=== PATIENT | female | born 1955 | race Caucasian/White ===

== ENCOUNTER 2019-04-18 09:04 | Emergency (ER) | payer MEDICAID, OTHER ==
--- OUTSIDE RECORDS SUMMARY | 2019-04-18 09:05 | XMS REPORT ---
:1955 [facility] Address [address] [place] [address] Dr. Loredo [address] [place] [id number] Care Team Providers Name Role Phone Unavailable Unavailable Unavailable Problems This patient has no known problems. Allergies, Adverse Reactions, Alerts This patient has no known allergies or adverse reactions. Medications This patient has no known medications.
[2019-04-18] MEDS ORDERED: NA CHLORIDE 0.9% 1,000 ML ONE (09:33)
[2019-04-18 10:16] LABS: Absolute Lymphocytes (CBC) 1.8 K/uL (0.7-4.9); Basophils % 0.9 % (0-1.3); Hematocrit 44.8 % (36.0-45.0); Lymphocytes % 32.1 % (15.3-44.8); MPV 9.7 fL (7.6-11.3); RBC Red Blood Cell Count 4.94 M/uL (3.86-4.86)
[2019-04-18 10:17] LABS: Protime INR 0.92
[2019-04-18 10:23] LABS: Barbiturates NEGATIVE (NEGATIVE); Benzodiazepines NEGATIVE (NEGATIVE); Cocaine NEGATIVE (NEGATIVE); METHAMPHETAM NEGATIVE (NEGATIVE); Methadone NEGATIVE (NEGATIVE); Opiates NEGATIVE (NEGATIVE); Phencyclidine NEGATIVE (NEGATIVE); THC Cannibis POSITIVE (NEGATIVE)
--- NOTE | 2019-04-18 10:30 | RAD REPORT ---
EXAM DESCRIPTION: RAD - Chest Single View - 04/18/2019 9:36 am CLINICAL HISTORY: Weakness, shortness of breath COMPARISON: September 2012 TECHNIQUE: AP portable chest image was obtained 0932 hour . FINDINGS: No focal mass or consolidation is seen. Diffuse interstitial opacification is present. Thi s is more pronounced than seen in 2013 and could represent an acute interstitial edema or infiltrate as well as progressive interstitial fibrosis. Trachea is midline. Heart and vasculature are within no rmal limits. No measurable pleural effusion and no pneumothorax. No acute bony abnormality seen. No acute aortic findings suspected. IMPRESSION: Diffuse interstitial pattern increased over 2013. No focal mass or consolidation. Interval change could indicate progressive fibrosis or an acute interstitial edema/ infiltrate proces s.
[2019-04-18 10:34] LABS: ALT/SGPT 25 U/L (12-78); AST/SGOT 8 U/L (15-37); Alkaline Phosphatase 82 U/L (45-117); BUN Blood Urea Nitrogen 18 mg/dL (7-18); Bicarbonate 23 mmol/L (21-32); Bilirubin Direct 0.1 mg/dL (0-0.2); Bilirubin Total 0.4 mg/dL (0.2-1.0); Glucose Level 97 mg/dL (74-106); Magnesium 2.5 mg/dL (1.8-2.4); NT PRO-BNP 29 pg/mL (<125); Potassium 3.7 mmol/L (3.5-5.1); Protein, Total 7.4 g/dL (6.4-8.2); Sodium Level 142 mmol/L (136-145); Troponin (Emerg Dept Use Only) < 0.02 ng/mL (0.0-0.045)
[2019-04-18 10:43] LABS: Urine Bacteria <20 /HPF (<20); Urine Culture Reflex Order NOT NEEDED; Urine RBC <5 /HPF (NONE SEEN)
[2019-04-18 10:54] LABS: Urine Blood TRACE (NEG); Urine Glucose NEGATIVE (NEG); Urine Protein NEGATIVE (NEG); Urine Specific Gravity <1.005 (1.005-1.030)
--- NOTE | 2019-04-18 11:39 | ER ---
Nurse's Notes [facility] Name: Lia Trejo Age: 64 yrs Sex: Female : 1955 Arrival Date: 04/18/2019 Time: 09:06 Bed 7 Private MD: Diagnosis: Malaise and fatigue;Patient's intentional underdosing of medication regimen due to financial hardship Presentation: 04/18 09:15 Presenting complaint: Patient states: "I've just been feeling weak and dizzy off and on ss for the past week, but this morning it is much worse." Patient has been out of most of her medications and has not taken any in a few weeks. Patient reports smoking marijuana this morning to see if it would help, but reports that it made her feel worse/ anixous. Transition of care: patient was not received from another setting of care. Onset of symptoms was April 12, 2019. Risk Assessment: Do you want to hurt yourself or someone else? Patient reports no desire to harm self or others. Initial Sepsis Screen: Does the patient meet any 2 criteria? No. Patient's initial sepsis screen is negative. Does the patient have a suspected source of infection? No. Patient's initial sepsis screen is negative. Note Patient checked her blood sugar this morning and reported it read 20 and is concerned that her Glucometer is not working properly. Care prior to arrival: None. 09:15 Method Of Arrival: Ambulatory ss 09:15 Acuity: BRAYDEN 3 ss 09:25 Presenting complaint: Patient states: SUBJECTIVE HYPOGLYCEMIA. Transition of care: bp patient was not received from another setting of care. Onset of symptoms is unknown. Risk Assessment: Do you want to hurt yourself or someone else? Patient reports no desire to harm self or others. Initial Sepsis Screen: Does the patient meet any 2 criteria? No. Patient's initial sepsis screen is negative. Does the patient have a suspected source of infection? No. Patient's initial sepsis screen is negative. Care prior to arrival: None. 09:25 Method Of Arrival: Wheelchair bp 09:25 Acuity: BRAYDEN 3 bp Triage Assessment: 09:12 General: Appears in no apparent distress. comfortable, Behavior is cooperative, bp appropriate for age, anxious. Pain: Denies pain. EENT: No deficits noted. Neuro: Level of Consciousness is awake, alert, obeys commands, Oriented to person, place, time, situation, Appropriate for age Reports SHAKINESS. Cardiovascular: No deficits noted. Respiratory: No deficits noted. GI: No signs and/or symptoms were reported involving the gastrointestinal system. : No signs and/or symptoms were reported regarding the genitourinary system. Derm: No deficits noted. Musculoskeletal: No deficits noted. Historical: - Allergies: 09:26 Codeine; ss 09:26 PENICILLINS; ss 09:26 Sulfa (Sulfonamide Antibiotics); ss 09:26 Codeine; bp 09:26 PENICILLINS; bp 09:26 Sulfa (Sulfonamide Antibiotics); bp - Home Meds: 09:26 PT NON-COMPLIANT WITH MEDS [Active]; bp - PMHx: 09:26 Anxiety; COPD; Crohn's; Depression; Bipolar disorder; ss 09:26 Anxiety; Bipolar disorder; COPD; Crohn's; Depression; bp - PSHx: 09:26 Tubal ligation; Hysterectomy; knot removed from groin; Cholecystectomy; ss - Immunization history:: Adult Immunizations up to date, Adult Immunizations unknown. - Social history:: Smoking status: Smoking status: Patient uses tobacco products, unknown amount. - Ebola Screening: : Patient denies exposure to infectious person Patient denies travel to an Ebola-affected area in the 21 days before illness onset No symptoms or risks identified at this time. Screenin:14 Abuse screen: Denies threats or abuse. Denies injuries from another. Nutritional bp screening: No deficits noted. Tuberculosis screening: No symptoms or risk factors identified. Fall Risk None identified. Assessment: 09:14 General: SEE TRIAGE NOTE. bp 10:30 Reassessment: ALL CURRENT ORDERS COMPLETED, RESULTS PENDING. bp 12:03 Reassessment: PT D/C HOME AMBULATORY WITH FAMILY, DX WITH MALAISE. bp Vital Signs: 09:13 BP 161 / 73; Pulse 74; Resp 16; Temp 98.2; Pulse Ox 98% ; Weight 73.94 kg; Height 5 ft. bp 5 in. (165.10 cm); 09:38 BP 156 / 61; Pulse 66; Resp 17; Pulse Ox 97% ; bp 10:42 BP 149 / 58; Pulse 62; Resp 18; Pulse Ox 98% on R/A; ph 12:04 BP 137 / 69; Pulse 58; Resp 16; Temp 98; Pulse Ox 97% ; bp 09:13 Body Mass Index 27.13 (73.94 kg, 165.10 cm) bp ED Course: 09:06 Patient arrived in ED. as 09:07 Bubba Post MD is Attending Physician. rn 09:08 Ananya Colon FNP-C [facility]. snw 09:08 Roosevelt Noel, RN is Primary Nurse. bp 09:14 Arm band placed on left wrist. bp 09:14 Patient has correct armband on for positive identification. Placed in gown. Bed in low bp position. Call light in reach. Side rails up X2. Adult w/ patient. 09:25 Triage completed. bp 09:25 Inserted saline lock: 20 gauge in right antecubital area, using aseptic technique. bp 09:39 EKG done, by ED staff, reviewed by Bubba Post MD. mh5 09:40 XRAY Chest (1 view) In Process Unspecified. EDMS 10:11 Urine collected: clean catch specimen, clear, Amount Voided: 240mL. mh5 10:15 UDS Sent. mh5 10:16 Urine Microscopic Only Sent. mh5 12:04 No provider procedures requiring assistance completed. bp 12:05 IV discontinued, intact, bleeding controlled, No redness/swelling at site. Pressure bp dressing applied. Administered Medications: 09:30 Drug: NS 0.9% 1000 ml Route: IV; Rate: 125 ml/hr; Site: right antecubital; bp 12:03 Follow up: IV Status: Completed infusion; IV Intake: 300ml bp 10:09 Drug: NS 0.9% 500 ml Route: IV; Rate: bolus; Site: right antecubital; bp 12:02 Follow up: IV Status: Completed infusion; IV Intake: 500ml bp Point of Care Testing: Blood Glucose: 09:26 Blood Glucose: 97 mg/dL; ss Ranges: Intake: 12:02 IV: 500ml; Total: 500ml. bp 12:03 IV: 300ml; Total: 800ml. bp Outcome: 11:39 Discharge ordered by . snw 12:04 Discharged to home ambulatory, with family. bp 12:04 Condition: stable 12:04 Discharge instructions given to patient, Instructed on discharge instructions, follow up and referral plans. Demonstrated understanding of instructions, follow-up care. 12:06 Patient left the ED. bp Signatures: Dispatcher [employer] EDMS Ananya Colon, API DEVELOPER-C API DEVELOPER-Csnw Sujey Sim Roman, MD MD rn Smirch, Shelby, RN RN Kasandra Guerra RN RN Makeda Sim [facility] Roosevelt Noel RN RN bp Corrections: (The following items were deleted from the chart) 09:14 09:13 BP 161 / 73; Pulse 74bpm; Resp 16bpm; Pulse Ox 98%; 73.94 kg; Height 5 ft. 5 in.; bp BMI: 27.1; bp
--- NOTE | 2019-04-18 11:40 | EDPHYS ---
Physician Documentation [facility] Name: Lia Trejo Age: 64 yrs Sex: Female : 1955 Arrival Date: 04/18/2019 Time: 09:06 Bed 7 Private MD: ED Physician Bubba Post HPI: 04/18 09:16 This 64 yrs old Female presents to ER via Unassigned with complaints of Low snw Blood Sugar. 09:16 The patient or guardian reports generalized weakness, palpitations, that was snw potentially precipitated by stopping meds. Onset: The symptoms/episode began/occurred gradually, 1 week(s) ago, and became worse this morning. Associated signs and symptoms: Pertinent positives: shaky, weak. Current symptoms: In the emergency department the patient's symptoms are unchanged from the initial presentation. It is unknown whether or not the patient has had similar symptoms in the past. The patient has not recently seen a physician, the patient's primary care provider is Dr. Abiodun Mendoza NP. Historical: - Allergies: 09:26 Codeine; ss 09:26 PENICILLINS; ss 09:26 Sulfa (Sulfonamide Antibiotics); ss 09:26 Codeine; bp 09:26 PENICILLINS; bp 09:26 Sulfa (Sulfonamide Antibiotics); bp - Home Meds: 09:26 PT NON-COMPLIANT WITH MEDS [Active]; bp - PMHx: 09:26 Anxiety; COPD; Crohn's; Depression; Bipolar disorder; ss 09:26 Anxiety; Bipolar disorder; COPD; Crohn's; Depression; bp - PSHx: 09:26 Tubal ligation; Hysterectomy; knot removed from groin; Cholecystectomy; ss - Immunization history:: Adult Immunizations up to date, Adult Immunizations unknown. - Social history:: Smoking status: Smoking status: Patient uses tobacco products, unknown amount. - Ebola Screening: : Patient denies exposure to infectious person Patient denies travel to an Ebola-affected area in the 21 days before illness onset No symptoms or risks identified at this time. ROS: 09:15 Eyes: Negative for injury, pain, redness, and discharge, ENT: Negative for injury, snw pain, and discharge, Neck: Negative for injury, pain, and swelling, Cardiovascular: Negative for chest pain, palpitations, and edema, Respiratory: Negative for shortness of breath, cough, wheezing, and pleuritic chest pain, Abdomen/GI: Negative for abdominal pain, nausea, vomiting, diarrhea, and constipation, Back: Negative for injury and pain, : Negative for injury, bleeding, discharge, and swelling, MS/Extremity: Negative for injury and deformity, Skin: Negative for injury, rash, and discoloration. 09:15 Constitutional: Positive for fatigue, malaise. 09:15 Neuro: Positive for generalized weakness, shaky. 09:15 Psych: Positive for off all psych meds 2nd to financial issues. Exam: 09:14 Constitutional: This is a well developed, well nourished patient who is awake, alert, snw and in no acute distress. Head/Face: Normocephalic, atraumatic. Eyes: Pupils equal round and reactive to light, extra-ocular motions intact. Lids and lashes normal. Conjunctiva and sclera are non-icteric and not injected. Cornea within normal limits. Periorbital areas with no swelling, redness, or edema. ENT: Nares patent. No nasal discharge, no septal abnormalities noted. Tympanic membranes are normal and external auditory canals are clear. Oropharynx with no redness, swelling, or masses, exudates, or evidence of obstruction, uvula midline. Mucous membranes moist. Edentulous Neck: Trachea midline, no thyromegaly or masses palpated, and no cervical lymphadenopathy. Supple, full range of motion without nuchal rigidity, or vertebral point tenderness. No Meningismus. Chest/axilla: Normal chest wall appearance and motion. Nontender with no deformity. No lesions are appreciated. Cardiovascular: Regular rate and rhythm with a normal S1 and S2. No gallops, murmurs, or rubs. Normal PMI, no JVD. No pulse deficits. Respiratory: Lungs have equal breath sounds bilaterally, clear to auscultation and percussion. No rales, rhonchi or wheezes noted. No increased work of breathing, no retractions or nasal flaring. Abdomen/GI: Soft, non-tender, with normal bowel sounds. No distension or tympany. No guarding or rebound. No evidence of tenderness throughout. Back: No spinal tenderness. No costovertebral tenderness. Full range of motion. Skin: Warm, dry with normal turgor. Normal color with no rashes, no lesions, and no evidence of cellulitis. MS/ Extremity: Pulses equal, no cyanosis. Neurovascular intact. Full, normal range of motion. Neuro: Awake and alert, GCS 15, oriented to person, place, time, and situation. Cranial nerves II-XII grossly intact. Motor strength 5/5 in all extremities. Sensory grossly intact. Cerebellar exam normal. Normal gait. Psych: Awake, alert, with orientation to person, place and time. Behavior, mood, and affect are within normal limits. Vital Signs: 09:13 BP 161 / 73; Pulse 74; Resp 16; Temp 98.2; Pulse Ox 98% ; Weight 73.94 kg; Height 5 ft. bp 5 in. (165.10 cm); 09:38 BP 156 / 61; Pulse 66; Resp 17; Pulse Ox 97% ; bp 10:42 BP 149 / 58; Pulse 62; Resp 18; Pulse Ox 98% on R/A; ph 12:04 BP 137 / 69; Pulse 58; Resp 16; Temp 98; Pulse Ox 97% ; bp 09:13 Body Mass Index 27.13 (73.94 kg, 165.10 cm) bp MDM: 09:07 Patient medically screened. rn 11:40 Data reviewed: vital signs, nurses notes. Data interpreted: Pulse oximetry: on room air snw is 98 %. Interpretation: normal. Counseling: I had a detailed discussion with the patient and/or guardian regarding: the historical points, exam findings, and any diagnostic results supporting the discharge/admit diagnosis, the presence of at least one elevated blood pressure reading (>120/80) during this emergency department visit, lab results, radiology results, the need for outpatient follow up, to return to the emergency department if symptoms worsen or persist or if there are any questions or concerns that arise at home. Special discussion: Based on the history and exam findings, there is no indication for further emergent testing or inpatient evaluation. I discussed with the patient/guardian the need to see the primary care provider for further evaluation of the symptoms. 04/18 09:14 Order name: UDS; Complete Time: 10:31 snw 04/18 09:14 Order name: Basic Metabolic Panel; Complete Time: 10:35 snw 04/18 09:14 Order name: CBC with Diff; Complete Time: 10:31 snw 04/18 09:14 Order name: LFT's; Complete Time: 10:35 snw 04/18 09:14 Order name: Magnesium; Complete Time: 10:35 snw 04/18 09:14 Order name: NT PRO-BNP; Complete Time: 10:35 snw 04/18 09:14 Order name: PT-INR; Complete Time: 10:31 snw 04/18 09:14 Order name: Troponin (emerg Dept Use Only); Complete Time: 10:35 snw 04/18 09:14 Order name: XRAY Chest (1 view); Complete Time: 10:32 snw 04/18 09:14 Order name: TSH; Complete Time: 10:35 snw 04/18 09:14 Order name: Urine Microscopic Only; Complete Time: 10:55 snw 04/18 10:51 Order name: Urine Dipstick--Ancillary (enter results) bd 04/18 09:14 Order name: EKG; Complete Time: 09:16 snw 04/18 09:14 Order name: Cardiac monitoring; Complete Time: 09:24 snw 04/18 09:14 Order name: EKG - Nurse/Tech; Complete Time: 09:38 snw 04/18 09:14 Order name: IV Saline Lock; Complete Time: 09:24 snw 04/18 09:14 Order name: Labs collected and sent; Complete Time: 09:24 snw 04/18 09:14 Order name: O2 Per Protocol; Complete Time: 09:24 snw 04/18 09:14 Order name: O2 Sat Monitoring; Complete Time: 09:24 snw 04/18 09:14 Order name: Urine Dipstick-Ancillary (obtain specimen); Complete Time: 10:16 snw Administered Medications: 09:30 Drug: NS 0.9% 1000 ml Route: IV; Rate: 125 ml/hr; Site: right antecubital; bp 12:03 Follow up: IV Status: Completed infusion; IV Intake: 300ml bp 10:09 Drug: NS 0.9% 500 ml Route: IV; Rate: bolus; Site: right antecubital; bp 12:02 Follow up: IV Status: Completed infusion; IV Intake: 500ml bp Point of Care Testing: Blood Glucose: 09:26 Blood Glucose: 97 mg/dL; ss Ranges: Critical Glucose Levels:Adult <50 mg/dl or >400 mg/dl <40 mg/dl or >180 mg/dl Disposition: 17:53 Co-signature as Attending Physician, Bubba Post MD. rn Disposition: 04/18/19 11:39 Discharged to Home. Impression: Malaise and fatigue, Patient's intentional underdosing of medication regimen due to financial hardship. - Condition is Stable. - Discharge Instructions: Weakness, Fatigue. - Medication Reconciliation Form, Thank You Letter, Antibiotic Education, Prescription Opioid Use form. - Follow up: Private Physician; When: 2 - 3 days; Reason: Recheck today's complaints, Continuance of care, Re-evaluation by your physician. Follow up: Emergency Department; When: As needed; Reason: Worsening of condition. Signatures: Dispatcher [employer] EDMS Ananya Colon, RADIO REPAIRMAN-C RADIO REPAIRMAN-Csnw Bubba Post MD MD rn Regine Stone RN RN Roosevelt Rao RN RN bp Corrections: (The following items were deleted from the chart) 12:06 11:39 04/18/2019 11:39 Discharged to Home. Impression: Malaise and fatigue; Patient's bp intentional underdosing of medication regimen due to financial hardship. Condition is Stable. Forms are Medication Reconciliation Form, Thank You Letter, Antibiotic Education, Prescription Opioid Use. Follow up: Private Physician; When: 2 - 3 days; Reason: Recheck today's complaints, Continuance of care, Re-evaluation by your physician. Follow up: Emergency Department; When: As needed; Reason: Worsening of condition. snw
[2019-04-18 12:29] VITALS: BP 137/69; TEMP 98; O2SAT 97
--- NOTE | 2019-04-18 15:33 | EKG ---
Test Date: 2019-04-18 Test Time: 09:34:31 Cadmium Plater: DWAINE MEASUREMENT RESULTS: Intervals: Rate: 69 SD: 162 QRSD: 84 QT: 420 QTc: 450 [place]: P: 72 SD: 162 QRS: 58 T: 62 INTERPRETIVE STATEMENTS: Normal sinus rhythm Possible Left atrial enlargement T wave abnormality, consider anterior ischemia Abnormal ECG Compared to ECG 05/15/2016 14:00:48 T-wave abnormality now present Possible ischemia now present Sinus bradycardia no longer present Electronically Signed On 04-18-19 15:32:49 CDT by Kenny Paredes
== END 2019-04-18 12:06 | disposition home or self-care (01) ==
LOC: ER 09:04
DX: R53.81 Other malaise (principal); R53.83 Other fatigue; Z91.120 Patient's intentional underdosing of medication regimen due to financial hardship; Z88.6 Allergy status to analgesic agent; Z88.0 Allergy status to penicillin; Z88.2 Allergy status to sulfonamides; Z72.0 Tobacco use
CPT/HCPCS: 96361; 93005; 85025; 80048; 36415; 83735; 85610; 82962; 80076; 80307 ×8; 84443; 84484; 83880; 71045; 96360; 99284; J7030; 81003; 81015

== ENCOUNTER 2019-08-12 03:20 | Emergency (ER) | payer MEDICAID ==
--- OUTSIDE RECORDS SUMMARY | 2019-08-12 03:22 | XMS REPORT ---
:1955 [facility] Address [address] [place] [address] Dr. Loredo [address] [place] [id number] Care Team Providers Name Role Phone Unavailable Unavailable Unavailable Problems This patient has no known problems. Allergies, Adverse Reactions, Alerts This patient has no known allergies or adverse reactions. Medications This patient has no known medications.
[2019-08-12 04:15] LABS: Protime INR 1.03
[2019-08-12 04:21] LABS: Hematocrit 43.2 % (36.0-45.0); Lymphocytes % 45.6 % (15.3-44.8); MPV 9.3 fL (7.6-11.3); RBC Red Blood Cell Count 4.85 M/uL (3.86-4.86)
[2019-08-12 04:36] LABS: ALT/SGPT 17 U/L (12-78); AST/SGOT 12 U/L (15-37); Albumin 3.8 g/dL (3.4-5.0); Alkaline Phosphatase 81 U/L (45-117); BUN Blood Urea Nitrogen 15 mg/dL (7-18); Bicarbonate 25 mmol/L (21-32); Bilirubin Direct 0.2 mg/dL (0-0.2); Bilirubin Total 0.9 mg/dL (0.2-1.0); Glucose Level 102 mg/dL (74-106); Magnesium 2.4 mg/dL (1.8-2.4); NT PRO-BNP 38 pg/mL (<125); Potassium 3.3 mmol/L (3.5-5.1); Sodium Level 141 mmol/L (136-145); Troponin (Emerg Dept Use Only) < 0.02 ng/mL (0.0-0.045)
--- NOTE | 2019-08-12 05:17 | ER ---
Nurse's Notes [facility] Name: Lia Trejo Age: 64 yrs Sex: Female : 1955 Arrival Date: 08/12/2019 Time: 03:22 Bed 20 Private MD: Diagnosis: Anxiety disorder, unspecified;Palpitations Presentation: 08/12 03:25 Presenting complaint: Patient states: "I have been having the feeling like you can feel ca1 your heartbeat and like it's coming too fast. Been feeling this for about a month now." pt reports cough, congestion, nausea and dizziness. Denies vomiting and fever. Pt also reports to have anxiety disorder which she takes meds for but has stopped taken since February because of insurance issues, but has reported to have started taking them back again since yesterday. VS stable, EKG sinus rhythm. Transition of care: patient was not received from another setting of care. Onset of symptoms was August 12, 2019. Risk Assessment: Do you want to hurt yourself or someone else? Patient reports no desire to harm self or others. Initial Sepsis Screen: Does the patient meet any 2 criteria? No. Patient's initial sepsis screen is negative. Does the patient have a suspected source of infection? No. Patient's initial sepsis screen is negative. Care prior to arrival: None. 03:25 Method Of Arrival: Wheelchair ca1 03:25 Acuity: BRAYDEN 3 ca1 Triage Assessment: 03:47 General: Appears in no apparent distress. comfortable, Behavior is calm, cooperative, ca1 appropriate for age. Pain: Denies pain. EENT: No deficits noted. No signs and/or symptoms were reported regarding the EENT system. Neuro: Level of Consciousness is awake, alert, obeys commands, Oriented to person, place, time, situation, Appropriate for age. Cardiovascular: Heart tones S1 S2 present Capillary refill < 3 seconds Patient's skin is warm and dry. Rhythm is sinus rhythm. Respiratory: Airway is patent Respiratory effort is even, unlabored, Respiratory pattern is regular, symmetrical, Breath sounds are clear bilaterally. GI: Abdomen is flat, non-distended, Bowel sounds present X 4 quads. Abd is soft and non tender X 4 quads. : No deficits noted. No signs and/or symptoms were reported regarding the genitourinary system. Derm: Skin is intact, is healthy with good turgor, Skin is pink, warm \\T\\ dry. Musculoskeletal: Circulation, motion, and sensation intact. Capillary refill < 3 seconds, Range of motion: intact in all extremities. Historical: - Allergies: 03:47 Codeine; ca1 03:47 PENICILLINS; ca1 03:47 Sulfa (Sulfonamide Antibiotics); ca1 - Home Meds: 03:47 Trazodone Oral [Active]; Seroquel Oral [Active]; Simvastatin Oral [Active]; divalproex ca1 oral oral [Active]; - PMHx: 03:47 Anxiety; Bipolar disorder; COPD; Crohn's; Depression; Hypertension; Hyperlipidemia; ca1 Thyroid problem; - PSHx: 03:47 Tubal ligation; Hysterectomy; knot removed from groin; Cholecystectomy; ca1 - Immunization history:: Adult Immunizations not up to date, Pneumococcal vaccine is not up to date, Flu vaccine is not up to date. - Social history:: Smoking status: Patient uses tobacco products, smokes one pack cigarettes per day. - Ebola Screening: : Patient negative for fever greater than or equal to 101.5 degrees Fahrenheit, and additional compatible Ebola Virus Disease symptoms Patient denies exposure to infectious person Patient denies travel to an Ebola-affected area in the 21 days before illness onset No symptoms or risks identified at this time. Screenin:40 Abuse screen: Denies threats or abuse. Denies injuries from another. Nutritional ca1 screening: No deficits noted. Tuberculosis screening: No symptoms or risk factors identified. Fall Risk IV access (20 points). Assessment: 03:40 Reassessment: SEE TRIAGE NOTES. Pain: Denies pain. Pain does not radiate. Pain began ca1 denies pain. 04:59 Reassessment: Patient appears in no apparent distress at this time. Patient is alert, ca1 oriented x 3, equal unlabored respirations, skin warm/dry/pink. 05:31 Reassessment: Patient appears in no apparent distress at this time. Patient is alert, ca1 oriented x 3, equal unlabored respirations, skin warm/dry/pink. Vital Signs: 03:25 BP 178 / 76; Pulse 85; Resp 15 S; Temp 98.5(O); Pulse Ox 96% on R/A; Weight 64.86 kg ca1 (R); Height 5 ft. 5 in. (165.10 cm) (R); Pain 0/10; 04:05 BP 160 / 78; Pulse 61; Resp 17 S; Pulse Ox 95% on R/A; ca1 04:45 BP 147 / 51; Pulse 58; Resp 17 S; Pulse Ox 93% on R/A; ca1 05:31 BP 137 / 68; Pulse 76; Resp 17 S; Pulse Ox 95% on R/A; ca1 03:25 Body Mass Index 23.79 (64.86 kg, 165.10 cm) ca1 ED Course: 03:22 Patient arrived in ED. ds1 03:25 Arm band placed on right wrist. EKG completed in triage. Results shown to MD. ca1 03:29 Haider Nixon MD is Attending Physician. kdr 03:38 Roxanna López, MAYA is Primary Nurse. ca1 03:40 Patient has correct armband on for positive identification. Placed in gown. Bed in low ca1 position. Call light in reach. Side rails up X 1. cardiac monitor on. Pulse ox on. NIBP on. Warm blanket given. 03:40 No provider procedures requiring assistance completed. Patient maintains SpO2 ca1 saturation greater than 95% on room air. 03:43 Triage completed. ca1 03:45 XRAY Chest (1 view) In Process Unspecified. EDMS 03:52 Initial lab(s) drawn, by ED staff, sent to lab. Inserted saline lock: 20 gauge in right ca1 forearm, using aseptic technique. ,using aseptic technique. by MAYA Osuna Blood collected. 05:42 IV discontinued, intact, bleeding controlled, No redness/swelling at site. Pressure ca1 dressing applied. Administered Medications: No medications were administered Outcome: 05:17 Discharge ordered by . kdr 05:42 Discharged to home ambulatory, with family. ca1 05:42 Condition: stable 05:42 Discharge instructions given to patient, Instructed on discharge instructions, follow up and referral plans. Demonstrated understanding of instructions, follow-up care. 05:43 Patient left the ED. ca1 Signatures: Dispatcher [employer] EDMS Haider Nixon MD MD [facility] Cristin Craven ds1 Roxanna López RN RN ca1 Corrections: (The following items were deleted from the chart) 03:50 03:47 BP 178 / 76; Pulse 85bpm; Resp 15bpm; Spontaneous; Pulse Ox 96% RA; Temp 98.5F ca1 Oral; 64.86 kg Reported; Height 5 ft. 5 in. Reported; BMI: 23.8; Pain 0/10; ca1
--- NOTE | 2019-08-12 05:18 | EDPHYS ---
Physician Documentation [facility] Name: Lia Trejo Age: 64 yrs Sex: Female : 1955 Arrival Date: 08/12/2019 Time: 03:22 Bed 20 Private MD: ED Physician Haider Nixon HPI: 08/12 03:49 This 64 yrs old Female presents to ER via Wheelchair with complaints of kdr Dizziness, Irregular Pulse, Weakness. 03:50 The patient presents with a history of irregular heart beat, Slow, hard beats. Context: kdr The symptoms occur at rest, during sleep, with anxiety. Onset: The symptoms/episode began/occurred suddenly, just prior to arrival. Duration: The patient or guardian reports multiple episodes, that have now resolved, that wax and wane, with no pattern. Modifying factors: The symptoms are aggravated by anxiety, The symptoms are alleviated by nothing. Associated signs and symptoms: Pertinent positives: anxiety, lightheadedness, Pertinent negatives: chest pain, cough, fever, nausea, SOB, syncope, near-syncope, unusual stressors, vertigo, vomiting. Severity of symptoms: At their worst the symptoms were mild in the emergency department the symptoms have resolved. The patient has experienced similar episodes in the past, multiple times, The patient states that she has had several recent ED visits for similar issues. The patient has not recently seen a physician. Historical: - Allergies: 03:47 Codeine; ca1 03:47 PENICILLINS; ca1 03:47 Sulfa (Sulfonamide Antibiotics); ca1 - Home Meds: 03:47 Trazodone Oral [Active]; Seroquel Oral [Active]; Simvastatin Oral [Active]; divalproex ca1 oral oral [Active]; - PMHx: 03:47 Anxiety; Bipolar disorder; COPD; Crohn's; Depression; Hypertension; Hyperlipidemia; ca1 Thyroid problem; - PSHx: 03:47 Tubal ligation; Hysterectomy; knot removed from groin; Cholecystectomy; ca1 - Immunization history:: Adult Immunizations not up to date, Pneumococcal vaccine is not up to date, Flu vaccine is not up to date. - Social history:: Smoking status: Patient uses tobacco products, smokes one pack cigarettes per day. - Ebola Screening: : Patient negative for fever greater than or equal to 101.5 degrees Fahrenheit, and additional compatible Ebola Virus Disease symptoms Patient denies exposure to infectious person Patient denies travel to an Ebola-affected area in the 21 days before illness onset No symptoms or risks identified at this time. ROS: 03:50 Constitutional: Negative for fever, chills, and weight loss, Eyes: Negative for injury, kdr pain, redness, and discharge, ENT: Negative for injury, pain, and discharge, Neck: Negative for injury, pain, and swelling, Respiratory: Negative for shortness of breath, cough, wheezing, and pleuritic chest pain, Abdomen/GI: Negative for abdominal pain, nausea, vomiting, diarrhea, and constipation, Back: Negative for injury and pain, : Negative for injury, bleeding, discharge, and swelling, MS/Extremity: Negative for injury and deformity, Skin: Negative for injury, rash, and discoloration, Neuro: Negative for headache, weakness, numbness, tingling, and seizure activity. Psych: Negative for depression, anxiety, suicide ideation, homicidal ideation, and hallucinations, Allergy/Immunology: Negative for hives, rash, and allergies, Endocrine: Negative for neck swelling, polydipsia, polyuria, polyphagia, and marked weight changes, Hematologic/Lymphatic: Negative for swollen nodes, abnormal bleeding, and unusual bruising. 03:50 Cardiovascular: Positive for palpitations, Negative for chest pain, edema, orthopnea, paroxysmal nocturnal dyspnea. Exam: 03:50 Constitutional: This is a well developed, well nourished patient who is awake, alert, kdr and in no acute distress. Head/Face: Normocephalic, atraumatic. Eyes: Pupils equal round and reactive to light, extra-ocular motions intact. Lids and lashes normal. Conjunctiva and sclera are non-icteric and not injected. Cornea within normal limits. Periorbital areas with no swelling, redness, or edema. Neck: Trachea midline, no thyromegaly or masses palpated, and no cervical lymphadenopathy. Supple, full range of motion without nuchal rigidity, or vertebral point tenderness. No Meningismus. Chest/axilla: Normal chest wall appearance and motion. Nontender with no deformity. No lesions are appreciated. Cardiovascular: Regular rate and rhythm with a normal S1 and S2. No gallops, murmurs, or rubs. Normal PMI, no JVD. No pulse deficits. Respiratory: Lungs have equal breath sounds bilaterally, clear to auscultation and percussion. No rales, rhonchi or wheezes noted. No increased work of breathing, no retractions or nasal flaring. Abdomen/GI: Soft, non-tender, with normal bowel sounds. No distension or tympany. No guarding or rebound. No evidence of tenderness throughout. Back: No spinal tenderness. No costovertebral tenderness. Full range of motion. Skin: Warm, dry with normal turgor. Normal color with no rashes, no lesions, and no evidence of cellulitis. MS/ Extremity: Pulses equal, no cyanosis. Neurovascular intact. Full, normal range of motion. Neuro: Awake and alert, GCS 15, oriented to person, place, time, and situation. Cranial nerves II-XII grossly intact. Motor strength 5/5 in all extremities. Sensory grossly intact. Cerebellar exam normal. Normal gait. Psych: Awake, alert, with orientation to person, place and time. Behavior, mood, and affect are within normal limits. Vital Signs: 03:25 BP 178 / 76; Pulse 85; Resp 15 S; Temp 98.5(O); Pulse Ox 96% on R/A; Weight 64.86 kg ca1 (R); Height 5 ft. 5 in. (165.10 cm) (R); Pain 0/10; 04:05 BP 160 / 78; Pulse 61; Resp 17 S; Pulse Ox 95% on R/A; ca1 04:45 BP 147 / 51; Pulse 58; Resp 17 S; Pulse Ox 93% on R/A; ca1 05:31 BP 137 / 68; Pulse 76; Resp 17 S; Pulse Ox 95% on R/A; ca1 03:25 Body Mass Index 23.79 (64.86 kg, 165.10 cm) ca1 MDM: 03:50 Data reviewed: vital signs, nurses notes, lab test result(s), EKG, radiologic studies. kdr Counseling: I had a detailed discussion with the patient and/or guardian regarding: the historical points, exam findings, and any diagnostic results supporting the discharge/admit diagnosis, lab results, radiology results, the need for outpatient follow up. 05:17 Patient medically screened. kdr 08/12 03:30 Order name: Basic Metabolic Panel; Complete Time: 05:15 kdr 08/12 03:30 Order name: CBC with Diff; Complete Time: 04:27 kdr 08/12 03:30 Order name: LFT's; Complete Time: 05:15 [facility] 08/12 03:30 Order name: Magnesium; Complete Time: 05:15 [facility] 08/12 03:30 Order name: NT PRO-BNP; Complete Time: 05:15 [facility] 08/12 03:30 Order name: PT-INR; Complete Time: 04:27 [facility] 08/12 03:30 Order name: Troponin (emerg Dept Use Only); Complete Time: 05:15 [facility] 08/12 03:30 Order name: XRAY Chest (1 view) kdr 08/12 03:30 Order name: EKG; Complete Time: 03:31 [facility] 08/12 03:30 Order name: Cardiac monitoring; Complete Time: 03:51 [facility] 08/12 03:30 Order name: EKG - Nurse/Tech; Complete Time: 03:51 [facility] 08/12 03:30 Order name: IV Saline Lock; Complete Time: 03:51 [facility] 08/12 03:30 Order name: Labs collected and sent; Complete Time: 03:51 [facility] 08/12 03:30 Order name: O2 Per Protocol; Complete Time: 03:52 kdr 08/12 03:30 Order name: O2 Sat Monitoring; Complete Time: 03:52 kdr Administered Medications: No medications were administered Disposition: 08/12/19 05:17 Discharged to Home. Impression: Anxiety disorder, unspecified, Palpitations. - Condition is Stable. - Discharge Instructions: Panic Attacks, [id number], Palpitations, Cwko-ih-Erxy, Generalized Anxiety Disorder. - Medication Reconciliation Form, Thank You Letter form. - Follow up: Private Physician; When: 2 - 3 days; Reason: If symptoms return, Further diagnostic work-up, Recheck today's complaints, Continuance of care, Re-evaluation by your physician. - Problem is an ongoing problem. - Symptoms are resolved. - Notes: Continue current medications Signatures: Dispatcher [employer] EDMS Haider Nixon MD MD kdr Roxanna López RN RN ca1 Corrections: (The following items were deleted from the chart) 05:43 05:17 08/12/2019 05:17 Discharged to Home. Impression: Anxiety disorder, unspecified; ca1 Palpitations. Condition is Stable. Forms are Medication Reconciliation Form, Thank You Letter, Antibiotic Education, Prescription Opioid Use. Follow up: Private Physician; When: 2 - 3 days; Reason: If symptoms return, Further diagnostic work-up, Recheck today's complaints, Continuance of care, Re-evaluation by your physician. Problem is an ongoing problem. Symptoms are resolved. kdr
[2019-08-12 05:50] VITALS: TEMP 98.5
[2019-08-12 05:54] VITALS: BP 137/68; O2SAT 95
--- NOTE | 2019-08-12 08:05 | EKG ---
Test Date: 2019-08-12 Test Time: 03:36:32 Visitor Information Assistant: NARESH MEASUREMENT RESULTS: Intervals: Rate: 67 VT: 142 QRSD: 80 QT: 420 QTc: 443 [place]: P: 61 VT: 142 QRS: 51 T: 60 INTERPRETIVE STATEMENTS: Normal sinus rhythm Normal ECG Compared to ECG 04/18/2019 09:34:31 T-wave abnormality no longer present Possible ischemia no longer present Electronically Signed On 08-12-19 08:05:15 COUTIERIER by Kenny Paredes
--- NOTE | 2019-08-12 08:25 | RAD REPORT ---
EXAM DESCRIPTION: RAD - Chest Single View - 08/12/2019 3:48 am CLINICAL HISTORY: Cardiac arrhythmia COMPARISON: April 2019 TECHNIQUE: AP portable chest image was obtained 0345 hours . FINDINGS: No focal mass or consolidation. Interstitial pattern is prominent but unchanged. Heart and vasculature are normal. No measurable pleural effusion and no pneumothorax. No acute bony abnormalit y seen. No acute aortic findings suspected. IMPRESSION: No acute cardiopulmonary process. No significant interval change.
== END 2019-08-12 05:43 | disposition home or self-care (01) ==
LOC: ER 03:20
DX: F41.9 Anxiety disorder, unspecified (principal); I10 Essential (primary) hypertension; F32.9 Major depressive disorder, single episode, unspecified; E07.9 Disorder of thyroid, unspecified; F17.210 Nicotine dependence, cigarettes, uncomplicated; Z88.0 Allergy status to penicillin; Z88.2 Allergy status to sulfonamides; Z88.5 Allergy status to narcotic agent
CPT/HCPCS: 36415; 71045; 80048; 80076; 83735; 83880; 84484; 85025; 85610; 93005; 99285

== ENCOUNTER 2019-08-25 19:08 | Emergency (ER) | payer MEDICAID ==
--- OUTSIDE RECORDS SUMMARY | 2019-08-25 19:11 | XMS REPORT ---
:1955 [facility] Organization [facility] Address [address] [place] [address] Dr. Loredo [address] [place] [id number] Care Team Providers Name Role Phone Unavailable Unavailable Unavailable Problems This patient has no known problems. Allergies, Adverse Reactions, Alerts This patient has no known allergies or adverse reactions. Medications This patient has no known medications.
[2019-08-25] MEDS ORDERED: HYDRALAZINE HCL 20 MG/ML VIAL ONE (20:13)
[2019-08-25 20:21] LABS: Absolute Lymphocytes (CBC) 1.8 K/uL (0.7-4.9); Basophils % 0.6 % (0-1.3); Lymphocytes % 29.3 % (15.3-44.8); MPV 9.8 fL (7.6-11.3); RBC Red Blood Cell Count 4.76 M/uL (3.86-4.86)
[2019-08-25 20:32] LABS: BUN Blood Urea Nitrogen 15 mg/dL (7-18); Bicarbonate 27 mmol/L (21-32); Glucose Level 104 mg/dL (74-106); Potassium 3.7 mmol/L (3.5-5.1); Sodium Level 142 mmol/L (136-145)
[2019-08-25] MEDS ORDERED: LORazepam 2 MG/ML VIAL ONE (20:55)
--- NOTE | 2019-08-25 21:23 | ER ---
Nurse's Notes [facility] Name: Lia Trejo Age: 64 yrs Sex: Female : 1955 Arrival Date: 08/25/2019 Time: 19:11 Bed 23 Private MD: Diagnosis: Anxiety disorder, unspecified Presentation: 08/25 19:15 Presenting complaint: Patient states: "my body has been feeling weird today, it just ca1 started bout an hour ago. But I don't know if it was just anxiety because I'm Bipolar. My arms and legs feel weird too, it feels like they tingle.". Pt ambulatory to triage. Denies dizziness, fever, N/V. Transition of care: patient was not received from another setting of care. Onset of symptoms was August 25, 2019. Risk Assessment: Do you want to hurt yourself or someone else? Patient reports no desire to harm self or others. Initial Sepsis Screen: Does the patient meet any 2 criteria? No. Patient's initial sepsis screen is negative. Does the patient have a suspected source of infection? No. Patient's initial sepsis screen is negative. Care prior to arrival: None. 19:15 Method Of Arrival: Ambulatory ca1 19:15 Acuity: BRAYDEN 3 ca1 Historical: - Allergies: 19:19 Codeine; ca1 19:19 PENICILLINS; ca1 19:19 Sulfa (Sulfonamide Antibiotics); ca1 - PMHx: 19:19 Anxiety; Bipolar disorder; COPD; Crohn's; Depression; Hyperlipidemia; Hypertension; ca1 Thyroid problem; - PSHx: 19:19 Tubal ligation; Hysterectomy; knot removed from groin; Cholecystectomy; ca1 - Immunization history:: Adult Immunizations up to date, Flu vaccine is not up to date. - Social history:: Smoking status: Patient uses tobacco products, smokes two packs cigarettes per day. - Ebola Screening: : Patient negative for fever greater than or equal to 101.5 degrees Fahrenheit, and additional compatible Ebola Virus Disease symptoms Patient denies exposure to infectious person Patient denies travel to an Ebola-affected area in the 21 days before illness onset No symptoms or risks identified at this time. Screenin:51 Abuse screen: Denies threats or abuse. Nutritional screening: No deficits noted. ad1 Tuberculosis screening: No symptoms or risk factors identified. Fall Risk Secondary diagnosis (15 points) medication given via IV. IV access (20 points). Assessment: 20:22 General: Appears uncomfortable, Behavior is anxious. Pain: Complains of pain in neck. ad1 Neuro: No deficits noted. Level of Consciousness is awake, alert, obeys commands, Oriented to person, place, time, situation, Reports tingling to hands and feet.. Cardiovascular: No deficits noted. Rhythm is regular. Respiratory: No deficits noted. GI: reports bloating to abdomen. 21:23 Reassessment: Patient and/or family updated on plan of care and expected duration. Pain ad1 level reassessed. Patient laying in stretcher, eyes closed, even respirations. no apparent distress noted.. Vital Signs: 19:19 BP 197 / 83; Pulse 85; Resp 17 S; Temp 97.3(TE); Pulse Ox 95% on R/A; Weight 63.96 kg ca1 (R); Height 5 ft. 5 in. (165.10 cm) (R); Pain 0/10; 20:35 BP 170 / 67; Pulse 74; Resp 20; Pulse Ox 95% ; ad1 21:24 BP 144 / 61; Pulse 64; Resp 18; Pulse Ox 91% ; ad1 21:25 BP 170 / 67; Pulse 72; Resp 20; Pulse Ox 96% ; ad1 21:50 BP 137 / 60; Pulse 70; Resp 17; Pulse Ox 96% ; ad1 19:19 Body Mass Index 23.46 (63.96 kg, 165.10 cm) ca1 ED Course: 19:11 Patient arrived in ED. cl3 19:18 Triage completed. ca1 19:19 Arm band placed on right wrist. ca1 19:36 Mario Tipton PA is PHCP. jr8 19:36 Edinson Escobedo MD is Attending Physician. jr8 20:04 Troponin (emerg Dept Use Only) Sent. ad1 20:04 Basic Metabolic Panel Sent. ad1 20:04 CBC with Diff Sent. ad1 21:54 No provider procedures requiring assistance completed. IV discontinued, intact, ad1 bleeding controlled. 21:55 Patient has correct armband on for positive identification. ad1 Administered Medications: 20:10 Drug: hydrALAZINE 10 mg Route: IV; Rate: calculated rate; Site: right antecubital; ad1 21:25 Follow up: BP 170 / 67; Pulse 72 bpm; Resp 20 bpm; Pulse Ox 96% ad1 21:57 Follow up: Response: Blood pressure is lowered ad1 20:58 Drug: Ativan 0.5 mg Route: IVP; Site: right antecubital; ad1 21:26 Follow up: Response: Anxiety decreased ad1 Outcome: 21:23 Discharge ordered by MD. silva 21:50 Discharged to home ad1 21:50 Discharged to home via wheelchair, with friend. 21:50 Condition: stable 21:50 Discharge instructions given to patient, Instructed on discharge instructions, follow up and referral plans. Demonstrated understanding of instructions, follow-up care. 21:56 Patient left the ED. ad1 Signatures: Aline Rivera RN RN ad1 Mario Tipton PA PA jr8 Roxanna López RN RN ca1 Elvin Puri cl3
--- NOTE | 2019-08-25 21:23 | EDPHYS ---
Physician Documentation [facility] Name: Lia Trejo Age: 64 yrs Sex: Female : 1955 Arrival Date: 08/25/2019 Time: 19:11 Bed 23 Private MD: ED Physician Edinson Escobedo HPI: 08/25 20:48 This 64 yrs old Female presents to ER via Ambulatory with complaints of Back jr8 Pain, Anxiety. 20:48 Onset: The symptoms/episode began/occurred acutely, today. The pain does not radiate. jr8 Associated signs and symptoms: The patient has no apparent associated signs or symptoms. Modifying factors: The patient symptoms are alleviated by nothing, the patient symptoms are aggravated by nothing. Severity of symptoms: At their worst the symptoms were mild, in the emergency department the symptoms are unchanged. The patient has not experienced similar symptoms in the past. The patient has not recently seen a physician. Patient stated that she suffers from anxiety a lot feels like she is having a panic attack. Generalized back pain with tingling in hands and feet . Historical: - Allergies: 19:19 Codeine; ca1 19:19 PENICILLINS; ca1 19:19 Sulfa (Sulfonamide Antibiotics); ca1 - PMHx: 19:19 Anxiety; Bipolar disorder; COPD; Crohn's; Depression; Hyperlipidemia; Hypertension; ca1 Thyroid problem; - PSHx: 19:19 Tubal ligation; Hysterectomy; knot removed from groin; Cholecystectomy; ca1 - Immunization history:: Adult Immunizations up to date, Flu vaccine is not up to date. - Social history:: Smoking status: Patient uses tobacco products, smokes two packs cigarettes per day. - Ebola Screening: : Patient negative for fever greater than or equal to 101.5 degrees Fahrenheit, and additional compatible Ebola Virus Disease symptoms Patient denies exposure to infectious person Patient denies travel to an Ebola-affected area in the 21 days before illness onset No symptoms or risks identified at this time. ROS: 20:48 Eyes: Negative for injury, pain, redness, and discharge, ENT: Negative for injury, jr8 pain, and discharge, Neck: Negative for injury, pain, and swelling, Cardiovascular: Negative for chest pain, palpitations, and edema, Respiratory: Negative for shortness of breath, cough, wheezing, and pleuritic chest pain, Abdomen/GI: Negative for abdominal pain, nausea, vomiting, diarrhea, and constipation, MS/Extremity: Negative for injury and deformity, Skin: Negative for injury, rash, and discoloration, Neuro: Negative for headache, weakness, numbness, tingling, and seizure. 20:48 Back: Positive for pain at rest, Negative for decreased range of motion, pain with movement, radiated pain. 20:48 Psych: Positive for anxiety. Exam: 20:48 Eyes: Pupils equal round and reactive to light, extra-ocular motions intact. Lids and jr8 lashes normal. Conjunctiva and sclera are non-icteric and not injected. Cornea within normal limits. Periorbital areas with no swelling, redness, or edema. ENT: Nares patent. No nasal discharge, no septal abnormalities noted. Tympanic membranes are normal and external auditory canals are clear. Oropharynx with no redness, swelling, or masses, exudates, or evidence of obstruction, uvula midline. Mucous membranes moist. Neck: Trachea midline, no thyromegaly or masses palpated, and no cervical lymphadenopathy. Supple, full range of motion without nuchal rigidity, or vertebral point tenderness. No Meningismus. Cardiovascular: Regular rate and rhythm with a normal S1 and S2. No gallops, murmurs, or rubs. Normal PMI, no JVD. No pulse deficits. Respiratory: Lungs have equal breath sounds bilaterally, clear to auscultation and percussion. No rales, rhonchi or wheezes noted. No increased work of breathing, no retractions or nasal flaring. Abdomen/GI: Soft, non-tender, with normal bowel sounds. No distension or tympany. No guarding or rebound. No evidence of tenderness throughout. Back: No spinal tenderness. No costovertebral tenderness. Full range of motion. Skin: Warm, dry with normal turgor. Normal color with no rashes, no lesions, and no evidence of cellulitis. MS/ Extremity: Pulses equal, no cyanosis. Neurovascular intact. Full, normal range of motion. Neuro: Awake and alert, GCS 15, oriented to person, place, time, and situation. Cranial nerves II-XII grossly intact. Motor strength 5/5 in all extremities. Sensory grossly intact. Cerebellar exam normal. Normal gait. Vital Signs: 19:19 BP 197 / 83; Pulse 85; Resp 17 S; Temp 97.3(TE); Pulse Ox 95% on R/A; Weight 63.96 kg ca1 (R); Height 5 ft. 5 in. (165.10 cm) (R); Pain 0/10; 20:35 BP 170 / 67; Pulse 74; Resp 20; Pulse Ox 95% ; ad1 21:24 BP 144 / 61; Pulse 64; Resp 18; Pulse Ox 91% ; ad1 21:25 BP 170 / 67; Pulse 72; Resp 20; Pulse Ox 96% ; ad1 21:50 BP 137 / 60; Pulse 70; Resp 17; Pulse Ox 96% ; ad1 19:19 Body Mass Index 23.46 (63.96 kg, 165.10 cm) ca1 MDM: 19:36 Patient medically screened. jr8 20:51 ED course: Patient stated that she started to feel more anxious all of a sudden. Will jr8 try ativan on patient . 21:21 Data reviewed: vital signs, nurses notes, lab test result(s), EKG, and as a result, I jr8 will discharge patient. Data interpreted: Pulse oximetry: on room air is 95 %. Interpretation: normal. Counseling: I had a detailed discussion with the patient and/or guardian regarding: the historical points, exam findings, and any diagnostic results supporting the discharge/admit diagnosis, lab results, the need for outpatient follow up, a family practitioner, to return to the emergency department if symptoms worsen or persist or if there are any questions or concerns that arise at home. Response to treatment: the patient's symptoms have markedly improved after treatment. ED course: Patient feeling much better after the ativan. No acute ECG or lab findings. Explained to patient that she needs to start back on her anti anxiety medications. Patient good with this and will. 08/25 19:36 Order name: CBC with Diff; Complete Time: 20:25 08/25 19:36 Order name: Basic Metabolic Panel; Complete Time: 20:36 08/25 19:36 Order name: EKG Strip; Complete Time: 20:21 08/25 19:44 Order name: Troponin (emerg Dept Use Only); Complete Time: 20:48 08/25 19:36 Order name: IV; Complete Time: 20:04 Administered Medications: 20:10 Drug: hydrALAZINE 10 mg Route: IV; Rate: calculated rate; Site: right antecubital; ad1 21:25 Follow up: BP 170 / 67; Pulse 72 bpm; Resp 20 bpm; Pulse Ox 96% ad1 21:57 Follow up: Response: Blood pressure is lowered ad1 20:58 Drug: Ativan 0.5 mg Route: IVP; Site: right antecubital; ad1 21:26 Follow up: Response: Anxiety decreased ad1 Disposition: 08/26 05:44 Co-signature as Attending Physician, Edinson Escobedo MD I agree with the assessment and tw4 plan of care. Disposition: 08/25/19 21:23 Discharged to Home. Impression: Anxiety disorder, unspecified. - Condition is Stable. - Discharge Instructions: Panic Attacks, Generalized Anxiety Disorder. - Medication Reconciliation Form, Thank You Letter, Antibiotic Education, Prescription Opioid Use form. - Follow up: Private Physician; When: 2 - 3 days; Reason: Recheck today's complaints, Continuance of care, Re-evaluation by your physician. - Problem is new. - Symptoms have improved. Signatures: Dispatcher [employer] EDMS Aline Rivera RN RN ad1 Mario Tipton PA PA jr8 Edinson Escobedo MD MD tw4 Roxanna López RN RN ca1 Corrections: (The following items were deleted from the chart) 08/25 21:56 21:23 08/25/2019 21:23 Discharged to Home. Impression: Anxiety disorder, unspecified. ad1 Condition is Stable. Forms are Medication Reconciliation Form, Thank You Letter, Antibiotic Education, Prescription Opioid Use. Follow up: Private Physician; When: 2 - 3 days; Reason: Recheck today's complaints, Continuance of care, Re-evaluation by your physician. Problem is new. Symptoms have improved. jr8
[2019-08-25 22:04] VITALS: TEMP 97.3
[2019-08-25 22:08] VITALS: O2SAT 96
[2019-08-25 22:09] VITALS: BP 137/60
--- NOTE | 2019-08-26 07:46 | EKG ---
Test Date: 2019-08-25 Test Time: 20:17:34 [employer] Supervisor: NARESH MEASUREMENT RESULTS: Intervals: Rate: 74 IA: 130 QRSD: 80 QT: 400 QTc: 444 [place]: P: 18 IA: 130 QRS: 59 T: 49 INTERPRETIVE STATEMENTS: Normal sinus rhythm Normal ECG Compared to ECG 08/12/2019 03:36:32 No significant changes Electronically Signed On 08-26-19 07:45:44 INSTRUCTIONAL DESIGNER by Kenny Paredes
== END 2019-08-25 21:56 | disposition home or self-care (01) ==
LOC: ER 19:08
DX: F41.9 Anxiety disorder, unspecified (principal); I10 Essential (primary) hypertension; F17.210 Nicotine dependence, cigarettes, uncomplicated; Z88.0 Allergy status to penicillin; Z88.2 Allergy status to sulfonamides; Z88.5 Allergy status to narcotic agent
CPT/HCPCS: 93005; 85025; 80048; 36415; 84484; 96375; 96374; 99283; J0360

== ENCOUNTER 2021-04-10 14:37 | Emergency (ER) | payer OTHER, SELFPAY ==
[2021-04-10] MEDS ORDERED: cloNIDine HCL 0.1 MG TAB ONE (15:52)
--- NOTE | 2021-04-10 16:58 | ER ---
Nurse's Notes [facility] Name: Lia Trejo Age: 66 yrs Sex: Female : 1955 Arrival Date: 04/10/2021 Time: 14:40 Bed Waiting Private MD: Diagnosis: Hypertensive urgency Presentation: 04/10 15:26 Chief complaint: High blood pressure and anxiety x 2 days. Coronavirus screen: At this iw time, the client does not indicate any symptoms associated with coronavirus-19. Ebola Screen: No symptoms or risks identified at this time. Initial Sepsis Screen: Does the patient meet any 2 criteria? No. Patient's initial sepsis screen is negative. Does the patient have a suspected source of infection? No. Patient's initial sepsis screen is negative. Risk Assessment: Do you want to hurt yourself or someone else? Patient reports no desire to harm self or others. Onset of symptoms was April 09, 2021. 15:26 Method Of Arrival: Ambulatory iw 15:26 Acuity: BRAYDEN 3 iw Historical: - Allergies: 15:27 Codeine; iw 15:27 PENICILLINS; iw 15:27 Sulfa (Sulfonamide Antibiotics); iw - PMHx: 15:27 Anxiety; Bipolar disorder; COPD; Crohn's; Depression; Hyperlipidemia; Hypertension; iw Thyroid problem; - Immunization history:: Adult Immunizations up to date. Assessment: 17:00 Reassessment: Patient states feeling better. hb Vital Signs: 15:26 BP 203 / 78; Pulse 105; Resp 16; Temp 98.6; Pulse Ox 96% on R/A; Weight 84.37 kg; iw Height 5 ft. 5 in. (165.10 cm); Pain 0/10; 16:55 BP 162 / 79; Pulse 74; Resp 16; Pulse Ox 97% on R/A; hb 15:26 Body Mass Index 30.95 (84.37 kg, 165.10 cm) iw ED Course: 14:40 Patient arrived in ED. as 15:23 Mario Tipton PA is PHCP. jr8 15:24 Humza Kilgore MD is Attending Physician. jr8 15:27 Triage completed. iw 15:27 Arm band placed on. iw Administered Medications: 15:30 Drug: cloNIDine 0.2 mg Route: PO; jr8 Outcome: 16:58 Discharge ordered by MD. silva 17:00 Discharged to home ambulatory. hb 17:00 Condition: stable 17:00 Discharge instructions given to patient, Instructed on discharge instructions, follow up and referral plans. Demonstrated understanding of instructions, follow-up care. 17:00 Patient left the ED. hb Signatures: Sujey Sim Irene, RN RN Mario Tipton PA PA jr8 Stephanie Meza RN RN hb
--- NOTE | 2021-04-10 16:58 | EDPHYS ---
Physician Documentation [facility] Name: Lia Trejo Age: 66 yrs Sex: Female : 1955 Arrival Date: 04/10/2021 Time: 14:40 Bed Waiting Private MD: STONE Physician Humza Kilgore HPI: 04/10 15:24 This 66 yrs old Female presents to ER via Unassigned with complaints of High jr8 Blood Pressure. 15:24 The patient has elevated blood pressure and discovered this at home. Onset: The jr8 symptoms/episode began/occurred gradually. Associated signs and symptoms: Pertinent positives: lightheadedness, Pertinent negatives: chest pain, dyspnea, headache, nausea, visual changes, vomiting, weakness. Severity of symptoms: At its worst the blood pressure was moderate, in the emergency department the blood pressure is unchanged. The patient has not experienced similar symptoms in the past. The patient has been recently seen by a physician:. Patient recently started on Lisinopril for HTN. Stated that she became anxious today. Checked blood pressure and was in the 200s systolic. Came to ED at that time for further evaluation . Historical: - Allergies: 15:27 Codeine; iw 15:27 PENICILLINS; iw 15:27 Sulfa (Sulfonamide Antibiotics); iw - PMHx: 15:27 Anxiety; Bipolar disorder; COPD; Crohn's; Depression; Hyperlipidemia; Hypertension; iw Thyroid problem; - Immunization history:: Adult Immunizations up to date. ROS: 15:24 Constitutional: Negative for fever, chills, and weight loss, Eyes: Negative for injury, jr8 pain, redness, and discharge, ENT: Negative for injury, pain, and discharge, Neck: Negative for injury, pain, and swelling, Respiratory: Negative for shortness of breath, cough, wheezing, and pleuritic chest pain, Abdomen/GI: Negative for abdominal pain, nausea, vomiting, diarrhea, and constipation, Back: Negative for injury and pain, MS/Extremity: Negative for injury and deformity, Skin: Negative for injury, rash, and discoloration, Neuro: Negative for headache, weakness, numbness, tingling, and seizure. 15:24 Cardiovascular: Positive for palpitations. Exam: 15:24 Constitutional: This is a well developed, well nourished patient who is awake, alert, jr8 and in no acute distress. Cardiovascular: Regular rate and rhythm with a normal S1 and S2. No gallops, murmurs, or rubs. Normal PMI, no JVD. No pulse deficits. Respiratory: Lungs have equal breath sounds bilaterally, clear to auscultation and percussion. No rales, rhonchi or wheezes noted. No increased work of breathing, no retractions or nasal flaring. Abdomen/GI: Soft, non-tender, with normal bowel sounds. No distension or tympany. No guarding or rebound. No evidence of tenderness throughout. Back: No spinal tenderness. No costovertebral tenderness. Full range of motion. Skin: Warm, dry with normal turgor. Normal color with no rashes, no lesions, and no evidence of cellulitis. MS/ Extremity: Pulses equal, no cyanosis. Neurovascular intact. Full, normal range of motion. Neuro: Awake and alert, GCS 15, oriented to person, place, time, and situation. Cranial nerves II-XII grossly intact. Motor strength 5/5 in all extremities. Sensory grossly intact. Cerebellar exam normal. Normal gait. Vital Signs: 15:26 BP 203 / 78; Pulse 105; Resp 16; Temp 98.6; Pulse Ox 96% on R/A; Weight 84.37 kg; iw Height 5 ft. 5 in. (165.10 cm); Pain 0/10; 16:55 BP 162 / 79; Pulse 74; Resp 16; Pulse Ox 97% on R/A; hb 15:26 Body Mass Index 30.95 (84.37 kg, 165.10 cm) iw MDM: 15:37 Patient medically screened. 8 15:37 Data reviewed: vital signs, nurses notes, and as a result, I will discharge patient. jr8 Data interpreted: Pulse oximetry: on room air is 96 %. Interpretation: normal. Counseling: I had a detailed discussion with the patient and/or guardian regarding: the historical points, exam findings, and any diagnostic results supporting the discharge/admit diagnosis, the need for outpatient follow up, a family practitioner, to return to the emergency department if symptoms worsen or persist or if there are any questions or concerns that arise at home. 16:57 ED course: Patient's blood pressure markedly improved after the clonidine. Anxiety has jr8 also decreased after patient took her hydroxyzine. We will have her follow-up with primary care for further evaluation of her continued high blood pressure. Knows to come back if she were to worsen or have any other symptoms such as chest pain, shortness of breath, dizziness, numbness or tingling etc. Patient good with plan at this time.. Administered Medications: 15:30 Drug: cloNIDine 0.2 mg Route: PO; jr8 Disposition: 04/11 07:51 Co-signature as Attending Physician, Humza Kilgore MD I agree with the assessment and [facility] plan of care. Disposition Summary: 04/10/21 16:58 Discharge Ordered Location: Home jr8 Problem: new jr8 Symptoms: have improved jr8 Condition: Stable jr8 Diagnosis - Hypertensive urgency jr8 Followup: jr8 - With: Private Physician - When: 5 - 6 days - Reason: Recheck today's complaints, Continuance of care, Re-evaluation by your physician Discharge Instructions: - Discharge Summary Sheet jr8 - Hypertension, Adult jr8 Forms: - Medication Reconciliation Form jr8 - Thank You Letter jr8 - Antibiotic Education jr8 - Prescription Opioid Use jr8 Signatures: Humza Kilgore MD MD cha Williams, Irene, RN RN Mario Durand PA PA jr8
[2021-04-10 17:10] VITALS: TEMP 98.6
[2021-04-10 17:12] VITALS: BP 162/79; O2SAT 97
== END 2021-04-10 17:00 | disposition home or self-care (01) ==
LOC: ER 14:37
DX: I16.0 Hypertensive urgency (principal); R00.2 Palpitations; I10 Essential (primary) hypertension; Z88.0 Allergy status to penicillin; Z88.2 Allergy status to sulfonamides; Z88.5 Allergy status to narcotic agent
CPT/HCPCS: 99283

== ENCOUNTER 2021-06-10 15:22 | Emergency (ER) | payer OTHER ==
--- NOTE | 2021-06-10 16:40 | RAD REPORT ---
EXAM DESCRIPTION: CT - Chest For Pe Angio - 06/10/2021 4:20 pm CLINICAL HISTORY: Shortness of breath COMPARISON: None. TECHNIQUE: Dynamically enhanced axial 3 mm thick images of the chest were obtained during administra tion of <100> mL Isovue 370 IV contrast. Coronal and oblique reconstruction images were generated and reviewed. Exam utilizes a protocol for optimal evaluation of pulmonary arterial tree. Maximum intensity projections 3D imaging was utilized All CT scans are performed using dose optimization technique as appropriate and may include automated exposure control or mA/KV adjustment according to patient size. FINDINGS: A pulmonary embolus is not seen. A thoracic aortic aneurysm is not noted. A pleural effusion is not seen. A pericardial effusion is not seen. A lung consolidation is not present. IMPRESSION: Negative for a pulmonary embolism.
--- NOTE | 2021-06-10 17:11 | EDPHYS ---
Physician Documentation [facility] Name: Lia Trejo Age: 66 yrs Sex: Female : 1955 Arrival Date: 06/10/2021 Time: 15:23 Bed 20 Private MD: ED Physician Anum Acosta HPI: 06/10 17:06 This 66 yrs old Female presents to ER via Ambulatory with complaints of Back jmm Pain. 17:06 Onset: The symptoms/episode began/occurred gradually, 2 week(s) ago. The pain does not jmm radiate. Associated signs and symptoms: Pertinent negatives: abdominal pain, chest pain, numbness, vomiting, weakness. Modifying factors: The patient symptoms are alleviated by nothing, the patient symptoms are aggravated by movement. This is a 66-year-old female with history of COPD, bipolar, anxiety, hyperlipidemia that presents emerged department with complaints of thoracic back pain which has been ongoing for approximately 2 weeks. Patient states that she saw her PCP this past Saturday and was diagnosed with allergies and prescribed an inhaler. Patient currently denies chest pain. Thoracic pain is worsened with movement. Historical: - Allergies: 15:27 Codeine; ss 15:27 PENICILLINS; ss 15:27 Sulfa (Sulfonamide Antibiotics); ss - PMHx: 15:27 Anxiety; Bipolar disorder; COPD; Crohn's; Depression; Hyperlipidemia; Hypertension; ss Thyroid problem; - Immunization history:: Client reports receiving the 2nd dose of the Covid vaccine. - Social history:: Smoking status: Patient reports the use of cigarette tobacco products, smokes two packs cigarettes per day. ROS: 17:06 Constitutional: Negative for fever, chills, and weight loss, Cardiovascular: Negative jmm for chest pain, palpitations, and edema, Respiratory: Negative for shortness of breath, cough, wheezing, and pleuritic chest pain. 17:06 Back: Positive for pain with movement. 17:06 All other systems are negative. Exam: 17:06 Constitutional: This is a well developed, well nourished patient who is awake, alert, jmm and in no acute distress. Head/Face: atraumatic. Eyes: EOMI, no conjunctival erythema appreciated ENT: Moist Mucus Membranes Neck: Trachea midline, Supple Chest/axilla: Normal chest wall appearance and motion. Cardiovascular: Regular rate and rhythm. No edema appreciated Respiratory: Normal respirations, no respiratory distress appreciated Abdomen/GI: Non distended, soft 17:06 Skin: General appearance color normal MS/ Extremity: Moves all extremities, no obvious deformities appreciated, no edema noted to the lower extremities Neuro: Awake and alert, normal gait Psych: Behavior is normal, Mood is normal, Patient is cooperative and pleasant 17:06 Back: pain, that is mild, of the left subscapular area and right subscapular area. Vital Signs: 15:39 BP 156 / 69; Pulse 79; Resp 18 S; Temp 98.1(TE); Pulse Ox 97% ; Weight 83.01 kg (R); aa5 Height 5 ft. 5 in. (165.10 cm) (R); 17:24 BP 165 / 89; Pulse 66; Resp 17; Pulse Ox 97% on R/A; jt3 15:39 Body Mass Index 30.45 (83.01 kg, 165.10 cm) aa5 MDM: 15:43 Patient medically screened. [facility] 17:08 Data reviewed: vital signs, nurses notes. Counseling: I had a detailed discussion with javan the patient and/or guardian regarding: the historical points, exam findings, and any diagnostic results supporting the discharge/admit diagnosis, radiology results, the need for outpatient follow up, to return to the emergency department if symptoms worsen or persist or if there are any questions or concerns that arise at home. ED course: CT is negative. Patient advised to follow-up with PCP and otherwise given strict return precautions. Patient understood and agrees plan of care.. 06/10 15:44 Order name: CT Chest For PE Angio; Complete Time: 16:46 [facility] 06/10 15:44 Order name: Saline Lock; Complete Time: 15:58 [facility] Administered Medications: No medications were administered Disposition Summary: 06/10/21 17:11 Discharge Ordered Location: Home [facility] Condition: Stable javan Diagnosis - Strain of muscle and tendon of back wall of thorax andreea Followup: javan - With: Private Physician - When: 2 - 3 days - Reason: Recheck today's complaints, Continuance of care, Re-evaluation by your physician Discharge Instructions: - Discharge Summary Sheet javan - Thoracic Strain andreea Forms: - Medication Reconciliation Form andreea - Thank You Letter javan - Antibiotic Education jmm - Prescription Opioid Use [facility] Prescriptions: - orphenadrine citrate 100 mg Oral Tablet Sustained Release - take 1 tablet by ORAL route 2 times per day As needed; 20 tablet; Refills: 0, [facility] Product Selection Permitted Addendum: 06/12/2021 23:04 Co-signature as Attending Physician, Anum Acosta MD PA/[employer]'s history reviewed, m a2 patient interviewed, and examined. I agree with assessment and care plan and confirm the diagnosis (es) above. Signatures: Dispatcher [employer] [facility] Selwyn Veras PA PA Catherine Alcala, RN RN aa5 Regine Stone RN RN ss Anum Acosta MD MD ma2 Corrections: (The following items were deleted from the chart) 06/10 15:46 15:46 CREATININE, SERUM+[id number].[id number] ordered. [facility]
--- NOTE | 2021-06-10 17:11 | ER ---
Nurse's Notes [facility] Name: Lia Trejo Age: 66 yrs Sex: Female : 1955 Arrival Date: 06/10/2021 Time: 15:23 Bed 20 Private MD: Diagnosis: Strain of muscle and tendon of back wall of thorax Presentation: 06/10 15:37 Chief complaint: Patient states: upper-mid back pain that began 1 month ago after being aa5 sick with a cough, pt denies cough at this time and states "my doctor said it was allergies but I don't believe it". Coronavirus screen: At this time, the client does not indicate any symptoms associated with coronavirus-19. Ebola Screen: No symptoms or risks identified at this time. Initial Sepsis Screen: Does the patient meet any 2 criteria? No. Patient's initial sepsis screen is negative. Does the patient have a suspected source of infection? No. Patient's initial sepsis screen is negative. Risk Assessment: Do you want to hurt yourself or someone else? Patient reports no desire to harm self or others. Onset of symptoms was 2020. 15:37 Method Of Arrival: Ambulatory aa5 15:37 Acuity: BRAYDEN 4 aa5 Historical: - Allergies: 15:27 Codeine; ss 15:27 PENICILLINS; ss 15:27 Sulfa (Sulfonamide Antibiotics); ss - PMHx: 15:27 Anxiety; Bipolar disorder; COPD; Crohn's; Depression; Hyperlipidemia; Hypertension; ss Thyroid problem; - Immunization history:: Client reports receiving the 2nd dose of the Covid vaccine. - Social history:: Smoking status: Patient reports the use of cigarette tobacco products, smokes two packs cigarettes per day. Screenin:45 Abuse screen: Denies threats or abuse. Nutritional screening: No deficits noted. sl2 Tuberculosis screening: No symptoms or risk factors identified. Fall Risk None identified. Assessment: 15:45 General: Appears in no apparent distress. well groomed, well developed, Behavior is sl2 calm, cooperative. 15:45 Pain: Complains of pain in upper back Pain does not radiate. Pain. Neuro: No deficits sl2 noted. Level of Consciousness is awake, alert, obeys commands, Oriented to person, place, time, situation. Cardiovascular: No deficits noted. Respiratory: No deficits noted. GI: No deficits noted. : No deficits noted. EENT: No deficits noted. Derm: No deficits noted. Musculoskeletal: Reports pain in upper back. Vital Signs: 15:39 BP 156 / 69; Pulse 79; Resp 18 S; Temp 98.1(TE); Pulse Ox 97% ; Weight 83.01 kg (R); aa5 Height 5 ft. 5 in. (165.10 cm) (R); 17:24 BP 165 / 89; Pulse 66; Resp 17; Pulse Ox 97% on R/A; jt3 15:39 Body Mass Index 30.45 (83.01 kg, 165.10 cm) aa5 ED Course: 15:23 Patient arrived in ED. as 15:37 Arm band placed on. aa5 15:38 Triage completed. 5 15:39 Selwyn Veras PA is PHCP. [facility] 15:39 Anum Acosta MD is Attending Physician. [facility] 15:42 Xena Fitzgerald, MAYA is Primary Nurse. sl2 15:45 Patient has correct armband on for positive identification. Bed in low position. sl2 15:57 Inserted saline lock: 20 gauge in right forearm, using aseptic technique. Blood dh3 collected. 16:20 CT Chest For PE Angio In Process Unspecified. EDMS 17:28 IV discontinued. jt3 Administered Medications: No medications were administered Outcome: 17:11 Discharge ordered by . [facility] 17:25 Discharged to home ambulatory. jt3 17:25 Condition: good 17:25 Discharge instructions given to patient. 17:26 Patient left the ED. jt3 Signatures: Dispatcher [employer] EDMS Selwyn Veras PA PA jmm Martinez, Amelia as Calderon, Audri, RN RN aa5 Regine Stone, MAYA RN Dior Chan 3 Xena Fitzgerald RN RN 2 Yannick Rizo RN RN jt3
[2021-06-10 17:41] VITALS: TEMP 98.1; O2SAT 97
[2021-06-10 17:42] VITALS: BP 165/89
== END 2021-06-10 17:26 | disposition home or self-care (01) ==
LOC: ER 15:22
DX: S29.012A Strain of muscle and tendon of back wall of thorax, initial encounter (principal); I10 Essential (primary) hypertension; Z88.0 Allergy status to penicillin; Z88.2 Allergy status to sulfonamides; Z88.5 Allergy status to narcotic agent
CPT/HCPCS: 82565; 71275; 99283; Q9967

== ENCOUNTER 2022-08-31 04:02 | Emergency (ER) | payer OTHER ==
--- OUTSIDE RECORDS SUMMARY | 2022-08-31 04:06 | XMS REPORT | Continuity of Care Document ---
:1955 Author Organization [facility] t Address [address] [place] [address] Care Team Providers Name Role Phone Maggi Santiago Primary Care Physician WILLIS CHAVIS Attending Clinician Unavailable Willis Chavis MD Attending Clinician RADIOLOGY Attending Clinician Unavailable Radiology Attending Clinician Unavailable Doctor Unassigned, [place] Attending Clinician Unavailable Pob, 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 Attending Clinician Unavailable Sita Atkinson MD Attending Clinician SITA ATKINSON Attending Clinician Unavailable BLANKA MCINTYRE K.HGaurav Attending Clinician Unavailable PEDRO STRINGER Attending Clinician Unavailable Pedro tSringer DO Attending Clinician Blanka Mcintyre MD K.HGaurav Attending Clinician JAC MARLOW Attending Clinician Unavailable WILLIS CHAVIS Admitting Clinician Unavailable MAGGI SANTIAGO Admitting Clinician Unavailable BELKYS MEDINA Admitting Clinician Unavailable Payers Payer Name Policy Type Policy Number Effective Date Expiration Date Juvencio quesadaomar [place] [id number] 2022 MEDICARE ADVANTAGE 00:00:00 [facility] [id number] 2022 STAR PLUS 00:00:00 [place] [id number] 2019 00:00:00 Problems Condition Condition Condition Status Onset Resolution Last Treating Co mments Source Name Details Category Date Date Treatment Clinician Date No known No known Disease Unive rs active active ity of problems problems [facility] Allergies, Adverse Reactions, Alerts Allergy Allergy Status Severity Reaction(s) Onset Inactive Treating Comm ents Source Name Type Date Date Clinician SULFAMET DRUG Active Hallucinates Un ezequiel HOPRIM 6-30 ity of DS 00:00: [facility] Sulfamet Propensi Active Hallucinatio Univers hoprim ty to ns 6-30 ity of Ds adverse 00:00: [place] reaction 00 Medical Branch Penicill Drug Active Unknown - Redness Univ ers in Allergy See comments 04-25 ity of 00:00: Medical [place] PENICILL DRUG Active Hallucinates Un ezequiel IN INGREDI 14 ity of 00:00: [place] [facility] Social History Social Habit Start Date Stop Date Quantity Comments Source History of Cigarette Smoker Universi ty of tobacco use [facility] Exposure to 2022-01-29 2022-02-08 Not sure University of SARS-CoV-2 00:00:00 08:51:00 [facility] (event) [place] Tobacco use and 2021-03-08 2021-03-08 Smokeless tobacco Un iversity of exposure 00:00:00 00:00:00 non-user [facility] Sex [birth year] Universit y of 00:00:00 00:00:00 [facility] Smoking Status Start Date Stop Date Source Smokes tobacco daily 2021-03-08 00:00:00 Univers ity of [facility] Medications Ordered Filled Start Stop Current Ordering Indication Dosage Frequency Signature Comments Components Source Medication Medication Date Date Medication? Clinician (SIG) Name Name aspirin 81 Yes 81mg Take 81 mg U nivers mg EC 3-29 by mouth ity of tablet 08:54: daily. [address] aspirin 81 Yes 81mg Take 81 mg U nivers mg EC 3-29 by mouth ity of tablet 08:54: daily. [address] aspirin 81 Yes 81mg Take 81 mg U nivers mg EC 3-29 by mouth ity of tablet 08:54: daily. [address] aspirin 81 Yes 81mg Take 81 mg U nivers mg EC 3-29 by mouth ity of tablet 08:54: daily. [address] aspirin 81 Yes 81mg Take 81 mg U nivers mg EC 3-29 by mouth ity of tablet 08:54: daily. [address] Branch aspirin 81 2021-0 Yes 81mg Take 81 mg U nivers mg EC 3-29 by mouth ity of tablet 08:54: daily. [address] Branch aspirin 81 2021-0 Yes 81mg Take 81 mg U nivers mg EC 3-29 by mouth ity of tablet 08:54: daily. [address] Branch aspirin 81 2021-0 Yes 81mg Take 81 mg U nivers mg EC 3-29 by mouth ity of tablet 08:54: daily. [address] Branch aspirin 81 2021-0 Yes 81mg Take 81 mg U nivers mg EC 3-29 by mouth ity of tablet 08:54: daily. [address] Branch aspirin 81 2021-0 Yes 81mg Take 81 mg U nivers mg EC 3-29 by mouth ity of tablet 08:54: daily. [address] Branch lisinopriL 0 Yes [id number] 10mg Take 0.5 Univers 20 mg 2-15 tablets by ity of tablet 00:00: mouth 2 [place] [address] ([facility]) Medical times [place] daily. atorvastati 2021-0 Yes [id number] 40mg Take 1 Univers n 40 mg 2-15 tablet by ity of tablet 00:00: mouth at [place] [address] bedtime. Medical Branch lisinopriL 2021-0 Yes [id number] 10mg Take 0.5 Univers 20 mg 2-15 tablets by ity of tablet 00:00: mouth 2 [place] ([facility]) Medical times [place] daily. atorvastati 2021-0 Yes [id number] 40mg Take 1 Univers n 40 mg 2-15 tablet by ity of tablet 00:00: mouth at [place] [address] bedtime. Medical Branch lisinopriL 2021-0 Yes [id number] 10mg Take 0.5 Univers 20 mg 2-15 tablets by ity of tablet 00:00: mouth 2 [place] [address] ([facility]) Medical times [place] daily. atorvastati 2021-0 Yes [id number] 40mg Take 1 Univers n 40 mg 2-15 tablet by ity of tablet 00:00: mouth at [place] [address] bedtime. Medical Branch lisinopriL 2021-0 Yes [id number] 10mg Take 0.5 Univers 20 mg 2-15 tablets by ity of tablet 00:00: mouth 2 (two) Medical times Branch daily. atorvastati 2021-0 Yes [id number] 40mg Take 1 Univers n 40 mg 2-15 tablet by ity of tablet 00:00: mouth at [place] bedtime. Medical Branch lisinopriL 2021-0 Yes [id number] 10mg Take 0.5 Univers 20 mg 2-15 tablets by ity of tablet 00:00: mouth 2 (two) Medical times Branch daily. atorvastati 2021-0 Yes [id number] 40mg Take 1 Univers n 40 mg 2-15 tablet by ity of tablet 00:00: mouth at [place] bedtime. Medical Branch lisinopriL 2021-0 Yes [id number] 10mg Take 0.5 Univers 20 mg 2-15 tablets by ity of tablet 00:00: mouth 2 (two) Medical times Branch daily. atorvastati 2021-0 Yes [id number] 40mg Take 1 Univers n 40 mg 2-15 tablet by ity of tablet 00:00: mouth at [place] bedtime. Medical Branch lisinopriL 2021-0 Yes [id number] 10mg Take 0.5 Univers 20 mg 2-15 tablets by ity of tablet 00:00: mouth 2 (two) Medical times Branch daily. atorvastati 2021-0 Yes [id number] 40mg Take 1 Univers n 40 mg 2-15 tablet by ity of tablet 00:00: mouth at [place] bedtime. Medical Branch lisinopriL 2021-0 Yes [id number] 10mg Take 0.5 Univers 20 mg 2-15 tablets by ity of tablet 00:00: mouth 2 (two) Medical times Branch daily. atorvastati 2021-0 Yes [id number] 40mg Take 1 Univers n 40 mg 2-15 tablet by ity of tablet 00:00: mouth at [place] bedtime. Medical Branch lisinopriL 2021-0 Yes [id number] 10mg Take 0.5 Univers 20 mg 2-15 tablets by ity of tablet 00:00: mouth 2 [place] (two) Medical times Branch daily. atorvastati 2021-0 Yes [id number] 40mg Take 1 Univers n 40 mg 2-15 tablet by ity of tablet 00:00: mouth at bedtime. Medical Branch lisinopriL 0 Yes [id number] 10mg Take 0.5 Univers 20 mg 2-15 tablets by ity of tablet 00:00: mouth (two) Medical times Branch daily. atorvastati Yes [id number] 40mg Take 1 Univers n 40 mg 2-15 tablet by ity of tablet 00:00: mouth at bedtime. Medical Branch carvediloL 2020-08 Yes 6.25mg Take 1 Uni vers 6.25 mg 1-30 tablet by ity of tablet 00:00: mouth (two) Medical times Branch daily with meals. carvediloL 2020-08 Yes 6.25mg Take 1 Uni vers 6.25 mg 1-30 tablet by ity of tablet 00:00: mouth (two) Medical times Branch daily with meals. carvediloL 2020-08 Yes 6.25mg Take 1 Uni vers 6.25 mg 1-30 tablet by ity of tablet 00:00: mouth (two) Medical times Branch daily with meals. carvediloL 2020-08 Yes 6.25mg Take 1 Uni vers 6.25 mg 1-30 tablet by ity of tablet 00:00: mouth (two) Medical times Branch daily with meals. carvediloL 2020-08 Yes 6.25mg Take 1 Uni vers 6.25 mg 1-30 tablet by ity of tablet 00:00: mouth (two) Medical times Branch daily with meals. carvediloL 2020-08 Yes 6.25mg Take 1 Uni vers 6.25 mg 1-30 tablet by ity of tablet 00:00: mouth (two) Medical times Branch daily with meals. carvediloL 2020-08 Yes 6.25mg Take 1 Uni vers 6.25 mg 1-30 tablet by ity of tablet 00:00: mouth (two) Medical times Branch daily with meals. carvediloL 2020-08 Yes 6.25mg Take 1 Uni vers 6.25 mg 1-30 tablet by ity of tablet 00:00: mouth (two) Medical times Branch daily with meals. carvediloL 2020-08 Yes 6.25mg Take 1 Uni vers 6.25 mg 1-30 tablet by ity of tablet 00:00: mouth 2 [place] (two) Medical times Branch daily with meals. carvediloL 2020-08 Yes 6.25mg Take 1 Uni vers 6.25 mg 1-30 tablet by ity of tablet 00:00: mouth 2 [place] (two) Medical times Branch daily with meals. pantoprazol Yes 40mg Take 40 mg Univers e 40 mg EC 5-24 by mouth ity o f tablet 00:00: every [place] morning. Medical Branch pantoprazol 0 Yes 40mg Take 40 mg Univers e 40 mg EC 5-24 by mouth ity o f tablet 00:00: every [place] morning. Medical Branch pantoprazol Yes 40mg Take 40 mg Univers e 40 mg EC 5-24 by mouth ity o f tablet 00:00: every [place] morning. Medical Branch pantoprazol Yes 40mg Take 40 mg Univers e 40 mg EC 5-24 by mouth ity o f tablet 00:00: every [place] morning. Medical Branch pantoprazol 0 Yes 40mg Take 40 mg Univers e 40 mg EC 5-24 by mouth ity o f tablet 00:00: every [place] morning. Medical Branch pantoprazol 0 Yes 40mg Take 40 mg Univers e 40 mg EC 5-24 by mouth ity o f tablet 00:00: every [place] morning. Medical Branch pantoprazol Yes 40mg Take 40 mg Univers e 40 mg EC 5-24 by mouth ity o f tablet 00:00: every [place] morning. Medical Branch pantoprazol 0 Yes 40mg Take 40 mg Univers e 40 mg EC 5-24 by mouth ity o f tablet 00:00: every [place] morning. Medical Branch pantoprazol 0 Yes 40mg Take 40 mg Univers e 40 mg EC 5-24 by mouth ity o f tablet 00:00: every [place] morning. Medical Branch pantoprazol 0 Yes 40mg Take 40 mg Univers e 40 mg EC 5-24 by mouth ity o f tablet 00:00: every [place] morning. Medical Branch hydrOXYzine Yes TAKE 1 Univ ers 25 mg 4-20 TABLET BY ity of tablet 00:00: MOUTH [place] 00 DAILY Medical NEEDED Branch hydrOXYzine 2020-0 Yes TAKE 1 Univ ers 25 mg 4-20 TABLET BY ity of tablet 00:00: MOUTH [place] 00 DAILY Medical NEEDED Branch hydrOXYzine 2020-0 Yes TAKE 1 Univ ers 25 mg 4-20 TABLET BY ity of tablet 00:00: MOUTH [place] 00 DAILY Medical NEEDED Branch hydrOXYzine 2020-0 Yes TAKE 1 Univ ers 25 mg 4-20 TABLET BY ity of tablet 00:00: MOUTH 00 DAILY Medical NEEDED Branch hydrOXYzine 2020-0 Yes TAKE 1 Univ ers 25 mg 4-20 TABLET BY ity of tablet 00:00: MOUTH 00 DAILY Medical NEEDED Branch hydrOXYzine 2020-0 Yes TAKE 1 Univ ers 25 mg 4-20 TABLET BY ity of tablet 00:00: MOUTH 00 DAILY Medical NEEDED Branch hydrOXYzine 2020-0 Yes TAKE 1 Univ ers 25 mg 4-20 TABLET BY ity of tablet 00:00: MOUTH 00 DAILY Medical NEEDED Branch hydrOXYzine 2020-0 Yes TAKE 1 Univ ers 25 mg 4-20 TABLET BY ity of tablet 00:00: MOUTH 00 DAILY Medical NEEDED Branch hydrOXYzine 2020-0 Yes TAKE 1 Univ ers 25 mg 4-20 TABLET BY ity of tablet 00:00: MOUTH 00 DAILY Medical NEEDED Branch hydrOXYzine 2020-0 Yes TAKE 1 Univ ers 25 mg 4-20 TABLET BY ity of tablet 00:00: MOUTH 00 DAILY Medical NEEDED Branch cetirizine 2020-0 Yes 10mg Take 10 mg U nivers 10 mg 4-16 by mouth ity of tablet 00:00: daily. [place] [facility] triamcinolo 2020-0 Yes Univer s ne 4-16 ity of acetonide 00:00: [place] 0.1 % cream 00 Medical Branch cetirizine 2020-0 Yes 10mg Take 10 mg U nivers 10 mg 4-16 by mouth ity of tablet 00:00: daily. [place] [facility] triamcinolo 2020-0 Yes Univer s ne 4-16 ity of acetonide 00:00: [place] 0.1 % cream 00 Medical Branch cetirizine 2020-0 Yes 10mg Take 10 mg U nivers 10 mg 4-16 by mouth ity of tablet 00:00: daily. [place] [facility] triamcinolo 2020-0 Yes Univer s ne 4-16 ity of acetonide 00:00: [place] 0.1 % cream Medical Branch cetirizine 2020-0 Yes 10mg Take 10 mg U nivers 10 mg 4-16 by mouth ity of tablet 00:00: daily. [place] [facility] triamcinolo 2020-0 Yes Univer s ne 4-16 ity of acetonide 00:00: [place] 0.1 % cream Medical Branch cetirizine 2020-0 Yes 10mg Take 10 mg U nivers 10 mg 4-16 by mouth ity of tablet 00:00: daily. [place] [facility] triamcinolo 2020-0 Yes Univer s ne 4-16 ity of acetonide 00:00: [place] 0.1 % cream Medical Branch cetirizine 2020-0 Yes 10mg Take 10 mg U nivers 10 mg 4-16 by mouth ity of tablet 00:00: daily. [place] [facility] tricinolo 2020-0 Yes Univer s ne 4-16 ity of acetonide 00:00: [place] 0.1 % cream Medical Branch cetirizine 2020-0 Yes 10mg Take 10 mg U nivers 10 mg 4-16 by mouth ity of tablet 00:00: daily. [place] [facility] tricinolo 2020-0 Yes Univer s ne 4-16 ity of acetonide 00:00: [place] 0.1 % cream Medical Branch cetirizine 2020-0 Yes 10mg Take 10 mg U nivers 10 mg 4-16 by mouth ity of tablet 00:00: daily. [place] [facility] tricinolo 2020-0 Yes Univer s ne 4-16 ity of acetonide 00:00: [place] 0.1 % cream Medical Branch cetirizine 2020-0 Yes 10mg Take 10 mg U nivers 10 mg 4-16 by mouth ity of tablet 00:00: daily. [place] [facility] [place] triamcinolo 2020-0 Yes Univer s ne 4-16 ity of acetonide 00:00: [place] 0.1 % cream Medical Branch cetirizine 2020-0 Yes 10mg Take 10 mg U nivers 10 mg 4-16 by mouth ity of tablet 00:00: daily. [place] [facility] triamcinolo 0 Yes Rita s ne 4-16 ity of acetonide 00:00: [place] 0.1 % cream Medical Branch diclofenac 2020-0 Yes Univers 75 mg EC 3-31 ity of tablet 00:00: [place] [facility] diclofenac 2020-0 Yes Univers 75 mg EC 3-31 ity of tablet 00:00: [place] [facility] diclofenac 2020-0 Yes Univers 75 mg EC 3-31 ity of tablet 00:00: [place] [facility] diclofenac 2020-0 Yes Univers 75 mg EC 3-31 ity of tablet 00:00: [place] [facility] diclofenac 2020-0 Yes Univers 75 mg EC 3-31 ity of tablet 00:00: [place] [facility] diclofenac 2020-0 Yes Univers 75 mg EC 3-31 ity of tablet 00:00: [place] [facility] diclofenac 2020-0 Yes Univers 75 mg EC 3-31 ity of tablet 00:00: [place] [facility] diclofenac 2020-0 Yes Univers 75 mg EC 3-31 ity of tablet 00:00: [place] [address] Medical Branch diclofenac 2020-0 Yes Univers 75 mg EC 3-31 ity of tablet 00:00: [place] [address] Medical Branch diclofenac 2020-0 Yes Univers 75 mg EC 3-31 ity of tablet 00:00: [place] [address] Medical Branch PENTASA 500 0 Yes TK 2 CS PO Univers mg CR 9- BID ity of capsule 00:00: [place] [facility] PENTASA 500 0 Yes TK 2 CS PO Univers mg CR 9 BID ity of capsule 00:00: [place] [facility] PENTASA 500 2017-0 Yes TK 2 CS PO Univers mg CR 9- BID ity of capsule 00:00: [place] [facility] PENTASA 500 2017-0 Yes TK 2 CS PO Univers mg CR 9-07 BID ity of capsule 00:00: [place] [facility] PENTASA 500 2017-0 Yes TK 2 CS PO Univers mg CR 9- BID ity of capsule 00:00: [place] [facility] PENTASA 500 2017-0 Yes TK 2 CS PO Univers mg CR 9-07 BID ity of capsule 00:00: [place] [facility] PENTASA 500 2017-0 Yes TK 2 CS PO Univers mg CR 9- BID ity of capsule 00:00: [place] [facility] PENTASA 500 2017-0 Yes TK 2 CS PO Univers mg CR 9-07 BID ity of capsule 00:00: [place] [facility] PENTASA 500 Yes TK 2 CS PO Univers mg CR 9-07 BID ity of capsule 00:00: [place] [facility] PENTASA 500 Yes TK 2 CS PO Univers mg CR 9-07 BID ity of capsule 00:00: [place] [facility] QUEtiapine 2017-0 Yes TK 1 T PO Un ezequiel 100 mg 8-22 QHS ity of tablet 00:00: [place] [facility] QUEtiapine 20170 Yes TK 1 T PO Un ezequiel 100 mg 8-22 QHS ity of tablet 00:00: [place] [facility] QUEtiapine 2017-0 Yes TK 1 T PO Un ezequiel 100 mg 8-22 QHS ity of tablet 00:00: [place] [facility] QUEtiapine 2017 Yes TK 1 T PO Un ezequiel 100 mg 8-22 QHS ity of tablet 00:00: [address] QUEtiapine 2017-0 Yes TK 1 T PO Un ezequiel 100 mg 8-22 QHS ity of tablet 00:00: [address] QUEtiapine 0 Yes TK 1 T PO Un ezequiel 100 mg 8-22 QHS ity of tablet 00:00: [address] QUEtiapine 2017-0 Yes TK 1 T PO Un ezequiel 100 mg 8-22 QHS ity of tablet 00:00: [place] [facility] QUEtiapine 0 Yes TK 1 T PO Un ezequiel 100 mg 8-22 QHS ity of tablet 00:00: [place] [facility] QUEtiapine 2017-0 Yes TK 1 T PO Un ezequiel 100 mg 8-22 QHS ity of tablet 00:00: [place] [facility] QUEtiapine 2017-0 Yes TK 1 T PO Un ezequiel 100 mg 8-22 QHS ity of tablet 00:00: [place] [facility] ranitidine 2016-0 Yes TK 1 T PO Un ezequiel 150 mg 8-17 BID ity of tablet 00:00: [address] ranitidine 0 Yes TK 1 T PO Un ezequiel 150 mg 8-17 BID ity of tablet 00:00: [address] ranitidine 2016-0 Yes TK 1 T PO Un ezequiel 150 mg 8-17 BID ity of tablet 00:00: [place] [facility] ranitidine 2017 Yes TK 1 T PO Un ezequiel 150 mg 8-17 BID ity of tablet 00:00: [place] [facility] ranitidine 2017 Yes TK 1 T PO Un ezequiel 150 mg 8-17 BID ity of tablet 00:00: [place] [facility] ranitidine Yes TK 1 T PO Un ezequiel 150 mg 8-17 BID ity of tablet 00:00: [place] [facility] ranitidine Yes TK 1 T PO Un ezequiel 150 mg 8-17 BID ity of tablet 00:00: [place] [facility] ranitidine Yes TK 1 T PO Un ezequiel 150 mg 8-17 BID ity of tablet 00:00: [place] [facility] ranitidine Yes TK 1 T PO Un ezequiel 150 mg 8-17 BID ity of tablet 00:00: [place] [facility] ranitidine Yes TK 1 T PO Un ezequiel 150 mg 8-17 BID ity of tablet 00:00: [place] [facility] levothyroxi Yes TK 1 T PO U nivers ne 112 mcg 8-15 D ity of tablet 00:00: [place] [facility] levothyroxi Yes TK 1 T PO U nivers ne 112 mcg 8-15 D ity of tablet 00:00: [place] [facility] levothyroxi Yes TK 1 T PO U nivers ne 112 mcg 8-15 D ity of tablet 00:00: [place] [facility] levothyroxi Yes TK 1 T PO U nivers ne 112 mcg 8-15 D ity of tablet 00:00: [place] [facility] levothyroxi Yes TK 1 T PO U nivers ne 112 mcg 8-15 D ity of tablet 00:00: [place] [facility] levothyroxi Yes TK 1 T PO U nivers ne 112 mcg 8-15 D ity of tablet 00:00: [place] [facility] levothyroxi Yes TK 1 T PO U nivers ne 112 mcg 8-15 D ity of tablet 00:00: [place] [facility] levothyroxi Yes TK 1 T PO U nivers ne 112 mcg 8-15 D ity of tablet 00:00: [place] [facility] levothyroxi 20170 Yes TK 1 T PO U nivers ne 112 mcg 8-15 D ity of tablet 00:00: Medical Branch levothyroxi 20170 Yes TK 1 T PO U nivers ne 112 mcg 8-15 D ity of tablet 00:00: Medical Branch divalproex 20170 Yes TK 2 TS PO U nivers ER 500 mg 7-25 D ity of 24 hr 00:00: [place] tablet Medical Branch divalproex 20170 Yes TK 2 TS PO U nivers ER 500 mg 7-25 D ity of 24 hr 00:00: [place] tablet Medical Branch divalproex 20170 Yes TK 2 TS PO U nivers ER 500 mg 7-25 D ity of 24 hr 00:00: [place] tablet Medical Branch divalproex 20170 Yes TK 2 TS PO U nivers ER 500 mg 7-25 D ity of 24 hr 00:00: [place] tablet Medical Branch divalproex 20170 Yes TK 2 TS PO U nivers ER 500 mg 7-25 D ity of 24 hr 00:00: [place] tablet Medical Branch divalproex 20170 Yes TK 2 TS PO U nivers ER 500 mg 7-25 D ity of 24 hr 00:00: [place] tablet Medical Branch divalproex 20170 Yes TK 2 TS PO U nivers ER 500 mg 7-25 D ity of 24 hr 00:00: [place] tablet Medical Branch divalproex 20170 Yes TK 2 TS PO U nivers ER 500 mg 7-25 D ity of 24 hr 00:00: [place] tablet Medical Branch divalproex 20170 Yes TK 2 TS PO U nivers ER 500 mg 7-25 D ity of 24 hr 00:00: [place] tablet Medical Branch divalproex 20170 Yes TK 2 TS PO U nivers ER 500 mg 7-25 D ity of 24 hr 00:00: [place] tablet Medical Branch traZODone 20170 Yes Univers 150 mg 7-16 ity of tablet 00:00: Medical Branch traZODone 2017-0 Yes Univers 150 mg 7-16 ity of tablet 00:00: Medical Branch traZODone 20170 Yes Univers 150 mg 7-16 ity of tablet 00:00: [place] [facility] traZODone 2017-0 Yes Univers 150 mg 7-16 ity of tablet 00:00: [place] [facility] traZODone 2017-0 Yes Univers 150 mg 7-16 ity of tablet 00:00: [place] [facility] traZODone 2017-0 Yes Univers 150 mg 7-16 ity of tablet 00:00: [place] [facility] traZODone 2017-0 Yes Univers 150 mg 7-16 ity of tablet 00:00: [place] [facility] traZODone 2017-0 Yes Univers 150 mg 7-16 ity of tablet 00:00: [address] traZODone 2017-0 Yes Univers 150 mg 7-16 ity of tablet 00:00: [address] traZODone 2017-0 Yes Univers 150 mg 7-16 ity of tablet 00:00: [address] omeprazole [address] Yes TK 1 C PO Un ezequiel 40 mg 7-11 QD 30 MIN ity of capsule 00:00: [address] omeprazole 2017-0 Yes TK 1 C PO Un ezequiel 40 mg 7-11 QD 30 MIN ity of capsule 00:00: [address] omeprazole 2017-0 Yes TK 1 C PO Un ezequiel 40 mg 7-11 QD 30 MIN ity of capsule 00:00: [address] omeprazole 2017-0 Yes TK 1 C PO Un ezequiel 40 mg 7-11 QD 30 MIN ity of capsule 00:00: [address] omeprazole 2017-0 Yes TK 1 C PO Un ezequiel 40 mg 7-11 QD 30 MIN ity of capsule 00:00: [address] omeprazole 2017-0 Yes TK 1 C PO Un ezequiel 40 mg 7-11 QD 30 MIN ity of capsule 00:00: [address] omeprazole 2017-0 Yes TK 1 C PO Un ezequiel 40 mg 7-11 QD 30 MIN ity of capsule 00:00: [address] omeprazole 2017-0 Yes TK 1 C PO Un ezequiel 40 mg 7-11 QD 30 MIN ity of capsule 00:00: [address] omeprazole 2017-0 Yes TK 1 C PO Un ezequiel 40 mg 7-11 QD 30 MIN ity of capsule 00:00: [facility] omeprazole Yes TK 1 C PO Un ezequiel 40 mg 7-11 QD 30 MIN ity of capsule 00:00: [facility] paroxetine Yes TK 1 T PO Un ezequiel 30 mg 6-26 BID ity of tablet 00:00: [place] [facility] paroxetine Yes TK 1 T PO Un ezequiel 30 mg 6-26 BID ity of tablet 00:00: [place] [facility] paroxetine Yes TK 1 T PO Un ezequiel 30 mg 6-26 BID ity of tablet 00:00: [address] paroxetine Yes TK 1 T PO Un ezequiel 30 mg 6-26 BID ity of tablet 00:00: [address] paroxetine Yes TK 1 T PO Un ezequiel 30 mg 6-26 BID ity of tablet 00:00: [address] paroxetine Yes TK 1 T PO Un ezequiel 30 mg 6-26 BID ity of tablet 00:00: [address] paroxetine Yes TK 1 T PO Un ezequiel 30 mg 6-26 BID ity of tablet 00:00: [address] paroxetine Yes TK 1 T PO Un ezequiel 30 mg 6-26 BID ity of tablet 00:00: [address] paroxetine Yes TK 1 T PO Un ezequiel 30 mg 6-26 BID ity of tablet 00:00: [address] paroxetine Yes TK 1 T PO Un ezequiel 30 mg 6-26 BID ity of tablet 00:00: [address] Immunizations Ordered Filled Immunization Date Status Comments Sour e Immunization Name Name Td 2022-02-08 Completed University of 00:00:00 [facility] Td 2022-02-08 Completed University of 00:00:00 [facility] Td 2022-02-08 Completed University of 00:00:00 [facility] Td 2022-02-08 Completed University of 00:00:00 [facility] TD, NOS 2022-02-08 Completed University of 00:00:00 [facility] TD, NOS 2022-02-08 Completed University of 00:00:00 [facility] TD, NOS 2022-02-08 Completed University of 00:00:00 [facility] Influenza Virus 2021-11-07 Completed [facility]ine [facility], 00:00:00 [place] Me [facility]ical Preserv and ABX Branch Free 6 MO-64 YRS Influenza Virus 2021-11-07 Completed [facility], 00:00:00 [place] [facility] Preserv and ABX Branch Free 6 MO-64 YRS Influenza Virus 2021-11-07 Completed [facility] of [facility]ine [facility], 00:00:00 [place] [facility] [place] Preserv and ABX Branch Free 6 MO-64 YRS Influenza Virus 2021-11-07 Completed [facility] of [facility]ine [facility] IM, 00:00:00 [place] Me [facility] Preserv and ABX Branch Free 6 MO-64 YRS Influenza Virus 2021-11-07 Completed [facility] of [facility]ine [facility], 00:00:00 [place] Me dical Preserv and ABX Branch Free 6 MO-64 YRS Influenza Virus 2021-11-07 Completed [facility]ine [facility] IM, 00:00:00 [place] Preserv and ABX Branch Free 6 MO-64 YRS Influenza Virus 2021-11-07 Completed [facility]ine [facility], 00:00:00 [place] Me [facility] Preserv and ABX Branch Free 6 MO-64 YRS Influenza Virus 2021-11-07 Completed [facility] of [facility]ine [facility] IM, 00:00:00 [place] Preserv and ABX Branch Free 6 MO-64 YRS Influenza Virus 2021-11-07 Completed [facility] of Vaccine [facility] IM, 00:00:00 [place] Preserv and ABX Branch Free 6 MO-64 YRS Influenza Virus 2021-11-07 Completed [facility] of Vaccine [facility] IM, 00:00:00 [place] Preserv and ABX Branch Free 6 MO-64 YRS Vital Signs Vital Name Observation Time Observation Value Comments Source Systolic blood 2022-02-08 13:53:00 181 mm[Hg] Univer sity of pressure [facility] Diastolic blood 2022-02-08 13:53:00 77 mm[Hg] Unive rsity of pressure [facility] Heart rate 2022-02-08 13:53:00 71 /min [facility] [place] Body temperature 2022-02-08 13:53:00 37.39 Pastora Univ ersity of [facility] Respiratory rate 2022-02-08 13:53:00 18 /min Univ ersity [facility] Body height 2022-02-08 13:53:00 165.1 cm [facility] Body weight 2022-02-08 13:53:00 86.183 kg [facility] BMI 2022-02-08 13:53:00 31.62 kg/m2 [facility] Oxygen saturation in 2022-02-08 13:53:00 95 /min [facility] Arterial blood by [facility] Pulse oximetry Branch Procedures Procedure Date / Time Performing Clinician Source Performed MR ABDOMEN WO CONTRAST 2022-08-08 16:45:23 Willis Chavis versity [facility] AUTHORIZATION FOR 2022-07-27 06:01:00 Doctor Unassigned, No Univ ersity [facility] RELEASE OF [facility] PHYSICIAN ORDERS 2022-07-12 06:01:00 Doctor Unassigned, No [facility] US ABDOMEN COMPLETE 2022-06-20 16:34:00 [facility]quisition, [facility] NOTICE OF PRIVACY 2022-02-08 13:50:09 Doctor Unassigned, No [facility] CONSENT/REFUSAL FOR 2022-02-08 13:49:07 Doctor Unassigned, No [facility] XR CHEST 2 VW 2022-01-10 13:35:30 Requisition, Paper [facility] Encounters Start End Encounter Admission Attending Care Care Encounter Source Date/Time Date/Time Type Type Clinicians Facility Department ID 2022-08-08 2022-08-08 Outpatient R GÉNESIS, [facility] [id number] Univers 08:48:43 23:59:00 WILLIS ity [facility] 2022-08-08 2022-08-08 [facility] 1.2.840.114 [id number] Univers 08:48:43 23:59:00 Encounter Willis HANLEY 350.1.13.10 ity [facility] 4.2.7.2.686 [facility] [id number] [facility] july 804 Branch 2022-08-02 2022-08-02 Outpatient R RADIOLOGY [facility] [id number] Univers 07:40:44 23:59:00 ity of [facility] 2022-08-02 2022-08-02 Hospital Radiology [facility] 1.2.840.114 [id number] Univers 07:40:44 23:59:00 Encounter ANGLEBLAYNE 350.1.13.10 ity of [place] [id number] [facility] [address] 2022-07-27 2022-07-27 Orders Doctor EDNA 1.2.840.114 [id number] Univers 00:00:00 00:00:00 Only Unassigned, MEERA 350.1.13.10 ity of [place] [facility] 4.2.7.2.686 Rajesh as [id number] [facility] [address] 2022-07-12 2022-07-12 Grain Merchandiser Rodri, 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 [facility] 1.2.8 40.114 [id number] Univers 09:15:00 09:30:00 Visit Sita Atkinson 350.1.13.10 ity of [place] [facility] [id number] Mo dical [facility] [address] [facility] 2022-07-12 2022-07-12 Outpatient R DEMETRIO [facility] [id number] Univers 09:15:00 09:15:00 SITA szymanski [facility] 2022-07-12 2022-07-12 Orders Doctor EDNA 1.2.840.114 [id number] Univers 00:00:00 00:00:00 Only Unassigned, MEERA 350.1.13.10 ity of [place] [facility] 4.2.7.2.686 Rajesh as [id number] [facility] [address] 2022-06-20 2022-06-20 Outpatient R RADIOLOGY [facility] [id number] Univers 09:29:41 23:59:00 ity of [facility] 2022-06-20 2022-06-20 Hospital Radiology [facility] 1.2.840.114 [id number] Univers 09:29:41 23:59:00 Encounter [place] 350.1.13.10 ity [place] [id number] [facility] 8[address] Branch 2022-05-09 2022-05-09 Outpatient [facility] [id number] Univers 09:00:00 09:00:00 SENDIL ity of [facility] 2022-05-09 2022-05-09 Outpatient [facility] [id number] Univers 09:00:00 09:00:00 SENDIL ity of [facility] 2022-05-09 2022-05-09 Outpatient R FRANCISCO JAVIER, [facility] [id number] Univers 09:00:00 09:00:00 SENDIL ity [facility] 2022-02-08 2022-02-08 Emergency X [facility] ERT [id number] Univers 08:56:00 09:39:00 PEDRO itbonny [facility] 2022-02-08 2022-02-08 Emergency [facility] 1.2.696.807 [id number] Univers 08:56:00 09:39:00 Pedro HANLEY 350.1.13.10 i ty of [place] 4.2.7.2.686 [facility] [id number] [facility] [address] 2022-01-10 2022-01-10 Outpatient R RADIOLOGY [facility] [id number] Univers 08:09:31 23:59:00 ity of [facility] 2022-01-10 2022-01-10 Hospital Radiology [facility] 1.2.840.114 [id number] Univers 08:09:31 23:59:00 Siddhartha HANLEY 350.1.13.10 ity [facility] 4.2.7.2.686 [facility] [id number] [facility] 8[address] 2021-11-16 2021-11-16 Telephone Francisco Javier AKPIPPA 1.2.066.085 [id number] Univers 00:00:00 00:00:00 Sendil Tabatha HANLEY 350.1.13.10 ity [facility] 4.2.7.2.686 [facility] PROFESSIO [id number] Mo dical NAL 059 [facility] 2021-11-16 2021-11-16 Telephone Francisco Javier AKPIPPA 1.2.787.086 [id number] Univers 00:00:00 00:00:00 Sendil Tabatha HANLEY 350.1.13.10 it[place] [id number] Mo dical NAL 059 [facility] 2021-11-13 2021-11-13 Grain Merchandiser Rodri, 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 [facility] 1.2.8 40.114 [id number] Univers 08:30:00 08:45:00 Visit Blanka Mcintyre 350.1.13. 10 it[place] [id number] [facility] 353 [facility] 2021-11-13 2021-11-13 Outpatient R FRANCISCO JAVIER [facility] [id number] Univers 08:30:00 08:30:00 SENDIL ity [facility] 2021-11-13 2021-11-13 Outpatient R FRANCISCO JAVIER [facility] [id number] Univers 08:30:00 08:30:00 SENDIL ity [facility] 2021-11-07 2021-11-07 [facility] [id number] Univers 09:00:00 09:27:00 SENDIL ity [facility] 2021-11-07 2021-11-07 Office [facility] 1.2.840.114 [id number] Univers 09:00:00 09:27:00 Visit Blanka HANLEY 350.1.13.10 [place] [id number] [place] 623999 [facility] 2021-11-07 2021-11-07 Outpatient [facility] [id number] Univers 09:00:00 09:27:00 SENDIL ity [facility] 2021-11-07 2021-11-07 Orders Doctor BISHOP 1.2.840.114 [id number] Univers 00:00:00 00:00:00 Only Unassigned, MEERA 350.1.13.10 ity of [place] [facility] 4.2.7.2.686 Rajesh as [phone] [address] 2021-09-26 2021-09-26 Telephone [facility] 1.2.694.159 [id number] Univers 00:00:00 00:00:00 Sendil Tabatha HAN[place] 350.1.13.10 [place] [id number] Mo dical NAL 059 [facility] 2021-09-15 2021-09-15 Grain Merchandiser Rodri, 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 [facility] 1.2.8 40.114 [id number] Univers 09:45:00 10:00:00 Visit Blanka Mcintyre 350.1.13. 10 [place] [id number] Mo dical NAL 353 [facility] 2021-09-15 2021-09-15 Outpatient [facility] [id number] Univers 09:45:00 09:45:00 SENDIL ity [facility] 2021-09-15 2021-09-15 Outpatient [facility] [id number] Univers 09:45:00 09:45:00 SENDIL ity [facility] 2021-09-15 2021-09-15 Orders Doctor BISHOP 1.2.840.114 [id number] Univers 00:00:00 00:00:00 Only Unassigned, MEERA 350.1.13.10 ity of [place] [facility] 4.2.7.2.686 Rajesh as [id number] [address] 2021-09-01 2021-09-01 Orders Doctor EDNA 1.2.840.114 [id number] Univers 00:00:00 00:00:00 Only Unassigned, MEERA 350.1.13.10 ity of [place] [facility] 4.2.7.2.686 Rajesh as [id number] [address] 2021-07-10 2021-07-10 Out[facility] [id number] Univers 09:00:00 09:24:24 SENDIL ity [facility] 2021-07-10 2021-07-10 Office [facility] 1.2.840.114 [id number] Univers 09:00:00 09:24:24 Visit Blanka HANLEY 350.1.13.10 ity [place] [id number] [address] 2021-07-10 2021-07-10 Refill [facility] 1.2.840.114 [id number] Univers 00:00:00 00:00:00 Blanka HANLEY 350.1.13.10 [place] [phone] [address] 2021-04-10 2021-04-10 Telephone [facility] 1.2.002.168 [id number] Univers 00:00:00 00:00:00 Blanka Hanley 350.1.13.10 [place] of [place] [phone] [address] 2021-03-21 2021-03-21 [facility] 1.2.913.535 [id number] Univers 00:00:00 00:00:00 Blanka Hanley 350.1.13.10 [place] [id number] [address] 2021-03-08 2021-03-08 [facility] 1.2.840.114 [id number] Univers 14:53:40 15:32:09 Visit Blanka Hanley 350.1.13.10 [place] [id number] [address] 2021-03-08 2021-03-08 Out[facility] [id number] Univers 15:00:00 15:00:00 SENDIL ity of [facility] 2021-02-28 2021-02-28 Orders Doctor EDNA 1.2.840.114 [id number] Univers 00:00:00 00:00:00 Only Unassigned, MEERA 350.1.13.10 ity of [place] [facility] 4.2.7.2.686 Rajesh as [phone] [facility] [address] 2021-01-24 2021-01-24 Outpatient R [facility] [id number] Univers 08:00:00 08:00:00 SENDIL ity of [facility] 2021-01-24 2021-01-24 [facility] 1.2.840.114 [id number] Univers 07:43:37 07:43:37 Encounter Blanka Hanley 350.1.13.10 it[place] of [place] [id number] [facility] [address] 2021-01-24 2021-01-24 [facility] 1.2.840.114 [id number] Univers 07:43:23 07:43:23 Encounter Blanka Hanley 350.1.13.10 ity of [place]2.[place] [id number] [facility] [address] 2021-01-24 2021-01-24 [facility] 1.2.840.114 [id number] Univers 07:43:11 07:43:11 Encounter Blanka Hanley 350.1.13.10 ity of [place]2.[place] [id number] [facility] [address] 2021-01-24 2021-01-24 [facility] 1.2.840.114 [id number] Univers 07:42:56 07:42:56 Encounter Blanka Hanley 350.1.13.10 ity of [place]2.[place] [id number] [facility] [address] 2021-01-11 2021-01-11 [facility] 1.2.840.114 [id number] Univers 14:19:10 15:18:58 Visit Blanka Hanley 350.1.13.10 it[place] of [place] [id number] Mo dical nal 059 [facility] 2021-01-11 2021-01-11 Outpatient R MCINTYRE, [facility] [id number] Univers 14:30:00 14:30:00 SENDIL ity [facility] 2020-11-25 2020-11-25 Orders Doctor EDNA 1.2.840.114 [id number] Univers 00:00:00 00:00:00 Only Unassigned, MEERA 350.1.13.10 ity of [place] [facility] 4.2.7.2.686 Rajesh as [id number] [address] 2020-10-25 2020-10-25 Hospital Radiology [facility] 1.2.840.114 [id number] Univers 07:44:35 23:59:00 Encounter Niraj 350.1.13.10 ity of [place].2.[place] [id number] [facility] [address] 2020-10-25 2020-10-25 Grain Merchandiser Rodri, 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 [facility] 1.2.8 40.114 [id number] Univers 07:47:08 08:02:08 Visit Sariahkari Sita Hanley 350.1.13.10 [place] of [place].2.[place] [phone] Mo dical nal 353 [facility] 2020-10-25 2020-10-25 Outpatient R RADIOLOGY [facility] [id number] Univers 00:00:00 00:00:00 ity of [facility] 2020-10-24 2020-10-24 Orders Doctor BISHOP 1.2.840.114 [id number] Univers 00:00:00 00:00:00 Only Unassigned, MEERA 350.1.13.10 ity of [place] [facility] 4.2.7.2.686 Rajesh as [id number] [facility] [address] 2020-10-18 2020-10-18 Hospital Radiology [facility] 1.2.840.114 [id number] Univers 12:30:07 23:59:00 Encounter [place] 350.1.13.10 ity of [place].2.[place] [id number] [facility] [address] 2020-10-18 2020-10-18 Outpatient R RADIOLOGY [facility] [id number] Univers 00:00:00 00:00:00 ity of [facility] 2020-09-22 2020-09-22 Outpatient R GÉNESIS [facility] [id number] Univers 10:30:00 10:30:00 WILLIS ity of [facility] 2020-09-22 2020-09-22 Grain Merchandiser Rodri, 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 [facility] 1.2.8 40.114 [id number] Univers 09:54:07 10:09:07 Visit Willis Chavis [place] 350.1.13.10 [place] [id number] Mo dical formerly [facility] [address] 2020-09-15 2020-09-15 Outpatient R JAC MARLOW [facility] [id number] Univers 11:00:00 11:00:00 ity of [facility] 2020-09-15 2020-09-15 Orders Doctor EDNA 1.2.840.114 [id number] Univers 00:00:00 00:00:00 Only Unassigned, MEERA 350.1.13.10 ity of [place] [facility] 4.2.7.2.686 Rajesh as [id number] [facility] [address] 2020-09-05 2020-09-05 [facility] 1.2.840.114 [id number] Univers 12:36:55 23:59:00 Encounter Willis M [place] 350.1.13.10 ity of [place]2.[place] [id number] [facility] [address] 2020-09-05 2020-09-05 [facility] 1.2.840.114 [id number] Univers 12:36:08 23:59:00 Encounter Willis M [place] 350.1.13.10 ity of [place].2.[place] [id number] [facility] [address] 2020-09-05 2020-09-05 [facility] [id number] Univers 00:00:00 00:00:00 WILLIS ity [facility] 2019-10-19 2019-10-19 [facility] [id number] Univers 08:16:52 23:59:00 WILLIS ity [facility] 2019-10-19 2019-10-19 [facility] 1.2.840.114 [id number] Univers 08:16:00 23:59:00 Encounter Willis Hanley 350.1.13.10 ity of [place] 4.2.7.2.686 [facility] [id number] [facility] [address] 2019-10-19 2019-10-19 Orders Doctor EDNA 1.2.840.114 [id number] Univers 00:00:00 00:00:00 Only Unassigned, MEERA 350.1.13.10 ity of [place] [facility] 4.2.7.2.686 [facility] [phone] [facility] [address] Results This patient has no known results.
[2022-08-31] MEDS ORDERED: NA CHLORIDE 0.9% 1,000 ML ONE (04:35)
[2022-08-31] MEDS ORDERED: ASPIRIN 81 MG CHEWABLE TABLET ONE (04:35)
[2022-08-31 04:40] LABS: Absolute Lymphocytes (CBC) 2.7 K/uL (0.7-4.9); Hematocrit 45.1 % (36.0-45.0); Lymphocytes % 31.8 % (15.3-44.8); MCV 89.9 fL (80-100); MPV 8.4 fL (7.6-11.3); RBC Red Blood Cell Count 5.02 M/uL (3.86-4.86)
[2022-08-31 04:43] LABS: Protime INR 0.95
[2022-08-31 04:57] LABS: ALT/SGPT 25 U/L (13-56); AST/SGOT 11 U/L (15-37); Albumin 3.9 g/dL (3.4-5.0); Alkaline Phosphatase 70 U/L (45-117); BUN Blood Urea Nitrogen 15 mg/dL (7-18); Bicarbonate 25 mmol/L (21-32); Bilirubin Direct < 0.1 mg/dL (0-0.2); Bilirubin Total 0.3 mg/dL (0.2-1.0); Glomerular Filtration Rate 100 ml/min (=/>90); Glucose Level 117 mg/dL (74-106); Lipase 150 U/L (73-393); Magnesium 2.3 mg/dL (1.6-2.4); Protein, Total 7.5 g/dL (6.4-8.2); Sodium Level 140 mmol/L (136-145)
[2022-08-31 05:05] LABS: NT PRO-BNP 23 pg/mL (<125); Thyroid Stimulating Hormone 0.575 uIU/mL (0.358-3.740); Troponin High Sensitivity 5.2 pg/mL (<58.9)
[2022-08-31 06:01] LABS: Urine Blood Trace-lysed (Negative); Urine Glucose Negative (Negative); Urine Protein Negative (Negative)
--- NOTE | 2022-08-31 06:09 | EDPHYS ---
Physician Documentation [facility] Name: Lia Trejo Age: 67 yrs Sex: Female : 1955 Arrival Date: 08/31/2022 Time: 04:07 Bed 6 Private MD: Humza Soliman HPI: 08/31 04:26 This 67 yrs old Female presents to ER via Ambulatory with complaints of bina Irregular Pulse. 04:26 The patient presents with a history of irregular heart beat, heart racing. Context: The bina symptoms occur at rest, with light activity. Onset: The symptoms/episode began/occurred 1 day(s) ago. Duration: The patient or guardian reports multiple episodes, with no pattern. Modifying factors: The symptoms are aggravated by nothing. The symptoms are alleviated by nothing. Associated signs and symptoms: The patient has no apparent associated signs or symptoms. The patient has not experienced similar symptoms in the past. Historical: - Allergies: 04:20 Codeine; lg3 04:20 PENICILLINS; lg3 04:20 Sulfa (Sulfonamide Antibiotics); lg3 - Home Meds: 04:20 levothyroxine oral [Active]; carvedilol oral [Active]; mesalamine oral [Active]; lg3 buspirone Oral [Active]; Hydroxyzine Oral [Active]; atorvastatin oral [Active]; - PMHx: 04:20 Anxiety; Bipolar disorder; COPD; Crohn's; Depression; Hyperlipidemia; Hypertension; lg3 Thyroid problem; - PSHx: 04:20 hysterectomy; Cholecystectomy; lg3 - Immunization history:: Adult Immunizations up to date, Client reports receiving the 2nd dose of the Covid vaccine. - Social history:: Smoking status: Patient reports the use of cigarette tobacco products, smokes two packs cigarettes per day. Patient/guardian denies using alcohol, street drugs. - Family history:: not pertinent. ROS: 04:26 Constitutional: Negative for fever, chills, and weight loss, Eyes: Negative for injury, bina pain, redness, and discharge, ENT: Negative for injury, pain, and discharge, Neck: Negative for injury, pain, and swelling, Respiratory: Negative for shortness of breath, cough, wheezing, and pleuritic chest pain, Abdomen/GI: Negative for abdominal pain, nausea, vomiting, diarrhea, and constipation, Back: Negative for injury and pain, : Negative for injury, bleeding, discharge, and swelling, MS/Extremity: Negative for injury and deformity, Skin: Negative for injury, rash, and discoloration, Neuro: Negative for headache, weakness, numbness, tingling, and seizure, Psych: Negative for depression, anxiety, suicide ideation, homicidal ideation, and hallucinations, Allergy/Immunology: Negative for hives, rash, and allergies, Endocrine: Negative for neck swelling, polydipsia, polyuria, polyphagia, and marked weight changes, Hematologic/Lymphatic: Negative for swollen nodes, abnormal bleeding, and unusual bruising. 04:26 Cardiovascular: Positive for chest pain, palpitations. Exam: 04:26 Constitutional: This is a well developed, well nourished patient who is awake, alert, bina and in no acute distress. Head/Face: Normocephalic, atraumatic. Eyes: Pupils equal round and reactive to light, extra-ocular motions intact. Lids and lashes normal. Conjunctiva and sclera are non-icteric and not injected. Cornea within normal limits. Periorbital areas with no swelling, redness, or edema. ENT: Nares patent. No nasal discharge, no septal abnormalities noted. Tympanic membranes are normal and external auditory canals are clear. Oropharynx with no redness, swelling, or masses, exudates, or evidence of obstruction, uvula midline. Mucous membranes moist. Neck: Trachea midline, no thyromegaly or masses palpated, and no cervical lymphadenopathy. Supple, full range of motion without nuchal rigidity, or vertebral point tenderness. No Meningismus. Chest/axilla: Normal chest wall appearance and motion. Nontender with no deformity. No lesions are appreciated. Cardiovascular: Regular rate and rhythm with a normal S1 and S2. No gallops, murmurs, or rubs. Normal PMI, no JVD. No pulse deficits. Respiratory: Lungs have equal breath sounds bilaterally, clear to auscultation and percussion. No rales, rhonchi or wheezes noted. No increased work of breathing, no retractions or nasal flaring. Abdomen/GI: Soft, non-tender, with normal bowel sounds. No distension or tympany. No guarding or rebound. No evidence of tenderness throughout. Back: No spinal tenderness. No costovertebral tenderness. Full range of motion. Female : Normal external genitalia. Skin: Warm, dry with normal turgor. Normal color with no rashes, no lesions, and no evidence of cellulitis. MS/ Extremity: Pulses equal, no cyanosis. Neurovascular intact. Full, normal range of motion. Neuro: Awake and alert, GCS 15, oriented to person, place, time, and situation. Cranial nerves II-XII grossly intact. Motor strength 5/5 in all extremities. Sensory grossly intact. Cerebellar exam normal. Normal gait. Psych: Awake, alert, with orientation to person, place and time. Behavior, mood, and affect are within normal limits. 04:26 Musculoskeletal/extremity: DVT Exam: No signs of deep vein thrombosis. no pain, no swelling, no tenderness, negative Homans' sign noted on exam, no appreciated bluish discoloration, no erythema, no increased warmth. Vital Signs: 04:35 BP 141 / 69; Pulse 66; Resp 14; Temp 98.5; Pulse Ox 98% on R/A; Weight 83.46 kg; Height rv1 5 ft. 4 in. (162.56 cm); 05:30 BP 160 / 71; Pulse 64; Resp 17; Pulse Ox 97% on R/A; jb4 06:15 BP 126 / 62; Pulse 61; Resp 16; Pulse Ox 97% on R/A; jb4 04:35 Body Mass Index 31.58 (83.46 kg, 162.56 cm) rv1 [place] Coma Score: 04:26 Eye Response: spontaneous(4). Verbal Response: oriented(5). Motor Response: obeys [facility] commands(6). Total: 15. MDM: 04:19 Patient medically screened. [facility] 04:29 Differential diagnosis: arrythmia, dehydration. Data reviewed: vital signs, nurses [facility] notes, lab test result(s), EKG, radiologic studies. Consideration of Admission/Observation Escalation of care including admission/observation considered. Management of patient was discussed with the following: Hospitalist: ARELIS EVANS. Independent interpretation of the following test(s) in the Emergency Department EKG: See my EKG interpretation above. Test considered but Not performed: Other Details CT CHEST. Care significantly affected by the following chronic conditions: DEPRESSION, BIPOLAR,. 08/31 04:22 Order name: Basic Metabolic Panel; Complete Time: 05:37 [facility] 08/31 04:22 Order name: CBC with Diff; Complete Time: 06:05 [facility] 08/31 04:22 Order name: LFT's; Complete Time: 06:05 [facility] 08/31 04:22 Order name: Magnesium; Complete Time: 06:05 [facility] 08/31 04:22 Order name: NT PRO-BNP; Complete Time: 06:05 [facility] 08/31 04:22 Order name: PT-INR; Complete Time: 06:05 [facility] 08/31 04:22 Order name: Troponin HS; Complete Time: 06:05 [facility] 08/31 04:22 Order name: XRAY Chest (1 view) 08/31 04:22 Order name: TSH; Complete Time: 06:05 [facility] 08/31 04:22 Order name: Lipase; Complete Time: 06:05 [facility] 08/31 06:01 Order name: Urine Dipstick-Ancillary; Complete Time: 06:05 EDMS 08/31 06:07 Order name: Urine Culture 08/31 04:22 Order name: EKG; Complete Time: 04:23 [facility] 08/31 04:22 Order name: Cardiac monitoring; Complete Time: 04:40 [facility] 08/31 04:22 Order name: EKG - Nurse/Tech; Complete Time: 04:40 [facility] 08/31 04:22 Order name: IV Saline Lock; Complete Time: 04:28 [facility] 08/31 04:22 Order name: Labs collected and sent; Complete Time: 04:28 [facility] 08/31 04:22 Order name: O2 Per Protocol; Complete Time: 04:28 [facility] 08/31 04:22 Order name: O2 Sat Monitoring; Complete Time: 04:28 [facility] 08/31 04:22 Order name: Urine Dipstick-Ancillary (obtain specimen); Complete Time: 05:58 [facility] Administered Medications: 04:41 Drug: Aspirin Chewable Tablet 324 mg Route: PO; jb4 05:40 Follow up: Response: No adverse reaction; Marked relief of symptoms; Pain is decreased; pf1 RASS: Alert and Calm (0) 04:41 Drug: NS 0.9% 1000 ml Route: IV; Rate: 125 ml/hr; Site: right forearm; jb4 06:21 Follow up: IV Status: Completed infusion; IV Intake: 300ml pf1 06:29 Drug: Rocephin (cefTRIAXone) 1 grams Route: IV; Rate: per protocol; Site: right forearm;jb4 06:29 Follow up: Response: No adverse reaction; Medication administered at discharge.; IV jb4 Status: Completed infusion Disposition Summary: 08/31/22 06:07 Discharge Ordered Location: Home bina Problem: new bina Symptoms: have improved bina Condition: Stable bina Diagnosis - Bipolar disorder, unspecified bina - Palpitations bina - UTI/ Urinary tract infection, site not specified bina Followup: bina - With: Private Physician - When: 2 - 3 days - Reason: Recheck today's complaints, Continuance of care, Re-evaluation by your physician Followup: bina - With: - When: 2 - 3 days - Reason: Recheck today's complaints, Re-evaluation by your physician Discharge Instructions: - Discharge Summary Sheet bina - Bipolar 1 Disorder bina - Palpitations bina - Aspirin and Your Heart bina - Urinary Tract Infection, Adult bina - Urinary Tract Infection, Adult, [id number] bina - Palpitations, [id number] bina - Mixed Bipolar Disorder bina Forms: - Medication Reconciliation Form bina - Thank You Letter bina - Antibiotic Education bina - Prescription Opioid Use bina Prescriptions: - Macrobid 100 mg Oral Capsule - take 1 capsule by ORAL route every 12 hours for 7 days; 14 capsule; Refills: 0, bina Product Selection Permitted Signatures: Dispatcher [employer] EDHumza Jacobsen MD MD cha Attema, Lee, FIRE CONTROL ASSISTANT-C FIRE CONTROL ASSISTANT-Cla1 Tapan Ramírez, RN RN jb4 Belgica Oliva RN RN lg3 Rachel giles RN pf1
--- NOTE | 2022-08-31 06:09 | ER ---
Nurse's Notes [facility] Name: Lia Trejo Age: 67 yrs Sex: Female : 1955 Arrival Date: 08/31/2022 Time: 04:07 Bed 6 Private MD: Diagnosis: Bipolar disorder, unspecified;Palpitations;UTI/ Urinary tract infection, site not specified Presentation: 08/31 04:17 Chief complaint: Patient states: i feel like i have a motor running inside me and my lg3 heart starts racing and i have anxiety. when i lay down the motor starts up again and my heart wakes me up from beating so fast and my anxiety goes up. i keep going to the doctor but they tell me nothing is wrong with my heart. Coronavirus screen: Client denies travel out of the [place] in the last 14 days. At this time, the client does not indicate any symptoms associated with coronavirus-19. Ebola Screen: No symptoms or risks identified at this time. Initial Sepsis Screen:. Risk Assessment: Do you want to hurt yourself or someone else? Patient reports no desire to harm self or others. Onset of symptoms is unknown. 04:17 Method Of Arrival: Ambulatory lg3 04:17 Acuity: BRAYDEN 3 lg3 Triage Assessment: 04:20 General: Appears in no apparent distress. comfortable, Behavior is cooperative, lg3 anxious. Pain: Denies pain. EENT: No deficits noted. No signs and/or symptoms were reported regarding the EENT system. Neuro: No deficits noted. [place]el Agitation-Sedation Scale (RASS): 0 - Alert and Calm Level of Consciousness is awake, alert, obeys commands, Oriented to person, place, time, situation. Cardiovascular: Reports palpitations, Capillary refill < 3 seconds Clubbing of nail beds is absent JVD is absent Patient's skin is warm and dry. Respiratory: No deficits noted. Airway is patent Trachea midline Respiratory effort is even, unlabored, Respiratory pattern is regular, symmetrical. GI: No deficits noted. No signs and/or symptoms were reported involving the gastrointestinal system. : No deficits noted. No signs and/or symptoms were reported regarding the genitourinary system. Derm: No deficits noted. No signs and/or symptoms reported regarding the dermatologic system. Musculoskeletal: No deficits noted. No signs and/or symptoms reported regarding the musculoskeletal system. Circulation, motion, and sensation intact. Range of motion: intact in all extremities. Historical: - Allergies: 04:20 Codeine; lg3 04:20 PENICILLINS; lg3 04:20 Sulfa (Sulfonamide Antibiotics); lg3 - Home Meds: 04:20 levothyroxine oral [Active]; carvedilol oral [Active]; mesalamine oral [Active]; lg3 buspirone Oral [Active]; Hydroxyzine Oral [Active]; atorvastatin oral [Active]; - PMHx: 04:20 Anxiety; Bipolar disorder; COPD; Crohn's; Depression; Hyperlipidemia; Hypertension; lg3 Thyroid problem; - PSHx: 04:20 hysterectomy; Cholecystectomy; lg3 - Immunization history:: Adult Immunizations up to date, Client reports receiving the 2nd dose of the Covid vaccine. - Social history:: Smoking status: Patient reports the use of cigarette tobacco products, smokes two packs cigarettes per day. Patient/guardian denies using alcohol, street drugs. - Family history:: not pertinent. Screenin:27 [facility] ED Fall Risk Assessment (Adult) History of falling in the last 3 months, lg3 including since admission No falls in past 3 months (0 pts). Abuse screen: Denies threats or abuse. Denies injuries from another. Nutritional screening: No deficits noted. Tuberculosis screening: No symptoms or risk factors identified. Assessment: 04:20 Reassessment: see triage note. jb4 05:30 Reassessment: Patient appears in no apparent distress at this time. Patient and/or jb4 family updated on plan of care and expected duration. Pain level reassessed. Patient is alert, oriented x 3, equal unlabored respirations, skin warm/dry/pink. 06:30 Reassessment: Patient appears in no apparent distress at this time. Patient and/or jb4 family updated on plan of care and expected duration. Pain level reassessed. Patient is alert, oriented x 3, equal unlabored respirations, skin warm/dry/pink. Patient states feeling better. Patient states symptoms have improved. Vital Signs: 04:35 BP 141 / 69; Pulse 66; Resp 14; Temp 98.5; Pulse Ox 98% on R/A; Weight 83.46 kg; Height rv1 5 ft. 4 in. (162.56 cm); 05:30 BP 160 / 71; Pulse 64; Resp 17; Pulse Ox 97% on R/A; jb4 06:15 BP 126 / 62; Pulse 61; Resp 16; Pulse Ox 97% on R/A; jb4 04:35 Body Mass Index 31.58 (83.46 kg, 162.56 cm) rv1 [place] Coma Score: 04:26 Eye Response: spontaneous(4). Verbal Response: oriented(5). Motor Response: obeys bina commands(6). Total: 15. ED Course: 04:07 Patient arrived in ED. ja2 04:19 Humza Kilgore MD is Attending Physician. bina 04:20 Triage completed. lg3 04:20 Arm band placed on right wrist. lg3 04:27 Patient has correct armband on for positive identification. Placed in gown. Bed in low lg3 position. Call light in reach. Side rails up X2. Client placed on continuous cardiac and pulse oximetry monitoring. NIBP monitoring applied. agriculture research director on. Door closed. Noise minimized. Warm blanket given. 04:27 Patient maintains SpO2 saturation greater than 95% on room air. lg3 04:28 Tapan Ramírez, RN is Primary Nurse. jb4 04:28 Troponin HS Sent. jb4 04:28 PT-INR Sent. jb4 04:29 NT PRO-BNP Sent. jb4 04:29 Magnesium Sent. jb4 04:29 LFT's Sent. jb4 04:29 CBC with Diff Sent. jb4 04:29 Basic Metabolic Panel Sent. jb4 04:42 XRAY Chest (1 view) In Process Unspecified. EDMS 06:07 Akhil Piña MD is Referral Physician. bina 06:31 No provider procedures requiring assistance completed. IV discontinued, intact, jb4 bleeding controlled, No redness/swelling at site. Pressure dressing applied. Administered Medications: 04:41 Drug: Aspirin Chewable Tablet 324 mg Route: PO; jb4 05:40 Follow up: Response: No adverse reaction; Marked relief of symptoms; Pain is decreased; pf1 RASS: Alert and Calm (0) 04:41 Drug: NS 0.9% 1000 ml Route: IV; Rate: 125 ml/hr; Site: right forearm; jb4 06:21 Follow up: IV Status: Completed infusion; IV Intake: 300ml pf1 06:29 Drug: Rocephin (cefTRIAXone) 1 grams Route: IV; Rate: per protocol; Site: right forearm;jb4 06:29 Follow up: Response: No adverse reaction; Medication administered at discharge.; IV jb4 Status: Completed infusion Intake: 06:21 IV: 300ml; Total: 300ml. pf1 Outcome: 06:07 Discharge ordered by . bina 06:31 Discharged to home ambulatory. jb4 06:31 Condition: stable 06:31 Discharge instructions given to patient, Instructed on discharge instructions, follow up and referral plans. medication usage, Demonstrated understanding of instructions, follow-up care, medications, Prescriptions given X 1. 06:32 Patient left the ED. jb4 Signatures: Dispatcher [employer] EDMS Humza Kilgore MD MD cha Bryson, James, RN RN jb4 Belgica Oliva, RN RN [email or web address] Leatha Marr Pamala, RN RN pf1 Jodi Matthews [facility]
[2022-08-31] MEDS ORDERED: CEFTRIAXONE 1000 MG/VIAL ONE (06:23)
[2022-08-31 06:37] VITALS: TEMP 98.5
[2022-08-31 06:38] VITALS: O2SAT 97
[2022-08-31 06:39] VITALS: BP 126/62
--- NOTE | 2022-08-31 12:21 | RAD REPORT ---
EXAM DESCRIPTION: RAD - Chest Single View - 08/31/2022 4:40 am CLINICAL HISTORY: 67 years Female, CHEST PAIN COMPARISON: Chest x-ray report from 08/12/2019. The image was not available for review. TECHNIQUE: Single portable x-ray view of the chest performed on 08/31/2022 at 4:37 AM. FINDINGS: The lungs are well expanded and are clear. There is no evidence of a pneumothorax. The cardiac silhouette is normal in size and configuration. The mediastinal contours are normal. No acute osseous abnormality is identified. No acute soft tissue abnormalities are seen. Lines and tubes: None. Free air: None IMPRESSION: No evidence of acute intrathoracic disease. Electronically signed by: Linnette Mccarthy DO 08/31/2022 5:25 AM [facility] Due to temporary technical issues with the PACS/Fluency reporting system, reports are being signed by the in house radiologists without review as a courtesy to insure prompt reporting. The interpreting radiologist is fully responsible for the content of the report.
--- NOTE | 2022-08-31 17:31 | EKG ---
Test Date: 2022-08-31 Test Time: 04:30:16 Mine Administrator Supervisor: RV MEASUREMENT RESULTS: Intervals: Rate: 70 CA: 122 QRSD: 88 QT: 410 QTc: 442 [place]: P: 36 CA: 122 QRS: 50 T: 51 INTERPRETIVE STATEMENTS: Normal sinus rhythm Normal ECG Compared to ECG 08/25/2019 20:17:34 No significant changes Electronically Signed On 08-31-22 17:30:02 APPOINTMENT SPECIALIST by Samuel Hernandez
== END 2022-08-31 06:32 | disposition home or self-care (01) ==
LOC: ER 04:02
DX: R00.2 Palpitations (principal); N39.0 Urinary tract infection, site not specified; F31.9 Bipolar disorder, unspecified; I10 Essential (primary) hypertension; F17.210 Nicotine dependence, cigarettes, uncomplicated; Z88.0 Allergy status to penicillin; Z88.2 Allergy status to sulfonamides; Z88.5 Allergy status to narcotic agent
CPT/HCPCS: 96361; 93005; 87088; 85025; 87086; 80048; 36415; 83735; 85610; 80076; 84443; 81003; 84484; 83690; 83880; 71045; 96374; 99285; J7030

== ENCOUNTER → 2023-09-10 | Emergency (ER) | payer OTHER ==
--- OUTSIDE RECORDS SUMMARY | 2023-09-10 13:37 | XMS REPORT | Continuity of Care Document ---
Author Name Unknown Address [address] [facility] [address] [place] [id number] [facility] thconnect Address [address] [facility] 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 Name Role Phone DEBORAH SANTIAGO Primary Care Physician Unav ailBLANKA Burdick K.HGaurav Attending Clinician Unavaila ITA Juan Attending Clinician Unavailable ITA GOMEZ Attending Clinician Unavailable RADIOLOGY Attending Clinician Unavailable Radiology Attending Clinician Unavailable Doctor Unassigned, Tibbie Attending Clinician U kendra Vo RN, Lior Hidalgo Attending Clinician Unavail able ELEAZAR MEJIA Attending Clinician Unavailemily Mcdonough MD, Swathir Attending Clinician [phone] Eleazar Mejia MD Attending Clinician [phone] Blanka Mcintyre MD K.HGaurav Attending Clinician [phone] [email or web address] Attending Clinician Unavaila storm 2, [facility] Attending Clinician Unavailable WILLIS CHAVIS Attending Clinician UnavailWillis Fields MD Attending Clinician [phone] Po, 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 Attending Clinician UnavailSita Shanks MD Attending Clinician [phone] SITA ATKINSON Attending Clinician UnavailPEDRO Valencia Attending Clinician Unavailable Pedro Stringer DO Attending Clinician [phone] JAC MARLOW Attending Clinician Unavailable DEBORAH SANTIAGO Admitting Clinician Unavail able CLAIRE MOHAMMAD A. Admitting Clinician Jessica Mejia MD, Eleazar Dolan Admitting Clinician [email or web address]_S Admitting Clinician Sukhdeep inman CHAVIS WILLIS So Admitting Clinician BELKYS Romero Admitting Clinician Unavailable Payers Payer Name Policy Type Policy Number Effective Date Expirati on Date Source [employer] DUAL COMP HMO D SNP [id number] 2022 00:00:00 Problems Condition Name Condition Details Condition Category Status Onset Date Resolution Date Last Treatment Date Treating Clinician Comments Source Shortness of breath Shortness of breath Disease Active 2022-08 2 00:00: 00 [facility] No known active problems No known active problems Disease [facility] Allergies, Adverse Reactions, Alerts Allergy Name Allergy Type Status Severity Reaction(s) Onset Date Inactive Date Treating Clinician Comments Source SULFAMET HOPRIM DS DRUG Active Hallucinates 02-08 00:00: 00 [facility] Sulfamet hoprim Ds Propensi ty to adverse reaction s Active Hallucinatio ns 02-08 00:00: 00 [facility] Penicill in Drug Allergy Active Unknown - See comments 04-25 00:00: 00 Redness [facility] PENICILL IN DRUG INGREDI Active Hallucinates 04-25 00:00: 00 [facility] Social History Social Habit Start Date Stop Date Quantity Comments Source Gender [facility] History of tobacco use Cigarette Smoker [facility] Exposure to SARS-CoV-2 (event) 2022-01-29 00:00:00 2022-02-08 08:51:00 Not sure [facility] Tobacco use and exposure 2021-03-08 00:00:00 2021-03-08 00:00:00 Smokeless tobacco non-user [facility] History of Social function 2021-01-11 00:00:00 2021-01-11 00:00:00 [facility] Sex Assigned At 1955 00:00:00 1955 00:00:00 [facility] Smoking Status Start Date Stop Date Source Smokes tobacco daily 2021-03-08 00:00:00 [facility] Medications Ordered Medication Name Filled Medication Name Start Date Stop Date Current Medication? Ordering Clinician Indication Dosage Frequency Signature (SIG) Comments Components Source fluticasone propionate 50 mcg/actuati on nasal spray 2022-08 00:00: 00 Yes [id number] 1{spray } Use 1 [place] in each nostril in the morning. [facility] fluticasone propionate 50 mcg/actuati on nasal spray 2022-08 00:00: 00 Yes [id number] 1{spray } Use 1 [place] in each nostril in the morning. [facility] fluticasone propionate 50 mcg/actuati on nasal spray 2022-08 00:00: 00 Yes [id number] 1{spray } Use 1 [place] in each nostril in the morning. [facility] fluticasone propionate 50 mcg/actuati on nasal spray 2022-08 00:00: 00 Yes [id number] 1{spray } Use 1 [place] in each nostril in the morning. [facility] nicotine 21 mg/24 hr patch 2022-08 00:00: 00 08-18 05:59 :00 Yes [id number] 1{patch } Apply 1 Patch to area(s) every 24 (twenty-fo ur) hours for 28 days. [facility] nicotine 21 mg/24 hr patch 2022-08 00:00: 00 08-18 05:59 :00 Yes [id number] 1{patch } Apply 1 Patch to area(s) every 24 (twenty-fo ur) hours for 28 days. [facility] nicotine 21 mg/24 hr patch 2022-08 00:00: 00 08-18 05:59 :00 Yes [id number] 1{patch } Apply 1 Patch to area(s) every 24 (twenty-fo ur) hours for 28 days. [facility] aspirin 81 mg EC tablet 2022-08 14:20: 42 Yes 81mg Take 1 tablet by mouth in the morning. [facility] Dextrometho rphan-Guaif enesin (MUCINEX DM) 60-1,200 mg Tb12 2022-08 14:20: 42 Yes 1{tbl} Take 1 tablet by mouth in the morning and 1 tablet in the evening. [facility] alendronate 70 mg [facility] 2022-08 14:20: 42 Yes 70mg Take 70 mg by mouth weekly. Sundays [facility] albuterol sulfate 90 mcg/actuati on [facility] 2022-08 14:20: 42 Yes 2{puff} Inhale 2 Puffs as needed for Other (SOB). [facility] aspirin 81 mg EC tablet 2022-08 14:20: 42 Yes 81mg Take 1 tablet by mouth in the morning. [facility] Dextrometho rphan-Guaif enesin (MUCINEX DM) 60-1,200 mg [facility] 2022-08 14:20: 42 Yes 1{tbl} Take 1 tablet by mouth in the morning and 1 tablet in the evening. [facility] alendronate 70 mg [facility] 2022-08 14:20: 42 Yes 70mg Take 70 mg by mouth weekly. Sundays [facility] albuterol sulfate 90 mcg/actuati on [facility] 2022-08 14:20: 42 Yes 2{puff} Inhale 2 Puffs as needed for Other (SOB). [facility] aspirin 81 mg EC tablet 2022-08 14:20: 42 Yes 81mg Take 1 tablet by mouth in the morning. [facility] Dextrometho rphan-Guaif enesin (MUCINEX DM) 60-1,200 mg [facility] 2022-08 14:20: 42 Yes 1{tbl} Take 1 tablet by mouth in the morning and 1 tablet in the evening. [facility] alendronate 70 mg [facility] 2022-08 14:20: 42 Yes 70mg Take 70 mg by mouth weekly. Sundays [facility] albuterol sulfate 90 mcg/actuati on Ae 2022-08 14:20: 42 Yes 2{puff} Inhale 2 Puffs as needed for Other (SOB). [facility] aspirin 81 mg EC tablet 2022-08 14:20: 42 Yes 81mg Take 1 tablet by mouth in the morning. [facility] Dextrometho rphan-Guaif enesin (MUCINEX DM) 60-1,200 mg Tb12 2022-08 14:20: 42 Yes 1{tbl} Take 1 tablet by mouth in the morning and 1 tablet in the evening. [facility] alendronate 70 mg TbEF 2022-08 14:20: 42 Yes 70mg Take 70 mg by mouth weekly. Sundays [facility] albuterol sulfate 90 mcg/actuati on [facility] 2022-08 14:20: 42 Yes 2{puff} Inhale 2 Puffs as needed for Other (SOB). [facility] methylPREDN ISolone (METHYLPRED DP) 4 mg tablets 2022-08 14:20: 39 07-19 00:00 :00 No 4mg Take 1 tablet by mouth SEE-INSTRU CTIONS. follow package directions [facility] predniSONE 20 mg tablet 2022-08 00:00: 00 Yes [id number] 20mg Take 1 tablet by mouth in the morning and 1 tablet in the evening. [facility] predniSONE 20 mg tablet 2022-08 00:00: 00 Yes [id number] 20mg Take 1 tablet by mouth in the morning and 1 tablet in the evening. [facility] predniSONE 20 mg tablet 2022-08 00:00: 00 Yes [id number] 20mg Take 1 tablet by mouth in the morning and 1 tablet in the evening. [facility] predniSONE 20 mg tablet 2022-08 00:00: 00 Yes [id number] 20mg Take 1 tablet by mouth in the morning and 1 tablet in the evening. [facility] carvediloL 12.5 mg tablet 2022-08 00:00: 00 08-19 05:59 :00 Yes [id number] 12.5mg Take 1 tablet by mouth in the morning and 1 tablet in the evening. Take with meals. Do all this for 30 days. [facility] carvediloL 12.5 mg tablet 2022-08 2 00:00: 00 08-19 05:59 :00 Yes [id number] 12.5mg Take 1 tablet by mouth in the morning and 1 tablet in the evening. Take with meals. Do all this for 30 days. [facility] carvediloL 12.5 mg tablet 2022-08 00:00: 00 08-19 05:59 :00 Yes [id number] 12.5mg Take 1 tablet by mouth in the morning and 1 tablet in the evening. Take with meals. Do all this for 30 days. [facility] budesonide- formoteroL 80-4.5 mcg/actuati on inhaler 2022-08 00:00: 00 08-17 05:59 :00 Yes [id number] 2{puff} Inhale 2 Puffs in the morning and 2 Puffs in the evening. Do all this for 28 days. [facility] budesonide- formoteroL 80-4.5 mcg/actuati on inhaler 2022-08 00:00: 00 08-17 05:59 :00 Yes [id number] 2{puff} Inhale 2 Puffs in the morning and 2 Puffs in the evening. Do all this for 28 days. [facility] budesonide- formoteroL 80-4.5 mcg/actuati on inhaler 2022-08 2 00:00: 00 08-17 05:59 :00 Yes [id number] 2{puff} Inhale 2 Puffs in the morning and 2 Puffs in the evening. Do all this for 28 days. [facility] doxycycline hyclate 100 mg capsule 2022-08 2 00:00: 00 07-27 05:59 :00 Yes [id number] 100mg Take 1 capsule by mouth every 12 (twelve) hours for 7 days. [facility] doxycycline hyclate 100 mg capsule 2022-08 00:00: 00 07-27 05:59 :00 Yes [id number] 100mg Take 1 capsule by mouth every 12 (twelve) hours for 7 days. [facility] cetirizine (ZYRTEC) tablet 10 mg 2022-08 15:00: 00 Yes 10mg 10 mg, Oral, DAILY, First dose on Sat07/18/23 at 0900, Until Discontinu ed, Routine [facility] pantoprazol e (PROTONIX) EC tablet 40 mg 2022-08 15:00: 00 Yes 40mg 40 mg, Oral, QAM, First dose on Sat07/18/23 at 0900, Until Discontinu ed, Routine [facility] azithromyci n (ZITHROMAX) tablet 500 mg 2022-08 15:00: 00 07-18 15:08 :00 No 500mg 500 mg, Oral, DAILY, 1 dose, First dose on Sat07/18/23 at 0900, Routine
Reason for Anti-Infec tive: Empiric Therapy for Suspected Infection< br>Empiric Therapy Site: Respirator y
Durat ion of therapy: 72 hours [facility] QUEtiapine (SEROQUEL) tablet 50 mg 2022-08 03:00: 00 Yes 50mg 50 mg, Oral, QHS, First dose on Sat07/17/23 at 2100, Until Discontinu ed, Routine [facility] atorvastati n (LIPITOR) tablet 40 mg 2022-08 03:00: 00 Yes 40mg 40 mg, Oral, QHS, First dose on Sat07/17/23 at 2100, Until Discontinu ed, Routine [facility] mesalamine CR (PENTASA CR) capsule 500 mg 2022-08 02:00: 00 Yes 500mg 500 mg, Oral, BID, First dose on Sat07/17/23 at 2000, Until Discontinu ed, Routine [facility] levothyroxi ne (SYNTHROID) tablet 112 mcg 2022-08 17:45: 00 Yes 112ug 112 mcg, Oral, QAM-0600, First dose (after last modificati on) on Sat07/17/23 at 1145, Until Discontinu ed, [facility] (COREG[facility] 12.5 mg 2022-08 17:45: 00 Yes 12.5mg 12.5 mg, Oral, BID MEALS, First dose (after last modificati on) on Sat07/17/23 at 1145, Until Discontinu ed, Routine [facility] lisinopriL (PRINIVIL,Z ESTRIL) tablet 10 mg 2022-08 17:45: 00 Yes 10mg 10 mg, Oral, BID, First dose (after last modificati on) on Sat07/17/23 at 1145, Until Discontinu ed, Routine [facility] aspirin EC tablet 81 mg 2022-08 17:45: 00 Yes 81mg 81 mg, Oral, DAILY, First dose (after last modificati on) on Sat07/17/23 at 1145, Until Discontinu ed, Routine [facility] hydrOXYzine (ATARAX) tablet 25 mg 2022-08 17:29: 05 Yes 25mg 25 mg, Oral, Q8HPRN, Starting on Sat07/17/23 at 1129, Until Discontinu ed, Routine, Itching, Anxiety [facility] azithromyci n (ZITHROMAX) 500 mg in NaCl 0.9% (NS) 250 mL VIAL-MATE IV piggyback 2022-08 06:45: 00 07-17 16:25 :31 No 500mg 500 mg, IV Piggyback, Q24H ABX, 2 doses, First dose on Sat07/17/23 at 0045, Last dose on Sat07/18/23 at 0045, Administer over 60 Minutes, 250 mL
Reas on for Anti-Infec tive: Empiric Therapy for Suspected Infection< br>Empiric Therapy Site: Respirator y
Durat ion of therapy: 72 hours [facility] cefTRIAXone (ROCEPHIN) 1,000 mg in NaCl 0.9% (NS) 100 mL MINI-BAG 2022-08 05:45: 00 07-22 05:44 :00 Yes 1000mg 1,000 mg, IV Piggyback, Q24H ABX, 5 doses, First dose (after last modificati on) on Sat07/16/23 at 2345, Last dose on Sat07/20/23 at 2345, Administer over 30 Minutes, 100 mL
Reas on for Anti-Infec tive: Empiric Therapy for Suspected Infection< br>Empiric Therapy Site: Respirator y
Durat ion of therapy: 7 days [facility] enoxaparin (LOVENOX) injection 40 mg 2022-08 23:00: 00 Yes 40mg 40 mg, Subcutaneo us, DAILY, First dose on Sat07/16/23 at 1700, Until Discontinu ed, Routine [facility] predniSONE (DELTASONE) tablet 40 mg 2022-08 20:15: 00 Yes 40mg 40 mg, Oral, Q8H, First dose (after last modificati on) on Sat07/16/23 at 1415, Until Discontinu ed, Routine [facility] fluticasone propionate 50 mcg/actuati on nasal spray 1 [place] 2022-08 20:00: 00 Yes 1{spray } 1 [place], Nasal, DAILY, First dose on Sat07/16/23 at 1400, Until Discontinu ed, Routine [facility] guaiFENesin 100 mg/5 mL solution 200 mg 2022-08 19:51: 24 Yes 200mg 200 mg, Oral, Q4HPRN, Starting on Sat07/16/23 at 1351, Until Discontinu ed, Routine, Cough [facility] HYDROcodone -acetaminop hen (NORCO 5) 5-325 mg tablet 1 tablet 2022-08 19:48: 13 Yes 1{tbl} 1 tablet, Oral, Q6HPRN, Starting on Sat07/16/23 at 1348, Until Discontinu ed, Routine, Pain (scale 7-10) [facility] traMADoL (ULTRAM) tablet 50 mg 2022-08 19:47: 48 Yes 50mg 50 mg, Oral, Q6HPRN, Starting on Sat07/16/23 at 1347, Until Discontinu ed, Routine, Pain (scale 4-6) [facility] acetaminoph en (TYLENOL) tablet 650 mg 2022-08 19:47: 28 Yes 650mg 650 mg, Oral, Q6HPRN, Starting on Sat07/16/23 at 1347, Until Discontinu ed, Routine, Pain (scale 1-3), Temp > 38 C [facility] ipratropium -albuteroL (DUONEB) 0.5 mg-3 mg(2.5 mg base)/3 mL nebulizer solution 3 mL 2022-08 18:00: 00 Yes 3mL 3 mL, Inhalation , QID, First dose (after last modificati on) on Sat07/16/23 at 1200, Until Discontinu ed, Routine [facility] nicotine (NICODERM) 21 mg/24 hr patch 1 Patch 2022-08 14:30: 00 Yes 1{patch } 1 Patch, Topical, Administer over 24 Hours, Q24H, First dose on Sat07/16/23 at 0830, Until Discontinu ed, Routine [facility] ipratropium -albuteroL (DUONEB) 0.5 mg-3 mg(2.5 mg base)/3 mL nebulizer solution 3 mL 2022-08 12:23: 57 07-16 16:55 :56 No 3mL 3 mL, Inhalation , Q6HPRN, Starting on Sat07/16/23 at 0623, Until Sat07/16/23 at 1055, Routine, Wheezing [facility] azithromyci n (ZITHROMAX) 500 mg in NaCl 0.9% (NS) 250 mL VIAL-MATE IV piggyback 2022-08 06:30: 00 07-16 08:11 :00 No [id number] 500mg 500 mg, IV Piggyback, ONCE, 1 dose, On Sat07/16/23 at 0030, Administer over 60 Minutes, 250 mL
Reas on for Anti-Infec tive: Empiric Therapy for Suspected Infection< br>Empiric Therapy Site: Respirator y
Durat ion of therapy: Once (ED) [facility] ipratropium -albuteroL (DUONEB) 0.5 mg-3 mg(2.5 mg base)/3 mL nebulizer solution 9 mL 2022-08 06:15: 00 07-16 05:55 :00 No [id number] 9mL 9 mL, Inhalation , ONCE, 1 dose, On Sat07/16/23 at 0015, Routine [facility] acetaminoph en (TYLENOL) tablet 650 mg 2022-08 05:45: 00 07-16 05:53 :00 No [id number] 650mg 650 mg, Oral, ONCE, 1 dose, On Sat07/15/23 at 2345, QUYNH [facility] cefTRIAXone (ROCEPHIN) 1,000 mg in NaCl 0.9% (NS) 100 mL MINI-BAG 2022-08 05:45: 00 07-16 06:13 :00 No [id number] 1000mg 1,000 mg, IV Piggyback, ONCE, 1 dose, On Sat07/15/23 at 2345, Administer over 30 Minutes, 100 mL
Reas on for Anti-Infec tive: Empiric Therapy for Suspected Infection< br>Empiric Therapy Site: Respirator y
Durat ion of therapy: Once (ED) [facility] albuterol 2.5 mg /3 mL (0.083 %) nebulizer solution 2022-08 00:00: 00 08-16 05:59 :00 Yes [id number] 2.5mg Inhale 3 mL every 4 (four) hours as needed for Wheezing or Shortness of Breath for up to 30 days. [facility] albuterol 2.5 mg /3 mL (0.083 %) nebulizer solution 2022-08 00:00: 00 08-16 05:59 :00 Yes [id number] 2.5mg Inhale 3 mL every 4 (four) hours as needed for Wheezing or Shortness of Breath for up to 30 days. [facility] albuterol 2.5 mg /3 mL (0.083 %) nebulizer solution 2022-08 00:00: 00 08-16 05:59 :00 Yes [id number] 2.5mg Inhale 3 mL every 4 (four) hours as needed for Wheezing or Shortness of Breath for up to 30 days. [facility] doxycycline hyclate 100 mg capsule 2022-08 00:00: 00 07-19 00:00 :00 No [id number] 100mg Take 1 capsule by mouth every 12 (twelve) hours for 7 days. [facility] lisinopriL 10 mg tablet 2022-08 00:00: 00 Yes [id number] 10mg Take 1 tablet by mouth in the morning and 1 tablet in the evening. [facility] lisinopriL 10 mg tablet 2022-08 00:00: 00 Yes [id number] 10mg Take 1 tablet by mouth in the morning and 1 tablet in the evening. [facility] lisinopriL 10 mg tablet 2022-08 00:00: 00 Yes [id number] 10mg Take 1 tablet by mouth in the morning and 1 tablet in the evening. [facility] lisinopriL 10 mg tablet 2022-08 00:00: 00 Yes [id number] 10mg Take 1 tablet by mouth in the morning and 1 tablet in the evening. [facility] lisinopriL 10 mg tablet 2022-08 00:00: 00 Yes [id number] 10mg Take 1 tablet by mouth in the morning and 1 tablet in the evening. [facility] aspirin 81 mg EC tablet 2022-08 09:32: 35 Yes 81mg Take 81 mg by mouth daily. [facility] aspirin 81 mg EC tablet 2022-08 09:32: 35 Yes 81mg Take 81 mg by mouth daily. [facility] aspirin 81 mg EC tablet 2022-08 09:32: 35 Yes 81mg Take 81 mg by mouth daily. [facility] aspirin 81 mg EC tablet 2022-08 09:32: 35 Yes 81mg Take 81 mg by mouth daily. [facility] aspirin 81 mg EC tablet 2022-08 09:32: 35 Yes 81mg Take 81 mg by mouth daily. [facility] aspirin 81 mg EC tablet 2022-08 09:32: 35 Yes 81mg Take 81 mg by mouth daily. [facility] lisinopriL 10 mg tablet 2022-08 00:00: 00 Yes [id number] 10mg Take 1 tablet by mouth in the morning and 1 tablet in the evening. [facility] carvediloL 6.25 mg tablet 2022-08 00:00: 00 Yes [id number] 6.25mg Take 1 tablet by mouth in the morning and 1 tablet in the evening. Take with meals. [facility] atorvastati n 40 mg tablet 2022-08 00:00: 00 Yes [id number] 40mg Take 1 tablet by mouth at bedtime. [facility] lisinopriL 10 mg tablet 2022-08 00:00: 00 Yes [id number] 10mg Take 1 tablet by mouth in the morning and 1 tablet in the evening. [facility] carvediloL 6.25 mg tablet 2022-08 00:00: 00 Yes [id number] 6.25mg Take 1 tablet by mouth in the morning and 1 tablet in the evening. Take with meals. [facility] atorvastati n 40 mg tablet 2022-08 00:00: 00 Yes [id number] 40mg Take 1 tablet by mouth at bedtime. [facility] lisinopriL 10 mg tablet 2022-08 00:00: 00 Yes [id number] 10mg Take 1 tablet by mouth in the morning and 1 tablet in the evening. [facility] carvediloL 6.25 mg tablet 2022-08 00:00: 00 Yes [id number] 6.25mg Take 1 tablet by mouth in the morning and 1 tablet in the evening. Take with meals. [facility] atorvastati n 40 mg tablet 2022-08 0 00:00: 00 Yes [id number] 40mg Take 1 tablet by mouth at bedtime. [facility] lisinopriL 10 mg tablet 2022-08 0 00:00: 00 Yes [id number] 10mg Take 1 tablet by mouth in the morning and 1 tablet in the evening. [facility] carvediloL 6.25 mg tablet 2022-08 0 00:00: 00 Yes [id number] 6.25mg Take 1 tablet by mouth in the morning and 1 tablet in the evening. Take with meals. [facility] atorvastati n 40 mg tablet 2022-08 00:00: 00 Yes [id number] 40mg Take 1 tablet by mouth at bedtime. [facility] lisinopriL 10 mg tablet 2022-08 0 00:00: 00 Yes [id number] 10mg Take 1 tablet by mouth in the morning and 1 tablet in the evening. [facility] carvediloL 6.25 mg tablet 2022-08 00:00: 00 Yes [id number] 6.25mg Take 1 tablet by mouth in the morning and 1 tablet in the evening. Take with meals. [facility] atorvastati n 40 mg tablet 2022-08 00:00: 00 Yes [id number] 40mg Take 1 tablet by mouth at bedtime. [facility] carvediloL 6.25 mg tablet 2022-08 0 00:00: 00 Yes [id number] 6.25mg Take 1 tablet by mouth in the morning and 1 tablet in the evening. Take with meals. [facility] atorvastati n 40 mg tablet 2022-08 0 00:00: 00 Yes [id number] 40mg Take 1 tablet by mouth at bedtime. [facility] carvediloL 6.25 mg tablet 2022 0 00:00: 00 Yes [id number] 6.25mg Take 1 tablet by mouth in the morning and 1 tablet in the evening. Take with meals. [facility] atorvastati n 40 mg tablet 2022-08 0- 00:00: 00 Yes [id number] 40mg Take 1 tablet by mouth at bedtime. [facility] carvediloL 6.25 mg tablet 2022-08 0- 00:00: 00 Yes [id number] 6.25mg Take 1 tablet by mouth in the morning and 1 tablet in the evening. Take with meals. [facility] atorvastati n 40 mg tablet 2022-08 0- 00:00: 00 Yes [id number] 40mg Take 1 tablet by mouth at bedtime. [facility] carvediloL 6.25 mg tablet 2022-08 0 00:00: 00 Yes [id number] 6.25mg Take 1 tablet by mouth in the morning and 1 tablet in the evening. Take with meals. [facility] atorvastati n 40 mg tablet 2022-08 0- 00:00: 00 Yes [id number] 40mg Take 1 tablet by mouth at bedtime. [facility] carvediloL 6.25 mg tablet 2022-08 0 00:00: 00 Yes [id number] 6.25mg Take 1 tablet by mouth in the morning and 1 tablet in the evening. Take with meals. [facility] atorvastati n 40 mg tablet 2022-08 0 00:00: 00 Yes [id number] 40mg Take 1 tablet by mouth at bedtime. [facility] lisinopriL 10 mg tablet 2022-08 0 00:00: 00 07-03 00:00 :00 No [id number] 10mg Take 1 tablet by mouth in the morning and 1 tablet in the evening. [facility] lisinopriL 10 mg tablet 8 00:00: 00 05-20 00:00 :00 No 10mg Take 1 tablet by mouth in the morning and 1 tablet in the evening. [facility] lisinopriL 10 mg tablet 8- 00:00: 00 05-20 00:00 :00 No 10mg Take 1 tablet by mouth in the morning and 1 tablet in the evening. [facility] gadobenate dimeglumine (MULTIHANCE -20 mL) injection 0.2 mL/kg 11-29 15:45: 00 11-29 15:43 :00 No [id number] .2mL/kg 0.2 mL/kg, Intravenou s, ONCE, 1 dose, On Elisa 11/29/22 at 1045, Routine [facility] aspirin 81 mg EC tablet 11-07 08:54: 34 Yes 81mg Take 81 mg by mouth daily. [facility] aspirin 81 mg EC tablet 11-07 08:54: 34 Yes 81mg Take 81 mg by mouth daily. [facility] aspirin 81 mg EC tablet 11-07 08:54: 34 Yes 81mg Take 81 mg by mouth daily. [facility] aspirin 81 mg EC tablet 11-07 08:54: 34 Yes 81mg Take 81 mg by mouth daily. [facility] aspirin 81 mg EC tablet 11-07 08:54: 34 Yes 81mg Take 81 mg by mouth daily. [facility] aspirin 81 mg EC tablet 11-07 08:54: 34 Yes 81mg Take 81 mg by mouth daily. [facility] aspirin 81 mg EC tablet 11-07 08:54: 34 Yes 81mg Take 81 mg by mouth daily. [facility] aspirin 81 mg EC tablet 11-07 08:54: 34 Yes 81mg Take 81 mg by mouth daily. [facility] aspirin 81 mg EC tablet 11-07 08:54: 34 Yes 81mg Take 81 mg by mouth daily. [facility] aspirin 81 mg EC tablet 11-07 08:54: 34 Yes 81mg Take 81 mg by mouth daily. [facility] aspirin 81 mg EC tablet 11-07 08:54: 34 Yes 81mg Take 81 mg by mouth daily. [facility] aspirin 81 mg EC tablet 11-07 08:54: 34 Yes 81mg Take 81 mg by mouth daily. [facility] aspirin 81 mg EC tablet 11-07 08:54: 34 Yes 81mg Take 81 mg by mouth daily. [facility] aspirin 81 mg EC tablet 11-07 08:54: 34 Yes 81mg Take 81 mg by mouth daily. [facility] aspirin 81 mg EC tablet 11-07 08:54: 34 Yes 81mg Take 81 mg by mouth daily. [facility] aspirin 81 mg EC tablet 11-07 08:54: 34 Yes 81mg Take 81 mg by mouth daily. [facility] aspirin 81 mg EC tablet 11-07 08:54: 34 Yes 81mg Take 81 mg by mouth daily. [facility] aspirin 81 mg EC tablet 11-07 08:54: 34 Yes 81mg Take 81 mg by mouth daily. [facility] aspirin 81 mg EC tablet 11-07 08:54: 34 Yes 81mg Take 81 mg by mouth daily. [facility] lisinopriL 20 mg tablet 09-26 00:00: 00 Yes [id number] 10mg Take 0.5 tablets by mouth 2 (two) times daily. [facility] atorvastati n 40 mg tablet 0 15 00:00: 00 Yes [id number] 40mg Take 1 tablet by mouth at bedtime. [facility] lisinopriL 20 mg tablet 0 15 00:00: 00 Yes [id number] 10mg Take 0.5 tablets by mouth 2 (two) times daily. [facility] atorvastati n 40 mg tablet 0 15 00:00: 00 Yes [id number] 40mg Take 1 tablet by mouth at bedtime. [facility] lisinopriL 20 mg tablet 0 15 00:00: 00 Yes [id number] 10mg Take 0.5 tablets by mouth 2 (two) times daily. [facility] atorvastati n 40 mg tablet 2021-0 15 00:00: 00 Yes [id number] 40mg Take 1 tablet by mouth at bedtime. [facility] lisinopriL 20 mg tablet 2022-0 2-15 00:00: 00 Yes [id number] 10mg Take 0.5 tablets by mouth 2 (two) times daily. [facility] atorvastati n 40 mg tablet 2-0 2-15 00:00: 00 Yes [id number] 40mg Take 1 tablet by mouth at bedtime. [facility] lisinopriL 20 mg tablet 2-0 2-15 00:00: 00 Yes [id number] 10mg Take 0.5 tablets by mouth 2 (two) times daily. [facility] atorvastati n 40 mg tablet 2-0 2-15 00:00: 00 Yes [id number] 40mg Take 1 tablet by mouth at bedtime. [facility] lisinopriL 20 mg tablet 2-0 2-15 00:00: 00 Yes [id number] 10mg Take 0.5 tablets by mouth 2 (two) times daily. [facility] atorvastati n 40 mg tablet 2-0 2-15 00:00: 00 Yes [id number] 40mg Take 1 tablet by mouth at bedtime. [facility] lisinopriL 20 mg tablet 2-0 2-15 00:00: 00 Yes [id number] 10mg Take 0.5 tablets by mouth 2 (two) times daily. [facility] atorvastati n 40 mg tablet 2-0 2-15 00:00: 00 Yes [id number] 40mg Take 1 tablet by mouth at bedtime. [facility] lisinopriL 20 mg tablet 2-0 2-15 00:00: 00 Yes [id number] 10mg Take 0.5 tablets by mouth 2 (two) times daily. [facility] atorvastati n 40 mg tablet 2-0 2-15 00:00: 00 Yes [id number] 40mg Take 1 tablet by mouth at bedtime. [facility] lisinopriL 20 mg tablet 2022-0 2-15 00:00: 00 Yes [id number] 10mg Take 0.5 tablets by mouth 2 (two) times daily. [facility] atorvastati n 40 mg tablet 2-0 2-15 00:00: 00 Yes [id number] 40mg Take 1 tablet by mouth at bedtime. [facility] lisinopriL 20 mg tablet 2-0 2-15 00:00: 00 Yes [id number] 10mg Take 0.5 tablets by mouth 2 (two) times daily. [facility] atorvastati n 40 mg tablet 2-0 2-15 00:00: 00 Yes [id number] 40mg Take 1 tablet by mouth at bedtime. [facility] lisinopriL 20 mg tablet 2-0 2-15 00:00: 00 Yes [id number] 10mg Take 0.5 tablets by mouth 2 (two) times daily. [facility] atorvastati n 40 mg tablet 2-0 2-15 00:00: 00 Yes [id number] 40mg Take 1 tablet by mouth at bedtime. [facility] lisinopriL 20 mg tablet 2-0 2-15 00:00: 00 Yes [id number] 10mg Take 0.5 tablets by mouth 2 (two) times daily. [facility] atorvastati n 40 mg tablet 2-0 2-15 00:00: 00 Yes [id number] 40mg Take 1 tablet by mouth at bedtime. [facility] lisinopriL 20 mg tablet 2-0 2-15 00:00: 00 Yes [id number] 10mg Take 0.5 tablets by mouth 2 (two) times daily. [facility] atorvastati n 40 mg tablet 2-0 2-15 00:00: 00 Yes [id number] 40mg Take 1 tablet by mouth at bedtime. [facility] lisinopriL 20 mg tablet 2-0 2-15 00:00: 00 Yes [id number] 10mg Take 0.5 tablets by mouth 2 (two) times daily. [facility] atorvastati n 40 mg tablet 2022-0 2-15 00:00: 00 Yes [id number] 40mg Take 1 tablet by mouth at bedtime. [facility] lisinopriL 20 mg tablet 2-0 2-15 00:00: 00 Yes [id number] 10mg Take 0.5 tablets by mouth 2 (two) times daily. [facility] atorvastati n 40 mg tablet 2-0 2-15 00:00: 00 Yes [id number] 40mg Take 1 tablet by mouth at bedtime. [facility] lisinopriL 20 mg tablet 2-0 2-15 00:00: 00 Yes [id number] 10mg Take 0.5 tablets by mouth 2 (two) times daily. [facility] atorvastati n 40 mg tablet 2-0 2-15 00:00: 00 Yes [id number] 40mg Take 1 tablet by mouth at bedtime. [facility] lisinopriL 20 mg tablet 2-0 2-15 00:00: 00 Yes [id number] 10mg Take 0.5 tablets by mouth 2 (two) times daily. [facility] atorvastati n 40 mg tablet 2-0 2-15 00:00: 00 Yes [id number] 40mg Take 1 tablet by mouth at bedtime. [facility] lisinopriL 20 mg tablet 2-0 2-15 00:00: 00 Yes [id number] 10mg Take 0.5 tablets by mouth 2 (two) times daily. [facility] atorvastati n 40 mg tablet 2-0 2-15 00:00: 00 Yes [id number] 40mg Take 1 tablet by mouth at bedtime. [facility] lisinopriL 20 mg tablet 2-0 2-15 00:00: 00 Yes [id number] 10mg Take 0.5 tablets by mouth 2 (two) times daily. [facility] atorvastati n 40 mg tablet 2-0 2-15 00:00: 00 Yes [id number] 40mg Take 1 tablet by mouth at bedtime. [facility] lisinopriL 20 mg tablet 2-0 2-15 00:00: 00 - 00:00 :00 No [id number] 10mg Take 0.5 tablets by mouth in the morning and 0.5 tablets in the evening. [facility] atorvastati n 40 mg tablet 2-15 00:00: 00 05-20 00:00 :00 No [id number] 40mg Take 1 tablet by mouth at bedtime. [facility] lisinopriL 20 mg tablet 0 2-15 00:00: 00 05-20 00:00 :00 No [id number] 10mg Take 0.5 tablets by mouth in the morning and 0.5 tablets in the evening. [facility] atorvastati n 40 mg tablet 2-15 00:00: 00 05-20 00:00 :00 No [id number] 40mg Take 1 tablet by mouth at bedtime. [facility] carvediloL 6.25 mg tablet 2020-08 00:00: 00 Yes 6.25mg Take 1 tablet by mouth 2 (two) times daily with meals. [facility] carvediloL 6.25 mg tablet 2020-08 00:00: 00 Yes 6.25mg Take 1 tablet by mouth 2 (two) times daily with meals. [facility] carvediloL 6.25 mg tablet 2020-08 00:00: 00 Yes 6.25mg Take 1 tablet by mouth 2 (two) times daily with meals. [facility] carvediloL 6.25 mg tablet 2020-08 00:00: 00 Yes 6.25mg Take 1 tablet by mouth 2 (two) times daily with meals. [facility] carvediloL 6.25 mg tablet 2020-08 00:00: 00 Yes 6.25mg Take 1 tablet by mouth 2 (two) times daily with meals. [facility] carvediloL 6.25 mg tablet 2020-08 00:00: 00 Yes 6.25mg Take 1 tablet by mouth 2 (two) times daily with meals. [facility] carvediloL 6.25 mg tablet 2020-08 00:00: 00 Yes 6.25mg Take 1 tablet by mouth 2 (two) times daily with meals. [facility] carvediloL 6.25 mg tablet 2020-08 00:00: 00 Yes 6.25mg Take 1 tablet by mouth 2 (two) times daily with meals. [facility] carvediloL 6.25 mg tablet 2020-08 00:00: 00 Yes 6.25mg Take 1 tablet by mouth 2 (two) times daily with meals. [facility] carvediloL 6.25 mg tablet 2020-08 00:00: 00 Yes 6.25mg Take 1 tablet by mouth 2 (two) times daily with meals. [facility] carvediloL 6.25 mg tablet 2020-08 00:00: 00 Yes 6.25mg Take 1 tablet by mouth 2 (two) times daily with meals. [facility] carvediloL 6.25 mg tablet 2020-08 00:00: 00 Yes 6.25mg Take 1 tablet by mouth 2 (two) times daily with meals. [facility] carvediloL 6.25 mg tablet 2020-08 00:00: 00 Yes 6.25mg Take 1 tablet by mouth 2 (two) times daily with meals. [facility] carvediloL 6.25 mg tablet 2020-08 00:00: 00 Yes 6.25mg Take 1 tablet by mouth 2 (two) times daily with meals. [facility] carvediloL 6.25 mg tablet 2020-08 00:00: 00 Yes 6.25mg Take 1 tablet by mouth 2 (two) times daily with meals. [facility] carvediloL 6.25 mg tablet 2020-08 00:00: 00 Yes 6.25mg Take 1 tablet by mouth 2 (two) times daily with meals. [facility] carvediloL 6.25 mg tablet 2020-08 00:00: 00 Yes 6.25mg Take 1 tablet by mouth 2 (two) times daily with meals. [facility] carvediloL 6.25 mg tablet 2020-08 00:00: 00 Yes 6.25mg Take 1 tablet by mouth 2 (two) times daily with meals. [facility] carvediloL 6.25 mg tablet 2020-08 00:00: 00 Yes 6.25mg Take 1 tablet by mouth 2 (two) times daily with meals. [facility] carvediloL 6.25 mg tablet 2020-08 00:00: 00 05-20 00:00 :00 No 6.25mg Take 1 tablet by mouth 2 (two) times daily with meals. [facility] carvediloL 6.25 mg tablet 2020-08 00:00: 00 05-20 00:00 :00 No 6.25mg Take 1 tablet by mouth 2 (two) times daily with meals. [facility] pantoprazol e 40 mg EC tablet 01-02 00:00: 00 Yes 40mg Take 40 mg by mouth every morning. [facility] pantoprazol e 40 mg EC tablet 01-02 00:00: 00 Yes 40mg Take 40 mg by mouth every morning. [facility] pantoprazol e 40 mg EC tablet 01-02 00:00: 00 Yes 40mg Take 40 mg by mouth every morning. [facility] pantoprazol e 40 mg EC tablet 01-02 00:00: 00 Yes 40mg Take 40 mg by mouth every morning. [facility] pantoprazol e 40 mg EC tablet 0 01-02 00:00: 00 Yes 40mg Take 40 mg by mouth every morning. [facility] pantoprazol e 40 mg EC tablet 0 01-02 00:00: 00 Yes 40mg Take 40 mg by mouth every morning. [facility] pantoprazol e 40 mg EC tablet 0 01-02 00:00: 00 Yes 40mg Take 40 mg by mouth every morning. [facility] pantoprazol e 40 mg EC tablet 0 01-02 00:00: 00 Yes 40mg Take 40 mg by mouth every morning. [facility] pantoprazol e 40 mg EC tablet 01-02 00:00: 00 Yes 40mg Take 40 mg by mouth every morning. [facility] pantoprazol e 40 mg EC tablet 01-02 00:00: 00 Yes 40mg Take 40 mg by mouth every morning. [facility] pantoprazol e 40 mg EC tablet 01-02 00:00: 00 Yes 40mg Take 40 mg by mouth every morning. [facility] pantoprazol e 40 mg EC tablet 01-02 00:00: 00 Yes 40mg Take 40 mg by mouth every morning. [facility] pantoprazol e 40 mg EC tablet 01-02 00:00: 00 Yes 40mg Take 40 mg by mouth every morning. [facility] pantoprazol e 40 mg EC tablet 01-02 00:00: 00 Yes 40mg Take 40 mg by mouth every morning. [facility] pantoprazol e 40 mg EC tablet 01-02 00:00: 00 Yes 40mg Take 40 mg by mouth every morning. [facility] pantoprazol e 40 mg EC tablet 01-02 00:00: 00 Yes 40mg Take 40 mg by mouth every morning. [facility] pantoprazol e 40 mg EC tablet 01-02 00:00: 00 Yes 40mg Take 40 mg by mouth every morning. [facility] pantoprazol e 40 mg EC tablet 01-02 00:00: 00 Yes 40mg Take 40 mg by mouth every morning. [facility] pantoprazol e 40 mg EC tablet 01-02 00:00: 00 Yes 40mg Take 40 mg by mouth every morning. [facility] pantoprazol e 40 mg EC tablet 01-02 00:00: 00 Yes 40mg Take 40 mg by mouth every morning. [facility] pantoprazol e 40 mg EC tablet 01-02 00:00: 00 Yes 40mg Take 40 mg by mouth every morning. [facility] pantoprazol e 40 mg EC tablet 01-02 00:00: 00 Yes 40mg Take 40 mg by mouth every morning. [facility] pantoprazol e 40 mg EC tablet 01-02 00:00: 00 Yes 40mg Take 1 tablet by mouth every morning. [facility] pantoprazol e 40 mg EC tablet 01-02 00:00: 00 Yes 40mg Take 1 tablet by mouth every morning. [facility] pantoprazol e 40 mg EC tablet 01-02 00:00: 00 Yes 40mg Take 1 tablet by mouth every morning. [facility] pantoprazol e 40 mg EC tablet 01-02 00:00: 00 Yes 40mg Take 1 tablet by mouth every morning. [facility] pantoprazol e 40 mg EC tablet 01-02 00:00: 00 Yes 40mg Take 40 mg by mouth every morning. [facility] pantoprazol e 40 mg EC tablet 01-02 00:00: 00 Yes 40mg Take 40 mg by mouth every morning. [facility] pantoprazol e 40 mg EC tablet 01-02 00:00: 00 Yes 40mg Take 40 mg by mouth every morning. [facility] hydrOXYzine 25 mg tablet 11-29 00:00: 00 Yes TAKE 1 TABLET BY MOUTH DAILY NEEDED [facility] hydrOXYzine 25 mg tablet 0 20 00:00: 00 Yes TAKE 1 TABLET BY MOUTH DAILY NEEDED [facility] hydrOXYzine 25 mg tablet 0 20 00:00: 00 Yes TAKE 1 TABLET BY MOUTH DAILY NEEDED [facility] hydrOXYzine 25 mg tablet 0 20 00:00: 00 Yes TAKE 1 TABLET BY MOUTH DAILY NEEDED [facility] hydrOXYzine 25 mg tablet 2020-0 20 00:00: 00 Yes TAKE 1 TABLET BY MOUTH DAILY NEEDED [facility] hydrOXYzine 25 mg tablet 2020-0 20 00:00: 00 Yes TAKE 1 TABLET BY MOUTH DAILY NEEDED [facility] hydrOXYzine 25 mg tablet 1-0 20 00:00: 00 Yes TAKE 1 TABLET BY MOUTH DAILY NEEDED [facility] hydrOXYzine 25 mg tablet 1-0 20 00:00: 00 Yes TAKE 1 TABLET BY MOUTH DAILY NEEDED [facility] hydrOXYzine 25 mg tablet 1-0 20 00:00: 00 Yes TAKE 1 TABLET BY MOUTH DAILY NEEDED [facility] hydrOXYzine 25 mg tablet 1-0 20 00:00: 00 Yes TAKE 1 TABLET BY MOUTH DAILY NEEDED [facility] hydrOXYzine 25 mg tablet 1-0 20 00:00: 00 Yes TAKE 1 TABLET BY MOUTH DAILY NEEDED [facility] hydrOXYzine 25 mg tablet 2020-0 20 00:00: 00 Yes TAKE 1 TABLET BY MOUTH DAILY NEEDED [facility] hydrOXYzine 25 mg tablet 2020-0 20 00:00: 00 Yes TAKE 1 TABLET BY MOUTH DAILY NEEDED [facility] hydrOXYzine 25 mg tablet 1-0 20 00:00: 00 Yes TAKE 1 TABLET BY MOUTH DAILY NEEDED [facility] hydrOXYzine 25 mg tablet 2020-0 20 00:00: 00 Yes TAKE 1 TABLET BY MOUTH DAILY NEEDED [facility] hydrOXYzine 25 mg tablet 2020-0 20 00:00: 00 Yes TAKE 1 TABLET BY MOUTH DAILY NEEDED [facility] hydrOXYzine 25 mg tablet 2020-0 20 00:00: 00 Yes TAKE 1 TABLET BY MOUTH DAILY NEEDED [facility] hydrOXYzine 25 mg tablet 1-0 20 00:00: 00 Yes TAKE 1 TABLET BY MOUTH DAILY NEEDED [facility] hydrOXYzine 25 mg tablet 1-0 20 00:00: 00 Yes TAKE 1 TABLET BY MOUTH DAILY NEEDED [facility] hydrOXYzine 25 mg tablet 1-0 20 00:00: 00 Yes TAKE 1 TABLET BY MOUTH DAILY NEEDED [facility] hydrOXYzine 25 mg tablet 1-0 20 00:00: 00 Yes TAKE 1 TABLET BY MOUTH DAILY [facility] 2020-0 20 00:00: 00 Yes TAKE 1 TABLET BY MOUTH DAILY NEEDED [facility] hydrOXYzine 25 mg tablet 0 20 00:00: 00 Yes TAKE 1 TABLET BY MOUTH DAILY NEEDED [facility] hydrOXYzine 25 mg tablet 2020-0 20 00:00: 00 Yes TAKE 1 TABLET BY MOUTH DAILY NEEDED [facility] 0 11-29 00:00: 00 Yes TAKE 1 TABLET BY MOUTH DAILY NEEDED [facility] mg tablet 11-29 00:00: 00 Yes TAKE 1 TABLET BY MOUTH DAILY NEEDED [facility] mg tablet 11-29 00:00: 00 Yes TAKE 1 TABLET BY MOUTH DAILY NEEDED [facility] mg tablet 11-29 00:00: 00 Yes TAKE 1 TABLET BY MOUTH DAILY NEEDED [facility] hydr[facility]zine [facility] mg tablet 11-29 00:00: 00 Yes TAKE 1 TABLET BY MOUTH DAILY NEEDED [facility] cetirizine 10 mg tablet 11-25 00:00: 00 Yes 10mg Take 10 mg by mouth daily. [facility] triamcinolo ne acetonide 0.1 % cream 16 00:00: 00 Yes [facility] 0 16 00:00: 00 Yes 10mg Take 10 mg by mouth daily. [facility] triamcinolo ne acetonide 0.1 % cream 0 16 00:00: 00 Yes [facility] mg tablet 16 00:00: 00 Yes 10mg Take 10 mg by mouth daily. [facility] triamcinolo ne acetonide 0.1 % cream 16 00:00: 00 Yes [facility] 0 16 00:00: 00 Yes 10mg Take 10 mg by mouth daily. [facility] triamcinolo ne acetonide 0.1 % cream 2020-0 4-16 00:00: 00 Yes [facility] cetirizine 10 mg tablet 2020-0 416 00:00: 00 Yes 10mg Take 10 mg by mouth daily. [facility] triamcinolo ne acetonide 0.1 % cream 2020-0 4-16 00:00: 00 Yes [facility] cetirizine 10 mg tablet 2020-0 16 00:00: 00 Yes 10mg Take 10 mg by mouth daily. [facility] triamcinolo ne acetonide 0.1 % cream 2020-0 16 00:00: 00 Yes [facility] cetirizine 10 mg tablet 2020-0 16 00:00: 00 Yes 10mg Take 10 mg by mouth daily. [facility] triamcinolo ne acetonide 0.1 % cream 2020-0 16 00:00: 00 Yes [facility] cetirizine 10 mg tablet 2020-0 16 00:00: 00 Yes 10mg Take 10 mg by mouth daily. [facility] triamcinolo ne acetonide 0.1 % cream 2020-0 16 00:00: 00 Yes [facility] cetirizine 10 mg tablet 2020-0 16 00:00: 00 Yes 10mg Take 10 mg by mouth daily. [facility] triamcinolo ne acetonide 0.1 % cream 2020-0 4-16 00:00: 00 Yes [facility] cetirizine 10 mg tablet 2020-0 4-16 00:00: 00 Yes 10mg Take 10 mg by mouth daily. [facility] triamcinolo ne acetonide 0.1 % cream 2020-0 4-16 00:00: 00 Yes [facility] cetirizine 10 mg tablet 2020-0 4-16 00:00: 00 Yes 10mg Take 10 mg by mouth daily. [facility] triamcinolo ne acetonide 0.1 % cream 2020-0 4-16 00:00: 00 Yes [facility] cetirizine 10 mg tablet 2020-0 16 00:00: 00 Yes 10mg Take 10 mg by mouth daily. [facility] triamcinolo ne acetonide 0.1 % cream 2020-0 4-16 00:00: 00 Yes [facility] cetirizine 10 mg tablet 2020-0 16 00:00: 00 Yes 10mg Take 10 mg by mouth daily. [facility] triamcinolo ne acetonide 0.1 % cream 2020-0 16 00:00: 00 Yes [facility] cetirizine 10 mg tablet 2020-0 16 00:00: 00 Yes 10mg Take 10 mg by mouth daily. [facility] triamcinolo ne acetonide 0.1 % cream 2020-0 16 00:00: 00 Yes [facility] cetirizine 10 mg tablet 2020-0 16 00:00: 00 Yes 10mg Take 10 mg by mouth daily. [facility] triamcinolo ne acetonide 0.1 % cream 2020-0 16 00:00: 00 Yes [facility] cetirizine 10 mg tablet 2020-0 16 00:00: 00 Yes 10mg Take 10 mg by mouth daily. [facility] triamcinolo ne acetonide 0.1 % cream 2020-0 16 00:00: 00 Yes [facility] cetirizine 10 mg tablet 2020-0 16 00:00: 00 Yes 10mg Take 10 mg by mouth daily. [facility] triamcinolo ne acetonide 0.1 % cream 2020-0 16 00:00: 00 Yes [facility] cetirizine 10 mg tablet 2020-0 16 00:00: 00 Yes 10mg Take 10 mg by mouth daily. [facility] triamcinolo ne acetonide 0.1 % cream 2020-0 4-16 00:00: 00 Yes [facility] cetirizine 10 mg tablet 2020-0 416 00:00: 00 Yes 10mg Take 10 mg by mouth daily. [facility] triamcinolo ne acetonide 0.1 % cream 2020-0 4-16 00:00: 00 Yes [facility] cetirizine 10 mg tablet 2020-0 416 00:00: 00 Yes 10mg Take 10 mg by mouth daily. [facility] triamcinolo ne acetonide 0.1 % cream 2020-0 4-16 00:00: 00 Yes [facility] cetirizine 10 mg tablet 2020-0 416 00:00: 00 Yes 10mg Take 10 mg by mouth daily. [facility] triamcinolo ne acetonide 0.1 % cream 2020-0 4-16 00:00: 00 Yes [facility] cetirizine 10 mg tablet 2020-0 416 00:00: 00 Yes 10mg Take 10 mg by mouth daily. [facility] triamcinolo ne acetonide 0.1 % cream 2020-0 416 00:00: 00 Yes [facility] cetirizine 10 mg tablet 2020-0 416 00:00: 00 Yes 10mg Take 1 tablet by mouth in the morning. [facility] cetirizine 10 mg tablet 2020-0 4-16 00:00: 00 Yes 10mg Take 1 tablet by mouth in the morning. [facility] cetirizine 10 mg tablet 2020-0 4-16 00:00: 00 Yes 10mg Take 1 tablet by mouth in the morning. [facility] cetirizine 10 mg tablet 2020-0 4-16 00:00: 00 Yes 10mg Take 1 tablet by mouth in the morning. [facility] cetirizine 10 mg tablet 2020-0 4-16 00:00: 00 Yes 10mg Take 10 mg by mouth daily. [facility] triamcinolo ne acetonide 0.1 % cream 2020-0 4-16 00:00: 00 Yes [facility] cetirizine 10 mg tablet 11-25 00:00: 00 Yes 10mg Take 10 mg by mouth daily. [facility] triamcinolo ne acetonide 0.1 % cream 11-25 00:00: 00 Yes [facility] cetirizine 10 mg tablet 11-25 00:00: 00 Yes 10mg Take 10 mg by mouth daily. [facility] triamcinolo ne acetonide 0.1 % cream 11-25 00:00: 00 Yes [facility] triamcinolo ne acetonide 0.1 % cream 11-25 00:00: 00 07-16 00:00 :00 No [facility] diclofenac 75 mg EC tablet 11-09 00:00: 00 Yes [facility] diclofenac 75 mg EC tablet 11-09 00:00: 00 Yes [facility] diclofenac 75 mg EC tablet 11-09 00:00: 00 Yes [facility] diclofenac 75 mg EC tablet 11-09 00:00: 00 Yes [facility] diclofenac 75 mg EC tablet 11-09 00:00: 00 Yes [facility] diclofenac 75 mg EC tablet 11-09 00:00: 00 Yes [facility] diclofenac 75 mg EC tablet 11-09 00:00: 00 Yes [facility] diclofenac 75 mg EC tablet 11-09 00:00: 00 Yes [facility] diclofenac 75 mg EC tablet 11-09 00:00: 00 Yes [facility] diclofenac 75 mg EC tablet 11-09 00:00: 00 Yes [facility] diclofenac 75 mg EC tablet 11-09 00:00: 00 Yes [facility] diclofenac 75 mg EC tablet 11-09 00:00: 00 Yes [facility] diclofenac 75 mg EC tablet 11-09 00:00: 00 Yes [facility] diclofenac 75 mg EC tablet 11-09 00:00: 00 Yes [facility] diclofenac 75 mg EC tablet 11-09 00:00: 00 Yes [facility] diclofenac 75 mg EC tablet 11-09 00:00: 00 Yes [facility] diclofenac 75 mg EC tablet 11-09 00:00: 00 Yes [facility] diclofenac 75 mg EC tablet 11-09 00:00: 00 Yes [facility] diclofenac 75 mg EC tablet 11-09 00:00: 00 Yes [facility] diclofenac 75 mg EC tablet 11-09 00:00: 00 Yes [facility] diclofenac 75 mg EC tablet 11-09 00:00: 00 Yes [facility] diclofenac 75 mg EC tablet 11-09 00:00: 00 Yes [facility] diclofenac 75 mg EC tablet 11-09 00:00: 00 Yes [facility] diclofenac 75 mg EC tablet 11-09 00:00: 00 Yes [facility] diclofenac 75 mg EC tablet 11-09 00:00: 00 Yes [facility] diclofenac 75 mg EC tablet 11-09 00:00: 00 07-16 00:00 :00 No [facility] PENTASA 500 mg CR capsule 04-18 00:00: 00 Yes TK 2 CS PO BID [facility] PENTASA 500 mg CR capsule 04-18 00:00: 00 Yes TK 2 CS PO BID [facility] PENTASA 500 mg CR capsule 04-18 00:00: 00 Yes TK 2 CS PO BID [facility] PENTASA 500 mg CR capsule 04-18 00:00: 00 Yes TK 2 CS PO BID [facility] PENTASA 500 mg CR capsule 04-18 00:00: 00 Yes TK 2 CS PO BID [facility] PENTASA 500 mg CR capsule 04-18 00:00: 00 Yes TK 2 CS PO BID [facility] PENTASA 500 mg CR capsule 04-18 00:00: 00 Yes TK 2 CS PO BID [facility] PENTASA 500 mg CR capsule 04-18 00:00: 00 Yes TK 2 CS PO BID [facility] PENTASA 500 mg CR capsule 04-18 00:00: 00 Yes TK 2 CS PO BID [facility] PENTASA 500 mg CR capsule 04-18 00:00: 00 Yes TK 2 CS PO BID [facility] PENTASA 500 mg CR capsule 04-18 00:00: 00 Yes TK 2 CS PO BID [facility] PENTASA 500 mg CR capsule 04-18 00:00: 00 Yes TK 2 CS PO BID [facility] PENTASA 500 mg CR capsule 04-18 00:00: 00 Yes TK 2 CS PO BID [facility] PENTASA 500 mg CR capsule 04-18 00:00: 00 Yes TK 2 CS PO BID [facility] PENTASA 500 mg CR capsule 04-18 00:00: 00 Yes TK 2 CS PO BID [facility] PENTASA 500 mg CR capsule 04-18 00:00: 00 Yes TK 2 CS PO BID [facility] PENTASA 500 mg CR capsule 04-18 00:00: 00 Yes TK 2 CS PO BID [facility] PENTASA 500 mg CR capsule 04-18 00:00: 00 Yes TK 2 CS PO BID [facility] PENTASA 500 mg CR capsule 04-18 00:00: 00 Yes TK 2 CS PO BID [facility] PENTASA 500 mg CR capsule 04-18 00:00: 00 Yes TK 2 CS PO BID [facility] PENTASA 500 mg CR capsule 04-18 00:00: 00 Yes TK 2 CS PO BID [facility] PENTASA 500 mg CR capsule 04-18 00:00: 00 Yes TK 2 CS PO BID [facility] PENTASA 500 mg CR capsule 04-18 00:00: 00 Yes TK 2 CS PO BID [facility] PENTASA 500 mg CR capsule 04-18 00:00: 00 Yes TK 2 CS PO BID [facility] PENTASA 500 mg CR capsule 04-18 00:00: 00 Yes TK 2 CS PO BID [facility] PENTASA 500 mg CR capsule 04-18 00:00: 00 Yes TK 2 CS PO BID [facility] PENTASA 500 mg CR capsule 04-18 00:00: 00 Yes TK 2 CS PO BID [facility] PENTASA 500 mg CR capsule 04-18 00:00: 00 Yes TK 2 CS PO BID [facility] PENTASA 500 mg CR capsule 04-18 00:00: 00 Yes TK 2 CS PO BID [facility] QUEtiapine 100 mg tablet 04-02 00:00: 00 Yes TK 1 T PO QHS [facility] QUEtiapine 100 mg tablet 04-02 00:00: 00 Yes TK 1 T PO QHS [facility] QUEtiapine 100 mg tablet 04-02 00:00: 00 Yes TK 1 T PO QHS [facility] QUEtiapine 100 mg tablet 04-02 00:00: 00 Yes TK 1 T PO QHS [facility] QUEtiapine 100 mg tablet 04-02 00:00: 00 Yes TK 1 T PO QHS [facility] QUEtiapine 100 mg tablet 04-02 00:00: 00 Yes TK 1 T PO QHS [facility] QUEtiapine 100 mg tablet 04-02 00:00: 00 Yes TK 1 T PO QHS [facility] QUEtiapine 100 mg tablet 04-02 00:00: 00 Yes TK 1 T PO QHS [facility] QUEtiapine 100 mg tablet 04-02 00:00: 00 Yes TK 1 T PO QHS [facility] QUEtiapine 100 mg tablet 04-02 00:00: 00 Yes TK 1 T PO QHS [facility] QUEtiapine 100 mg tablet 04-02 00:00: 00 Yes TK 1 T PO QHS [facility] QUEtiapine 100 mg tablet 04-02 00:00: 00 Yes TK 1 T PO QHS [facility] QUEtiapine 100 mg tablet 04-02 00:00: 00 Yes TK 1 T PO QHS [facility] QUEtiapine 100 mg tablet 04-02 00:00: 00 Yes TK 1 T PO QHS [facility] QUEtiapine 100 mg tablet 04-02 00:00: 00 Yes TK 1 T PO QHS [facility] QUEtiapine 100 mg tablet 04-02 00:00: 00 Yes TK 1 T PO QHS [facility] QUEtiapine 100 mg tablet 04-02 00:00: 00 Yes TK 1 T PO QHS [facility] QUEtiapine 100 mg tablet 04-02 00:00: 00 Yes TK 1 T PO QHS [facility] QUEtiapine 100 mg tablet 04-02 00:00: 00 Yes TK 1 T PO QHS [facility] QUEtiapine 100 mg tablet 04-02 00:00: 00 Yes TK 1 T PO QHS [facility] QUEtiapine 100 mg tablet 04-02 00:00: 00 Yes TK 1 T PO QHS [facility] QUEtiapine 100 mg tablet 04-02 00:00: 00 Yes TK 1 T PO QHS [facility] QUEtiapine 100 mg tablet 04-02 00:00: 00 Yes TK 1 T PO QHS [facility] QUEtiapine 100 mg tablet 04-02 00:00: 00 Yes TK 1 T PO QHS [facility] QUEtiapine 100 mg tablet 04-02 00:00: 00 Yes TK 1 T PO QHS [facility] QUEtiapine 100 mg tablet 04-02 00:00: 00 Yes TK 1 T PO QHS [facility] QUEtiapine 100 mg tablet 04-02 00:00: 00 Yes TK 1 T PO QHS [facility] QUEtiapine 100 mg tablet 04-02 00:00: 00 Yes TK 1 T PO QHS [facility] QUEtiapine 100 mg tablet 04-02 00:00: 00 Yes TK 1 T PO QHS [facility] ranitidine 150 mg tablet 03-28 00:00: 00 Yes TK 1 T PO BID [facility] ranitidine 150 mg tablet 03-28 00:00: 00 Yes TK 1 T PO BID [facility] ranitidine 150 mg tablet 03-28 00:00: 00 Yes TK 1 T PO BID [facility] ranitidine 150 mg tablet 03-28 00:00: 00 Yes TK 1 T PO BID [facility] ranitidine 150 mg tablet 03-28 00:00: 00 Yes TK 1 T PO BID [facility] ranitidine 150 mg tablet 03-28 00:00: 00 Yes TK 1 T PO BID [facility] ranitidine 150 mg tablet 03-28 00:00: 00 Yes TK 1 T PO BID [facility] ranitidine 150 mg tablet 03-28 00:00: 00 Yes TK 1 T PO BID [facility] ranitidine 150 mg tablet 03-28 00:00: 00 Yes TK 1 T PO BID [facility] ranitidine 150 mg tablet 03-28 00:00: 00 Yes TK 1 T PO BID [facility] ranitidine 150 mg tablet 03-28 00:00: 00 Yes TK 1 T PO BID [facility] ranitidine 150 mg tablet 03-28 00:00: 00 Yes TK 1 T PO BID [facility] ranitidine 150 mg tablet 03-28 00:00: 00 Yes TK 1 T PO BID [facility] ranitidine 150 mg tablet 03-28 00:00: 00 Yes TK 1 T PO BID [facility] ranitidine 150 mg tablet 03-28 00:00: 00 Yes TK 1 T PO BID [facility] ranitidine 150 mg tablet 03-28 00:00: 00 Yes TK 1 T PO BID [facility] ranitidine 150 mg tablet 03-28 00:00: 00 Yes TK 1 T PO BID [facility] ranitidine 150 mg tablet 03-28 00:00: 00 Yes TK 1 T PO BID [facility] ranitidine 150 mg tablet 03-28 00:00: 00 Yes TK 1 T PO BID [facility] ranitidine 150 mg tablet 03-28 00:00: 00 Yes TK 1 T PO BID [facility] ranitidine 150 mg tablet 03-28 00:00: 00 Yes TK 1 T PO BID [facility] ranitidine 150 mg tablet 03-28 00:00: 00 Yes TK 1 T PO BID [facility] ranitidine 150 mg tablet 03-28 00:00: 00 Yes TK 1 T PO BID [facility] ranitidine 150 mg tablet 03-28 00:00: 00 Yes TK 1 T PO BID [facility] ranitidine 150 mg tablet 03-28 00:00: 00 Yes TK 1 T PO BID [facility] ranitidine 150 mg tablet 03-28 00:00: 00 07-16 00:00 :00 No TK 1 T PO BID [facility] levothyroxi ne 112 mcg tablet 03-26 00:00: 00 Yes TK 1 T PO D [facility] levothyroxi ne 112 mcg tablet 03-26 00:00: 00 Yes TK 1 T PO D [facility] levothyroxi ne 112 mcg tablet 03-26 00:00: 00 Yes TK 1 T PO D [facility] levothyroxi ne 112 mcg tablet 03-26 00:00: 00 Yes TK 1 T PO D [facility] levothyroxi ne 112 mcg tablet 03-26 00:00: 00 Yes TK 1 T PO D [facility] levothyroxi ne 112 mcg tablet 03-26 00:00: 00 Yes TK 1 T PO D [facility] levothyroxi ne 112 mcg tablet 03-26 00:00: 00 Yes TK 1 T PO D [facility] levothyroxi ne 112 mcg tablet 03-26 00:00: 00 Yes TK 1 T PO D [facility] levothyroxi ne 112 mcg tablet 03-26 00:00: 00 Yes TK 1 T PO D [facility] levothyroxi ne 112 mcg tablet 03-26 00:00: 00 Yes TK 1 T PO D [facility] levothyroxi ne 112 mcg tablet 03-26 00:00: 00 Yes TK 1 T PO D [facility] levothyroxi ne 112 mcg tablet 03-26 00:00: 00 Yes TK 1 T PO D [facility] levothyroxi ne 112 mcg tablet 03-26 00:00: 00 Yes TK 1 T PO D [facility] levothyroxi ne 112 mcg tablet 03-26 00:00: 00 Yes TK 1 T PO D [facility] levothyroxi ne 112 mcg tablet 03-26 00:00: 00 Yes TK 1 T PO D [facility] levothyroxi ne 112 mcg tablet 03-26 00:00: 00 Yes TK 1 T PO D [facility] levothyroxi ne 112 mcg tablet 03-26 00:00: 00 Yes TK 1 T PO D [facility] levothyroxi ne 112 mcg tablet 03-26 00:00: 00 Yes TK 1 T PO D [facility] levothyroxi ne 112 mcg tablet 03-26 00:00: 00 Yes TK 1 T PO D [facility] levothyroxi ne 112 mcg tablet 03-26 00:00: 00 Yes TK 1 T PO D [facility] levothyroxi ne 112 mcg tablet 03-26 00:00: 00 Yes TK 1 T PO D [facility] levothyroxi ne 112 mcg tablet 03-26 00:00: 00 Yes TK 1 T PO D [facility] levothyroxi ne 112 mcg tablet 03-26 00:00: 00 Yes TK 1 T PO D [facility] levothyroxi ne 112 mcg tablet 03-26 00:00: 00 Yes TK 1 T PO D [facility] levothyroxi ne 112 mcg tablet 03-26 00:00: 00 Yes TK 1 T PO D [facility] levothyroxi ne 112 mcg tablet 03-26 00:00: 00 Yes TK 1 T PO D [facility] levothyroxi ne 112 mcg tablet 03-26 00:00: 00 Yes TK 1 T PO D [facility] levothyroxi ne 112 mcg tablet 03-26 00:00: 00 Yes TK 1 T PO D [facility] levothyroxi ne 112 mcg tablet 03-26 00:00: 00 Yes TK 1 T PO D [facility] divalproex ER 500 mg 24 hr tablet 03-05 00:00: 00 Yes TK 2 TS PO D [facility] divalproex ER 500 mg 24 hr tablet 03-05 00:00: 00 Yes TK 2 TS PO D [facility] divalproex ER 500 mg 24 hr tablet 03-05 00:00: 00 Yes TK 2 TS PO D [facility] divalproex ER 500 mg 24 hr tablet 03-05 00:00: 00 Yes TK 2 TS PO D [facility] divalproex ER 500 mg 24 hr tablet 03-05 00:00: 00 Yes TK 2 TS PO D [facility] divalproex ER 500 mg 24 hr tablet 03-05 00:00: 00 Yes TK 2 TS PO D [facility] divalproex ER 500 mg 24 hr tablet 03-05 00:00: 00 Yes TK 2 TS PO D [facility] divalproex ER 500 mg 24 hr tablet 03-05 00:00: 00 Yes TK 2 TS PO D [facility] divalproex ER 500 mg 24 hr tablet 03-05 00:00: 00 Yes TK 2 TS PO D [facility] divalproex ER 500 mg 24 hr tablet 03-05 00:00: 00 Yes TK 2 TS PO D [facility] divalproex ER 500 mg 24 hr tablet 03-05 00:00: 00 Yes TK 2 TS PO D [facility] divalproex ER 500 mg 24 hr tablet 03-05 00:00: 00 Yes TK 2 TS PO D [facility] divalproex ER 500 mg 24 hr tablet 03-05 00:00: 00 Yes TK 2 TS PO D [facility] divalproex ER 500 mg 24 hr tablet 03-05 00:00: 00 Yes TK 2 TS PO D [facility] divalproex ER 500 mg 24 hr tablet 03-05 00:00: 00 Yes TK 2 TS PO D [facility] divalproex ER 500 mg 24 hr tablet 03-05 00:00: 00 Yes TK 2 TS PO D [facility] divalproex ER 500 mg 24 hr tablet 03-05 00:00: 00 Yes TK 2 TS PO D [facility] divalproex ER 500 mg 24 hr tablet 03-05 00:00: 00 Yes TK 2 TS PO D [facility] divalproex ER 500 mg 24 hr tablet 03-05 00:00: 00 Yes TK 2 TS PO D [facility] divalproex ER 500 mg 24 hr tablet 03-05 00:00: 00 Yes TK 2 TS PO D [facility] divalproex ER 500 mg 24 hr tablet 03-05 00:00: 00 Yes TK 2 TS PO D [facility] divalproex ER 500 mg 24 hr tablet 03-05 00:00: 00 Yes TK 2 TS PO D [facility] divalproex ER 500 mg 24 hr tablet 03-05 00:00: 00 Yes TK 2 TS PO D [facility] divalproex ER 500 mg 24 hr tablet 03-05 00:00: 00 Yes TK 2 TS PO D [facility] divalproex ER 500 mg 24 hr tablet 03-05 00:00: 00 Yes TK 2 TS PO D [facility] divalproex ER 500 mg 24 hr tablet 03-05 00:00: 00 07-19 00:00 :00 No 500mg 1 tablet every 24 (twenty-fo ur) hours. [facility] traZODone 150 mg tablet 02-24 00:00: 00 Yes [facility] traZODone 150 mg tablet 02-24 00:00: 00 Yes [facility] traZODone 150 mg tablet 02-24 00:00: 00 Yes [facility] traZODone 150 mg tablet 02-24 00:00: 00 Yes [facility] traZODone 150 mg tablet 02-24 00:00: 00 Yes [facility] traZODone 150 mg tablet 02-24 00:00: 00 Yes [facility] traZODone 150 mg tablet 02-24 00:00: 00 Yes [facility] traZODone 150 mg tablet 02-24 00:00: 00 Yes [facility] traZODone 150 mg tablet 02-24 00:00: 00 Yes [facility] traZODone 150 mg tablet 02-24 00:00: 00 Yes [facility] traZODone 150 mg tablet 02-24 00:00: 00 Yes [facility] traZODone 150 mg tablet 02-24 00:00: 00 Yes [facility] traZODone 150 mg tablet 02-24 00:00: 00 Yes [facility] traZODone 150 mg tablet 02-24 00:00: 00 Yes [facility] traZODone 150 mg tablet 02-24 00:00: 00 Yes [facility] traZODone 150 mg tablet 02-24 00:00: 00 Yes [facility] traZODone 150 mg tablet 02-24 00:00: 00 Yes [facility] traZODone 150 mg tablet 02-24 00:00: 00 Yes [facility] traZODone 150 mg tablet 02-24 00:00: 00 Yes [facility] traZODone 150 mg tablet 02-24 00:00: 00 Yes [facility] traZODone 150 mg tablet 02-24 00:00: 00 Yes [facility] traZODone 150 mg tablet 02-24 00:00: 00 Yes [facility] traZODone 150 mg tablet 02-24 00:00: 00 Yes [facility] traZODone 150 mg tablet 02-24 00:00: 00 Yes [facility] traZODone 150 mg tablet 02-24 00:00: 00 Yes [facility] traZODone 150 mg tablet 02-24 00:00: 00 07-19 00:00 :00 No [facility] omeprazole 40 mg capsule 02-19 00:00: 00 Yes TK 1 C PO QD 30 MIN B CHARLY [facility] omeprazole 40 mg capsule 02-19 00:00: 00 Yes TK 1 C PO QD 30 MIN B CHARLY [facility] omeprazole 40 mg capsule 02-19 00:00: 00 Yes TK 1 C PO QD 30 MIN B CHARLY [facility] omeprazole 40 mg capsule 02-19 00:00: 00 Yes TK 1 C PO QD 30 MIN B CHARLY [facility] omeprazole 40 mg capsule 02-19 00:00: 00 Yes TK 1 C PO QD 30 MIN B CHARLY [facility] omeprazole 40 mg capsule 02-19 00:00: 00 Yes TK 1 C PO QD 30 MIN B CHARLY [facility] omeprazole 40 mg capsule 02-19 00:00: 00 Yes TK 1 C PO QD 30 MIN B CHARLY [facility] omeprazole 40 mg capsule 02-19 00:00: 00 Yes TK 1 C PO QD 30 MIN B CHARLY [facility] omeprazole 40 mg capsule 02-19 00:00: 00 Yes TK 1 C PO QD 30 MIN B CHARLY [facility] omeprazole 40 mg capsule 02-19 00:00: 00 Yes TK 1 C PO QD 30 MIN B CHARLY [facility] omeprazole 40 mg capsule 02-19 00:00: 00 Yes TK 1 C PO QD 30 MIN B CHARLY [facility] omeprazole 40 mg capsule 02-19 00:00: 00 Yes TK 1 C PO QD 30 MIN B CHARLY [facility] omeprazole 40 mg capsule 02-19 00:00: 00 Yes TK 1 C PO QD 30 MIN B CHARLY [facility] omeprazole 40 mg capsule 02-19 00:00: 00 Yes TK 1 C PO QD 30 MIN B CHARLY [facility] omeprazole 40 mg capsule 02-19 00:00: 00 Yes TK 1 C PO QD 30 MIN B CHARLY [facility] omeprazole 40 mg capsule 02-19 00:00: 00 Yes TK 1 C PO QD 30 MIN B CHARLY [facility] omeprazole 40 mg capsule 02-19 00:00: 00 Yes TK 1 C PO QD 30 MIN B CHARLY [facility] omeprazole 40 mg capsule 02-19 00:00: 00 Yes TK 1 C PO QD 30 MIN B CHARLY [facility] omeprazole 40 mg capsule 02-19 00:00: 00 Yes TK 1 C PO QD 30 MIN B CHARLY [facility] omeprazole 40 mg capsule 02-19 00:00: 00 Yes TK 1 C PO QD 30 MIN B CHARLY [facility] omeprazole 40 mg capsule 02-19 00:00: 00 Yes TK 1 C PO QD 30 MIN B CHARLY [facility] omeprazole 40 mg capsule 02-19 00:00: 00 Yes TK 1 C PO QD 30 MIN B CHARLY [facility] omeprazole 40 mg capsule 02-19 00:00: 00 Yes TK 1 C PO QD 30 MIN B CHARLY [facility] omeprazole 40 mg capsule 02-19 00:00: 00 Yes TK 1 C PO QD 30 MIN B CHARLY [facility] omeprazole 40 mg capsule 02-19 00:00: 00 Yes TK 1 C PO QD 30 MIN B CHARLY [facility] omeprazole 40 mg capsule 02-19 00:00: 00 07-16 00:00 :00 No TK 1 C PO QD 30 MIN B CHARLY [facility] paroxetine 30 mg tablet 02-04 00:00: 00 Yes TK 1 T PO BID [facility] paroxetine 30 mg tablet 02-04 00:00: 00 Yes TK 1 T PO BID [facility] paroxetine 30 mg tablet 02-04 00:00: 00 Yes TK 1 T PO BID [facility] paroxetine 30 mg tablet 02-04 00:00: 00 Yes TK 1 T PO BID [facility] paroxetine 30 mg tablet 02-04 00:00: 00 Yes TK 1 T PO BID [facility] paroxetine 30 mg tablet 02-04 00:00: 00 Yes TK 1 T PO BID [facility] paroxetine 30 mg tablet 02-04 00:00: 00 Yes TK 1 T PO BID [facility] paroxetine 30 mg tablet 02-04 00:00: 00 Yes TK 1 T PO BID [facility] paroxetine 30 mg tablet 02-04 00:00: 00 Yes TK 1 T PO BID [facility] paroxetine 30 mg tablet 02-04 00:00: 00 Yes TK 1 T PO BID [facility] paroxetine 30 mg tablet 02-04 00:00: 00 Yes TK 1 T PO BID [facility] paroxetine 30 mg tablet 02-04 00:00: 00 Yes TK 1 T PO BID [facility] paroxetine 30 mg tablet 02-04 00:00: 00 Yes TK 1 T PO BID [facility] paroxetine 30 mg tablet 02-04 00:00: 00 Yes TK 1 T PO BID [facility] paroxetine 30 mg tablet 02-04 00:00: 00 Yes TK 1 T PO BID [facility] paroxetine 30 mg tablet 02-04 00:00: 00 Yes TK 1 T PO BID [facility] paroxetine 30 mg tablet 02-04 00:00: 00 Yes TK 1 T PO BID [facility] paroxetine 30 mg tablet 02-04 00:00: 00 Yes TK 1 T PO BID [facility] paroxetine 30 mg tablet 02-04 00:00: 00 Yes TK 1 T PO BID [facility] paroxetine 30 mg tablet 02-04 00:00: 00 Yes TK 1 T PO BID [facility] paroxetine 30 mg tablet 02-04 00:00: 00 Yes TK 1 T PO BID [facility] paroxetine 30 mg tablet 02-04 00:00: 00 Yes TK 1 T PO BID [facility] paroxetine 30 mg tablet 02-04 00:00: 00 Yes TK 1 T PO BID [facility] paroxetine 30 mg tablet 02-04 00:00: 00 Yes TK 1 T PO BID [facility] paroxetine 30 mg tablet 02-04 00:00: 00 Yes TK 1 T PO BID [facility] paroxetine 30 mg tablet 02-04 00:00: 00 07-19 00:00 :00 No TK 1 T PO BID [facility] Immunizations Ordered Immunization Name Filled Immunization Name Date Status Comments Source Td 2022-02-08 00:00:00 Completed [facility] Td 2022-02-08 00:00:00 Completed [facility] Td 2022-02-08 00:00:00 Completed [facility] Td 2022-02-08 00:00:00 Completed [facility] TD, NOS 2022-02-08 00:00:00 Completed [facility] TD, NOS 2022-02-08 00:00:00 Completed [facility] TD, NOS 2022-02-08 00:00:00 Completed [facility] TD, NOS 2022-02-08 00:00:00 Completed [facility] TD, NOS 2022-02-08 00:00:00 Completed [facility] TD, NOS 2022-02-08 00:00:00 Completed [facility] TD, NOS 2022-02-08 00:00:00 Completed [facility] TD, NOS 2022-02-08 00:00:00 Completed [facility] TD, NOS 2022-02-08 00:00:00 Completed [facility] TD, NOS 2022-02-08 00:00:00 Completed [facility] TD, NOS 2022-02-08 00:00:00 Completed [facility] TD, NOS 2022-02-08 00:00:00 Completed [facility] Influenza Virus Vaccine Quad IM, Preserv and ABX Free 6 MO-64 YRS 2021-11-07 00:00:00 Completed [facility] Influenza Virus Vaccine Quad IM, Preserv and ABX Free 6 MO-64 YRS 2021-11-07 00:00:00 Completed [facility] Influenza Virus Vaccine Quad IM, Preserv and ABX Free 6 MO-64 YRS 2021-11-07 00:00:00 Completed [facility] Influenza Virus Vaccine Quad IM, Preserv and ABX Free 6 MO-64 YRS 2021-11-07 00:00:00 Completed [facility] Influenza Virus Vaccine Quad IM, Preserv and ABX Free 6 MO-64 YRS 2021-11-07 00:00:00 Completed [facility] Influenza Virus Vaccine Quad IM, Preserv and ABX Free 6 MO-64 YRS 2021-11-07 00:00:00 Completed [facility] Influenza Virus Vaccine Quad IM, Preserv and ABX Free 6 MO-64 YRS 2021-11-07 00:00:00 Completed [facility] Influenza Virus Vaccine Quad IM, Preserv and ABX Free 6 MO-64 YRS 2021-11-07 00:00:00 Completed [facility] Influenza Virus Vaccine Quad IM, Preserv and ABX Free 6 MO-64 YRS 2021-11-07 00:00:00 Completed [facility] Influenza Virus Vaccine Quad IM, Preserv and ABX Free 6 MO-64 YRS 2021-11-07 00:00:00 Completed [facility] Influenza Virus Vaccine Quad IM, Preserv and ABX Free 6 MO-64 YRS 2021-11-07 00:00:00 Completed [facility] Influenza Virus Vaccine Quad IM, Preserv and ABX Free 6 MO-64 YRS 2021-11-07 00:00:00 Completed [facility] Influenza Virus Vaccine Quad IM, Preserv and ABX Free 6 MO-64 YRS 2021-11-07 00:00:00 Completed [facility] Influenza Virus Vaccine Quad IM, Preserv and ABX Free 6 MO-64 YRS 2021-11-07 00:00:00 Completed [facility] Influenza Virus Vaccine Quad IM, Preserv and ABX Free 6 MO-64 YRS (FLUCELVAX) 2021-11-07 00:00:00 Completed [facility] Influenza Virus Vaccine Quad IM, Preserv and ABX Free 6 MO-64 YRS (FLUCELVAX) 2021-11-07 00:00:00 Completed [facility] Influenza Virus Vaccine Quad IM, Preserv and ABX Free 6 MO-64 YRS 2021-11-07 00:00:00 Completed [facility] Influenza Virus Vaccine Quad IM, Preserv and ABX Free 6 MO-64 YRS 2021-11-07 00:00:00 Completed [facility] Influenza Virus Vaccine Quad IM, Preserv and ABX Free 6 MO-64 YRS 2021-11-07 00:00:00 Completed [facility] TD, NOS Unknown Completed [facility] Influenza Virus Vaccine Quad IM, Preserv and ABX Free 6 MO-64 YRS (FLUCELVAX) Unknown Completed [facility] TD, NOS Unknown Completed [facility] Influenza Virus Vaccine Quad IM, Preserv and ABX Free 6 MO-64 YRS (FLUCELVAX) Unknown Completed [facility] TD, NOS Unknown Completed [facility] Influenza Virus Vaccine Quad IM, Preserv and ABX Free 6 MO-64 YRS (FLUCELVAX) Unknown Completed [facility] TD, NOS Unknown Completed [facility] Influenza Virus Vaccine Quad IM, Preserv and ABX Free 6 MO-64 YRS (FLUCELVAX) Unknown Completed [facility] TD, NOS Unknown Completed [facility] Influenza Virus Vaccine Quad IM, Preserv and ABX Free 6 MO-64 YRS (FLUCELVAX) Unknown Completed [facility] TD, NOS Unknown Completed [facility] Influenza Virus Vaccine Quad IM, Preserv and ABX Free 6 MO-64 YRS (FLUCELVAX) Unknown Completed [facility] TD, NOS Unknown Completed [facility] Influenza Virus Vaccine Quad IM, Preserv and ABX Free 6 MO-64 YRS (FLUCELVAX) Unknown Completed [facility] TD, NOS Unknown Completed [facility] Influenza Virus Vaccine Quad IM, Preserv and ABX Free 6 MO-64 YRS (FLUCELVAX) Unknown Completed [facility] TD, NOS Unknown Completed [facility] Influenza Virus Vaccine Quad IM, Preserv and ABX Free 6 MO-64 YRS (FLUCELVAX) Unknown Completed [facility] TD, NOS Unknown Completed [facility] Influenza Virus Vaccine Quad IM, Preserv and ABX Free 6 MO-64 YRS (FLUCELVAX) Unknown Completed [facility] Vital Signs Vital Name Observation Time Observation Value Comments S ource Respiratory rate 2023-07-19 17:36:00 18 /min [facility] Oxygen saturation in Arterial blood by Pulse oximetry 2023-07-19 17:36:00 99 /min [facility] Systolic blood pressure 2023-07-19 17:33:00 162 mm[Hg] [facility] Diastolic blood pressure 2023-07-19 17:33:00 75 mm[Hg] [facility] Heart rate 2023-07-19 17:33:00 61 /min [facility] Body temperature 2023-07-19 17:33:00 36 Pastora [facility] Body weight 2023-07-19 09:02:00 83.961 kg [facility] BMI 2023-07-19 09:02:00 30.80 kg/m2 [facility] Body height 2023-07-16 13:02:00 165.1 cm [facility] Systolic blood pressure 2023-05-20 14:27:00 133 mm[Hg] [facility] Diastolic blood pressure 2023-05-20 14:27:00 78 mm[Hg] [facility] Heart rate 2023-05-20 14:27:00 61 /min [facility] Respiratory rate 2023-05-20 14:27:00 19 /min [facility] Body height 2023-05-20 14:27:00 165.1 cm [facility] Body weight 2023-05-20 14:27:00 82.781 kg [facility] BMI 2023-05-20 14:27:00 30.37 kg/m2 [facility] Oxygen saturation in Arterial blood by Pulse oximetry 2023-05-20 14:27:00 94 /min [facility] Systolic blood pressure 2022-02-08 13:53:00 181 mm[Hg] [facility] Diastolic blood pressure 2022-02-08 13:53:00 77 mm[Hg] [facility] Heart rate 2022-02-08 13:53:00 71 /min [facility] Body temperature 2022-02-08 13:53:00 37.39 Pastora [facility] Respiratory rate 2022-02-08 13:53:00 18 /min [facility] Body height 2022-02-08 13:53:00 165.1 cm [facility] Body weight 2022-02-08 13:53:00 86.183 kg [facility] BMI 2022-02-08 13:53:00 31.62 kg/m2 [facility] Oxygen saturation in Arterial blood by Pulse oximetry 2022-02-08 13:53:00 95 /min [facility] Procedures Procedure Date / Time Performed Performing Clinician Source US HEAD NECK 2023-08-01 16:16:00 [facility] 2023-07-19 09:06:00 Mame Figueroa [facility] BASIC METABOLIC PANEL (NA, K, CL, CO2, GLUCOSE, BUN, CREATININE, CA) 2023-07-19 09:06:00 Mame Figueroa [facility] CBC WITH DIFF 2023-07-19 09:06:00 Mame Figueroa [facility] CT THORAX WO CONTRAST 2023-07-16 07:42:25 [facility] HB ECG ROUTINE & RHYTHM STRIP 2023-07-16 06:52:15 [facility] XR CHEST 1 VW 2023-07-16 05:52:01 Saurabh Mcdonough [facility] LIPASE 2023-07-16 05:41:00 Saurabh Mcdonough [facility] TROPONIN I 2023-07-16 05:41:00 Saurabh Mcdonough [facility] HEPATIC FUNCTION PANEL (11639) (ALB,T.PRO,BILI T,BU/BC,ALT,AST,ALK PHOS) 2023-07-16 05:41:00 Saurabh Mcdonough [facility] BASIC METABOLIC PANEL (NA, K, CL, CO2, GLUCOSE, BUN, CREATININE, CA) 2023-07-16 05:41:00 aSurabh Mcdonough [facility] CBC WITH DIFF 2023-07-16 05:41:00 Saurabh Mcdonough [facility] D-DIMER 2023-07-16 05:41:00 Saurabh Mcdonough [facility] RAPID INFLUENZA A/B 2023-07-16 05:41:00 Saurabh Mcdonough [facility] N-TERMINAL PRO-BNP 2023-07-16 05:41:00 Saurabh Mcdonough [facility] COVID-19 (ID NOW RAPID TESTING) 2023-07-16 05:41:00 Sharonda Saurabh [facility] LAB ONLY COVID INTERPRETATION 2023-07-16 05:41:00 Sharonda Saurabh [facility] NOTICE OF PRIVACY PRACTICES 2023-07-16 05:00:48 Doctor Unassigned, Tibbie [facility] CONSENT/REFUSAL FOR DIAGNOSIS AND TREATMENT 2023-07-16 04:56:55 Doctor Unassigned, Tibbie [facility] PATIENT QUESTIONNAIRE 2023-05-20 05:01:00 Doctor Unassigned, Tibbie [facility] XR CHEST 2 VW 2023-04-29 13:19:23 Willis Chavis Un [facility] PHYSICIAN ORDERS 2023-04-05 05:01:00 Doctor Unas signed, Tibbie [facility] PHYSICIAN ORDERS 2023-01-30 05:01:00 Doctor Unas signed, Tibbie [facility] MR ABDOMEN W WO CONTRAST MRCP 2022-11-29 16:07:56 Willis Chavis [facility] ASSIGNMENT OF BENEFITS 2022-11-29 14:28:09 Docto r Unassigned, Tibbie [facility] PHYSICIAN ORDERS 2022-11-01 05:01:00 Doctor Unas signed, Tibbie [facility] MR ABDOMEN WO CONTRAST MRCP 2022-08-08 16:45:23 Willis Chavis [facility] AUTHORIZATION FOR RELEASE OF PHI 2022-07-27 06:01:00 Doctor Unassigned, Tibbie [facility] PHYSICIAN ORDERS 2022-07-12 06:01:00 Doctor Natys signed, Tibbie [facility] US ABDOMEN COMPLETE 2022-06-20 16:34:00 Requisition, P aper [facility] NOTICE OF PRIVACY PRACTICES 2022-02-08 13:50:09 Doctor Unassigned, Tibbie [facility] CONSENT/REFUSAL FOR DIAGNOSIS AND TREATMENT 2022-02-08 13:49:07 Doctor Unassigned, Tibbie [facility] XR CHEST 2 VW 2022-01-10 13:35:30 Requisition, Paper U [facility] Encounters Start Date/Time End Date/Time Encounter Type Admission Type Attending [facility] Care Facility Care Department Encounter ID Source 2023-09-09 15:35:20 2023-09-09 15:35:20 Outpatient [facility] [id number] Kenny Lazo 2023-08-06 08:56:27 2023-08-06 08:56:27 Outpatient [facility] [id number] Kenny Lazo 2023-08-01 09:44:54 2023-08-01 23:59:00 Outpatient R RADIOLOGY [facility] [id number] [facility] 2023-08-01 09:44:54 2023-08-01 23:59:00 Hospital Encounter Radiology [facility] 1.2840.114 350.1.13.10 4.2.7.2.686 [id number] [facility] 2023-07-29 07:55:06 2023-07-29 07:55:06 Outpatient [facility] [id number] Kenny Lazo 2023-07-26 00:00:00 2023-07-26 00:00:00 Patient Secure Msg Doctor Unassigned, Tibbie [facility] 1..840.114 350.1.13.10 4.2.7.2.686 [id number] [facility] 2023-07-25 11:20:45 2023-07-25 11:20:45 Outpatient [facility] [id number] Kenny Lazo 2023-07-22 16:21:32 2023-07-22 16:21:32 Outpatient [facility] [id number] Kenny Lazo 2023-07-22 00:00:00 2023-07-22 00:00:00 Transition of Care Lior Vo 1.2.840.114 350.1.13.10 4.2.7.2.686 [id number] [facility] 2023-07-15 23:07:00 2023-07-19 14:10:00 Inpatient Tarsha MEJIA ELEAZAR [facility] YOLETTE [id number] [facility] 2023-07-15 23:07:00 2023-07-19 14:10:00 Hospital Encounter Swathi McdonoughEleazar Villatoro [facility] 1.2.840.114 350.1.13.10 4.2.7.2.686 [id number] [facility] 2023-07-09 09:52:01 2023-07-09 09:52:01 Outpatient [facility] [id number] Kenny Villalta [place] 2023-07-03 00:00:00 2023-07-03 00:00:00 Telephone Blanka Mcintyre [facility] 1.2.840.114 350.1.13.10 4.2.7.2.686 [id number] [facility] 2023-06-08 00:00:00 2023-06-08 00:00:00 Outpatient GC_[email or web address]_Ka dijeremya_S [facility] [id number] [facility] 2023-05-21 00:00:00 2023-05-21 00:00:00 Telephone Blanka Mcintyre [facility] 1.2.840.114 350.1.13.10 4.2.7.2.686 [id number] [facility] 2023-05-20 10:00:00 2023-05-20 10:15:00 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, 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 Lab Blanka Mcintyre [facility] 1.2.840.114 350.1.13.10 4.2.7.2.686 [id number] [facility] 2023-05-20 09:00:00 2023-05-20 09:57:42 Outpatient R BLANKA MCINTYRE [facility] [id number] [facility] 2023-05-20 09:00:00 2023-05-20 09:57:42 Office Visit Blanka Mcintyre [facility] 1.2840.114 350.1.13.10 4.2.7.2.686 [id number] [facility] 2023-05-20 00:00:00 2023-05-20 00:00:00 Orders Only Doctor Unassigned, Tibbie [facility] 1.0.114 350.1.13.10 4.2.7.2.686 [id number] [facility] 2023-05-01 13:39:13 2023-05-01 13:39:13 Outpatient [facility] [id number] Kenny Lazo 2023-04-29 08:01:09 2023-04-29 23:59:00 Outpatient R WILLIS CHAVIS [facility] [id number] [facility] 2023-04-29 08:00:00 2023-04-29 23:59:00 Hospital Encounter Willis Chavis [facility] 1.84.114 350.1.13.10 4.2.7.2.686 [id number] [facility] 2023-04-23 16:01:40 2023-04-23 16:01:40 Outpatient [facility] [id number] Kenny Lazo 2023-04-05 10:15:00 2023-04-05 10:30:00 Antisqueak Worker Visit Pob, 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 Willis Chavis [facility] 1.84.114 350.1.13.10 4.2.7.2.686 [id number] [facility] 2023-04-05 10:15:00 2023-04-05 10:15:00 Outpatient R WILLIS CHAVIS [facility] [id number] [facility] 2023-04-05 00:00:00 2023-04-05 00:00:00 Orders Only Doctor Unassigned, Tibbie [facility] 1..114 350.1.13.10 4.2.7.2.686 [id number] [facility] 2023-01-30 08:30:00 2023-01-30 08:45:00 Antisqueak Worker Visit Pob, 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 Demetrio Sita [facility]..114 350.1.13.10 4.2.7.2.686 [id number] [facility] 2023-01-30 08:30:00 2023-01-30 08:30:00 Outpatient R [facility]O [facility] [id number] [facility] 2023-01-30 00:00:00 2023-01-30 00:00:00 Orders Only Doctor Unassigned, Tibbie [facility] 1.114 350.1.13.10 4.2.7.2.686 [id number] [facility] 2022-12-28 13:52:39 2022-12-28 13:52:39 Outpatient [facility] [id number] Kenny Lazo 2022-11-29 09:29:29 2022-11-29 23:59:00 Outpatient R WILLIS CHAVIS [facility] [id number] [facility] 2022-11-29 09:29:29 2022-11-29 23:59:00 Hospital Encounter Willis Chavis [facility] 1.84.114 350.1.13.10 4.2.7.2.686 [id number] [facility] 2022-11-29 00:00:00 2022-11-29 00:00:00 Orders Only Doctor Unassigned, Tibbie [facility] 1.114 350.1.13.10 4.2.7.2.686 [id number] [facility] 2022-11-01 08:30:00 2022-11-01 08:45:00 Antisqueak Worker Visit Pob, Adc Lab Jamey Sita Atkinson [facility] PROFESSIO [facility] 1..114 350.1.13.10 4.2.7.2.686 [id number] [facility] 2022-11-01 08:30:00 2022-11-01 08:30:00 Outpatient R LEONARDOSITA GARDUNO [facility] [id number] [facility] 2022-11-01 00:00:00 2022-11-01 00:00:00 Orders Only Doctor Unassigned, Tibbie [facility] 1.2.114 350.1.13.10 4.2.7.2.686 [id number] [facility] 2022-08-08 08:48:43 2022-08-08 23:59:00 Outpatient R WILLIS CHAVIS [facility] [id number] [facility] 2022-08-08 08:48:43 2022-08-08 23:59:00 Hospital Encounter Willis Chavis [facility] 1..114 350.1.13.10 4.2.7.2.686 [id number] [facility] 2022-08-02 07:40:44 2022-08-02 23:59:00 Outpatient R RADIOLOGY [facility] [id number] [facility] 2022-08-02 07:40:44 2022-08-02 23:59:00 Hospital Encounter Radiology [facility] 1.84.114 350.1.13.10 4.2.7.2.686 [id number] [facility] 2022-07-27 00:00:00 2022-07-27 00:00:00 Orders Only Doctor Unassigned, Tibbie [facility] 1.2840.114 350.1.13.10 4.2.7.2.686 [id number] [facility] 2022-07-12 09:15:00 2022-07-12 09:30:00 Antisqueak Worker Visit Pob, 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 Sita Atkinson [facility]ESS[facility] 1..840.114 350.1.13.10 4.2.7.2.686 [id number] [facility] 2022-07-12 09:15:00 2022-07-12 09:15:00 Outpatient SITA MCGILL [facility] [id number] [facility] 2022-07-12 00:00:00 2022-07-12 00:00:00 Orders Only Doctor Unassigned, Tibbie [facility] 1.2840.114 350.1.13.10 4.2.7.2.686 [id number] [facility] 2022-06-20 09:29:41 2022-06-20 23:59:00 Outpatient R RADIOLOGY [facility] [id number] [facility] 2022-06-20 09:29:41 2022-06-20 23:59:00 Hospital Encounter Radiology [facility] 1..840.114 350.1.13.10 4.2.7.2.686 [id number] [facility] 2022-05-09 09:00:00 2022-05-09 09:00:00 Outpatient BLANKA BRADLEY [facility] [id number] [facility] 2022-05-09 09:00:00 2022-05-09 09:00:00 Outpatient BLANKA BRADLEY [facility] [id number] [facility] 2022-05-09 09:00:00 2022-05-09 09:00:00 Outpatient R BLANKA MCINTYRE [facility] [id number] [facility] 2022-02-08 08:56:00 2022-02-08 09:39:00 Emergency X PEDRO STRINGER [facility] ERT [id number] [facility] 2022-02-08 08:56:00 2022-02-08 09:39:00 Emergency Pedro Stringer [facility] 1.2.840.114 350.1.13.10 4.2.7.2.686 [id number] [facility] 2022-01-10 08:09:31 2022-01-10 23:59:00 Outpatient R RADIOLOGY [facility] [id number] [facility] 2022-01-10 08:09:31 2022-01-10 23:59:00 Hospital Encounter Radiology [facility] 1.2.840.114 350.1.13.10 4.2.7.2.686 [id number] [facility] 2021-11-16 00:00:00 2021-11-16 00:00:00 Telephone Blanka Mcintyre [facility] 1.2.840.114 350.1.13.10 4.2.7.2.686 [id number] [facility] 2021-11-16 00:00:00 2021-11-16 00:00:00 Telephone Blanka Mcintyre [facility] 1.2.840.114 350.1.13.10 4.2.7.2.686 [id number] [facility] 2021-11-13 08:30:00 2021-11-13 08:45:00 Antisqueak Worker Visit Pob, 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 Blanka Mcintyre [facility] 1..840.114 350.1.13.10 4.2.7.2.686 [id number] [facility] 2021-11-13 08:30:00 2021-11-13 08:30:00 Outpatient R BLANKA MCINTYRE [facility] [id number] [facility] 2021-11-13 08:30:00 2021-11-13 08:30:00 Outpatient R BLANKA MCINTYRE [facility] [id number] [facility] 2021-11-07 09:00:00 2021-11-07 09:27:00 Outpatient R BLANKA MCINTYRE [facility] [id number] [facility] 2021-11-07 09:00:00 2021-11-07 09:27:00 Office Visit Blanka Mcintyre [facility] 1..840.114 350.1.13.10 4.2.7.2.686 [id number] [facility] 2021-11-07 09:00:00 2021-11-07 09:27:00 Outpatient R BLANKA MCINTYRE [facility] [id number] [facility] 2021-11-07 00:00:00 2021-11-07 00:00:00 Orders Only Doctor Unassigned, Tibbie [facility] 1..840.114 350.1.13.10 4.2.7.2.686 [id number] [facility] 2021-09-26 00:00:00 2021-09-26 00:00:00 Telephone Blanka Mcintyre [facility] 1..840.114 350.1.13.10 4.2.7.2.686 [id number] [facility] 2021-09-15 09:45:00 2021-09-15 10:00:00 Antisqueak Worker Visit Pob, 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 Blanka Mcintyre [facility] 1.2.840.114 350.1.13.10 4.2.7.2.686 [id number] [facility] 2021-09-15 09:45:00 2021-09-15 09:45:00 Outpatient R BLANKA MCINTYRE [facility] [id number] [facility] 2021-09-15 09:45:00 2021-09-15 09:45:00 Outpatient R BLANKA MCINTYRE [facility] [id number] [facility] 2021-09-15 00:00:00 2021-09-15 00:00:00 Orders Only Doctor Unassigned, Tibbie [facility] 1.2840.114 350.1.13.10 4.2.7.2.686 [id number] [facility] 2021-09-01 00:00:00 2021-09-01 00:00:00 Orders Only Doctor Unassigned, Tibbie [facility] 1.2840.114 350.1.13.10 4.2.7.2.686 [id number] [facility] 2021-07-10 09:00:00 2021-07-10 09:24:24 Office Visit Blanka Mcintyre [facility] 1.2.840.114 350.1.13.10 4.2.7.2.686 [id number] [facility] 2021-07-10 09:00:00 2021-07-10 09:24:24 Outpatient R BLANKA MCINTYRE [facility] [id number] [facility] 2021-07-10 00:00:00 2021-07-10 00:00:00 Refill Blanka Mcintyre [facility] 1.2.840.114 350.1.13.10 4.2.7.2.686 [id number] [facility] 2021-04-10 00:00:00 2021-04-10 00:00:00 Telephone Blanka Mcintyre [facility] 1.2.840.114 350.1.13.10 4.2.7.2.686 [id number] [facility] 2021-03-21 00:00:00 2021-03-21 00:00:00 Telephone Blanka Mcintyre [facility] 1.2.840.114 350.1.13.10 4.2.7.2.686 [id number] [facility] 2021-03-08 14:53:40 2021-03-08 15:32:09 Office Visit Blanka Mcintyre [facility] 1.2.840.114 350.1.13.10 4.2.7.2.686 [id number] [facility] 2021-03-08 15:00:00 2021-03-08 15:00:00 Outpatient R BLANKA MCINTYRE [facility] [id number] [facility] 2021-02-28 00:00:00 2021-02-28 00:00:00 Orders Only Doctor Unassigned, Tibbie [facility] 1.2.840.114 350.1.13.10 4.2.7.2.686 [id number] [facility] 2021-01-24 08:00:00 2021-01-24 08:00:00 Outpatient R BLANKA MCINTYRE [facility] [id number] [facility] 2021-01-24 07:43:37 2021-01-24 07:43:37 Hospital Encounter Blanka Mcintyre [facility] 1.2.840.114 350.1.13.10 4.2.7.2.686 [id number] [facility] 2021-01-24 07:43:23 2021-01-24 07:43:23 Hospital Encounter Blanka Mcintyre [facility] 1.2.840.114 350.1.13.10 4.2.7.2.686 [id number] [facility] 2021-01-24 07:43:11 2021-01-24 07:43:11 Hospital Encounter Blanka Mcintyre [facility] 1.2.840.114 350.1.13.10 4.2.7.2.686 [id number] [facility] 2021-01-24 07:42:56 2021-01-24 07:42:56 Hospital Encounter Blanka Mcintyre [facility] 1.2.840.114 350.1.13.10 4.2.7.2.686 [id number] [facility] 2021-01-11 14:19:10 2021-01-11 15:18:58 Office Visit Blanka Mcintyre [facility] 1.2.840.114 350.1.13.10 4.2.7.2.686 [id number] [facility] 2021-01-11 14:30:00 2021-01-11 14:30:00 Outpatient R BLANKA MCINTYRE [facility] [id number] [facility] 2020-11-25 00:00:00 2020-11-25 00:00:00 Orders Only Doctor Unassigned, Tibbie [facility] 1.2.840.114 350.1.13.10 4.2.7.2.686 [id number] [facility] 2020-10-25 07:44:35 2020-10-25 23:59:00 Hospital Encounter Radiology [facility] 1.2840.114 350.1.13.10 4.2.7.2.686 [id number] [facility] 2020-10-25 07:47:08 2020-10-25 08:02:08 Antisqueak Worker Visit Podemetrius, 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 Sita Atkinson [facility] 1.2840.114 350.1.13.10 4.2.7.2.686 [id number] [facility] 2020-10-25 00:00:00 2020-10-25 00:00:00 Outpatient R RADIOLOGY [facility] [id number] [facility] 2020-10-24 00:00:00 2020-10-24 00:00:00 Orders Only Doctor Unassigned, Tibbie [facility] 1.2840.114 350.1.13.10 4.2.7.2.686 [id number] [facility] 2020-10-18 12:30:07 2020-10-18 23:59:00 Hospital Encounter Radiology [facility] 1.20.114 350.1.13.10 4.2.7.2.686 [id number] [facility] 2020-10-18 00:00:00 2020-10-18 00:00:00 Outpatient R RADIOLOGY [facility] [id number] [facility] 2020-09-22 10:30:00 2020-09-22 10:30:00 Outpatient R WILLIS CHAVIS [facility] [id number] [facility] 2020-09-22 09:54:07 2020-09-22 10:09:07 Antisqueak Worker Visit Rodri, 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 Willis Chavis [facility] 1.840.114 350.1.13.10 4.2.7.2.686 [id number] [facility] 2020-09-15 11:00:00 2020-09-15 11:00:00 Outpatient JAC KLEIN [facility] [id number] [facility] 2020-09-15 00:00:00 2020-09-15 00:00:00 Orders Only Doctor Unassigned, Tibbie [facility] 1.2.840.114 350.1.13.10 4.2.7.2.686 [id number] [facility] 2020-09-05 12:36:55 2020-09-05 23:59:00 Hospital Encounter Partha [facility] 1.2.840.114 350.1.13.10 4.2.7.2.686 [id number] [facility] 2020-09-05 12:36:08 2020-09-05 23:59:00 Hospital Encounter Partha [facility] 1.2.840.114 350.1.13.10 4.2.7.2.686 [id number] [facility] 2020-09-05 00:00:00 2020-09-05 00:00:00 Outpatient R [facility]A [facility] [id number] [facility] 2019-10-19 08:16:52 2019-10-19 23:59:00 Outpatient R PARTHA [facility] [id number] [facility] 2019-10-19 08:16:00 2019-10-19 23:59:00 Hospital Encounter Partha [facility] 1.2.840.114 350.1.13.10 4.2.7.2.686 [id number] [facility] 2019-10-19 00:00:2019-10-19 00:00:00 Orders Only Doctor Unassigned, Tibbie [facility] 1.2.840.114 350.1.13.10 4.2.7.2.686 [id number] [facility] Results Test Description Test Time Test Comments Results Result Comments Source US HEAD NECK 16:33:20 HISTORY: ?Nontoxic goiter. Right thyroid nodule. TECHNIQUE: Thyroid gland is evaluated in multiple planes without and withcolor imaging. FINDINGS: Right lobe of the thyroid gland is 5.5 x 2.0 x 2.1 cm ( 12.7 cc),isthmus portion is ?3.9 mm in thickness, left lobe is 4.1 x 1.1 x 1.4 ?cm (3.5 cc) in size. Isthmus contains 4.7 x 2.8 mm hypoechoic nodule withbenign features. No gross pathology is seen in the parotid or submandibularsalivary glands. No enlarged lymph nodes visualized in the neck. The left lobe showed no lesions. Right lobe contains 2.8 x 1.8 cm solidnodule in its lower pole. Upper portion of the right lobe showedsubcentimeter cystic nodules. Estimated total number of nodules ?1cm: 1. Number of spongiform nodules ?2cm not described below (TR1): 0.Number of mixed cystic and solid nodules ?1.5cm not described below (TR2):0. Nodule#: 1* ?Maximum size: 2.8 cm* ?Location: Right thyroid lobe * ?Composition: Solid/almost completely solid (2) * ?Echogenicity: Hyperechoic or isoechoic (1) * ?Shape: Not taller than wide (0) * ?Margins: Smooth (0) * ?Echogenic foci: None (0) * ?ACR TI-RADS total points: 3* ?ACR TI-RADS risk category: TR 3 (3 points)* ?ACR TI-RADS recommendation: US-guided fine needle aspiration given sizegreater than 2.5 cm[facility] (NA, K, CL, CO2, GLUCOSE, BUN, CREATININE, CA)2023-07-19 10:00:56* Test Item Value Reference Range Interpretation Comme nts NA (test code = 8669409345) 136 mmol/L 135-145 K (test code = 8465751368) 4.1 mmol/L 3.5-5.0 CL (test code = 4126275311) 105 mmol/L 98-108 CO2 TOTAL (test code = 0037469177) 25 mmol/L 23-31 AGAP (test code = 3803278502) 6 2-16 BUN (test code = 8278859270) 21 mg/dL 7-23 GLUCOSE (test code = 8718488114) 136 mg/dL 70-110 H CREATININE (test code = 1288928051) 0.57 mg/dL 0.50-1.04 CALCIUM (test code = 1933594445) 8.8 mg/dL 8.6-10.6 eGFR (test code = 59176-4) 100.4 mL/min/1.73m2 CKD-EPI eGFR (2020). Assuming creatinine has been stable day-to-day for at least three months, the eGFR indicates Category G1 (>= 90 mL/min/1.73 m2) Lab Interpretation (test code = 67346-3) Abnormal [facility] WITH [id number] 09:51:35* Test Item Value Reference Range Interpretation Comme nts WBC (test code = 6690-2) 7.41 See_Comment [Automated Dexin Interactive] The system which generated this result transmitted reference range: 4.30 - 11.10 10*3/?L. The reference range was not used to interpret this result as normal/abnormal. RBC (test code = 789-8) 4.29 See_Comment [Automated Dexin Interactive] The system which generated this result transmitted reference range: 3.93 - 5.25 10*6/?L. The reference range was not used to interpret this result as normal/abnormal. HGB (test code = 718-7) 13.0 g/dL 11.6-15.0 HCT (test code = 4544-3) 39.0 % 35.7-45.2 MCV (test code = 787-2) 90.9 fL 80.6-95.5 MCH (test code = 785-6) 30.3 pg 25.9-32.8 MCHC (test code = 786-4) 33.3 g/dL 31.6-35.1 RDW-SD (test code = 27294-8) 42.9 fL 39.0-49.9 RDW-CV (test code = 788-0) 12.9 % 12.0-15.5 PLT (test code = 777-3) 248 See_Comment [Automated messa ge] The system which generated this result transmitted reference range: 166 - 358 10*3/?L. The reference range was not used to interpret this result as normal/abnormal. MPV (test code = 52855-5) 10.5 fL 9.5-12.9 NRBC/100 WBC (test code = 3086300346) 0.0 See_Comment [Automated Beepl ssage] The system which generated this result transmitted reference range: 0.0 - 10.0 /100 WBCs. The reference range was not used to interpret this result as normal/abnormal. NRBC x10^3 (test code = 8570009519) See_Comment [Automated messa ge] The system which generated this result transmitted reference range: 10*3/?L. The reference range was not used to interpret this result as normal/abnormal. GRAN MAT (NEUT) % (test code = 770-8) 79.9 % IMM GRAN % (test code = 8125783705) 0.70 % LYMPH % (test code = 736-9) 11.9 % MONO % (test code = 5905-5) 7.4 % EOS % (test code = 713-8) 0.0 % BASO % (test code = 706-2) 0.1 % GRAN MAT x10^3(ANC) (test code = 3041208762) 5.92 10*3/uL 1.88-7.09 IMM GRAN x10^3 (test code = 6979037812) 0.05 10*3/uL 0.00-0.06 LYMPH x10^3 (test code = 731-0) 0.88 10*3/uL 1.32-3.29 L MONO x10^3 (test code = 742-7) 0.55 10*3/uL 0.33-0.92 EOS x10^3 (test code = 711-2) 0.03-0.39 L BASO x10^3 (test code = 704-7) 0.01-0.07 Lab Interpretation (test code = 72129-3) Abnormal [facility] WITH [id number] 06:38:57* Test Item Value Reference Range Interpretation Comme nts WBC (test code = 6690-2) 15.93 See_Comment H [Automated message] The system which generated this result transmitted reference range: 4.30 - 11.10 10*3/?L. The reference range was not used to interpret this result as normal/abnormal. RBC (test code = 789-8) 4.66 See_Comment [Automated message] The system which generated this result transmitted reference range: 3.93 - 5.25 10*6/?L. The reference range was not used to interpret this result as normal/abnormal. HGB (test code = 718-7) 14.4 g/dL 11.6-15.0 HCT (test code = 4544-3) 43.0 % 35.7-45.2 MCV (test code = 787-2) 92.3 fL 80.6-95.5 MCH (test code = 785-6) 30.9 pg 25.9-32.8 MCHC (test code = 786-4) 33.5 g/dL 31.6-35.1 RDW-SD (test code = 27773-5) 44.8 fL 39.0-49.9 RDW-CV (test code = 788-0) 13.2 % 12.0-15.5 PLT (test code = 777-3) 222 See_Comment [Automated message] The system which generated this result transmitted reference range: 166 - 358 10*3/?L. The reference range was not used to interpret this result as normal/abnormal. MPV (test code = 16658-6) 10.7 fL 9.5-12.9 NRBC/100 WBC (test code = 8596817622) 0.0 See_Comment [Automated message] The system which generated this result transmitted reference range: 0.0 - 10.0 /100 WBCs. The reference range was not used to interpret this result as normal/abnormal. NRBC x10^3 (test code = 1122218602) See_Comment [Automated message] The system which generated this result transmitted reference range: 10*3/?L. The reference range was not used to interpret this result as normal/abnormal. GRAN MAT (NEUT) % (test code = 770-8) 77.2 % IMM GRAN % (test code = 9307178371) 0.60 % LYMPH % (test code = 736-9) 11.0 % MONO % (test code = 5905-5) 10.7 % EOS % (test code = 713-8) 0.2 % BASO % (test code = 706-2) 0.3 % GRAN MAT x10^3(ANC) (test code = 6947364832) 12.30 10*3/uL 1.88-7.09 H IMM GRAN x10^3 (test code = 2397772805) 0.09 10*3/uL 0.00-0.06 H LYMPH x10^3 (test code = 731-0) 1.76 10*3/uL 1.32-3.29 MONO x10^3 (test code = 742-7) 1.70 10*3/uL 0.33-0.92 H EOS x10^3 (test code = 711-2) 0.03 10*3/uL 0.03-0.39 BASO x10^3 (test code = 704-7) 0.05 10*3/uL 0.01-0.07 ELLIPTO/OVAL (test code = 09426-6) 2+ See_Comment A [Automated message] The system which generated this result transmitted reference range: (none). The reference range was not used to interpret this result as normal/abnormal. Lab Interpretation (test code = 32723-6) [id number] 06:30:39* Test Item Value Reference Range Interpretation Comments D-DIMER (test code = 7928525602) See_Comment [Automated message] The system which generated this result transmitted reference range: <0.41 ?g/mL (FEU). The reference range was not used to interpret this result as normal/abnormal. KELLEY (test code = KELLEY) This test may be used in conjunction with a clinical pretest probability (PTP) assessment model to exclude venous thromboembolism (VTE) in patients suspected of deep venous thrombosis (DVT) and pulmonary embolism (PE) A D-Dimer value less than 0.50 ?g/ml (FEU) has a negative predicative value of 96 to 100% (95% CI)and 97 to 100% (95% CI) as an aid in the diagnosis of deep vein thrombosis (DVT) and pulmonary embolism when there is low or moderate pretest probability of PE or DVT. D-Dimer values are expressed in initial fibrinogen equivalent units (FEU)" The assay results should be used with other information, including the clinical context, in forming a diagnosis. Lab Interpretation (test code = 28286-2) Normal [facility] [id number] 06:21:52* Test Item Value Reference Range Interpretation Comme nts TROPONIN I (test code = 4035092851) 0.005 ng/mL <=0.034 KELLEY (test code = KELLEY) Reference (Normal) Range (defined by the 99th percentile reference limit): <= 0.034 ng/mL Note: Cardiac troponin begins to rise 3-4 hours after the onset of ischemia. Repeat in 4-6 hours if the sample was drawn within 3-4 hours of the onset of the symptom and found normal. Diagnosis of myocardial injury is made with acute changes in cTn concentrations with at least one serial sample above the 99th percentile upper reference limit (URL), taken together with the patient's clinical presentation. Biotin has been reported to cause a negative bias, interpret results relative to patient's use of biotin. Lab Interpretation (test code = 96868-9) Normal [facility]MINAL [id number] 06:19:31* Test Item Value Reference Range Interpretation Comme nts NT-proBNP (test code = 33706-9) 66 pg/mL <=125 Lab Interpretation (test cod e = 39921-6) Normal [facility] FUN[facility] PAN[facility] (84602) (ALB,T.PRO,BILI T,BU/BC,ALT,AST,ALK PHOS)2023-07-16 06:10:32* Test Item Value Reference Range Interpretation Comme nts TOTAL BILI (test code = 2244022785) 0.9 mg/dL 0.1-1.1 BILI UNCON (test code = 5666456556) 0.5 mg/dL 0.1-1.1 BILI CONJ (test code = 3194072570) 0.0 mg/dL 0.0-0.3 T PROTEIN (test code = 0494022872) 7.7 g/dL 6.3-8.2 ALBUMIN (test code = 7577569245) 4.5 g/dL 3.5-5.0 ALK PHOS (test code = 2482524597) 60 U/L 34-122 ALTv (test code = 1742-6) 24 U/L 5-35 AST(SGOT) (test code = 3197808547) 30 U/L 13-40 Lab Interpretation (test cod e = 47928-8) Normal [facility]OLIC PAN[facility] (NA, K, CL, CO2, GLUCOSE, BUN, CREATININE, CA)2023-07-16 06:10:11* Test Item Value Reference Range Interpretation Comme nts NA (test code = 1059718205) 136 mmol/L 135-145 K (test code = 9150028507) 4.4 mmol/L 3.5-5.0 CL (test code = 4721698114) 104 mmol/L 98-108 CO2 TOTAL (test code = 8391606761) 26 mmol/L 23-31 AGAP (test code = 9164965603) 6 2-16 BUN (test code = 4057426045) 16 mg/dL 7-23 GLUCOSE (test code = 0724710125) 109 mg/dL 70-110 CREATININE (test code = 5363511620) 0.49 mg/dL 0.50-1.04 L CALCIUM (test code = 8846860155) 9.1 mg/dL 8.6-10.6 eGFR (test code = 23619-5) 104.1 mL/min/1.73m2 CKD-EPI eGFR (2020). Assuming creatinine has been stable day-to-day for at least three months, the eGFR indicates Category G1 (>= 90 mL/min/1.73 m2) Lab Interpretation (test code = 42402-9) Abnormal [facility]IP[facility]2023-12-05 06:10:11* Test Item Value Reference Range Interpretation Comme nts LIPASE (test code = 7498586490) 45 U/L 0-220 Lab Interpretation (test cod e = 17620-6) Normal [facility] Notes Date/Time Note Provider Source 2023-04-05 10:15:00 [id number] [id number] [id number]:15:00F ormatting of this note is different from the original.Images from the original note were not included.Venipuncture collection performed by clean technique on the right anticubitus. Total of 1 attempts were made. Slight pressure and a bandage/dressing were applied to the site(s). The patient experienced no complications. The following specimens were processed according to instructions and sent to [facility] laboratories per lab order on 04/05/2023: LT BLUE SST 1 RED LAV 1 PPT DK GREEN (LiHep) DK GREEN (SodH) ALVARADO DK BLUE (K2) DK BLUE (S) ACD Blood Culture NIPT/NTD 04681-8Ycagh [id number]:14:48Nurse NoteTXT1.2.840.774197.1.13.104.2.7.2.88849 9|[id number] for patient dkyb56849-3Vjjkt Note[address] Sseh[id number] YMARRXBTJVYLVIXM0848-41-60A10:14:481.2.840 .944408.1.72.3.15|1.2.840.552903.1.13.104. [id number] [facility]
--- NOTE | 2023-09-10 14:57 | ER ---
Nurse's Notes [facility] Name: Lia Trejo Age: 68 yrs Sex: Female : 1955 Arrival Date: 09/10/2023 Time: 13:30 Bed 9 Private MD: Diagnosis: Essential (primary) hypertension Presentation: 09/10 13:41 Chief complaint: Patient states: Pt c/o high blood pressure (204/85) at home. Pt denies tl4 CP, SOB, dizziness, nausea, changes in vision/hearing. Pt also c/o a "knot" in her epigastrum after lifting her oxygen tank and twisting to put on her seatbelt 3 days ago. Coronavirus screen: Vaccine status: Patient reports receiving the 2nd dose of the covid vaccine. Ebola Screen: No symptoms or risks identified at this time. Initial Sepsis Screen: Does the patient meet any 2 criteria? No. Patient's initial sepsis screen is negative. Does the patient have a suspected source of infection? No. Patient's initial sepsis screen is negative. Risk Assessment: Do you want to hurt yourself or someone else? Patient reports no desire to harm self or others. Onset of symptoms was September 10, 2023. 13:41 Method Of Arrival: Ambulatory tl4 13:41 Acuity: BRAYDEN 3 tl4 Triage Assessment: 13:47 General: Appears in no apparent distress. Behavior is cooperative, anxious. Pain: tl4 Denies pain. EENT: No deficits noted. No signs and/or symptoms were reported regarding the EENT system. Neuro: No deficits noted. Denies blurred vision dizziness, difficulty swallowing, paresthesias numbness headache. Cardiovascular: No deficits noted. Denies chest pain, diaphoresis, fatigue, lightheadedness, nausea, palpitations, syncope. Respiratory: No deficits noted. Denies cough, shortness of breath. GI: No deficits noted. No signs and/or symptoms were reported involving the gastrointestinal system. : No deficits noted. No signs and/or symptoms were reported regarding the genitourinary system. Derm: No deficits noted. No signs and/or symptoms reported regarding the dermatologic system. Historical: - Allergies: 13:45 Codeine; tl4 13:45 PENICILLINS; tl4 13:45 Sulfa (Sulfonamide Antibiotics); tl4 - Home Meds: 13:45 atorvastatin Oral [Active]; Buspirone Oral [Active]; carvedilol Oral [Active]; tl4 Hydroxyzine Oral [Active]; levothyroxine oral [Active]; mesalamine Oral [Active]; - PMHx: 13:45 Anxiety; Bipolar disorder; COPD; Crohn's; Depression; Hyperlipidemia; Hypertension; tl4 Thyroid problem; - PSHx: 13:45 Cholecystectomy; hysterectomy; tl4 - Immunization history:: Adult Immunizations unknown. - Social history:: Smoking status: Patient/guardian denies using tobacco, Stopped _ months ago 1.5. Screenin:40 [facility] ED Fall Risk Assessment (Adult) Score/Fall Risk Level 0 - 2 = Low Risk nj1 Oriented to surroundings, Maintained a safe environment, Hourly rounding (assess needs \\T\\ fall precautionary measures) done. 14:40 Abuse screen: Denies threats or abuse. Denies injuries from another. Nutritional nj1 screening: No deficits noted. Tuberculosis screening: No symptoms or risk factors identified. Assessment: 14:37 Reassessment: See triage assessment. nj1 15:10 Reassessment: Patient appears in no apparent distress at this time. Patient is alert, nj1 oriented x 3, equal unlabored respirations, skin warm/dry/pink. Patient denies pain at this time. Vital Signs: 13:41 BP 175 / 59; Pulse 80; Resp 18; Temp 98.5(O); Pulse Ox 97% on 2 lpm NC; Weight 85.28 tl4 kg; Height 5 ft. 5 in. ; Pain 0/10; 14:54 BP 162 / 55; Pulse 61; Resp 18; Pulse Ox 100% on 2 lpm NC; nj1 15:10 BP 145 / 58; Pulse 60; Resp 18; Pulse Ox 100% on 2 lpm NC; nj1 13:41 Body Mass Index 31.28 (85.28 kg, 165.1 cm) tl4 13:41 Pain Scale: Adult tl4 ED Course: 13:36 Patient arrived in ED. ra3 13:37 Betsy Langford FNP-C is PHCP. kb 13:37 Humza Kilgore MD is Attending Physician. kb 13:45 Triage completed. tl4 13:48 Arm band placed on right wrist. tl4 14:33 Anjelica Zuniga, RN is Primary Nurse. nj1 14:40 Patient has correct armband on for positive identification. Bed in low position. Call nj1 light in reach. 14:40 Provided Education on: call light, fall precautions. nj1 15:10 No provider procedures requiring assistance completed. nj1 15:10 Patient did not have IV access during this emergency room visit. nj1 Administered Medications: No medications were administered Medication: 15:20 VIS not applicable for this client. ap3 Outcome: 14:56 Discharge ordered by MD. 15:10 Discharged to home ambulatory, nj1 15:10 Condition: stable 15:10 Condition: stable 15:10 Discharge instructions given to patient, Instructed on discharge instructions, follow up and referral plans. Demonstrated understanding of instructions, follow-up care, 15:20 Discharged to home ambulatory, ap3 15:20 Condition: good 15:20 Discharge instructions given to patient, Instructed on discharge instructions, follow up and referral plans. Demonstrated understanding of instructions, follow-up care, 15:20 Patient left the ED. ap3 Signatures: Betsy Langford, [employer]ARM [employer]-C SWETA-Yamileth Loya, RN RN ap3 Anjelica Zuniga, RN RN nj1 Kierra, Piotr tl4 Miriam Ambriz ra3
--- NOTE | 2023-09-10 14:57 | EDPHYS ---
Physician Documentation [facility] Name: Lia Trejo Age: 68 yrs Sex: Female : 1955 Arrival Date: 09/10/2023 Time: 13:30 Bed 9 Private MD: ED Physician Humza Kilgore HPI: 09/10 15:25 This 68 yrs old Female presents to ER via Ambulatory with complaints of High Blood kb Pressure. 15:25 Pt is a 68 year old female who presents for high blood pressure. States her systolic bp kb is normally 180. Had a new machine brought over last night and the nurse checked her blood pressure to show her how to operate it and her systolic was 199. 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 Pt states she gets very anxious when checking her pressure and when it reads high it makes her more nervous. Denies chest pain, dizziness, headache, shortness of breath or any other symptoms. . Historical: - Allergies: 13:45 Codeine; tl4 13:45 PENICILLINS; tl4 13:45 Sulfa (Sulfonamide Antibiotics); tl4 - Home Meds: 13:45 atorvastatin Oral [Active]; Buspirone Oral [Active]; carvedilol Oral [Active]; tl4 Hydroxyzine Oral [Active]; levothyroxine oral [Active]; mesalamine Oral [Active]; - PMHx: 13:45 Anxiety; Bipolar disorder; COPD; Crohn's; Depression; Hyperlipidemia; Hypertension; tl4 Thyroid problem; - PSHx: 13:45 Cholecystectomy; hysterectomy; tl4 - Immunization history:: Adult Immunizations unknown. - Social history:: Smoking status: Patient/guardian denies using tobacco, Stopped _ months ago 1.5. ROS: 15:24 Constitutional: Negative for fever, chills, and weight loss, kb 15:24 All other systems are negative, Exam: 15:24 Constitutional: This is a well developed, well nourished patient who is awake, alert, kb and in no acute distress. Head/Face: Normocephalic, atraumatic. ENT: Moist Mucous membranes Cardiovascular: Regular rate Respiratory: Respirations even and unlabored. No increased work of breathing. Talking in full sentences Skin: Warm, dry with normal turgor. Normal color. MS/ Extremity: Pulses equal, no cyanosis. Neurovascular intact. Full, normal range of motion. Neuro: Awake and alert, GCS 15, oriented to person, place, time, and situation. Moves all extremities. Normal gait. 15:24 Constitutional: The patient appears anxious, Vital Signs: 13:41 BP 175 / 59; Pulse 80; Resp 18; Temp 98.5(O); Pulse Ox 97% on 2 lpm NC; Weight 85.28 tl4 kg; Height 5 ft. 5 in. ; Pain 0/10; 14:54 BP 162 / 55; Pulse 61; Resp 18; Pulse Ox 100% on 2 lpm NC; nj1 15:10 BP 145 / 58; Pulse 60; Resp 18; Pulse Ox 100% on 2 lpm NC; nj1 13:41 Body Mass Index 31.28 (85.28 kg, 165.1 cm) tl4 13:41 Pain Scale: Adult tl4 MDM: 13:38 Patient medically screened. kb 15:24 Differential diagnosis: hypertensive crisis, Malignant HTN, primary hypertension. Data kb reviewed: vital signs, nurses notes. Counseling: I had a detailed discussion with the patient and/or guardian regarding the historical points, exam findings, and any diagnostic results supporting the discharge/admit diagnosis, the need for outpatient follow up, a family practitioner, to return to the emergency department if symptoms worsen or persist or if there are any questions or concerns that arise at home. 09/10 13:54 Order name: EKG; Complete Time: 13:54 kb 09/10 13:54 Order name: EKG - Nurse/Tech; Complete Time: 14:48 kb 09/10 14:45 Order name: Vital Signs; Complete Time: 14:54 kb Administered Medications: No medications were administered Disposition Summary: 09/10/23 14:56 Discharge Ordered Notes: Location: Home kb Condition: Stable kb Diagnosis - Essential (primary) hypertension kb Followup: kb - With: Emergency Department - When: As needed - Reason: Worsening of condition Followup: kb - With: Private Physician - When: 2 - 3 days - Reason: Recheck today's complaints, Continuance of care, Re-evaluation by your physician Discharge Instructions: - Discharge Summary Sheet kb - Hypertension, Adult, [id number] kb - How to Take Your Blood Pressure, [id number] kb Forms: - Medication Reconciliation Form kb - Thank You Letter kb - Antibiotic Education kb - Prescription Opioid Use kb - Patient Portal Instructions kb - Leadership Thank You Letter kb Signatures: Betsy Langford FNP-C FNP-Ckb Logdahl, Toni tl4
[2023-09-11 00:06] VITALS: TEMP 98.5
[2023-09-11 00:31] VITALS: BP 145/58; O2SAT 100
== END ==
LOC: ER 13:30
DX: I10 Essential (primary) hypertension (principal); Z88.0 Allergy status to penicillin; Z88.2 Allergy status to sulfonamides; Z88.5 Allergy status to narcotic agent
CPT/HCPCS: 93005

== ENCOUNTER 2023-11-18 21:50 | Emergency (ER) | payer OTHER ==
--- OUTSIDE RECORDS SUMMARY | 2023-11-18 21:56 | XMS REPORT | Continuity of Care Document ---
Author Name Unknown Address [address] [facility] [address] [place] [address] [facility] Address [address] [facility] [address] [place] [address] Care Team Providers Care Senior Sales Consultant Name Role Phone Maggi Mendoza Primary Care Physician Willis Chavis Attending Clinician ITA Abreu Attending Clinician Unavailable ITA GOMEZ Attending Clinician Unavailable BLANKA MCINTYRE K.HGaurav Attending Clinician Unavailmaría inman RADIOLOGY Attending Clinician Unavailable Jonathan POZO, Blanka K.HGaurav Attending Clinician [phone] WILLIS CHAVIS Attending Clinician Willis Summers MD Attending Clinician [phone] Doctor Unassigned, [place] Attending Clinician U Ita Sorto DO Attending Clinician [phone] Radiology Attending Clinician Unavailable Tavo TREJO, Lior Hidalgo Attending Clinician Unavail able ELEAZAR MEJIA Attending Clinician Jessica Mcdonough MD, Amir Attending Clinician [phone] Eleazar Mejia MD Attending Clinician [phone] [email or web address] Attending Clinician Unavailmaría inman 2, [facility] Attending Clinician Unavailable Pob, 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 Attending Clinician Sita Lakhani MD Attending Clinician SITA ATKINSON Attending Clinician UnavailPEDRO Valencia Attending Clinician Unavailable Singer YOUNG Pedro Attending Clinician JAC MARLOW So Attending Clinician Unavailable WILLIS CHAVIS Admitting Clinician UnavailMAGGI Castrejon Admitting Clinician Unavail ELEAZAR [place] Admitting Clinician Eleazar Sheth MD Admitting Clinician [email or web address]_S Admitting Clinician UnavailBELKYS Allen Admitting Clinician Unavailable Payers Payer Name Policy Type Policy Number Effective Date Expirati on Date Source [place]ICA[place] [id number] 2023 00:00:00 [employer] DUAL COMP HMO D SNP [id number] 2022 00:00:00 Problems Condition Name Condition Details Condition Category Status Onset Date Resolution Date Last Treatment Date Treating Clinician Comments Source Shortness of breath Shortness of breath Disease Active 2022-08 2 00:00: 00 [facility] No known active problems No known active problems Disease [facility] Allergies, Adverse Reactions, Alerts Allergy Name Allergy Type Status Severity Reaction(s) Onset Date Inactive Date Treating Clinician Comments Source SULFAMET HOPRIM DS DRUG Active Hallucinates 02-08 00:00: 00 [facility] Sulfamet hoprim Ds Propensi ty to adverse reaction s Active Hallucinatio ns 02-08 00:00: 00 [facility] Penicill in Drug Allergy Active Unknown - See comments 04-25 00:00: 00 Redness [facility] PENICILL IN DRUG INGREDI Active Hallucinates 04-25 00:00: 00 [facility] Social History Social Habit Start Date Stop Date Quantity Comments Source Gender identity [facility] Sexual orientation U [facility] History of tobacco use Cigarette Smoker [facility] Exposure to SARS-CoV-2 (event) 2022-01-29 00:00:00 2022-02-08 08:51:00 Not sure [facility] Tobacco use and exposure 2021-03-08 00:00:00 2021-03-08 00:00:00 Smokeless tobacco non-user [facility] History of Social function 2021-01-11 00:00:00 2021-01-11 00:00:00 [facility] Sex Assigned At 1955 00:00:00 1955 00:00:00 [facility] Smoking Status Start Date Stop Date Source Smokes tobacco daily 2021-03-08 00:00:00 [facility] Medications Ordered Medication Name Filled Medication Name Start Date Stop Date Current Medication? Ordering Clinician Indication Dosage Frequency Signature (SIG) Comments Components Source carvediloL 12.5 mg tablet 10-27 00:00: 00 Yes [id number] TAKE 1 TABLET BY MOUTH IN THE MORNING AND IN THE EVENING. TAKE WITH MEALS. DO THIS FOR 30 DAYS [facility] aspirin 81 mg EC tablet 10-13 08:37: 19 Yes 81mg Take 1 tablet by mouth in the morning. [facility] Dextrometho rphan-Guaif enesin (MUCINEX DM) 60-1,200 mg Tb12 10-13 08:37: 19 Yes 1{tbl} Take 1 tablet by mouth in the morning and 1 tablet in the evening. [facility] alendronate 70 mg TbEF 10-13 08:37: 19 Yes 70mg Take 70 mg by mouth weekly. Sundays [facility] albuterol sulfate 90 mcg/actuati on AePB 10-13 08:37: 19 Yes 2{puff} Inhale 2 Puffs as needed for Other (SOB). [facility] NIFEdipine XL 30 mg 24 hr tablet 10-04 00:00: 00 Yes [id number] 30mg Take 1 tablet by mouth in the morning. [facility] divalproex (DEPAKOTE) 500 mg EC tablet 09-16 09:14: 47 Yes 500mg Take 1 tablet by mouth in the morning. [facility] aspirin 81 mg EC tablet 09-16 09:04: 39 Yes 81mg Take 1 tablet by mouth in the morning. [facility] olmesartan 40 mg tablet 09-16 00:00: 00 Yes [id number] 40mg Take 1 tablet by mouth in the morning. [facility] fluticasone propionate 50 mcg/actuati on nasal spray 2022-08 00:00: 00 Yes [id number] 1{spray } Use 1 [place] in each nostril in the morning. [facility] nicotine 21 mg/24 hr patch 2022-08 00:00: 00 08-18 05:59 :00 No [id number] 1{patch } Apply 1 Patch to area(s) every 24 (twenty-fo ur) hours for 28 days. [facility] aspirin 81 mg EC tablet 2022-08 14:20: 42 Yes 81mg Take 1 tablet by mouth in the morning. [facility] Dextrometho rphan-Guaif enesin (MUCINEX DM) 60-1,200 mg Tb12 2022-08 14:20: 42 Yes 1{tbl} Take 1 tablet by mouth in the morning and 1 tablet in the evening. [facility] alendronate 70 mg TbEF 2022-08 14:20: 42 Yes 70mg Take 70 mg by mouth weekly. Sundays [facility] albuterol sulfate 90 mcg/actuati on AePB 2022-08 14:20: 42 Yes 2{puff} Inhale 2 Puffs as needed for Other (SOB). [facility] methylPREDN ISolone (METHYLPRED DP) 4 mg tablets 2022-08 14:20: 39 07-19 00:00 :00 No 4mg Take 1 tablet by mouth SEE-INSTRU CTIONS. follow package directions [facility] predniSONE 20 mg tablet 2022-08 00:00: 00 Yes [id number] 20mg Take 1 tablet by mouth in the morning and 1 tablet in the evening. [facility] carvediloL 12.5 mg tablet 2022-08 00:00: 00 08-19 05:59 :00 No [id number] 12.5mg Take 1 tablet by mouth in the morning and 1 tablet in the evening. Take with meals. Do all this for 30 days. [facility] budesonide- formoteroL 80-4.5 mcg/actuati on inhaler 2022-08 00:00: 00 08-17 05:59 :00 No [id number] 2{puff} Inhale 2 Puffs in the morning and 2 Puffs in the evening. Do all this for 28 days. [facility] doxycycline hyclate 100 mg capsule 2022-08 00:00: 00 07-27 05:59 :00 No [id number] 100mg Take 1 capsule by mouth every 12 (twelve) hours for 7 days. [facility] cetirizine (ZYRTEC) tablet 10 mg 2022-08 15:00: 00 Yes 10mg 10 mg, Oral, DAILY, First dose on Sat07/18/23 at 0900, Until Discontinu ed, Routine [facility] pantoprazol e (PROTONIX) EC tablet 40 mg 2022-08 15:00: 00 Yes 40mg 40 mg, Oral, QAM, First dose on Sat07/18/23 at 0900, Until Discontinu ed, Routine [facility] azithromyci n (ZITHROMAX) tablet 500 mg 2022-08 15:00: 00 07-18 15:08 :00 No 500mg 500 mg, Oral, DAILY, 1 dose, First dose on Sat07/18/23 at 0900, Routine
Reason for Anti-Infec tive: Empiric Therapy for Suspected Infection< br>Empiric Therapy Site: Respirator y
Durat ion of therapy: 72 hours [facility] QUEtiapine (SEROQUEL) tablet 50 mg 2022-08 03:00: 00 Yes 50mg 50 mg, Oral, QHS, First dose on Sat07/17/23 at 2100, Until Discontinu ed, Routine [facility] atorvastati n (LIPITOR) tablet 40 mg 2022-08 03:00: 00 Yes 40mg 40 mg, Oral, QHS, First dose on Sat07/17/23 at 2100, Until Discontinu ed, Routine [facility] mesalamine CR (PENTASA CR) capsule 500 mg 2022-08 02:00: 00 Yes 500mg 500 mg, Oral, BID, First dose on Sat07/17/23 at 2000, Until Discontinu ed, Routine [facility] levothyroxi ne (SYNTHROID) tablet 112 mcg 2022-08 17:45: 00 Yes 112ug 112 mcg, Oral, QAM-0600, First dose (after last modificati on) on Sat07/17/23 at 1145, Until Discontinu ed, Routine [facility] carvediloL (COREG) tablet 12.5 mg 2022-08 17:45: 00 Yes 12.5mg 12.5 mg, Oral, BID MEALS, First dose (after last modificati on) on Sat07/17/23 at 1145, Until Discontinu ed, Routine [facility] lisinopriL (PRINIVIL,Z ESTRIL) tablet 10 mg 2022-08 17:45: 00 Yes 10mg 10 mg, Oral, BID, First dose (after last modificati on) on Sat07/17/23 at 1145, Until Discontinu ed, Routine [facility] aspirin EC tablet 81 mg 2022-08 17:45: 00 Yes 81mg 81 mg, Oral, DAILY, First dose (after last modificati on) on Sat07/17/23 at 1145, Until Discontinu ed, Routine [facility] hydrOXYzine (ATARAX) tablet 25 mg 2022-08 17:29: 05 Yes 25mg 25 mg, Oral, Q8HPRN, Starting on Sat07/17/23 at 1129, Until Discontinu ed, Routine, Itching, Anxiety [facility] azithromyci n (ZITHROMAX) 500 mg [...] y
Durat ion of therapy: 72 hours [facility] cefTRIAXone (ROCEPHIN) 1,000 mg in NaCl 0.9% (NS) 100 mL MINI-BAG 2022-08 05:45: 00 07-22 05:44 :00 No 1000mg 1,000 mg, IV Piggyback, Q24H ABX, 5 doses, First dose (after last modificati on) on Sat07/16/23 at 2345, Last dose on Sat07/20/23 at 2345, Administer over 30 Minutes, 100 mL
Reas on for Anti-Infec tive: Empiric Therapy for Suspected Infection< br>Empiric Therapy Site: Respirator y
Durat ion of therapy: 7 days [facility] enoxaparin (LOVENOX) injection 40 mg 2022-08 23:00: 00 Yes 40mg 40 mg, Subcutaneo us, DAILY, First dose on Sat07/16/23 at 1700, Until Discontinu ed, Routine [facility] predniSONE (DELTASONE) tablet 40 mg 2022-08 20:15: 00 Yes 40mg 40 mg, Oral, Q8H, First dose (after last modificati on) on Sat07/16/23 at 1415, Until Discontinu ed, Routine [facility] fluticasone propionate 50 mcg/actuati on nasal spray 1 [place] 2022-08 20:00: 00 Yes 1{spray } 1 [place], Nasal, DAILY, First dose on Sat07/16/23 at 1400, Until Discontinu ed, Routine [facility] guaiFENesin 100 mg/5 mL solution 200 mg 2022-08 19:51: 24 Yes 200mg 200 mg, Oral, Q4HPRN, Starting on Sat07/16/23 at 1351, Until Discontinu ed, Routine, Cough [facility] HYDROcodone -acetaminop hen (NORCO 5) 5-325 mg tablet 1 tablet 2022-08 19:48: 13 Yes 1{tbl} 1 tablet, Oral, Q6HPRN, Starting on Sat07/16/23 at 1348, Until Discontinu ed, Routine, Pain (scale 7-10) [facility] traMADoL (ULTRAM) tablet 50 mg 2022-08 19:47: 48 Yes 50mg 50 mg, Oral, Q6HPRN, Starting on Sat07/16/23 at 1347, Until Discontinu ed, Routine, Pain (scale 4-6) [facility] acetaminoph en (TYLENOL) tablet 650 mg 2022-08 19:47: 28 Yes 650mg 650 mg, Oral, Q6HPRN, Starting on Sat07/16/23 at 1347, Until Discontinu ed, Routine, Pain (scale 1-3), Temp > 38 C [facility] ipratropium -albuteroL (DUONEB) 0.5 mg-3 mg(2.5 mg base)/3 mL nebulizer solution 3 mL 2022-08 18:00: 00 Yes 3mL 3 mL, Inhalation , QID, First dose (after last modificati on) on Sat07/16/23 at 1200, Until Discontinu ed, Routine [facility] nicotine (NICODERM) 21 mg/24 hr patch 1 Patch 2022-08 14:30: 00 Yes 1{patch } 1 Patch, Topical, Administer over 24 Hours, Q24H, First dose on Sat07/16/23 at 0830, Until Discontinu ed, Routine [facility] ipratropium -albuteroL (DUONEB) 0.5 mg-3 mg(2.5 mg base)/3 mL nebulizer solution 3 mL 2022-08 12:23: 57 07-16 16:55 :56 No 3mL 3 mL, Inhalation , Q6HPRN, Starting on Sat07/16/23 at 0623, Until Sat07/16/23 at 1055, Routine, Wheezing [facility] azithromyci n (ZITHROMAX) 500 mg in NaCl 0.9% (NS) 250 mL VIAL-MATE IV piggyback 2022-08 06:30: 00 07-16 08:11 :00 No [id number] 500mg 500 mg, IV Piggyback, ONCE, 1 dose, On Sat07/16/23 at 0030, Administer over 60 Minutes, 250 mL
Reas on for Anti-Infec tive: Empiric Therapy for Suspected Infection< br>Empiric Therapy Site: Respirator y
Durat ion of therapy: Once (ED) [facility] ipratropium -albuteroL (DUONEB) 0.5 mg-3 mg(2.5 mg base)/3 mL nebulizer solution 9 mL 2022-08 06:15: 00 07-16 05:55 :00 No [id number] 9mL 9 mL, Inhalation , ONCE, 1 dose, On Sat07/16/23 at 0015, Routine [facility] acetaminoph en (TYLENOL) tablet 650 mg 2022-08 05:45: 00 07-16 05:53 :00 No [id number] 650mg 650 mg, Oral, ONCE, 1 dose, On Sat07/15/23 at 2345, QUYNH [facility] cefTRIAXone (ROCEPHIN) 1,000 mg in NaCl 0.9% (NS) 100 mL MINI-BAG 2022-08 05:45: 00 07-16 06:13 :00 No [id number] 1000mg 1,000 mg, IV Piggyback, ONCE, 1 dose, On Sat07/15/23 at 2345, Administer over 30 Minutes, 100 mL
Reas on for Anti-Infec tive: Empiric Therapy for Suspected Infection< br>Empiric Therapy Site: Respirator y
Durat ion of therapy: Once (ED) [facility] albuterol 2.5 mg /3 mL (0.083 %) nebulizer solution 2022-08 00:00: 00 08-16 05:59 :00 No [id number] 2.5mg Inhale 3 mL every 4 (four) hours as needed for Wheezing or Shortness of Breath for up to 30 days. [facility] doxycycline hyclate 100 mg capsule 2022-08 00:00: 00 07-19 00:00 :00 No [id number] 100mg Take 1 capsule by mouth every 12 (twelve) hours for 7 days. [facility] lisinopriL 10 mg tablet 2022-08 00:00: 00 09-16 00:00 :00 No [id number] 10mg Take 1 tablet by mouth in the morning and 1 tablet in the evening. [facility] aspirin 81 mg EC tablet 2022-08 09:32: 35 Yes 81mg Take 81 mg by mouth daily. [facility] carvediloL 6.25 mg tablet 2022-08 0 00:00: 00 Yes [id number] 6.25mg Take 1 tablet by mouth in the morning and 1 tablet in the evening. Take with meals. [facility] atorvastati n 40 mg tablet 2022-08 00:00: 00 Yes [id number] 40mg Take 1 tablet by mouth at bedtime. [facility] lisinopriL 10 mg tablet 2022-08 00:00: 00 07-03 00:00 :00 No [id number] 10mg Take 1 tablet by mouth in the morning and 1 tablet in the evening. [facility] lisinopriL 10 mg tablet 04-01 00:00: 00 05-20 00:00 :00 No 10mg Take 1 tablet by mouth in the morning and 1 tablet in the evening. [facility] gadobenate dimeglumine (MULTIHANCE -20 mL) injection 0.2 mL/kg 11-29 15:45: 00 11-29 15:43 :00 No [id number] .2mL/kg 0.2 mL/kg, Intravenou s, ONCE, 1 dose, On Sat11/29/22 at 1045, Routine [facility] aspirin 81 mg EC tablet 2022-0 3-29 08:54: 34 Yes 81mg Take 81 mg by mouth daily. [facility] lisinopriL 20 mg tablet 2-15 00:00: 00 05-20 00:00 :00 No [id number] 10mg Take 0.5 tablets by mouth in the morning and 0.5 tablets in the evening. [facility] atorvastati n 40 mg tablet 2-15 00:00: 00 05-20 00:00 :00 No [id number] 40mg Take 1 tablet by mouth at bedtime. [facility] carvediloL 6.25 mg tablet 2020-08 130 00:00: 00 05-20 00:00 :00 No 6.25mg Take 1 tablet by mouth 2 (two) times daily with meals. [facility] pantoprazol e 40 mg EC tablet 524 00:00: 00 Yes 40mg Take 1 tablet by mouth every morning. [facility] hydrOXYzine 25 mg tablet 20 00:00: 00 Yes TAKE 1 TABLET BY MOUTH DAILY NEEDED [facility] cetirizine 10 mg tablet 16 00:00: 00 Yes 10mg Take 1 tablet by mouth in the morning. [facility] triamcinolo ne acetonide 0.1 % cream 16 00:00: 00 07-16 00:00 :00 No [facility] diclofenac 75 mg EC tablet 331 00:00: 00 07-16 00:00 :00 No [facility] PENTASA 500 mg CR capsule 04-18 00:00: 00 Yes TK 2 CS PO BID [facility] QUEtiapine 100 mg tablet 04-02 00:00: 00 Yes TK 1 T PO QHS [facility] ranitidine 150 mg tablet 03-28 00:00: 00 07-16 00:00 :00 No TK 1 T PO BID [facility] levothyroxi ne 112 mcg tablet 15 00:00: 00 Yes TK 1 T PO D [facility] divalproex ER 500 mg 24 hr tablet 03-05 00:00: 00 07-19 00:00 :00 No 500mg 1 tablet every 24 (twenty-fo ur) hours. [facility] traZODone 150 mg tablet 02-24 00:00: 00 07-19 00:00 :00 No [facility] omeprazole 40 mg capsule 02-19 00:00: 00 07-16 00:00 :00 No TK 1 C PO QD 30 MIN B CHARLY [facility] paroxetine 30 mg tablet 02-04 00:00: 00 07-19 00:00 :00 No TK 1 T PO BID [facility] Immunizations Ordered Immunization Name Filled Immunization Name Date Status Comments Source Td 2022-02-08 00:00:00 Completed [facility] Td 2022-02-08 00:00:00 Completed [facility] Td 2022-02-08 00:00:00 Completed [facility] Td 2022-02-08 00:00:00 Completed [facility] TD, NOS 2022-02-08 00:00:00 Completed [facility] TD, NOS 2022-02-08 00:00:00 Completed [facility] TD, NOS 2022-02-08 00:00:00 Completed [facility] TD, NOS 2022-02-08 00:00:00 Completed [facility] TD, NOS 2022-02-08 00:00:00 Completed [facility] TD, NOS 2022-02-08 00:00:00 Completed [facility] TD, NOS 2022-02-08 00:00:00 Completed [facility] TD, NOS 2022-02-08 00:00:00 Completed [facility] TD, NOS 2022-02-08 00:00:00 Completed [facility] TD, NOS 2022-02-08 00:00:00 Completed [facility] TD, NOS 2022-02-08 00:00:00 Completed [facility] TD, NOS 2022-02-08 00:00:00 Completed [facility] Influenza Virus Vaccine Quad IM, Preserv and ABX Free 6 MO-64 YRS 2021-11-07 00:00:00 Completed [facility] Influenza Virus Vaccine Quad IM, Preserv and ABX Free 6 MO-64 YRS 2021-11-07 00:00:00 Completed [facility] Influenza Virus Vaccine Quad IM, Preserv and ABX Free 6 MO-64 YRS 2021-11-07 00:00:00 Completed [facility] Influenza Virus Vaccine Quad IM, Preserv and ABX Free 6 MO-64 YRS 2021-11-07 00:00:00 Completed [facility] Influenza Virus Vaccine Quad IM, Preserv and ABX Free 6 MO-64 YRS 2021-11-07 00:00:00 Completed [facility] Influenza Virus Vaccine Quad IM, Preserv and ABX Free 6 MO-64 YRS 2021-11-07 00:00:00 Completed [facility] Influenza Virus Vaccine Quad IM, Preserv and ABX Free 6 MO-64 YRS 2021-11-07 00:00:00 Completed [facility] Influenza Virus Vaccine Quad IM, Preserv and ABX Free 6 MO-64 YRS 2021-11-07 00:00:00 Completed [facility] Influenza Virus Vaccine Quad IM, Preserv and ABX Free 6 MO-64 YRS 2021-11-07 00:00:00 Completed [facility] Influenza Virus Vaccine Quad IM, Preserv and ABX Free 6 MO-64 YRS 2021-11-07 00:00:00 Completed [facility] Influenza Virus Vaccine Quad IM, Preserv and ABX Free 6 MO-64 YRS 2021-11-07 00:00:00 Completed [facility] Influenza Virus Vaccine Quad IM, Preserv and ABX Free 6 MO-64 YRS 2021-11-07 00:00:00 Completed [facility] Influenza Virus Vaccine Quad IM, Preserv and ABX Free 6 MO-64 YRS 2021-11-07 00:00:00 Completed [facility] Influenza Virus Vaccine Quad IM, Preserv and ABX Free 6 MO-64 YRS 2021-11-07 00:00:00 Completed [facility] Influenza Virus Vaccine Quad IM, Preserv and ABX Free 6 MO-64 YRS (FLUCELVAX) 2021-11-07 00:00:00 Completed [facility] Influenza Virus Vaccine Quad IM, Preserv and ABX Free 6 MO-64 YRS (FLUCELVAX) 2021-11-07 00:00:00 Completed [facility] Influenza Virus Vaccine Quad IM, Preserv and ABX Free 6 MO-64 YRS 2021-11-07 00:00:00 Completed [facility] Influenza Virus Vaccine Quad IM, Preserv and ABX Free 6 MO-64 YRS 2021-11-07 00:00:00 Completed [facility] Influenza Virus Vaccine Quad IM, Preserv and ABX Free 6 MO-64 YRS 2021-11-07 00:00:00 Completed [facility] Influenza Virus Vaccine Quad IM, Preserv and ABX Free 6 MO-64 YRS (FLUCELVAX) Unknown Completed [facility] TD, NOS Unknown Completed [facility] Influenza Virus Vaccine Quad IM, Preserv and ABX Free 6 MO-64 YRS (FLUCELVAX) Unknown Completed [facility] TD, NOS Unknown Completed [facility] Influenza Virus Vaccine Quad IM, Preserv and ABX Free 6 MO-64 YRS (FLUCELVAX) Unknown Completed [facility] TD, NOS Unknown Completed [facility] Influenza Virus Vaccine Quad IM, Preserv and ABX Free 6 MO-64 YRS (FLUCELVAX) Unknown Completed [facility] TD, NOS Unknown Completed [facility] Influenza Virus Vaccine Quad IM, Preserv and ABX Free 6 MO-64 YRS (FLUCELVAX) Unknown Completed [facility] TD, NOS Unknown Completed [facility] Influenza Virus Vaccine Quad IM, Preserv and ABX Free 6 MO-64 YRS (FLUCELVAX) Unknown Completed [facility] TD, NOS Unknown Completed [facility] Influenza Virus Vaccine Quad IM, Preserv and ABX Free 6 MO-64 YRS (FLUCELVAX) Unknown Completed [facility] TD, NOS Unknown Completed [facility] Influenza Virus Vaccine Quad IM, Preserv and ABX Free 6 MO-64 YRS (FLUCELVAX) Unknown Completed [facility] TD, NOS Unknown Completed [facility] Influenza Virus Vaccine Quad IM, Preserv and ABX Free 6 MO-64 YRS (FLUCELVAX) Unknown Completed [facility] TD, NOS Unknown Completed [facility] Influenza Virus Vaccine Quad IM, Preserv and ABX Free 6 MO-64 YRS (FLUCELVAX) Unknown Completed [facility] TD, NOS Unknown Completed [facility] Influenza Virus Vaccine Quad IM, Preserv and ABX Free 6 MO-64 YRS (FLUCELVAX) Unknown Completed [facility] TD, NOS Unknown Completed [facility] Influenza Virus Vaccine Quad IM, Preserv and ABX Free 6 MO-64 YRS (FLUCELVAX) Unknown Completed [facility] TD, NOS Unknown Completed [facility] Influenza Virus Vaccine Quad IM, Preserv and ABX Free 6 MO-64 YRS (FLUCELVAX) Unknown Completed [facility] TD, NOS Unknown Completed [facility] Influenza Virus Vaccine Quad IM, Preserv and ABX Free 6 MO-64 YRS (FLUCELVAX) Unknown Completed [facility] TD, NOS Unknown Completed [facility] Influenza Virus Vaccine Quad IM, Preserv and ABX Free 6 MO-64 YRS (FLUCELVAX) Unknown Completed [facility] TD, NOS Unknown Completed [facility] Influenza Virus Vaccine Quad IM, Preserv and ABX Free 6 MO-64 YRS (FLUCELVAX) Unknown Completed [facility] TD, NOS Unknown Completed [facility] Influenza Virus Vaccine Quad IM, Preserv and ABX Free 6 MO-64 YRS (FLUCELVAX) Unknown Completed [facility] TD, NOS Unknown Completed [facility] Influenza Virus Vaccine Quad IM, Preserv and ABX Free 6 MO-64 YRS (FLUCELVAX) Unknown Completed [facility] TD, NOS Unknown Completed [facility] Influenza Virus Vaccine Quad IM, Preserv and ABX Free 6 MO-64 YRS (FLUCELVAX) Unknown Completed [facility] TD, NOS Unknown Completed [facility] Influenza Virus Vaccine Quad IM, Preserv and ABX Free 6 MO-64 YRS (FLUCELVAX) Unknown Completed [facility] TD, NOS Unknown Completed [facility] Influenza Virus Vaccine Quad IM, Preserv and ABX Free 6 MO-64 YRS (FLUCELVAX) Unknown [facility]pleted [facility] [facility] TD, NOS Unknown Completed [facility] Influenza Virus Vaccine Quad IM, Preserv and ABX Free 6 MO-64 YRS (FLUCELVAX) Unknown Completed [facility] TD, NOS Unknown Completed [facility] Influenza Virus Vaccine Quad IM, Preserv and ABX Free 6 MO-64 YRS (FLUCELVAX) Unknown Completed [facility] TD, NOS Unknown Completed [facility] Influenza Virus Vaccine Quad IM, Preserv and ABX Free 6 MO-64 YRS (FLUCELVAX) Unknown Completed [facility] TD, NOS Unknown Completed [facility] Influenza Virus Vaccine Quad IM, Preserv and ABX Free 6 MO-64 YRS (FLUCELVAX) Unknown Completed [facility] TD, NOS Unknown Completed [facility] Influenza Virus Vaccine Quad IM, Preserv and ABX Free 6 MO-64 YRS (FLUCELVAX) Unknown Completed [facility] TD, NOS Unknown Completed [facility] Influenza Virus Vaccine Quad IM, Preserv and ABX Free 6 MO-64 YRS (FLUCELVAX) Unknown Completed [facility] TD, NOS Unknown Completed [facility] Influenza Virus Vaccine Quad IM, Preserv and ABX Free 6 MO-64 YRS (FLUCELVAX) Unknown Completed [facility] TD, NOS Unknown Completed [facility] Influenza Virus Vaccine Quad IM, Preserv and ABX Free 6 MO-64 YRS (FLUCELVAX) Unknown Completed [facility] TD, NOS Unknown Completed [facility] Influenza Virus Vaccine Quad IM, Preserv and ABX Free 6 MO-64 YRS (FLUCELVAX) Unknown Completed [facility] TD, NOS Unknown Completed [facility] Vital Signs Vital Name Observation Time Observation Value Comments S katherine Systolic blood pressure 2023-10-14 14:39:00 131 mm[Hg] [facility] Diastolic blood pressure 2023-10-14 14:39:00 74 mm[Hg] [facility] Heart rate 2023-10-14 14:39:00 64 /min [facility] Body height 2023-10-14 14:39:00 165.1 cm Univ [facility] Body weight 2023-10-14 14:39:00 90.13 kg [facility] BMI 2023-10-14 14:39:00 33.07 kg/m2 [facility] Oxygen saturation in Arterial blood by Pulse oximetry 2023-10-14 14:39:00 95 /min [facility] Systolic blood pressure 2023-09-16 14:48:00 162 mm[Hg] [facility] Diastolic blood pressure 2023-09-16 14:48:00 71 mm[Hg] [facility] Heart rate 2023-09-16 14:48:00 69 /min [facility] Respiratory rate 2023-09-16 14:48:00 18 /min [facility] Oxygen saturation in Arterial blood by Pulse oximetry 2023-09-16 14:48:00 97 /min [facility] Body temperature 2023-09-16 14:46:00 36.67 Pastora [facility] Body height 2023-09-16 14:46:00 165.1 cm [facility] Body weight 2023-09-16 14:46:00 85.004 kg [facility] BMI 2023-09-16 14:46:00 31.18 kg/m2 [facility] Respiratory rate 2023-07-19 17:36:00 18 /min [facility] Oxygen saturation in Arterial blood by Pulse oximetry 2023-07-19 17:36:00 99 /min [facility] Systolic blood pressure 2023-07-19 17:33:00 162 mm[Hg] [facility] Diastolic blood pressure 2023-07-19 17:33:00 75 mm[Hg] [facility] Heart rate 2023-07-19 17:33:00 61 /min [facility] Body temperature 2023-07-19 17:33:00 36 Pastora [facility] Body weight 2023-07-19 09:02:00 83.961 kg [facility] BMI 2023-07-19 09:02:00 30.80 kg/m2 [facility] Body height 2023-07-16 13:02:00 165.1 cm [facility] Systolic blood pressure 2023-05-20 14:27:00 133 mm[Hg] [facility] Diastolic blood pressure 2023-05-20 14:27:00 78 mm[Hg] [facility] Heart rate 2023-05-20 14:27:00 61 /[facility] 2023-05-20 14:27:00 19 /min [facility] Body height 2023-05-20 14:27:00 165.1 cm [facility] Body weight 2023-05-20 14:27:00 82.781 kg [facility] BMI 2023-05-20 14:27:00 30.37 kg/m2 [facility] Oxygen saturation in Arterial blood by Pulse oximetry 2023-05-20 14:27:00 94 /min [facility] Systolic blood pressure 2022-02-08 13:53:00 181 mm[Hg] [facility] Diastolic blood pressure 2022-02-08 13:53:00 77 mm[Hg] [facility] Heart rate 2022-02-08 13:53:00 71 /min [facility]ive [facility] Body temperature 2022-02-08 13:53:00 37.39 Pastora [facility] Respiratory rate 2022-02-08 13:53:00 18 /min [facility] Body height 2022-02-08 13:53:00 165.1 cm [facility] Body weight 2022-02-08 13:53:00 86.183 kg [facility] BMI 2022-02-08 13:53:00 31.62 kg/m2 [facility] Oxygen saturation in Arterial blood by Pulse oximetry 2022-02-08 13:53:00 95 /min [facility] Procedures Procedure Date / Time Performed Performing Clinician Source AORTOILIAC DUPLEX - BY VASCULAR LAB 2023-11-12 17:02:39 Blanka Mcintyre [facility] TRANSTHORACIC ECHO (TTE) COMPLETE 2023-11-12 13:48:13 Blanka Mcintyre [facility] MEDICAL RELEASE/CLEARANCE FORMS 2023-10-16 06:01:00 Doctor Unassigned, [facility] US HEAD NECK 2023-08-01 16:16:00 Requisition, Paper Un [facility] MAGNESIUM 2023-07-19 09:06:00 Mame Figueroa [facility] BASIC METABOLIC PANEL (NA, K, CL, CO2, GLUCOSE, BUN, CREATININE, CA) 2023-07-19 09:06:00 Mame Figueroa [facility] CBC WITH DIFF 2023-07-19 09:06:00 [facility] THORAX WO CONTRAST 2023-07-16 07:42:25 [facility] HB ECG ROUTINE & RHYTHM STRIP 2023-07-16 06:52:15 Saurabh Mcdonough [facility] XR CHEST 1 VW 2023-07-16 05:52:01 Saurabh Mcdonough [facility] LIPASE 2023-07-16 05:41:00 Saurabh Mcdonough [facility] TROPONIN I 2023-07-16 05:41:00 Saurabh Mcdonough [facility] HEPATIC FUNCTION PANEL (64044) (ALB,T.PRO,BILI T,BU/BC,ALT,AST,ALK PHOS) 2023-07-16 05:41:00 Saurabh Mcdonough [facility] BASIC METABOLIC PANEL (NA, K, CL, CO2, GLUCOSE, BUN, CREATININE, CA) 2023-07-16 05:41:00 Saurabh Mcdonough [facility] CBC WITH DIFF 2023-07-16 05:41:00 Saurabh Mcdonough [facility] D-DIMER 2023-07-16 05:41:00 Saurabh Mcdonough [facility] RAPID INFLUENZA A/B 2023-07-16 05:41:00 [facility]MIN[facility] PRO-BNP 2023-07-16 05:41:00 Saurabh Mcdonough [facility] COVID-19 (ID NOW RAPID TESTING) 2023-07-16 05:41:00 Saurabh Mcdonough [facility] LAB ONLY COVID INTERPRETATION 2023-07-16 05:41:00 Sharonda Saurabh [facility] NOTICE OF PRIVACY PRACTICES 2023-07-16 05:00:48 Doctor Unassigned, [facility] CONSENT/REFUSAL FOR DIAGNOSIS AND TREATMENT 2023-07-16 04:56:55 Doctor Unassigned, [facility] PATIENT QUESTIONNAIRE 2023-05-20 05:01:00 Doctor Unassigned, [facility] XR CHEST 2 VW 2023-04-29 13:19:23 Willis Chavis [facility] PHYSICIAN ORDERS 2023-04-05 05:01:00 Doctor Unas signed, [facility] PHYSICIAN ORDERS 2023-01-30 05:01:00 Doctor Unas signed, [facility] MR ABDOMEN W WO CONTRAST MRCP 2022-11-29 16:07:56 Willis Chavis [facility] ASSIGNMENT OF BENEFITS 2022-11-29 14:28:09 Docto r Unassigned, [facility] PHYSICIAN ORDERS 2022-11-01 05:01:00 Doctor Unas signed, [facility] MR ABDOMEN WO CONTRAST MRCP 2022-08-08 16:45:23 Willis Chavis [facility] AUTHORIZATION FOR RELEASE OF PHI 2022-07-27 06:01:00 Doctor Unassigned, [facility] PHYSICIAN ORDERS 2022-07-12 06:01:00 Doctor Unas signed, [facility] US ABDOMEN COMPLETE 2022-06-20 16:34:00 Requisition, P aper [facility] NOTICE OF PRIVACY PRACTICES 2022-02-08 13:50:09 Doctor Unassigned, [facility] CONSENT/REFUSAL FOR DIAGNOSIS AND TREATMENT 2022-02-08 13:49:07 Doctor Unassigned, [facility] XR CHEST 2 VW 2022-01-10 13:35:30 Requisition, Paper U [facility] Encounters Start Date/Time End Date/Time Encounter Type Admission Type Attending [facility] Facility Care Department Encounter ID Source 2023-12-06 09:00:00 Inpatient EL Willis Chavis [facility] [id number] [facility] 2023-12-03 09:00:00 2023-12-03 09:00:00 Outpatient R BLANKA MCINTYRE [facility] [id number] [facility] 2023-11-22 00:00:00 2023-11-22 00:00:00 Outpatient R RADIOLOGY [facility] [id number] [facility] 2023-11-18 00:00:00 2023-11-18 00:00:00 Telephone Blanka Mcintyre [facility] 1.2.840.114 350.1.13.10 4.2.7.2.686 [id number] [facility] 2023-11-12 08:55:02 2023-11-12 23:59:00 Hospital Encounter Blanka McintyreJudieGaurav [facility] 1.2.840.114 350.1.13.10 4.2.7.2.686 [id number] [facility] 2023-11-12 07:34:05 2023-11-12 08:54:00 Outpatient R BLANKA MCINTYRE [facility] [id number] [facility] 2023-11-12 07:34:05 2023-11-12 08:54:00 Hospital Encounter Blanka McintyreGaurav [facility] 1.2.840.114 350.1.13.10 4.2.7.2.686 [id number] [facility] 2023-11-08 15:46:41 2023-11-08 15:46:41 Outpatient SFA S[facility] [id number] Kenny F Clifton 2023-11-01 09:47:18 2023-11-01 09:47:18 Outpatient SFA [id number] [id number] Kenny Lazo 2023-10-30 15:12:48 2023-10-30 15:12:48 Outpatient SFA SFA [id number] Kenny Lazo 2023-10-28 15:44:18 2023-10-28 23:59:00 Outpatient R WILLIS CHAVIS [facility] [id number] [facility] 2023-10-28 15:44:18 2023-10-28 23:59:00 Hospital Encounter Willis Chavis [facility] 1.2.840.114 350.1.13.10 4.2.7.2.686 [id number] [facility] 2023-10-28 00:00:00 2023-10-28 00:00:00 Telephone Blanka McintyreHGaurav [facility] 1.2.840.114 350.1.13.10 4.2.7.2.686 [id number] [facility] 2023-10-27 00:00:00 2023-10-27 00:00:00 Refill Blanka McintyreHGaurav [facility] 1.2.840.114 350.1.13.10 4.2.7.2.686 [id number] [facility] 2023-10-16 00:00:00 2023-10-16 00:00:00 Telephone Blanka McintyreHGaurav [facility] 1.2840.114 350.1.13.10 4.2.7.2.686 [id number] [facility] 2023-10-16 00:00:00 2023-10-16 00:00:00 Orders Only Doctor Unassigned, [facility] 1.2.840.114 350.1.13.10 4.2.7.2.686 [id number] [facility] 2023-10-14 09:00:00 2023-10-14 09:28:52 Outpatient R ITA GOMEZ SHIWAN [facility] [id number] [facility] 2023-10-14 09:00:00 2023-10-14 09:28:52 [facility] 1.2.840.114 350.1.13.10 4.2.7.2.686 [id number] [facility] 2023-10-02 00:00:00 2023-10-02 00:00:00 Telephone Blanka McintyreHGaurav [facility] 1.2.840.114 350.1.13.10 4.2.7.2.686 [id number] [facility] 2023-09-16 09:00:00 2023-09-16 09:25:29 Outpatient R BLANKA MCINTYRE [facility] [id number] [facility] 2023-09-16 09:00:00 2023-09-16 09:25:29 Office Visit Blanka McintyreHGaurav [facility] 1.2.840.114 350.1.13.10 4.2.7.2.686 [id number] [facility] 2023-09-09 15:35:20 2023-09-09 15:35:[address] [facility] [id number] Kenny Lazo 2023-09-09 00:00:00 2023-09-09 00:00:00 Telephone Blanka McintyreHGaurav [facility] 1.2.840.114 350.1.13.10 4.2.7.2.686 [id number] [facility] 2023-08-06 08:56:27 2023-08-06 08:56:[address] [facility] [id number] Kenny Pawan Clifton 2023-08-01 09:44:54 2023-08-01 23:59:00 Outpatient R RADIOLOGY [facility] [id number] [facility] 2023-08-01 09:44:54 2023-08-01 23:59:00 Hospital Encounter Radiology [facility] 1.2840.114 350.1.13.10 4.2.7.2.686 [id number] [facility] 2023-07-29 07:55:06 2023-07-29 07:55:[address] [facility] [id number] Kenny Lazo 2023-07-26 00:00:00 2023-07-26 00:00:00 Patient Secure Msg Doctor Unassigned, [facility] 1..114 350.1.13.10 4.2.7.2.686 [id number] [facility] 2023-07-25 11:20:45 2023-07-25 11:20:45 Outpatient [facility] [id number] Kenny Lazo 2023-07-22 16:21:32 2023-07-22 16:21:32 Outpatient [facility] [id number] Kenny Lazo 2023-07-22 00:00:00 2023-07-22 00:00:00 Transition of Care Lior Vo [facility] [place] 1.84.114 350.1.13.10 4.2.7.2.686 [id number] [facility] 2023-07-15 23:07:00 2023-07-19 14:10:00 Inpatient X ELEAZAR MEJIA [facility] YOLETTE [id number] [facility] 2023-07-15 23:07:00 2023-07-19 14:10:00 Hospital Encounter Saurabh Mcdonough Mohammad A. [facility] 1.84.114 350.1.13.10 4.2.7.2.686 [id number] [facility] 2023-07-09 09:52:01 2023-07-09 09:52:01 Outpatient [facility] [id number] Kenny Lazo 2023-07-03 00:00:00 2023-07-03 00:00:00 Telephone Blanka Mcintyre [facility] 1.2.840.114 350.1.13.10 4.2.7.2.686 [id number] [facility] 2023-06-08 00:00:00 2023-06-08 00:00:00 Outpatient [id number] diyala_S PRIV [facility] [id number] 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 2, Adc Lab Blanka Mcintyre [facility] 1.2.840.114 350.1.13.10 4.2.7.2.686 [id number] [facility] 2023-05-20 09:00:00 2023-05-20 09:57:42 Outpatient R BLANKA MCINTYRE [facility] [id number] [facility] 2023-05-20 09:00:00 2023-05-20 09:57:42 Office Visit Blanka Mcintyre [facility] 1.2.840.114 350.1.13.10 4.2.7.2.686 [id number] [facility] 2023-05-20 00:00:00 2023-05-20 00:00:00 Orders Only Doctor Unassigned, [facility] 1.840.114 350.1.13.10 4.2.7.2.686 [id number] [facility] 2023-05-01 13:39:13 2023-05-01 13:39:13 Outpatient [facility] [id number] Kenny Lazo 2023-04-29 08:01:09 2023-04-29 23:59:00 Outpatient R PARTHA [facility] [id number] [facility] 2023-04-29 08:00:00 2023-04-29 23:59:00 Hospital Encounter Partha [facility] 1.840.114 350.1.13.10 4.2.7.2.686 [id number] [facility] 2023-04-23 16:01:40 2023-04-23 16:01:40 Outpatient [facility] [id number] Kenny Lazo 2023-04-05 10:15:00 2023-04-05 10:30:00 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 Visit Davyb, 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 [facility] 1.840.114 350.1.13.10 4.2.7.2.686 [id number] [facility] 2023-04-05 10:15:00 2023-04-05 10:15:00 Outpatient R PARTHA [facility] [id number] [facility] 2023-04-05 00:00:00 2023-04-05 00:00:00 Orders Only Doctor Unassigned, [facility] 1.284.114 350.1.13.10 4.2.7.2.686 [id number] [facility] 2023-01-30 08:30:00 2023-01-30 08:45:00 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 [id number] Kenny Pawan Clifton 2022-11-29 09:29:29 2022-11-29 23:59:00 Outpatient R PARTHA WILLIS [facility] [id number] [facility] 2022-11-29 09:29:29 2022-11-29 23:59:00 Hospital Encounter ParthaWillis [facility] 1.840.114 350.1.13.10 4.2.7.2.686 [id number] [facility] 2022-11-29 00:00:00 2022-11-29 00:00:00 Orders Only Doctor Unassigned, [facility] 1.20.114 350.1.13.10 4.2.7.2.686 [id number] [facility] 2022-11-01 08:30:00 2022-11-01 08:45:00 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, 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 [facility] 1.0.114 350.1.13.10 4.2.7.2.686 [id number] [facility] 2022-11-01 08:30:00 2022-11-01 08:30:00 Outpatient R DEMETRIO [facility] [id number] [facility] 2022-11-01 00:00:00 2022-11-01 00:00:00 Orders Only Doctor Unassigned, [facility] 1.2840.114 350.1.13.10 4.2.7.2.686 [id number] [facility] 2022-08-08 08:48:43 2022-08-08 23:59:00 Outpatient R CHAVIS WILLIS [facility] [id number] [facility] 2022-08-08 08:48:43 2022-08-08 23:59:00 Hospital Encounter Willis Chavis [facility] 1.2840.114 350.1.13.10 4.2.7.2.686 [id number] [facility] 2022-08-02 07:40:44 2022-08-02 23:59:00 Hospital Encounter Radiology [facility] 1.2.840.114 350.1.13.10 4.2.7.2.686 [id number] [facility] 2022-08-02 07:40:44 2022-08-02 23:59:00 Outpatient R RADIOLOGY [facility] [id number] [facility] 2022-07-27 00:00:00 2022-07-27 00:00:00 Orders Only Doctor Unassigned, [facility] 1.2840.114 350.1.13.10 4.2.7.2.686 [id number] [facility] 2022-07-12 09:15:00 2022-07-12 09:30:00 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, 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 Demetrio Sita [facility] 1.840.114 350.1.13.10 4.2.7.2.686 [id number] [facility] 2022-07-12 09:15:00 2022-07-12 09:15:00 Outpatient Ricky DEMETRIO SITA [facility] [id number] [facility] 2022-07-12 00:00:00 2022-07-12 00:00:00 Orders Only Doctor Unassigned, [facility] 1.840.114 350.1.13.10 4.2.7.2.686 [id number] [facility] 2022-06-20 09:29:41 2022-06-20 23:59:00 Outpatient R RADIOLOGY [facility] [id number] [facility] 2022-06-20 09:29:41 2022-06-20 23:59:00 Hospital Encounter Radiology [facility] 1..840.114 350.1.13.10 4.2.7.2.686 [id number] [facility] 2022-05-09 09:00:00 2022-05-09 09:00:00 Outpatient R BLANKA MCINTYRE [facility] [id number] [facility] 2022-05-09 09:00:00 2022-05-09 09:00:00 Outpatient R BLANKA MCINTYRE [facility] [id number] [facility] 2022-05-09 09:00:00 2022-05-09 09:00:00 Outpatient R BLANKA MCINTYRE [facility] [id number] [facility] 2022-02-08 08:56:00 2022-02-08 09:39:00 Emergency X PEDRO STRINGER [facility] ERT [id number] [facility] 2022-02-08 08:56:00 2022-02-08 09:39:00 Emergency Pedro Stringer [facility] 1..840.114 350.1.13.10 4.2.7.2.686 [id number] [facility] 2022-01-10 08:09:31 2022-01-10 23:59:00 Outpatient R RADIOLOGY [facility] [id number] [facility] 2022-01-10 08:09:31 2022-01-10 23:59:00 Hospital Encounter Radiology [facility] 1.2.840.114 350.1.13.10 4.2.7.2.686 [id number] [facility] 2021-11-16 00:00:00 2021-11-16 00:00:00 [facility] 1.2.840.114 350.1.13.10 4.2.7.2.686 [id number] [facility] 2021-11-16 00:00:00 2021-11-16 00:00:00 Telephone [facility] 1.2.840.114 350.1.13.10 4.2.7.2.686 [id number] [facility] 2021-11-13 08:30:00 2021-11-13 08:45:00 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, 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 [facility] 1.2.840.114 350.1.13.10 4.2.7.2.686 [id number] [facility] 2021-11-13 08:30:00 2021-11-13 08:30:00 Outpatient R BLANKA MCINTYRE [facility] [id number] [facility] 2021-11-13 08:30:00 2021-11-13 08:30:00 Outpatient R BLANKA MCINTYRE [facility] [id number] [facility] 2021-11-07 09:00:00 2021-11-07 09:27:00 Outpatient R BLANKA MCINTYRE [facility] [id number] [facility] 2021-11-07 09:00:00 2021-11-07 09:27:00 Office Visit Blanka Mcintyre [facility] 1.2.840.114 350.1.13.10 4.2.7.2.686 [id number] [facility] 2021-11-07 09:00:00 2021-11-07 09:27:00 Outpatient R BLANKA MCINTYRE [facility] [id number] [facility] 2021-11-07 00:00:00 2021-11-07 00:00:00 Orders Only Doctor Unassigned, [facility] 1.2.840.114 350.1.13.10 4.2.7.2.686 [id number] [facility] 2021-09-26 00:00:00 2021-09-26 00:00:00 Telephone Blanka Mcintyre [facility] 1.2.840.114 350.1.13.10 4.2.7.2.686 [id number] [facility] 2021-09-15 09:45:00 2021-09-15 10:00:00 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, 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 Blanka Mcintyre [facility] 1.2.840.114 350.1.13.10 4.2.7.2.686 [id number] [facility] 2021-09-15 09:45:00 2021-09-15 09:45:00 Outpatient R BLANKA MCINTYRE [facility] [id number] [facility] 2021-09-15 09:45:00 2021-09-15 09:45:00 Outpatient R BLANKA MCINTYRE [facility] [id number] [facility] 2021-09-15 00:00:00 2021-09-15 00:00:00 Orders Only Doctor Unassigned, [facility] 1.2.840.114 350.1.13.10 4.2.7.2.686 [id number] [facility] 2021-09-01 00:00:00 2021-09-01 00:00:00 Orders Only Doctor Unassigned, [facility] 1.2840.114 350.1.13.10 4.2.7.2.686 [id number] [facility] 2021-07-10 09:00:00 2021-07-10 09:24:24 Outpatient R BLANKA MCINTYRE [facility] [id number] [facility] 2021-07-10 09:00:00 2021-07-10 09:24:24 Office Visit Blanka Mcintyre [facility] 1.2.840.114 350.1.13.10 4.2.7.2.686 [id number] [id number] [facility] 2021-07-10 00:00:00 2021-07-10 00:00:00 Refill Blanka Mcintyre [facility] 1.2.840.114 350.1.13.10 4.2.7.2.686 [id number] 059 [id number] [facility] 2021-04-10 00:00:00 2021-04-10 00:00:00 Telephone Blanka Mcintyre [facility] Building 1.2.840.114 350.1.13.10 4.2.7.2.686 [id number] 059 [id number] [facility] 2021-03-21 00:00:00 2021-03-21 00:00:00 Telephone Blanka Mcintyre [facility] 1.2.840.114 350.1.13.10 4.2.7.2.686 [id number] 059 [id number] [facility] 2021-03-08 14:53:40 2021-03-08 15:32:09 Office Visit Blanka McintyreJudieGaurav [facility] 1.2.840.114 350.1.13.10 4.2.7.2.686 [id number] 059 [id number] [facility] 2021-03-08 15:00:00 2021-03-08 15:00:00 Outpatient R BLANKA MCINTYRE [facility] [id number] [facility] 2021-02-28 00:00:00 2021-02-28 00:00:00 Orders Only Doctor Unassigned, [facility] 1.2.840.114 350.1.13.10 4.2.7.2.686 [id number] [id number] [facility] 2021-01-24 08:00:00 2021-01-24 08:00:00 Outpatient R BLANKA MCINTYRE [facility] [id number] [facility] 2021-01-24 07:43:37 2021-01-24 07:43:37 Hospital Encounter Blanka Mcintyre AlyshaGauravJudieGaurav [facility] 1.2.840.114 350.1.13.10 4.2.7.2.686 [id number] [facility] 2021-01-24 07:43:23 2021-01-24 07:43:23 Hospital Encounter Blanka McintyreJudieGaurav [facility] 1.2.840.114 350.1.13.10 4.2.7.2.686 [id number] [id number] [facility] 2021-01-24 07:43:11 2021-01-24 07:43:11 Hospital Encounter Blanka Mcintyre [facility] 1.2.840.114 350.1.13.10 4.2.7.2.686 [id number] [facility] 2021-01-24 07:42:56 2021-01-24 07:42:56 Hospital Encounter Blanka Mcintyre [facility] 1.2.840.114 350.1.13.10 4.2.7.2.686 [id number] [facility] 2021-01-11 14:19:10 2021-01-11 15:18:58 Office Visit Blanka Mcintyre [facility] Building 1.2840.114 350.1.13.10 4.2.7.2.686 [id number] 059 [id number] [facility] 2021-01-11 14:30:00 2021-01-11 14:30:00 Outpatient R BLANKA MCINTYRE [facility] [id number] [facility] 2020-11-25 00:00:00 2020-11-25 00:00:00 Orders Only Doctor Unassigned, [facility] 1.2.840.114 350.1.13.10 4.2.7.2.686 [id number] [facility] 2020-10-25 07:44:35 2020-10-25 23:59:00 Hospital Encounter Radiology [facility] 1.2.840.114 350.1.13.10 4.2.7.2.686 [id number] [facility] 2020-10-25 07:47:08 2020-10-25 08:02:08 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, 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 Sita Atkinson [facility] Building 1.2840.114 350.1.13.10 4.2.7.2.686 [id number] [facility] 2020-10-25 00:00:00 2020-10-25 00:00:00 Outpatient R RADIOLOGY [facility] [id number] [facility] 2020-10-24 00:00:00 2020-10-24 00:00:00 Orders Only Doctor Unassigned, [facility] 1.114 350.1.13.10 4.2.7.2.686 [id number] [id number] [facility] 2020-10-18 12:30:07 2020-10-18 23:59:00 Hospital Encounter Radiology [facility] 1.114 350.1.13.10 4.2.7.2.686 [id number] [facility] 2020-10-18 00:00:00 2020-10-18 00:00:00 Outpatient R RADIOLOGY [facility] [id number] [facility] 2020-09-22 10:30:00 2020-09-22 10:30:00 Outpatient R WILLIS CHAVIS [facility] [id number] [facility] 2020-09-22 09:54:07 2020-09-22 10:09:07 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, 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 [facility] 1.114 350.1.13.10 4.2.7.2.686 [id number] [facility] 2020-09-15 11:00:00 2020-09-15 11:00:00 Outpatient R JAC MARLOW [facility] [id number] [facility] 2020-09-15 00:00:00 2020-09-15 00:00:00 Orders Only Doctor Unassigned, [facility] 1.114 350.1.13.10 4.2.7.2.686 [id number] [facility] 2020-09-05 12:36:55 2020-09-05 23:59:00 Hospital Encounter Partha [facility] 1.2.840.114 350.1.13.10 4.2.7.2.686 [id number] [id number] [facility] 2020-09-05 12:36:08 2020-09-05 23:59:00 Hospital Encounter Partha [facility] 1.2.840.114 350.1.13.10 4.2.7.2.686 [id number] [facility] 2020-09-05 00:00:00 2020-09-05 00:00:00 Outpatient R PARTHA [facility] [id number] [facility] 2019-10-19 08:16:52 2019-10-19 23:59:00 Outpatient R PARTHA [facility] [id number] [facility] 2019-10-19 08:16:00 2019-10-19 23:59:00 Hospital Encounter Partha [facility] 1.2.840.114 350.1.13.10 4.2.7.2.686 [id number] [facility] 2019-10-19 00:00:00 2019-10-19 00:00:00 Orders Only Doctor Unassigned, [facility] 1.2.840.114 350.1.13.10 4.2.7.2.686 [id number] [id number] [facility] Results Test Description Test Time Test Comments Results Result Co mments Source [facility] VSHN2185-34-17 16:33:20HISTORY: ?Nontoxic goiter. Right thyroid nodule. TECHNIQUE: Thyroid [...] nodule withbenign features. No gross pathology is seenin the parotid or submandibularsalivary glands. No enlarged lymph nodes visualized in the neck. Theleft lobe showed no lesions. Right lobe contains 2.8 x 1.8 cm solidnodule in its lower pole. Upper portion of the right lobe showedsubcentimeter cystic nodules. Estimated total number of nodules ?1cm: 1. Number of spongiform nodules ?2cm not described below (TR1): 0.Number of mixed cystic and solidnodules ?1.5cm not described below (TR2):0. Nodule#: 1* ?Maximum size: 2.8 cm* ?Location: Right thyroid lobe * ?Composition: Solid/almost completely solid (2) * ?Echogenicity: Hyperechoic or isoechoic (1) * ?Shape: Not taller than wide (0) * ?Margins: Smooth (0) * ?Echogenic foci: None (0) * ?ACR TI-RADS total points: 3* ?ACR TI-RADS risk category: TR 3 (3 points)* ?ACR TI- RADS recommendation: US-guided fine needle aspiration given sizegreater than 2.5 cm.[facility] Center[facility]2023-12-08 10:01:17* Test Item Value Reference Range Interpretation Comme nts MAGNESIUM (test code = 6715603912) 2.6 mg/dL 1.7-2.4 H Lab Interpretation (test cod e = 75106-0) [facility]normal [facility] (NA, K, CL, CO2, GLUCOSE, BUN, CREATININE, CA)2023-07-19 10:00:56* Test Item Value Reference Range Interpretation Comme nts NA (test code = 1343901153) 136 mmol/L 135-145 K (test code = 9405052349) 4.1 mmol/L 3.5-5.0 CL (test code = 2547865324) 105 mmol/L 98-108 CO2 TOTAL (test code = 6882873444) 25 mmol/L 23-31 AGAP (test code = 0383207879) 6 2-16 BUN (test code = 2338501538) 21 mg/dL 7-23 GLUCOSE (test code = 5301234484) 136 mg/dL 70-110 H CREATININE (test code = 7570259384) 0.57 mg/dL 0.50-1.04 CALCIUM (test code = 0585278424) 8.8 mg/dL 8.6-10.6 eGFR (test code = 47626-2) 100.4 mL/min/1.73m2 CKD-EPI eGFR (2020). Assuming creatinine has been stable day-to-day for at least three months, the eGFR indicates Category G1 (>= 90 mL/min/1.73 m2) Lab Interpretation (test code = 54188-4) [facility] NBWV4385-26-26 09:51:35* Test Item Value Reference Range Interpretation Comme nts WBC (test code = 6690-2) 7.41 See_Comment [Automated MyAGENT] The system which generated this result transmitted reference range: 4.30 - 11.10 10*3/?L. The reference range was not used to interpret this result as normal/abnormal. RBC (test code = 789-8) 4.29 See_Comment [Automated MyAGENT] The system which generated this result transmitted [...] 33.3 g/dL 31.6-35.1 RDW-SD (test code = 94292-7) 42.9 fL 39.0-49.9 RDW-CV (test code = 788-0) 12.9 % 12.0-15.5 PLT (test code = 777-3) 248 See_Comment [Automated messa ge] The system which generated this result transmitted reference range: 166 - 358 10*3/?L. The reference range was not used to interpret this result as normal/abnormal. MPV (test code = 65938-2) 10.5 fL 9.5-12.9 NRBC/100 WBC (test code = 0255369612) 0.0 See_Comment [Automated me ssage] The system which generated this result transmitted reference range: 0.0 - 10.0 /100 WBCs. The reference range was not used to interpret this result as normal/abnormal. NRBC x10^3 (test code = 2943726465) See_Comment [Automated messa ge] The system which generated this result transmitted reference range: 10*3/?L. The reference range was not used to interpret this result as normal/abnormal. GRAN MAT (NEUT) % (test code = 770-8) 79.9 % IMM GRAN % (test code = 4570158808) 0.70 % LYMPH % (test code = 736-9) 11.9 % MONO % (test code = 5905-5) 7.4 % EOS % (test code = 713-8) 0.0 % BASO % (test code = 706-2) 0.1 % GRAN MAT x10^3(ANC) (test code = 8289338254) 5.92 10*3/uL 1.88-7.09 IMM GRAN x10^3 (test code = 9470370519) 0.05 10*3/uL 0.00-0.06 LYMPH x10^3 (test code = 731-0) 0.88 10*3/uL 1.32-3.29 L MONO x10^3 (test code = 742-7) 0.55 10*3/uL 0.33-0.92 EOS x10^3 (test code = 711-2) 0.03-0.39 L BASO x10^3 (test code = 704-7) 0.01-0.07 Lab Interpretation (test code = 08002-5) [facility] VJFR7868-59-48 06:38:57* Test Item Value Reference Range Interpretation [...] 33.5 g/dL 31.6-35.1 RDW-SD (test code = 46795-8) 44.8 fL 39.0-49.9 RDW-CV (test code = 788-0) 13.2 % 12.0-15.5 PLT (test code = 777-3) 222 See_Comment [Automated message] The system which generated this result transmitted reference range: 166 - 358 10*3/?L. The reference range was not used to interpret this result as normal/abnormal. MPV (test code = 71518-0) 10.7 fL 9.5-12.9 NRBC/100 WBC (test code = 9114604914) 0.0 See_Comment [Automated message] The system which generated this result transmitted reference range: 0.0 - 10.0 /100 WBCs. The reference range was not used to interpret this result as normal/abnormal. NRBC x10^3 (test code = 3282478255) See_Comment [Automated message] The system which generated this result transmitted reference range: 10*3/?L. The reference range was not used to interpret this result as normal/abnormal. GRAN MAT (NEUT) % (test code = 770-8) 77.2 % IMM GRAN % (test code = 9098508092) 0.60 % LYMPH % (test code = 736-9) 11.0 % MONO % (test code = 5905-5) 10.7 % EOS % (test code = 713-8) 0.2 % BASO % (test code = 706-2) 0.3 % GRAN MAT x10^3(ANC) (test code = 1709954992) 12.30 10*3/uL 1.88-7.09 H IMM GRAN x10^3 (test code = 6270308490) 0.09 10*3/uL 0.00-0.06 H LYMPH x10^3 (test code = 731-0) 1.76 10*3/uL 1.32-3.29 MONO x10^3 (test code = 742-7) 1.70 10*3/uL 0.33-0.92 H EOS x10^3 (test code = 711-2) 0.03 10*3/uL 0.03-0.39 BASO x10^3 (test code = 704-7) 0.05 10*3/uL 0.01-0.07 ELLIPTO/OVAL (test code = 04846-1) 2+ See_Comment A [Automated message] The system which generated this result transmitted reference range: (none). The reference range was not used to interpret this result as normal/abnormal. Lab Interpretation (test code = 99714-8) Abnormal [facility] CenterD-QHFSX5426-50-22 06:30:39* Test Item Value Reference Range Interpretation Comments D-DIMER (test code = 9667304990) See_Comment [Automated message] The system which generated [...] a diagnosis. Lab Interpretation (test code = 86945-9) Normal [facility] CenterTROPONIN R7316-01-37 06:21:52* Test Item Value Reference Range Interpretation Comme nts TROPONIN I (test code = 6536076013) 0.005 ng/mL <=0.034 KELLEY (test code = [...] of biotin. Lab Interpretation (test code = 11852-8) Normal [facility] CenterN-TERMINAL EVL-FDZ4642-46-05 06:19:31* Test Item Value Reference Range Interpretation Comme nts NT-proBNP (test code = 21439-1) 66 pg/mL <=125 Lab Interpretation (test cod e = 93599-9) Normal [facility] CenterHEPATIC FUNCTION PANEL (38931) (ALB,T.PRO,BILI T,BU/BC,ALT,AST,ALK PHOS)2023-07-16 06:10:32* Test Item Value Reference Range Interpretation Comme nts TOTAL BILI (test code = 2034226054) 0.9 mg/dL 0.1-1.1 BILI UNCON (test code = 1078707773) 0.5 mg/dL 0.1-1.1 BILI CONJ (test code = 0144414756) 0.0 mg/dL 0.0-0.3 T PROTEIN (test code = 2380995615) 7.7 g/dL 6.3-8.2 ALBUMIN (test code = 8438674188) 4.5 g/dL 3.5-5.0 ALK PHOS (test code = 3895589184) 60 U/L 34-122 ALTv (test code = 1742-6) 24 U/L 5-35 AST(SGOT) (test code = 0532357634) 30 U/L 13-40 Lab Interpretation (test cod e = 37524-6) Normal [facility] Center[facility]OLIC PANEL (NA, K, CL, CO2, GLUCOSE, BUN, CREATININE, CA)2023-07-16 06:10:11* Test Item Value Reference Range Interpretation Comme nts NA (test code = 0114674865) 136 mmol/L 135-145 K (test code = 2282550383) 4.4 mmol/L 3.5-5.0 CL (test code = 5629466926) 104 mmol/L 98-108 CO2 TOTAL (test code = 8954221625) 26 mmol/L 23-31 AGAP (test code = 4290534931) 6 2-16 BUN (test code = 4969224369) 16 mg/dL 7-23 GLUCOSE (test code = 5957093198) 109 mg/dL 70-110 CREATININE (test code = 1981073622) 0.49 mg/dL 0.50-1.04 L CALCIUM (test code = 7433890867) 9.1 mg/dL 8.6-10.6 eGFR (test code = 95277-3) 104.1 mL/min/1.73m2 CKD-EPI eGFR (2020). Assuming creatinine has been stable day-to-day for at least three months, the eGFR indicates Category G1 (>= 90 mL/min/1.73 m2) Lab Interpretation (test code = 30066-8) Abnormal [facility] CenterLIPASE2023-12-05 06:10:11* Test Item Value Reference Range Interpretation Comme nts LIPASE (test code = 1996159003) 45 U/L 0-220 Lab Interpretation (test cod e = 79322-7) Normal [facility] Notes Date/Time Note Provider Source 2023-11-18 09:34:10 9nzR+eZtoq/spc3H4oVN NiwPzpc80NZg Zoc/tTLIe2gEYlaizLzTkAImkRNFZZUG 1289-19-61G62:34:[address] Velazquez (Dr Mcintyre is out of the clinic):BP log reviewedBP has been high, patient to increase Nifedipine to 60 mg daily.Patient verbal understanding and stated she would contact us when to send a refill to the pharmacy.BP log scanned into chart. 93862-3Rnikbdmva encounter EcycEJ0605-85-68Q23:35:58Telepho ne encounter NoteTXT1.2.840.710261.1.13.104.2 .7.2.702927|1443890807BOMntczrmp e for patient nbdh31938-3SqzdRNWVBNWBSCCAcrgyy [employer] narrative [employer]TX[address] 6211PQTSTFYSLTUWLVFOINNIDE9592-7 09:35:581.2.840.485855.1.72 .3.15|1.2.840.413766.1.13.104.2. 7.2.727879_[id number] [facility] 2023-10-31 10:07:36 XXFsyx0o4H4d4XD7+EUM 0g1WYlfFrPwv maWhO1ar2jr/3ZC2bIkFUWocsE0i/TAA 3895-88-91Y47:07:36 Patient notified. Pleased. Will bring BP logs as requested. 59587-4Spwbzyynx encounter FeqfPW6438-66-65O57:07:49Telepho ne encounter NoteTXT1.2.840.926248.1.13.104.2 .7.2.368459|7720716750YRIfiabozw e for patient ylvc39798-3BgvmGCLDJVXRMGDHqcplp [employer] narrative [employer]TX[address] 4143MDAMWOPSWWHLHMVBXDOLBR0707-5 :07:491.2.840.154456.1.72 .3.15|1.2.840.793487.1.13.104.2. 7.2.727879_[id number] [facility] 2023-10-29 18:47:52 uskXRj3Ss/VgP5CDOSni UeifyZFyCjDp 6+AGebAXVDP4Iq8nXW8EJXCj09or6CBg 4367-99-07A45:47:52 Images from the original note were not included.Blood pressure log reviewed. Acceptable. Will continue to monitor.Continue carvedilol 12.5 twice daily and olmesartan 40 mg daily.Continue Procardia XL 30 mg daily.Recommend to bring blood pressure log for the upcoming office visit next month.10/29/2023 79733-5Ykjjihool encounter QzqxKS2839-29-11V11:49:20Telepho ne encounter NoteTXT1.2.840.640170.1.13.104.2 .7.2.849975|3385036692MSXncbibra e for patient goiw21412-5PlooRSSNWZTBRCIEevuht pasquale C-CDA narrative text[address] CtcpBzffaknfhFtzuwbprgMDYB356985 3389FPHJSYFSVCLWRZIPJHCZTP1772-2 :49:201.2.840.193531.1.72 .3.15|1.2.840.129525.1.13.104.2. 7.2.727879_[id number] [facility] 2023-10-28 16:53:46 c+BvTSpAR3AQO3joOPVP YVzKYaz3Q/cV PeZwQsnpkHZ5qUN1WC6wce0mipJg2dbt 4642-99-59A75:53:46 Received patient BP log putting into Dr Mcintyre folder for review 63746-6Zbssvgnow encounter KrjgUH4144-71-10Z37:54:25Telepho ne encounter NoteTXT1.2.840.698663.1.13.104.2 .7.2.731044|9365060420LICivjaazv e for patient cyeo92454-8XywlNDONENHRLIFNbjpjp pasquale C-CDA narrative [id number] [place] FIGUER[address] ImonTorandtgrOyjeqnapyPHXJ263215 6893XZBWQHOKQJQKBPDCMMZZIS6489-3 10-27T16:54:251.2.840.817958.1.72 .3.15|1.2.840.611214.1.13.104.2. 7.2.727879_[id number] Kyra Floyd [facility] 2023-10-28 09:37:58 oWTL2SfvtDI3yDdyXfbK R4wmt3dxrN0N Pi4TnJgkRa1kE3XOyFt/giwbMglcuTPw 1617-21-27M16:37:58 Requested PrescriptionsPending Prescriptions Disp RefillsCARVEDILOL 12.5 mg tablet [Pharmacy Med Name: CARVEDILOL 12.5MG TABLETS] 60 tablet 3Sig: TAKE 1 TABLET BY MOUTH IN THE MORNING AND IN THE EVENING. TAKE WITH MEALS. DO THIS FOR 30 DAYSCardiovascular: Beta Blockers Passed - 10/27/2023 5:02 PMPassed - Valid encounter within last 12 monthsRecent VisitsDate Type Provider Dept09/16/23 Office Visit Blanka Mcintyre MD [facility] Cardiology Wuyndzg21/09/23 Office Visit Blanka Mcintyre MD [facility] Cardiology FacultyShowing recent visits within past 365 days and meeting all other requirementsFuture AppointmentsDate Type Provider Dept11/27/23 Appointment Blanka Mcintyre MD [facility] Cardiology Eerrhye14/23/24 Appointment Blanka Mcintyre MD [facility] Cardiology FacultyShowing future appointments within next 365 days and meeting all other requirementsPassed - Heart rate within normal limits and completed in the last 12 monthsPulse Readings from Last 1 Encounters:10/14/23 64 83121-9Iyhaxrsrj encounter LirlNT5305-27-14F77:37:58Telepho ne encounter NoteTXT1.2.840.552660.1.13.104.2 .7.2.544193|6981907673NIMalavmyh e for patient jono50603-2FjowUBWSUICQKWGKyzcsl pasquale C-CDA narrative grgg823318098Tlur L Sosa MA[address] IecqOuceimidoYckpdbqjnGZFD911008 3711JZZGCSIBMXLQYCLDVMWJOK8947-6 09:37:581.2.840.988724.1.72 .3.15|1.2.840.805677.1.13.104.2. 7.2.727879_[id number] Claudia Dunn [facility] 2023-10-16 10:49:05 04PIsvZbw694YakNTLuk o7aoQ2GaTmVZ ID5gA4i8B3YcMLvUpQEKq1+MwZA4s2D9 0630-32-52G49:49:05 Cardiac Clearance request received via fax from [facility] and placed in Dr Mcintyre's folder to be reviewed.Last O/V - 10/15/2023Last EKG - 07/15/2023Last ECHO - 01/24/2021r Jonathan signed Clearance.Clearance form and clinical notes faxed back to clinic per Dr Mcintyre. 66070-8Yraehtyjm encounter EcprRE7798-85-67N68:52:22Telepho ne encounter NoteTXT1.2.840.285174.1.13.104.2 .7.2.551677|1268088569KUKoxwbhtf e for patient cfwv71137-1XgzaTRAUIDGJBNNVcilpk pasquale C-CDA narrative [address] 0509IUQZKPHBFWZZGTCKBPUOUM9595-8 0:52:221.2.840.484926.1.72 .3.15|1.2.840.790593.1.13.104.2. 7.2.727879_[id number] [facility] 2023-10-04 12:45:04 PWn+HZ9TaG52L0ooVscC KklQatEmgmVl 5KcJ+4q07kOEwvKzymuVMi4EZ/ohdVez 3581-71-44Y51:45:04Addended by: NIKITA FIGUEROA RN on: 10/04/2023 12:45 PMModules accepted: Orders 39295-9Peredfoj TvlvvjceXL6394-32-41Q84:45:04Add endum DocumentTXT1.2.840.498083.1.13.1 04.2.7.2.451303|[id number] lable for patient dcrp48986-2OlzqNMISHHLXSQLQcmjng pasquale C-CDA narrative [address] 9554KAJONNVDAXMWTLLAJHSZSC4477-7 :45:041.2.840.662523.1.72 .3.15|1.2.840.084383.1.13.104.2. 7.2.727879_[id number] [facility] 2023-10-04 12:43:32 eMxzyPxtGoO6+p0XhgVH ioQcBwF/F2Q0 JHyg5HY0fq7R8wSdlb34E08euuh4Y1fI 7569-89-30E34:43:[address] Mcintyre's recommendations. She verbalized understanding and has no further questions. eRx for nifedipine XL 30 mg sent to patient's pharmacy. 41755-0Zlhwqxdof encounter BauvDK7949-20-63K40:44:19Telepho ne encounter NoteTXT1.2.840.067139.1.13.104.2 .7.2.706050|8394668326UAObborbjz e for patient jfil00780-5WmoqZUVTPOXILNFFwodmw pasquale C-CDA narrative [employer]TX[address] 1946XHCWKVFIJOODGXXSNTCOOI4763-0 :44:191.2.840.438073.1.72 .3.15|1.2.840.320852.1.13.104.2. 7.2.727879_[id number] [facility] 2023-10-04 10:40:03 e5Ihgaimg+bCY55C4b2K rGOv3uLMDmCa o0pdjpgpJr1aUyLRJUz/IR3krFrnpZjK 9142-21-88F98:40:03Addended by: NIKITA FIGUEROA RN on: 10/04/2023 10:40 AMModules accepted: Orders 48530-7Oxueiavu UaawhkstPX9190-22-50J87:40:03Add endum DocumentTXT1.2.840.571245.1.13.1 04.2.7.2.752406|[id number] lable for patient edsj25767-5IdhsYGFNUDUTILELnhkjd pasquale C-CDA narrative text[address]TX[address] 6632RWHLXWQOJYNFSRYOKEWNTW3514-5 0:40:031.2.840.977874.1.72 .3.15|1.2.840.248907.1.13.104.2. 7.2.727879_[id number] [facility] 2023-10-04 10:39:31 RGIeRj++QNDejcIhJWHk JvLte8Rew5RP bybq5mlBzPe65Bp5uD78Hhe4vBmBikfV 3426-11-25W72:39:31 Attempted to contact patient with results/recommendations. LVM for patient to return call to [phone]. 51567-5Sgqhqhkqw encounter WefdBE0176-07-37C73:39:41Telepho ne encounter NoteTXT1.2.840.932873.1.13.104.2 .7.2.044482|[id number] e for patient wclf76718-4CghzTYONGSLPBBJTdlimz pasquale [place] narrative text[address] AyiySqfwxavwhShiijkzsdLVTK441217 9504FWESVVXQWGWRKKZIDWKFPO3164-8 2-23T10:39:411.2.840.755654.1.72 .3.15|1.2.840.453305.1.13.104.2. 7.2.727879_[id number] [facility] 2023-10-03 20:12:31 Cv+43Vslbp+Zsv/tAjzf VCa0hUrD+Yw+ e8z1yNwfb5yajNWNJDBnVo4O68RQ8PAa 1100-16-29A98:12:31 Blood pressure log reviewed.Continue carvedilol 12.5 twice daily and olmesartan 40 mg daily.Recommended starting Procardia XL 30 mg daily.Repeat blood pressure log in 2 weeks. 75178-6Bwzynhkxs encounter QftuKM9588-11-07O03:14:42Telepho ne encounter NoteTXT1.2.840.138764.1.13.104.2 .7.2.689218|[id number] e for patient fixo95610-6OxnyPXQOLHCIOINSrmxpg pasquale C-CDA narrative text[address] IimvQhcwfzbuzHmrsspjruYPYZ117724 5859KPQLFPJZDCDZUSAFLLGAUY7758-6 10-03T20:14:421.2.840.148596.1.72 .3.15|1.2.840.332726.1.13.104.2. 7.2.727879_[id number] [facility] 2023-10-02 09:38:28 6upjK1anYbr/+HXs0wvI PzoGVVmhbY+p LlgNxtc6lmrLTJI8Hcel9yMSdiBGm7kq 1632-46-86N85:38:28 Dianna Trejo is a 68 year old female patient calling to report BP reading2/04/04 BP 152/73 HR 62 8:30AM2/9/24 BP 155/71 HR 70 8:00AM2/10/24 BP 139/69 HR 68 9:00AM2/11/24 BP 153/72 HR 61 9:00AM2/12/24 BP 166/79 HR 67 9:00AM2/13/24 BP Not recorded214/24 BP 114/60 HR 70 9:00AM2/15/24 BP 162/78 HR 72 9:00AM2/16/24 BP 147/80 HR 67 9:00AM2/17/24 BP 138/63 HR 65 9:00AM2/18/24 BP 156/79 HR 71 9:00AM2/19/24 BP 153/79 HR 68 9:00AM2/20/24 BP 156/77 HR 67 9:00AM2/21/24 BP 135/56 HR 68 9:00AM 20761-9Yepehbrss encounter FqfxUJ2119-35-17H45:45:37Telepho ne encounter NoteTXT1.2.840.117403.1.13.104.2 .7.2.673578|[id number] e for patient uxts22277-8UbobNOOIDPFUAZDWahfjy pasquale C-CDA narrative [id number] [address] 0905FOJPMAAADRTMNOPOWCWUHM8591-1 09:45:371.2.840.954068.1.72 .3.15|1.2.840.833420.1.13.104.2. 7.2.727879_[id number] Shannon Patel [facility] 2023-09-13 19:13:31 MRXxGHq9fD+fc1+A/wEo EjJHvGtpP9S/ HLsKt4ZoWLRlKGDwyklL8gXEyWQAS8vV 3413-80-57Z87:13:31 Chart reviewed. Will discuss in upcoming office visit 09/16/2023.Based open office note, patient was taking lisinopril 10 twice daily along with carvedilol 6.25 twice daily. Likely that increased the carvedilol to 12.5 twice daily during recent ER visit. 42893-1Vyqvtapzb encounter RtsgCT2755-12-75H24:14:39Telepho ne encounter NoteTXT1.2.840.789392.1.13.104.2 .7.2.391269|[id number] e for patient xvgs05125-4LcdmGXFEAGCPJGPCudctf pasquale C-CDA narrative [address] 0451UILZYQGRXMJJVTLNCPDGSY1737-9 2-02T19:14:391.2.840.181811.1.72 .3.15|1.2.840.832693.1.13.104.2. 7.2.727879_[id number] [facility] 2023-09-13 09:08:40 +RICWpFNrvjS2M+Bfc6e G8wVoRsEcC0L jqkCFHJTTCvy5dwIgaD5lf42xnUs1PKy 0265-44-05Y71:08:40 Patient called back. She did go to the [place] [facility] on 09/10/23. She was discharged and it sounds like they sent her a refill of 12.5 carvedilol which she is already taking, so no new medications.Patient states her BP is still elevated 170s-180s.She has been scheduled for Saturday09/16/[address] Ordoñezronically signed by Nikita Figueroa RN at 09/13/2023 9:10 AM NUG02644-9Kgtudsxxr encounter WrsiWR9588-30-81B79:10:45Telepho ne encounter NoteTXT1.2.840.210613.1.13.104.2 .7.2.362876|[id number] e for patient faow16250-2DgbiNOEGETCVZWMJyckrr pasquale [place] narrative [id number] Sheavly RN[address] FsvnKealgzrxiVgmmramfaZFZK660236 7440FWQXQBHGIFCCGBINPOJONU4823-2 2-02T09:10:451.2.840.343744.1.72 .3.15|1.2.840.984975.1.13.104.2. 7.2.727879_[id number] Nikita Figueroa RN [facility] 2023-09-13 08:59:36 nDp/3LfFe9V7FSrV17BP b+bkEbOW5A8s bXGAC5bFPFiy3BZU+obu6G6ROyWW+GCa 4566-14-98Z33:59:36 Patient calling to speak with nurse in regards to her medications. Warm transferred to clinic nurse 35226-9Lwtznfzkd encounter CbhtKI7146-21-19O10:00:48Telepho ne encounter NoteTXT1.2.840.521037.1.13.104.2 .7.2.807252|[id number] e for patient cgpp44002-7FzgyDOVWNXLBKOYErdgab pasquale C-CDA narrative [id number] [address] KfbiQnnkzycilVsfbapmtmYWKM612237 9589FPCGAGHDLDIAFGDIRRNZPI5777-3 2-02T09:00:481.2.840.589661.1.72 .3.15|1.2.840.114111.1.13.104.2. 7.2.727879_[id number] Mame Cooperales [facility] 2023-09-10 12:59:10 /wJkHF2BAFSM4VkZnxiJ c7E2lWdw5i++ CEssuDx5Jny5e0ZX4ErSfujVyTfKyhnX 0499-13-74I04:59:10 Spoke with patient she does not have a BP log. She was in the hospital in July and recently received a BP machine for home monitoring. She starting tracking her BP yesterday and it was elevated 199/89. Today she checked and her BP was 185/80. She just recently checked and her SBP is 204. Patient feels very anxious and would like to go to ER. Agreed with patient to go to ER. She denies other symptoms other than feeling anxious. She is going to drive her self but advised her to call EMS if she feels it is unsafe to drive. Patient verbalized understanding.Informed patient that after the ER, to call for a sooner follow up for BP management.She states that she has been very anxious since being home from the hospital. She is also more sedentary because now she is on home oxygen.Patient currently taking carvedilol 12.5 twice daily (I believe dose was increased during admission)And lisinopril 10 mg twice dailyNOV 11/18/23Routing to Dr. Martinezectronically signed by Nikita Figueroa RN at 09/10/2023 1:12 PM GRP54536-6Bzgpiamoq encounter QjggIB8193-54-14R19:12:59Telepho ne encounter NoteTXT1.2.840.253210.1.13.104.2 .7.2.399064|[id number] e for patient fvwl49654-8PmmrPVSGIBZOIAWFdccxa pasquale C-CDA narrative text[address] OivtCmiyszmhvGyqkbdhvwUNJV992162 4299YVTNRLNMJORCYFUFCFVHGM3871-2 1-30T13:12:591.2.840.142320.1.72 .3.15|1.2.840.022912.1.13.104.2. 7.2.727879_[id number] [facility] 2023-09-10 12:43:41 sEkNa3JCfnrZeATCRknb Aet/89Tp/Ueh +U4f113pPGTbTlGk526kdrmQ80Gejo 3587-64-93M41:43:41 Dianna Trejo is a 68 year old femalePatient is returning nurse call.Please advise. 23438-0Ooarfbnbh encounter DqfrFM6004-64-64F28:45:06Telepho ne encounter NoteTXT1.2.840.464887.1.13.104.2 .7.2.302140|[id number] e for patient dboy78603-2VmnfTPTGONVUASJJrbltj pasquale C-CDA narrative [id number] A [address] MfnxSayeamhxgPoorfgfehFWXR247838 9748EWRKOYJHYTKROWZBBREFKH4507-1 1-30T12:45:061.2.840.100648.1.72 .3.15|1.2.840.853101.1.13.104.2. 7.2.727879_[id number] Yuliya Hidalgo [facility] 2023-09-10 09:49:05 IA7gfsPPB1Ax6YnndRoJ ZF0g049nadGF dti7e+vB+py5FCcP/R9ZBKUt586bmmIs 5418-17-30T72:49:05 Attempted to return call to patient. LVM asking for a BP log, advised her to send on My Chart. Provided patient with call back number. Will try back again later. 07858-9Lqycmrvmd encounter FacpJC2511-55-50H75:49:58Telepho ne encounter NoteTXT1.2.840.476277.1.13.104.2 .7.2.242180|[id number] e for patient lsxf84770-6TqxnFFGZXEKLFOVPobygx pasquale C-CDA narrative [address] LkxfNvbejuwhaPtidvuajtYVZC488292 0857ZPJIXCYGSGCYLWDOHNYTXA7398-9 1-30T09:49:581.2.840.777737.1.72 .3.15|1.2.840.756381.1.13.104.2. 7.2.727879_[id number] [facility] 2023-09-09 16:28:10 R3slkNRoQED5uD1vdam+ jBeXmJ2BDymn eJoAopfCY3PoQhkMPHzjPgt+5uUnVtcX 1021-25-36K40:28:10 Dianna Trejo is a 68 year old femalePt is calling stating her BP is always high (current BP is 199/89) wants to know if the dr can prescribe higher dosages of her current medication. 3RX: lisinopriL 10 mg tablet, aspirin 81 mg EC tablet, carvediloL 6.25 mg tablet( pt states she has 12.5 mg). Pt didn't want to speak to an nurse about symptoms. 76348-3Cjpopcxnw encounter QrcsHJ7990-40-55T65:31:48Telepho ne encounter NoteTXT1.2.840.623994.1.13.104.2 .7.2.886487|[id number] e for patient llfm38019-6GtpkKBXMEIUBGFDWtvomn pasquale C-CDA narrative [id number] [address] [place] KapkDwmenxahxAhuinsiwxTOQJ160462 9344FXRPQBHBLJUJDYIISOHEGV9843-5 09-09T16:31:481.2.840.562778.1.72 .3.15|1.2.840.374717.1.13.104.2. 7.2.727879_[id number] Marah Lee [facility] 2023-04-05 10:15:00 7XNf0sljxj4E8Nlf4XjD V2fqRz77d8MV uT6ZtvlfB731SeaLxm0V80AUY3D41lrk 6584-74-38I40:15:00 Images from the original note were not included.Venipuncture collection performed by clean technique on the right anticubitus. Total of 1 attempts were made. Slight pressure and a bandage/dressing were applied to the site(s). The patient experienced no complications. The following specimens were processed according to instructions and sent to [facility] laboratories per lab order on 04/05/2023: LT BLUE SST 1 RED LAV 1 PPT DK GREEN (LiHep) DK GREEN (SodH) ALVARADO DK BLUE (K2) DK BLUE (S) ACD Blood Culture NIPT/NTD 63512-8Rjgvo ThaoTG0290-38-16Z41:14:48Nurse NoteTXT1.2.840.889323.1.13.104.2 .7.2.587708|[id number] e for patient syoc85604-6Bftug NoteLNUT[address] UgcjTjhbfktwhGwtigvahcTRLO927534 5178OZUMEMFMFCIEKCDJPXIPZI1067-1 04-05T10:14:481.2.840.716948.1.72 .3.15|1.2.840.553572.1.13.104.2. 7.2.727879_[id number] [facility]
[2023-11-19 00:06] LABS: Absolute Eosinophils 0.1 K/uL (0-0.5); Absolute Lymphocytes (CBC) 1.8 K/uL (0.7-4.9); Absolute Monocytes 0.7 K/uL (0.1-1.3); Absolute Neutrophil 4.9 K/uL (1.8-8.0); Basophils % 0.6 % (0-1.3); Eosinophils % 1.4 % (0-4.4); Hematocrit 37.7 % (36.0-45.0); Hemoglobin 12.5 g/dL (12.0-15.0); Lymphocytes % 23.4 % (15.3-44.8); MCH 29.7 pg (27.0-35.0); MCHC 33.2 g/dL (32.0-36.0); MCV 89.3 fL (80-100); MPV 8.9 fL (7.6-11.3); Monocytes % 9.5 % (3.3-12.3); Neutrophils % 65.1 % (41.7-73.7); Platelets 237 thou/uL (152-406); RBC Red Blood Cell Count 4.23 M/uL (3.86-4.86); Red Cell Distribution Width 13.2 % (12.1-15.2)
[2023-11-19 00:07] LABS: PT Prothrombin Time 10.9 SECONDS (9.5-12.5); Protime INR 0.99
[2023-11-19 00:32] LABS: Albumin 3.8 g/dL (3.4-5.0); Albumin/Globulin Ratio 1.2 (1.1-1.8); Anion Gap 8.9 mEq/L (5.0-15.0); Bilirubin Direct 0.1 mg/dL (0-0.2); Bilirubin Indirect, Calculated 0.4 mg/dL (0.2-0.8); Bilirubin Total 0.5 mg/dL (0.2-1.0); Globulin 3.3 g/dL (2.3-3.5); Magnesium 2.2 mg/dL (1.6-2.4); Potassium 3.9 mEq/L (3.5-5.1); Protein, Total 7.1 g/dL (6.4-8.2); T3 Free 2.68 pg/mL (2.18-3.98); Thyroid Stimulating Hormone 0.802 uIU/mL (0.358-3.740)
--- NOTE | 2023-11-19 00:52 | ER ---
Nurse's Notes [facility] Name: Lia Trejo Age: 68 yrs Sex: Female : 1955 Arrival Date: 11/18/2023 Time: 21:50 Bed 6 Private MD: Diagnosis: Palpitations Presentation: 11/17 22:21 Chief complaint: Patient states: pt was told by her PCP to take an addition dose of her as6 blood pressure medicine and checked her heart rate at home and it was high and pt just wants to be checked out. Coronavirus screen: At this time, the client does not indicate any symptoms associated with coronavirus-19. Ebola Screen: No symptoms or risks identified at this time. Initial Sepsis Screen: Does the patient meet any 2 criteria? No. Patient's initial sepsis screen is negative. Does the patient have a suspected source of infection? No. Patient's initial sepsis screen is negative. Risk Assessment: Do you want to hurt yourself or someone else? Patient reports no desire to harm self or others. Onset of symptoms was November 18, 2023. 22:21 Method Of Arrival: Ambulatory as6 22:21 Acuity: BRAYDEN 3 as6 Triage Assessment: 22:25 General: Appears in no apparent distress. Behavior is calm, cooperative. Pain: Denies as6 pain. Historical: - Allergies: 22:20 Codeine; as6 22:20 PENICILLINS; as6 22:20 Sulfa (Sulfonamide Antibiotics); as6 - PMHx: 22:20 Anxiety; Bipolar disorder; COPD; Crohn's; Depression; Hyperlipidemia; Hypertension; as6 Thyroid problem; - PSHx: 22:20 Cholecystectomy; hysterectomy; as6 - Immunization history:: Adult Immunizations up to date. - Infectious Disease History:: Denies. - Social history:: Smoking status: Patient/guardian denies using tobacco, Stopped _ months ago 4. Screenin/09 00:[address] [facility] ED Fall Risk Assessment (Adult) History of falling in the last 3 months, km8 including since admission No falls in past 3 months (0 pts) Confusion or Disorientation No (0 pts) Intoxicated or Sedated No (0 pts) Impaired Gait No (0 pts) Mobility Assist Device Used No (0 pt) Altered Elimination No (0 pt) Score/Fall Risk Level 0 - 2 = Low Risk Oriented to surroundings, Maintained a safe environment, Educated pt \T\ family on fall prevention, incl call for assistance when getting out of bed, Assessed \T\ reinforced patient's understanding of fall precautions. Abuse screen: Denies threats or abuse. Denies injuries from another. Nutritional screening: No deficits noted. Tuberculosis screening: No symptoms or risk factors identified. Assessment: 00:03 Reassessment: Patient appears in no apparent distress at this time. Patient and/or km8 family updated on plan of care and expected duration. Pain level reassessed. Patient is alert, oriented x 3, equal unlabored respirations, skin warm/dry/pink. General: Appears in no apparent distress. comfortable, Behavior is calm, cooperative, appropriate for age. Pain: Denies pain. Neuro: Level of Consciousness is awake, alert, obeys commands, Oriented to person, place, time, situation. Cardiovascular: Reports chest pain, shortness of breath, Patient's skin is warm and dry. Respiratory: Airway is patent Respiratory effort is even, unlabored, Respiratory pattern is regular, symmetrical. GI: No signs and/or symptoms were reported involving the gastrointestinal system. : No signs and/or symptoms were reported regarding the genitourinary system. EENT: No signs and/or symptoms were reported regarding the EENT system. Derm: No signs and/or symptoms reported regarding the dermatologic system. Skin is intact, is healthy with good turgor, Skin is dry, Skin is pink, warm \T\ dry. normal, Skin temperature is warm. Musculoskeletal: No signs and/or symptoms reported regarding the musculoskeletal system. Range of motion: intact in all extremities. Vital Signs: 11/17 22:21 BP 105 / 61; Pulse 85; Resp 18 S; Temp 98.4(TE); Pulse Ox 95% on R/A; Weight 92.08 kg as6 (R); Height 5 ft. 5 in. (R); Pain 0/10; 23:41 BP 135 / 54; Pulse 78; Resp 17 S; Pulse Ox 96% on R/A; rv1 11/18 00:15 BP 128 / 58; Pulse 82; Resp 16; Pulse Ox 96% on R/A; km8 01:00 BP 144 / 61; Pulse 76; Resp 18; Pulse Ox 96% on R/A; km8 04/08 22:21 Body Mass Index 33.78 (92.08 kg, 165.1 cm) as6 04 22:21 Pain Scale: Adult as6 Flint Coma Score: 00:03 Eye Response: spontaneous(4). Motor Response: obeys commands(6). Verbal Response: km8 oriented(5). Total: 15. ED Course: 11/17 22:17 Patient arrived in ED. ra3 22:20 Arm band placed on. as6 22:24 Humza Mejia PA is PHCP. cp 22:24 Jeronimo Harper MD is Attending Physician. cp 22:25 Triage completed. as6 23:01 XRAY Chest (1 view) In Process Unspecified. EDMS 23:20 Lupis Holman, MAYA is Primary Nurse. km8 23:30 Inserted saline lock: 20 gauge in left antecubital area, using aseptic technique. Blood rv1 collected. 23:40 T4 Free Sent. rv1 23:40 T3 Free Sent. rv1 23:40 TSH Sent. rv1 23:41 Basic Metabolic Panel Sent. rv1 23:41 CBC with Diff Sent. rv1 23:41 Magnesium Sent. rv1 23:41 LFT's Sent. rv1 23:41 NT PRO-BNP Sent. rv1 23:41 PT-INR Sent. rv1 23:41 Troponin HS Sent. rv1 23:53 UDS Sent. rv1 23:53 Urinalysis W/Microscopic Sent. rv1 11/18 00:03 Patient has correct armband on for positive identification. Bed in low position. Call km8 light in reach. Side rails up X 1. Client placed on continuous cardiac and pulse oximetry monitoring. NIBP monitoring applied. doughnut icer machine on. Pulse ox on. NIBP on. Warm blanket given. 01:10 Provided Education on: d/c teaching. km8 01:10 No provider procedures requiring assistance completed. IV discontinued, intact, km8 bleeding controlled, No redness/swelling at site. Pressure dressing applied. Administered Medications: No medications were administered Medication: 00:03 VIS not applicable for this client. km8 Outcome: 00:51 Discharge ordered by . cp 01:10 Discharged to home ambulatory, km8 01:10 Condition: good 01:10 Discharge instructions given to patient, Instructed on discharge instructions, follow up and referral plans. Demonstrated understanding of instructions, follow-up care, 01:11 Patient left the ED. km8 Signatures: Dispatcher [employer] EDMS Humza Mejia PA PA cp Slawson, Ashby RN RN as6 Jodi Matthews 1 Lupis Holman RN RN km8 Miriam Ambriz ra3
--- NOTE | 2023-11-19 00:52 | EDPHYS ---
Physician Documentation [facility] Name: Lia Trejo Age: 68 yrs Sex: Female : 1955 Arrival Date: 11/18/2023 Time: 21:50 Bed 6 Private MD: ED Physician Jeronimo Harper HPI: 11/17 22:35 This 68 yrs old Female presents to ER via Ambulatory with complaints of heart palp. cp 22:35 The patient presents with a history of heart racing. cp 22:35 Context: The symptoms occur at rest, while playing game on phone. started after taking cp xtra dose of prescribed Nifedipine blood pressure medication as instructed by fly fishing guide today. Onset: The symptoms/episode began/occurred today. Duration: The patient or guardian reports a single episode. Associated signs and symptoms: Pertinent negatives: anxiety, chest pain, fever, SOB, syncope, near-syncope, unusual stressors, vomiting. Severity of symptoms: in the emergency department the symptoms have improved mildly. Historical: - Allergies: 22:20 Codeine; as6 22:20 PENICILLINS; as6 22:20 Sulfa (Sulfonamide Antibiotics); as6 - PMHx: 22:20 Anxiety; Bipolar disorder; COPD; Crohn's; Depression; Hyperlipidemia; Hypertension; as6 Thyroid problem; - PSHx: 22:20 Cholecystectomy; hysterectomy; as6 - Immunization history:: Adult Immunizations up to date. - Infectious Disease History:: Denies. - Social history:: Smoking status: Patient/guardian denies using tobacco, Stopped _ months ago 4. ROS: 22:40 Constitutional: Negative for body aches, chills, fever, poor PO intake, cp 22:40 Eyes: Negative for injury, pain, redness, and discharge, cp 22:40 ENT: Negative for drainage from ear(s), ear pain, sore throat, difficulty swallowing, difficulty handling secretions, 22:40 Cardiovascular: Positive for palpitations, Negative for chest pain, edema, 22:40 Respiratory: Negative for cough, shortness of breath, wheezing, 22:40 Abdomen/GI: Negative for abdominal pain, vomiting, diarrhea, constipation, 22:40 Neuro: Negative for altered mental status, dizziness, headache, numbness, speech changes, syncope, near syncope, weakness, 22:40 All other systems are negative, Exam: 22:45 Constitutional: The patient appears in no acute distress, alert, awake, comfortable, cp non-diaphoretic, non-toxic, well developed, well nourished, 22:45 Head/Face: Normocephalic, atraumatic. cp 22:45 Eyes: Periorbital structures: appear normal, Conjunctiva: normal, no exudate, no injection, Sclera: no appreciated abnormality, Lids and lashes: appear normal, bilaterally, 22:45 ENT: External ear(s): are unremarkable, Nose: is normal, Mouth: Lips: moist, Oral mucosa: pink and intact, moist, Posterior pharynx: is normal, airway is patent, no erythema, no exudate, 22:45 Neck: ROM/movement: is normal, is supple, without pain, no range of motions limitations, 22:45 Chest/axilla: Inspection: normal, 22:45 Cardiovascular: Rate: normal, Rhythm: regular, Edema: is not appreciated, JVD: is not appreciated, 22:45 Respiratory: the patient does not display signs of respiratory distress, Respirations: normal, no use of accessory muscles, no retractions, labored breathing, is not present, Breath sounds: are clear throughout, no decreased breath sounds, no stridor, no wheezing, 22:45 Abdomen/GI: Inspection: abdomen appears normal, Palpation: abdomen is soft and non-tender, 22:45 Neuro: Orientation: to person, place \T\ time. Mentation: is normal, Motor: moves all fours, strength is normal, Sensation: is normal, 23:35 ECG was reviewed by the Attending Physician. cp Vital Signs: 22:21 BP 105 / 61; Pulse 85; Resp 18 S; Temp 98.4(TE); Pulse Ox 95% on R/A; Weight 92.08 kg as6 (R); Height 5 ft. 5 in. (R); Pain 0/10; 23:41 BP 135 / 54; Pulse 78; Resp 17 S; Pulse Ox 96% on R/A; rv1 04/09 00:15 BP 128 / 58; Pulse 82; Resp 16; Pulse Ox 96% on R/A; km8 01:00 BP 144 / 61; Pulse 76; Resp 18; Pulse Ox 96% on R/A; km8 08 22:21 Body Mass Index 33.78 (92.08 kg, 165.1 cm) as6 11/17 22:21 Pain Scale: Adult as6 Webb Coma Score: 00:03 Eye Response: spontaneous(4). Motor Response: obeys commands(6). Verbal Response: km8 oriented(5). Total: 15. MDM: 11/17 22:26 Patient medically screened. cp 11/18 00:00 Differential diagnosis: arrythmia, dehydration, stress disorder. cp 00:50 Data reviewed: vital signs, nurses notes, lab test result(s), EKG, radiologic studies, cp plain films, and as a result, I will discharge patient. 00:50 Independent interpretation of the following test(s) in the Emergency Department EKG: cp See my EKG interpretation above. Care significantly affected by the following chronic conditions: Hypertension, Chronic Obstructive Pulmonary Disease. 11/17 22:33 Order name: Basic Metabolic Panel; Complete Time: 00:38 cp 11/18 00:38 Interpretation: Normal except: GLUC 160; BUN 25. cp 11/17 22:33 Order name: CBC with Diff; Complete Time: 00:38 cp 11/17 22:33 Order name: LFT's; Complete Time: 00:38 cp 11/18 00:39 Interpretation: Normal except: AST 12. cp 11/17 22:33 Order name: Magnesium; Complete Time: 00:38 cp 11/17 22:33 Order name: NT PRO-BNP; Complete Time: 00:38 cp 11/17 22:33 Order name: PT-INR; Complete Time: 00:38 cp 11/17 22:33 Order name: Troponin HS; Complete Time: 00:38 cp 11/17 22:33 Order name: TSH; Complete Time: 00:38 cp 11/17 22:33 Order name: T3 Free; Complete Time: 00:38 cp 11/17 22:33 Order name: T4 Free; Complete Time: 00:38 cp 11/17 23:32 Order name: Urinalysis W/Microscopic cp 11/17 23:32 Order name: UDS cp 11/17 22:33 Order name: XRAY Chest (1 view) cp 11/17 22:33 Order name: EKG; Complete Time: 22:34 cp 11/17 22:33 Order name: Cardiac monitoring; Complete Time: 23:41 cp 11/17 22:33 Order name: EKG - Nurse/Tech; Complete Time: 23:41 cp 04 22:33 Order name: IV Saline Lock; Complete Time: 23:41 cp 11/17 22:33 Order name: Labs collected and sent; Complete Time: 23:41 cp 04 22:33 Order name: O2 Per Protocol; Complete Time: 23:41 cp 04 22:33 Order name: O2 Sat Monitoring; Complete Time: 23:41 cp EC/08 23:35 Rate is 76 beats/min. Rhythm is regular. OK interval is normal. QRS interval is normal. cp QT interval is normal. T waves are Inverted in leads aVR, V2. Interpreted by me. Reviewed by me. Administered Medications: No medications were administered Disposition: 11/18 21:30 Co-signature as Attending Physician, Jeronimo Harper MD I agree with the assessment sp4 and plan of care. I reviewed the patient's care provided by the Advanced Practice Provider and agree with the diagnosis and treatment plan. Disposition Summary: 11/19/23 00:51 Discharge Ordered Notes: Location: Home cp Problem: new cp Symptoms: have improved cp Condition: Stable cp Diagnosis - Palpitations cp Followup: cp - With: Private Physician - When: 1 - 2 days - Reason: Recheck today's complaints Discharge Instructions: - Discharge Summary Sheet cp - Palpitations cp - Aspirin and Your Heart cp Forms: - Medication Reconciliation Form cp - Thank You Letter cp - Antibiotic Education cp - Prescription Opioid Use cp - Patient Portal Instructions cp - Leadership Thank You Letter cp Signatures: Dispatcher [employer] EDNM Humza Mejia PA PA cp Dustin Odom RN RN as6 Jeronimo Harper MD MD sp4 Corrections: (The following items were deleted from the chart) 11/17 22:34 22:34 BASIC METABOLIC PANEL+C.LAB.BRZ ordered. EDMS EDMS 22:34 22:34 CBC+H.LAB.BRZ ordered. EDMS EDMS 22:34 22:34 HEPATIC FUNCTION+C.LAB.BRZ ordered. EDMS EDMS 22:34 22:34 MAGNESIUM+C.LAB.BRZ ordered. EDMS EDMS 22:34 22:34 PROBNP+C.LAB.BRZ ordered. EDMS EDMS 22:34 22:34 PROTIME (+INR)+COAG.LAB.BRZ ordered. EDMS EDMS :34 22:34 Troponin High Sensitivity+C.LAB.BRZ ordered. EDMS EDMS :34 22:34 THYROID STIMULAT HORMONE+C.LAB.BRZ ordered. EDMS EDMS :34 22:34 T3 FREE+C.LAB.BRZ ordered. EDMS EDMS :34 22:34 T4 FREE+C.LAB.BRZ ordered. EDMS EDMS
[2023-11-19 01:02] LABS: Specific Gravity 1.023 (1.005-1.030); Sqamous Epithelial <5 /HPF (None Seen); Urine Bacteria None Seen /HPF (<20); Urine Bilirubin NEGATIVE (Negative); Urine Blood Negative (Negative); Urine Clarity Clear (Clear); Urine Color Light-Yellow (Yellow); Urine Culture Reflex Order NOT NEEDED; Urine Glucose NEGATIVE (Negative); Urine Ketones NEGATIVE (Negative); Urine Micro Reflex YN NO BILL MICROSCOPIC; Urine Mucus Slight /HPF (None Seen); Urine Nitrite NEGATIVE (Negative); Urine Protein NEGATIVE (Negative); Urine RBC <5 /HPF (None Seen); Urine Urobilinogen Normal (Normal); Urine WBC <5 /HPF (<5)
[2023-11-19 01:07] LABS: Barbiturates NEGATIVE (NEGATIVE); Benzodiazepines NEGATIVE (NEGATIVE); Cocaine NEGATIVE (NEGATIVE); METHAMPHETAM NEGATIVE (NEGATIVE); Methadone NEGATIVE (NEGATIVE); Opiates NEGATIVE (NEGATIVE); Phencyclidine NEGATIVE (NEGATIVE); THC Cannibis NEGATIVE (NEGATIVE)
[2023-11-19 06:15] VITALS: BP 135/54; TEMP 98.4; O2SAT 96
--- NOTE | 2023-11-19 12:16 | RAD REPORT ---
EXAM DESCRIPTION: RAD - Chest Single View - 11/18/2023 10:59 pm CLINICAL HISTORY: PALPITATIONS. COMPARISON: None. TECHNIQUE: Single view AP chest radiograph(s). FINDINGS: Trace diffuse pulmonary interstitial prominence. No pulmonary infiltrate identified. No pleural effusion. No pneumothorax. Nonenlarged cardiomediastinal silhouette. No significant osseous a bnormality. IMPRESSION: Trace diffuse pulmonary interstitial prominence. No pulmonary infiltrate identified. Electronically signed by: Gabrielle Ramos MD 11/18/2023 11:28 PM CDT Due to temporary technical issues with the PACS/Fluency reporting system, reports are being signed by the in house radiologists without review as a courtesy to insure prompt reporting. The interpreting radiologist is fully responsible for the content of the report
--- NOTE | 2023-11-19 16:16 | EKG ---
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
== END 2023-11-19 01:11 | disposition home or self-care (01) ==
LOC: ER 21:50
DX: R00.2 Palpitations (principal); I10 Essential (primary) hypertension; F41.9 Anxiety disorder, unspecified; Z88.0 Allergy status to penicillin; Z88.2 Allergy status to sulfonamides; Z88.5 Allergy status to narcotic agent
CPT/HCPCS: 36415; 71045; 80048; 80076; 80307; 81001; 83735; 83880; 84439; 84443; 84481; 84484; 85025; 85610; 93005; 99284

== ENCOUNTER 2024-01-22 01:38 | Emergency (ER) | payer OTHER ==
--- OUTSIDE RECORDS SUMMARY | 2024-01-22 01:44 | XMS REPORT | Continuity of Care Document ---
Author Name Unknown Address [address] [facility]. 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 Attending Clinician [phone] Yanique Velazquez MD Attending Clinician [phone] Ita Gomez DO Attending Clinician [phone] RADIOLOGY Attending Clinician Unavailable Radiology Attending Clinician Unavailable Willis Chavis Attending Clinician Jessica salinas Therapist, Adc Respiratory Attending Clinician U WILLIS Harden Attending Clinician Willis Summers MD Attending Clinician [phone] Doctor Unassigned, [place] Attending Clinician U kendra Vo RN, Lior Hidalgo Attending Clinician Unavail able ANUM MEJIA Attending Clinician Jessica Mcdonough MD, Amir Attending Clinician [phone] Anum Mejia MD Attending Clinician [phone] [email or web address] Attending Clinician Sukhdeep inman 2, [facility] Lab Attending Clinician Unavailable Davyb, [facility] Lab Main Attending Clinician Jessica Atkinson MD, Sita Attending Clinician [phone] SITA ATKINSON Attending Clinician UnavailJAMARI Valencia Attending Clinician Unavailable Jamari Stringer DO Attending Clinician [phone] JAC MARLOW Attending Clinician Unavailable ALE PAUL Admitting Clinician Unavailable Jacque Santiago AIR SHOVEL OPERATOR Admitting Clinician Unav cloverable MAGGI SANTIAGO Admitting Clinician Unavail able WILLIS CHAVIS Admitting Clinician ANUM Reyes Admitting Clinician Anum Reyes MD Admitting Clinician [phone] [email or web address] Admitting Clinician BELKYS Leonard Admitting Clinician Unavailable Payers Payer Name Policy Type Policy Number Effective Date Expirati on Date Source Problems Condition Name Condition Details Condition Category Status Onset Date Resolution Date Last Treatment Date Treating Clinician Comments Source Shortness of breath Shortness of breath Disease Active 2022-08 00:00: 00 [facility] No known active problems No known active problems Disease [facility] Allergies, Adverse Reactions, Alerts Allergy Name Allergy Type Status Severity Reaction(s) Onset Date Inactive Date Treating Clinician Comments Source Penicill ins DA Active SD RASHES 12-05 00:00: 00 [facility] Sulfa (Sulfona mide Antibiot ics) DA Active MO RASHES 12-05 00:00: 00 [facility] SULFAMET HOPRIM DS DRUG Active Hallucinates 02-08 00:00: 00 [facility] Sulfamet hoprim Ds Propensi ty to adverse reaction s Active Hallucinatio ns 02-08 00:00: 00 [facility] Penicill in Drug Allergy Active Unknown - See comments 04-25 00:00: 00 Redness [facility] PENICILL IN DRUG INGREDI Active Hallucinates 9-14 00:00: 00 [facility] Social History Social Habit Start Date Stop Date Quantity Comments Source [facility] History of tobacco use Cigarette Smoker [facility] History of Social function 2023-11-27 00:00:00 2023-11-27 00:00:00 [facility] Exposure to SARS-CoV-2 (event) 2022-01-29 00:00:00 2022-02-08 08:51:00 Not sure [facility] Tobacco use and exposure 2021-03-08 00:00:00 2021-03-08 00:00:00 Smokeless tobacco non-user [facility] Sex assigned at 1955 00:00:00 1955 00:00:00 [facility] Smoking Status Start Date Stop Date Source Smokes tobacco daily 2021-03-08 00:00:00 [facility] Medications Ordered Medication Name Filled Medication Name Start Date Stop Date Current Medication? Ordering Clinician Indication Dosage Frequency Signature (SIG) Comments Components Source carvediloL 25 mg tablet 12-29 00:00: 00 Yes [id number] 25mg Take 1 tablet by mouth in the morning and 1 tablet in the evening. Take with meals. [facility] NIFEdipine XL 30 mg 24 hr tablet 12-29 00:00: 00 Yes [id number] 60mg QAM 30mg QPM [facility] aspirin 81 mg EC tablet 12-25 09:11: 25 Yes 81mg Take 1 tablet by mouth in the morning. [facility] budesonide- formoteroL (SYMBICORT) 80-4.5 mcg/actuati on inhaler 12-25 00:00: 00 Yes [id number] 2{puff} Inhale 2 Puffs in the morning and 2 Puffs in the evening. [facility] NIFEdipine XL 30 mg 24 hr tablet 11-26 00:00: 00 12-29 00:00 :00 No [id number] 30mg Take 1 tablet by mouth in the morning and 1 tablet in the evening. [facility] carvediloL 12.5 mg tablet 10-27 00:00: 00 12-29 00:00 :00 No [id number] TAKE 1 TABLET BY MOUTH IN THE MORNING AND IN THE EVENING. TAKE WITH MEALS. DO THIS FOR 30 DAYS [facility] aspirin 81 mg EC tablet 10-13 08:37: 19 Yes 81mg Take 1 tablet by mouth in the morning. [facility] Dextrometho rphan-Guaif enesin (MUCINEX DM) 60-1,200 mg Tb12 10-13 08:37: 19 Yes 1{tbl} Take 1 tablet by mouth in the morning and 1 tablet in the evening. [facility] alendronate 70 mg TbEF 10-13 08:37: 19 Yes 70mg Take 70 mg by mouth weekly. Sundays [facility] albuterol sulfate 90 mcg/actuati on AePB 10-13 08:37: 19 Yes 2{puff} Inhale 2 Puffs as needed for Other (SOB). [facility] NIFEdipine XL 30 mg 24 hr tablet 10-04 00:00: 00 11-26 00:00 :00 No [id number] 30mg Take 1 tablet by mouth in the morning. [facility] divalproex (DEPAKOTE) 500 mg EC tablet 09-16 09:14: 47 Yes 500mg Take 1 tablet by mouth in the morning. [facility] aspirin 81 mg EC tablet 09-16 09:04: 39 Yes 81mg Take 1 tablet by mouth in the morning. [facility] olmesartan 40 mg tablet 09-16 00:00: 00 Yes [id number] 40mg Take 1 tablet by mouth in the morning. [facility] fluticasone propionate 50 mcg/actuati on nasal spray 2022-08 00:00: 00 Yes [id number] 1{spray } Use 1 Aubrey in each nostril in the morning. [facility] nicotine 21 mg/24 hr patch 2022-08 00:00: 00 08-18 05:59 :00 No [id number] 1{patch } Apply 1 Patch to area(s) every 24 (twenty-fo ur) hours for 28 days. [facility] aspirin 81 mg EC tablet 2022-08 14:20: 42 Yes 81mg Take 1 tablet by mouth in the morning. [facility] Dextrometho rphan-Guaif enesin (MUCINEX DM) 60-1,200 mg Tb12 2022-08 14:20: 42 Yes 1{tbl} Take 1 tablet by mouth in the morning and 1 tablet in the evening. [facility] alendronate 70 mg TbEF 2022-08 14:20: 42 Yes 70mg Take 70 mg by mouth weekly. Sundays [facility] albuterol sulfate 90 mcg/actuati on AePB 2022-08 14:20: 42 Yes 2{puff} Inhale 2 Puffs as needed for Other (SOB). [facility] methylPREDN ISolone (METHYLPRED DP) 4 mg tablets 2022-08 14:20: 39 07-19 00:00 :00 No 4mg Take 1 tablet by mouth SEE-INSTRU CTIONS. follow package directions [facility] predniSONE 20 mg tablet 2022-08 00:00: 00 Yes [id number] 20mg Take 1 tablet by mouth in the morning and 1 tablet in the evening. [facility] carvediloL 12.5 mg tablet 2022-08 00:00: 00 08-19 05:59 :00 No [id number] 12.5mg Take 1 tablet by mouth in the morning and 1 tablet in the evening. Take with meals. Do all this for 30 days. [facility] budesonide- formoteroL 80-4.5 mcg/actuati on inhaler 2022-08 00:00: 00 08-17 05:59 :00 No [id number] 2{puff} Inhale 2 Puffs in the morning and 2 Puffs in the evening. Do all this for 28 days. [facility] doxycycline hyclate 100 mg capsule 2022-08 00:00: 00 07-27 05:59 :00 No [id number] 100mg Take 1 capsule by mouth every 12 (twelve) hours for 7 days. [facility] cetirizine (ZYRTEC) tablet 10 mg 2022-08 15:00: 00 Yes 10mg 10 mg, Oral, DAILY, First dose on Sat07/18/23 at 0900, Until Discontinu ed, Routine [facility] pantoprazol e (PROTONIX) EC tablet 40 mg 2022-08 15:00: 00 Yes 40mg 40 mg, Oral, QAM, First dose on Sat07/18/23 at 0900, Until Discontinu ed, Routine [facility] azithromyci n (ZITHROMAX) tablet 500 mg 2022-08 15:00: 00 07-18 15:08 :00 No 500mg 500 mg, Oral, DAILY, 1 dose, First dose on Sat07/18/23 at 0900, Routine
Reason for Anti-Infec tive: Empiric Therapy for Suspected Infection< br>Empiric Therapy Site: Respirator y
Durat ion of therapy: 72 hours [facility] QUEtiapine (SEROQUEL) tablet 50 mg 2022-08 03:00: 00 Yes 50mg 50 mg, Oral, QHS, First dose on Sat07/17/23 at 2100, Until Discontinu ed, Routine [facility] atorvastati n (LIPITOR) tablet 40 mg 2022-08 03:00: 00 Yes 40mg 40 mg, Oral, QHS, First dose on Sat07/17/23 at 2100, Until Discontinu ed, Routine [facility] mesalamine CR (PENTASA CR) capsule 500 mg 2022-08 02:00: 00 Yes 500mg 500 mg, Oral, BID, First dose on Sat07/17/23 at 2000, Until Discontinu ed, Routine [facility] levothyroxi ne (SYNTHROID) tablet 112 mcg 2022-08 17:45: 00 Yes 112ug 112 mcg, Oral, QAM-0600, First dose (after last modificati on) on Sat07/17/23 at 1145, Until Discontinu ed, Routine [facility] carvediloL (COREG) tablet 12.5 mg 2022-08 17:45: 00 Yes 12.5mg 12.5 mg, Oral, BID MEALS, First dose (after last modificati on) on Sat07/17/23 at 1145, Until Discontinu ed, [facility]isin[facility] (PRINIVIL,Z ESTRIL) tablet 10 mg 2022-08 17:45: 00 Yes 10mg 10 mg, Oral, BID, First dose (after last modificati on) on Sat07/17/23 at 1145, Until Discontinu ed, Routine [facility] aspirin EC tablet 81 mg 2022-08 17:45: 00 Yes 81mg 81 mg, Oral, DAILY, First dose (after last modificati on) on Sat07/17/23 at 1145, Until Discontinu ed, Routine [facility] hydrOXYzine (ATARAX) tablet 25 mg 2022-08 17:29: 05 Yes 25mg 25 mg, Oral, Q8HPRN, Starting on Sat07/17/23 at 1129, Until Discontinu ed, Routine, Itching, Anxiety [facility] azithromyci n (ZITHROMAX) 500 mg in NaCl [...] ion of therapy: 72 hours [facility] cefTRIAXone (ROCEPHIN) 1,000 mg in NaCl 0.9% [...]
Durat ion of therapy: 7 days [facility] enoxaparin (LOVENOX) injection 40 mg 2022-08 23:00: 00 Yes 40mg 40 mg, Subcutaneo us, DAILY, First dose on Sat07/16/23 at 1700, Until Discontinu ed, Routine [facility] predniSONE (DELTASONE) tablet 40 mg 2022-08 20:15: 00 Yes 40mg 40 mg, Oral, Q8H, First dose (after last modificati on) on Sat07/16/23 at 1415, Until Discontinu ed, Routine [facility] fluticasone propionate 50 mcg/actuati on nasal spray 1 Aubrey 2022-08 20:00: 00 Yes 1{spray } 1 Aubrey, Nasal, DAILY, First dose on Sat07/16/23 at 1400, Until Discontinu ed, Routine [facility] guaiFENesin 100 mg/5 mL solution 200 mg 2022-08 19:51: 24 Yes 200mg 200 mg, Oral, Q4HPRN, Starting on Sat07/16/23 at 1351, Until Discontinu ed, Routine, Cough [facility] HYDROcodone -acetaminop hen (NORCO 5) 5-325 mg tablet 1 tablet 2022-08 19:48: 13 Yes 1{tbl} 1 tablet, Oral, Q6HPRN, Starting on Sat07/16/23 at 1348, Until Discontinu ed, Routine, Pain (scale 7-10) [facility] traMADoL (ULTRAM) tablet 50 mg 2022-08 19:47: 48 Yes 50mg 50 mg, Oral, Q6HPRN, Starting on Sat07/16/23 at 1347, Until Discontinu ed, Routine, Pain (scale 4-6) [facility] acetaminoph en (TYLENOL) tablet 650 mg 2022-08 19:47: 28 Yes 650mg 650 mg, Oral, Q6HPRN, Starting on Sat07/16/23 at 1347, Until Discontinu ed, Routine, Pain (scale 1-3), Temp > 38 C [facility] ipratropium -albuteroL (DUONEB) 0.5 mg-3 mg(2.5 mg base)/3 mL nebulizer solution 3 mL 2022-08 18:00: 00 Yes 3mL 3 mL, Inhalation , QID, First dose (after last modificati on) on Sat07/16/23 at 1200, Until Discontinu ed, Routine [facility] nicotine (NICODERM) 21 mg/24 hr patch 1 Patch 2022-08 14:30: 00 Yes 1{patch } 1 Patch, Topical, Administer over 24 Hours, Q24H, First dose on Sat07/16/23 at 0830, Until Discontinu ed, Routine [facility] ipratropium -albuteroL (DUONEB) 0.5 mg-3 mg(2.5 mg base)/3 mL nebulizer solution 3 mL 2022-08 12:23: 57 07-16 16:55 :56 No 3mL 3 mL, Inhalation , Q6HPRN, Starting on Sat07/16/23 at 0623, Until Sat07/16/23 at 1055, Routine, Wheezing [facility] azithromyci n (ZITHROMAX) 500 mg in NaCl 0.9% (NS) 250 mL VIAL-MATE IV piggyback 2022-08 06:30: 00 07-16 08:11 :00 No [id number] 500mg 500 mg, IV Piggyback, ONCE, 1 dose, On Sat07/16/23 at 0030, Administer over 60 Minutes, 250 mL
Reas on for Anti-Infec tive: Empiric Therapy for Suspected Infection< br>Empiric Therapy Site: Respirator y
Durat ion of therapy: Once (ED) [facility] ipratropium -albuteroL (DUONEB) 0.5 mg-3 mg(2.5 mg base)/3 mL nebulizer solution 9 mL 2022-08 06:15: 00 07-16 05:55 :00 No [id number] 9mL 9 mL, Inhalation , ONCE, 1 dose, On Sat07/16/23 at 0015, Routine [facility] acetaminoph en (TYLENOL) tablet 650 mg 2022-08 05:45: 00 07-16 05:53 :00 No [id number] 650mg 650 mg, Oral, ONCE, 1 dose, On Sat07/15/23 at 2345, QUYNH [facility] cefTRIAXone (ROCEPHIN) 1,000 mg in NaCl 0.9% (NS) 100 mL MINI-BAG 2022-08 05:45: 00 07-16 06:13 :00 No [id number] 1000mg 1,000 mg, IV Piggyback, ONCE, 1 dose, On Sat07/15/23 at 2345, Administer over 30 Minutes, 100 mL
Reas on for Anti-Infec tive: Empiric Therapy for Suspected Infection< br>Empiric Therapy Site: Respirator y
Durat ion of therapy: Once (ED) [facility] albuterol 2.5 mg /3 mL (0.083 %) nebulizer solution 2022-08 00:00: 00 08-16 05:59 :00 No [id number] 2.5mg Inhale 3 mL every 4 (four) hours as needed for Wheezing or Shortness of Breath for up to 30 days. [facility] doxycycline hyclate 100 mg capsule 2022-08 00:00: 00 07-19 00:00 :00 No [id number] 100mg Take 1 capsule by mouth every 12 (twelve) hours for 7 days. [facility] lisinopriL 10 mg tablet 2022-08- 00:00: 00 09-16 00:00 :00 No [id number] 10mg Take 1 tablet by mouth in the morning and 1 tablet in the evening. [facility] aspirin 81 mg EC tablet 2022-08 0 09:32: 35 Yes 81mg Take 81 mg by mouth daily. [facility] atorvastati n 40 mg tablet 2022-08 0 00:00: 00 Yes [id number] 40mg Take 1 tablet by mouth at bedtime. [facility] carvediloL 6.25 mg tablet 2022-08 0 00:00: 00 12-02 00:00 :00 No [id number] 6.25mg Take 1 tablet by mouth in the morning and 1 tablet in the evening. Take with meals. [facility] lisinopriL 10 mg tablet 2022-08 00:00: 00 07-03 00:00 :00 No [id number] 10mg Take 1 tablet by mouth in the morning and 1 tablet in the evening. [facility] lisinopriL 10 mg tablet 8-21 00:00: 00 05-20 00:00 :00 No 10mg Take 1 tablet by mouth in the morning and 1 tablet in the evening. [facility] gadobenate dimeglumine (MULTIHANCE -20 mL) injection 0.2 mL/kg 11-29 15:45: 00 11-29 15:43 :00 No [id number] .2mL/kg 0.2 mL/kg, Intravenou s, ONCE, 1 dose, On Elisa 11/29/22 at 1045, Routine [facility] aspirin 81 mg EC tablet 3-29 08:54: 34 Yes 81mg Take 1 tablet by mouth in the morning. [facility] lisinopriL 20 mg tablet 2-15 00:00: 00 05-20 00:00 :00 No [id number] 10mg Take 0.5 tablets by mouth in the morning and 0.5 tablets in the evening. [facility] atorvastati n 40 mg tablet 2-15 00:00: 00 05-20 00:00 :00 No [id number] 40mg Take 1 tablet by mouth at bedtime. [facility] carvediloL 6.25 mg tablet 2020-08 1-30 00:00: 00 05-20 00:00 :00 No 6.25mg Take 1 tablet by mouth 2 (two) times daily with meals. [facility] pantoprazol e 40 mg EC tablet 5-24 00:00: 00 Yes 40mg Take 1 tablet by mouth every morning. [facility] hydrOXYzine 25 mg tablet 20 00:00: 00 Yes TAKE 1 TABLET BY MOUTH DAILY NEEDED [facility] cetirizine 10 mg tablet 11-25 00:00: 00 Yes 10mg Take 1 tablet by mouth in the morning. [facility] triamcinolo ne acetonide 0.1 % cream 16 00:00: 00 07-16 00:00 :00 No [facility] diclofenac 75 mg EC tablet 11-09 00:00: 00 07-16 00:00 :00 No [facility] PENTASA 500 mg CR capsule 04-18 00:00: 00 Yes TK 2 CS PO BID [facility] QUEtiapine 100 mg tablet 04-02 00:00: 00 Yes TK 1 T PO QHS [facility] ranitidine 150 mg tablet 03-28 00:00: 00 07-16 00:00 :00 No TK 1 T PO BID [facility] levothyroxi ne 112 mcg tablet 03-26 00:00: 00 Yes TK 1 T PO D [facility] divalproex ER 500 mg 24 hr tablet 03-05 00:00: 00 07-19 00:00 :00 No 500mg 1 tablet every 24 (twenty-fo ur) hours. [facility] traZODone 150 mg tablet 16 00:00: 00 07-19 00:00 :00 No [facility] omeprazole 40 mg capsule 11 00:00: 00 07-16 00:00 :00 No TK 1 C PO QD 30 MIN B CHARLY [facility] paroxetine 30 mg tablet 02-04 00:00: 00 07-19 00:00 :00 No TK 1 T PO BID [facility] Immunizations Ordered Immunization Name Filled Immunization Name Date Status Comments Source Td 2022-02-08 00:00:00 Completed [facility] Td 2022-02-08 00:00:00 Completed [facility] Td 2022-02-08 00:00:00 Completed [facility] Td 2022-02-08 00:00:00 Completed [facility] TD, NOS 2022-02-08 00:00:00 Completed [facility] TD, NOS 2022-02-08 00:00:00 Completed [facility] TD, NOS 2022-02-08 00:00:00 Completed [facility] TD, NOS 2022-02-08 00:00:00 Completed [facility] TD, NOS 2022-02-08 00:00:00 Completed [facility] TD, NOS 2022-02-08 00:00:00 Completed [facility] TD, NOS 2022-02-08 00:00:00 Completed [facility] TD, NOS 2022-02-08 00:00:00 Completed [facility] TD, NOS 2022-02-08 00:00:00 Completed [facility] TD, NOS 2022-02-08 00:00:00 Completed [facility] TD, NOS 2022-02-08 00:00:00 Completed [facility] TD, NOS 2022-02-08 00:00:00 Completed [facility] Influenza Virus Vaccine Quad IM, Preserv and ABX Free 6 MO-64 YRS 2021-11-07 00:00:00 Completed [facility] Influenza Virus Vaccine Quad IM, Preserv and ABX Free 6 MO-64 YRS 2021-11-07 00:00:00 Completed [facility] Influenza Virus Vaccine Quad IM, Preserv and ABX Free 6 MO-64 YRS 2021-11-07 00:00:00 Completed [facility] Influenza Virus Vaccine Quad IM, Preserv and ABX Free 6 MO-64 YRS 2021-11-07 00:00:00 Completed [facility] Influenza Virus Vaccine Quad IM, Preserv and ABX Free 6 MO-64 YRS 2021-11-07 00:00:00 Completed [facility] Influenza Virus Vaccine Quad IM, Preserv and ABX Free 6 MO-64 YRS 2021-11-07 00:00:00 Completed [facility] Influenza Virus Vaccine Quad IM, Preserv and ABX Free 6 MO-64 YRS 2021-11-07 00:00:00 Completed [facility] Influenza Virus Vaccine Quad IM, Preserv and ABX Free 6 MO-64 YRS 2021-11-07 00:00:00 Completed [facility] Influenza Virus Vaccine Quad IM, Preserv and ABX Free 6 MO-64 YRS 2021-11-07 00:00:00 Completed [facility] Influenza Virus Vaccine Quad IM, Preserv and ABX Free 6 MO-64 YRS 2021-11-07 00:00:00 Completed [facility] Influenza Virus Vaccine Quad IM, Preserv and ABX Free 6 MO-64 YRS 2021-11-07 00:00:00 Completed [facility] Influenza Virus Vaccine Quad IM, Preserv and ABX Free 6 MO-64 YRS 2021-11-07 00:00:00 Completed [facility] Influenza Virus Vaccine Quad IM, Preserv and ABX Free 6 MO-64 YRS 2021-11-07 00:00:00 Completed [facility] Influenza Virus Vaccine Quad IM, Preserv and ABX Free 6 MO-64 YRS 2021-11-07 00:00:00 Completed [facility] Influenza Virus Vaccine Quad IM, Preserv and ABX Free 6 MO-64 YRS (FLUCELVAX) 2021-11-07 00:00:00 Completed [facility] Influenza Virus Vaccine Quad IM, Preserv and ABX Free 6 MO-64 YRS (FLUCELVAX) 2021-11-07 00:00:00 Completed [facility] Influenza Virus Vaccine Quad IM, Preserv and ABX Free 6 MO-64 YRS 2021-11-07 00:00:00 Completed [facility] Influenza Virus Vaccine Quad IM, Preserv and ABX Free 6 MO-64 YRS 2021-11-07 00:00:00 Completed [facility] Influenza Virus Vaccine Quad IM, Preserv and ABX Free 6 MO-64 YRS 2021-11-07 00:00:00 Completed [facility] Influenza Virus Vaccine Quad IM, Preserv and ABX Free 6 MO-64 YRS (FLUCELVAX) Unknown Completed [facility] TD, NOS Unknown Completed [facility] Influenza Virus Vaccine Quad IM, Preserv and ABX Free 6 MO-64 YRS (FLUCELVAX) Unknown Completed [facility] TD, NOS Unknown Completed [facility] Influenza Virus Vaccine Quad IM, Preserv and ABX Free 6 MO-64 YRS (FLUCELVAX) Unknown Completed [facility] TD, NOS Unknown Completed [facility] Influenza Virus Vaccine Quad IM, Preserv and ABX Free 6 MO-64 YRS (FLUCELVAX) Unknown Completed [facility] TD, NOS Unknown Completed [facility] Influenza Virus Vaccine Quad IM, Preserv and ABX Free 6 MO-64 YRS (FLUCELVAX) Unknown Completed [facility] TD, NOS Unknown Completed [facility] Influenza Virus Vaccine Quad IM, Preserv and ABX Free 6 MO-64 YRS (FLUCELVAX) Unknown Completed [facility] TD, NOS Unknown Completed [facility] Influenza Virus Vaccine Quad IM, Preserv and ABX Free 6 MO-64 YRS (FLUCELVAX) Unknown Completed [facility] TD, NOS Unknown Completed [facility] Influenza Virus Vaccine Quad IM, Preserv and ABX Free 6 MO-64 YRS (FLUCELVAX) Unknown Completed [facility] TD, NOS Unknown Completed [facility] Influenza Virus Vaccine Quad IM, Preserv and ABX Free 6 MO-64 YRS (FLUCELVAX) Unknown Completed [facility] TD, NOS Unknown Completed [facility] Influenza Virus Vaccine Quad IM, Preserv and ABX Free 6 MO-64 YRS (FLUCELVAX) Unknown Completed [facility] TD, NOS Unknown Completed [facility] Influenza Virus Vaccine Quad IM, Preserv and ABX Free 6 MO-64 YRS (FLUCELVAX) Unknown Completed [facility] TD, NOS Unknown Completed [facility] Influenza Virus Vaccine Quad IM, Preserv and ABX Free 6 MO-64 YRS (FLUCELVAX) Unknown Completed [facility] TD, NOS Unknown Completed [facility] Influenza Virus Vaccine Quad IM, Preserv and ABX Free 6 MO-64 YRS (FLUCELVAX) Unknown Completed [facility] TD, NOS Unknown Completed [facility] Influenza Virus Vaccine Quad IM, Preserv and ABX Free 6 MO-64 YRS (FLUCELVAX) Unknown Completed [facility] TD, NOS Unknown Completed [facility] Influenza Virus Vaccine Quad IM, Preserv and ABX Free 6 MO-64 YRS (FLUCELVAX) Unknown Completed [facility] TD, NOS Unknown Completed [facility] Influenza Virus Vaccine Quad IM, Preserv and ABX Free 6 MO-64 YRS (FLUCELVAX) Unknown Completed [facility] TD, NOS Unknown Completed [facility] Influenza Virus Vaccine Quad IM, Preserv and ABX Free 6 MO-64 YRS (FLUCELVAX) Unknown Completed [facility] TD, NOS Unknown Completed [facility] Influenza Virus Vaccine Quad IM, Preserv and ABX Free 6 MO-64 YRS (FLUCELVAX) Unknown Completed [facility] TD, NOS Unknown Completed [facility] Influenza Virus Vaccine Quad IM, Preserv and ABX Free 6 MO-64 YRS (FLUCELVAX) Unknown Completed [facility] TD, NOS Unknown Completed [facility] Influenza Virus Vaccine Quad IM, Preserv and ABX Free 6 MO-64 YRS (FLUCELVAX) Unknown Completed [facility] TD, NOS Unknown Completed [facility] Influenza Virus Vaccine Quad IM, Preserv and ABX Free 6 MO-64 YRS (FLUCELVAX) Unknown Completed [facility] TD, NOS Unknown Completed [facility] Influenza Virus Vaccine Quad IM, Preserv and ABX Free 6 MO-64 YRS (FLUCELVAX) Unknown Completed [facility] TD, NOS Unknown Completed [facility] Influenza Virus Vaccine Quad IM, Preserv and ABX Free 6 MO-64 YRS (FLUCELVAX) Unknown Completed [facility] TD, NOS Unknown Completed [facility] Influenza Virus Vaccine Quad IM, Preserv and ABX Free 6 MO-64 YRS (FLUCELVAX) Unknown Completed [facility] TD, NOS Unknown Completed [facility] Influenza Virus Vaccine Quad IM, Preserv and ABX Free 6 MO-64 YRS (FLUCELVAX) Unknown Completed [facility] TD, NOS Unknown Completed [facility] Influenza Virus Vaccine Quad IM, Preserv and ABX Free 6 MO-64 YRS (FLUCELVAX) Unknown Completed [facility] TD, NOS Unknown Completed [facility] Influenza Virus Vaccine Quad IM, Preserv and ABX Free 6 MO-64 YRS (FLUCELVAX) Unknown Completed [facility] TD, NOS Unknown Completed [facility] Influenza Virus Vaccine Quad IM, Preserv and ABX Free 6 MO-64 YRS (FLUCELVAX) Unknown Completed [facility] TD, NOS Unknown Completed [facility] Influenza Virus Vaccine Quad IM, Preserv and ABX Free 6 MO-64 YRS (FLUCELVAX) Unknown Completed [facility] TD, NOS Unknown Completed [facility] Influenza Virus Vaccine Quad IM, Preserv and ABX Free 6 MO-64 YRS (FLUCELVAX) Unknown Completed [facility] TD, NOS Unknown Completed [facility] Influenza Virus Vaccine Quad IM, Preserv and ABX Free 6 MO-64 YRS (FLUCELVAX) Unknown Completed [facility] TD, NOS Unknown Completed [facility] Influenza Virus Vaccine Quad IM, Preserv and ABX Free 6 MO-64 YRS (FLUCELVAX) Unknown Completed [facility] TD, NOS Unknown Completed [facility] Influenza Virus Vaccine Quad IM, Preserv and ABX Free 6 MO-64 YRS (FLUCELVAX) Unknown Completed [facility] TD, NOS Unknown Completed [facility] Influenza Virus Vaccine Quad IM, Preserv and ABX Free 6 MO-64 YRS (FLUCELVAX) Unknown Completed [facility] TD, NOS Unknown Completed [facility] Influenza Virus Vaccine Quad IM, Preserv and ABX Free 6 MO-64 YRS (FLUCELVAX) Unknown Completed [facility] TD, NOS Unknown Completed [facility] Influenza Virus Vaccine Quad IM, Preserv and ABX Free 6 MO-64 YRS (FLUCELVAX) Unknown Completed [facility] TD, NOS Unknown Completed [facility] Influenza Virus Vaccine Quad IM, Preserv and ABX Free 6 MO-64 YRS (FLUCELVAX) Unknown Completed [facility] TD, NOS Unknown Completed [facility] Influenza Virus Vaccine Quad IM, Preserv and ABX Free 6 MO-64 YRS (FLUCELVAX) Unknown Completed [facility] TD, NOS Unknown Completed [facility] Influenza Virus Vaccine Quad IM, Preserv and ABX Free 6 MO-64 YRS (FLUCELVAX) Unknown Completed [facility] TD, NOS Unknown Completed [facility] Influenza Virus Vaccine Quad IM, Preserv and ABX Free 6 MO-64 YRS (FLUCELVAX) Unknown Completed [facility] TD, NOS Unknown Completed [facility] Influenza Virus Vaccine Quad IM, Preserv and ABX Free 6 MO-64 YRS (FLUCELVAX) Unknown Completed [facility] TD, NOS Unknown Completed [facility] Influenza Virus Vaccine Quad IM, Preserv and ABX Free 6 MO-64 YRS (FLUCELVAX) Unknown Completed [facility] TD, NOS Unknown Completed [facility] Influenza Virus Vaccine Quad IM, Preserv and ABX Free 6 MO-64 YRS (FLUCELVAX) Unknown Completed [facility] TD, NOS Unknown Completed [facility] Influenza Virus Vaccine Quad IM, Preserv and ABX Free 6 MO-64 YRS (FLUCELVAX) Unknown Completed [facility] TD, NOS Unknown Completed [facility] Influenza Virus Vaccine Quad IM, Preserv and ABX Free 6 MO-64 YRS (FLUCELVAX) Unknown Completed [facility] TD, NOS Unknown Completed [facility] Influenza Virus Vaccine Quad IM, Preserv and ABX Free 6 MO-64 YRS (FLUCELVAX) Unknown Completed [facility] TD, NOS Unknown Completed [facility] Influenza Virus Vaccine Quad IM, Preserv and ABX Free 6 MO-64 YRS (FLUCELVAX) Unknown Completed [facility] TD, NOS Unknown Completed [facility] Influenza Virus Vaccine Quad IM, Preserv and ABX Free 6 MO-64 YRS (FLUCELVAX) Unknown Completed [facility] TD, NOS Unknown Completed [facility] Influenza Virus Vaccine Quad IM, Preserv and ABX Free 6 MO-64 YRS (FLUCELVAX) Unknown Completed [facility] TD, NOS Unknown Completed [facility] Vital Signs Vital Name Observation Time Observation Value Comments S ource Systolic blood pressure 2023-12-26 14:19:00 139 mm[Hg] [facility] Diastolic blood pressure 2023-12-26 14:19:00 60 mm[Hg] [facility] Heart rate 2023-12-26 14:19:00 62 /min [facility] Body temperature 2023-12-26 14:19:00 36.06 [facility] Respiratory rate 2023-12-26 14:19:00 18 /min [facility] Body height 2023-12-26 14:19:00 160 cm [facility] Body weight 2023-12-26 14:19:00 92.262 kg [facility] BMI 2023-12-26 14:19:00 36.03 kg/m2 [facility] Oxygen saturation in Arterial blood by Pulse oximetry 2023-12-26 14:19:00 96 /min [facility] Systolic blood pressure 2023-11-27 19:56:00 152 mm[Hg] [facility] Diastolic blood pressure 2023-11-27 19:56:00 72 mm[Hg] [facility] Heart rate 2023-11-27 19:55:00 68 /min [facility] Body temperature 2023-11-27 19:55:00 37 [facility] Body height 2023-11-27 19:55:00 165.1 cm [facility] Body weight 2023-11-27 19:55:00 89.812 kg [facility] BMI 2023-11-27 19:55:00 32.95 kg/m2 [facility] Oxygen saturation in Arterial blood by Pulse oximetry 2023-11-27 19:55:00 96 /min [facility] Systolic blood pressure 2023-10-14 14:39:00 131 mm[Hg] [facility] Diastolic blood pressure 2023-10-14 14:39:00 74 mm[Hg] [facility] Heart rate 2023-10-14 14:39:00 64 /min [facility] Body height 2023-10-14 14:39:00 165.1 cm [facility] Body weight 2023-10-14 14:39:00 90.13 kg [facility] BMI 2023-10-14 14:39:00 33.07 kg/m2 [facility] Oxygen saturation in Arterial blood by Pulse oximetry 2023-10-14 14:39:00 95 /min [facility] Systolic blood pressure 2023-09-16 14:48:00 162 mm[Hg] [facility] Diastolic blood pressure 2023-09-16 14:48:00 71 mm[Hg] [facility] Heart rate 2023-09-16 14:48:00 69 /min [facility] Respiratory rate 2023-09-16 14:48:00 18 /min [facility] Oxygen saturation in Arterial blood by Pulse oximetry 2023-09-16 14:48:00 97 /min [facility] Body temperature 2023-09-16 14:46:00 36.67 [place] [facility] Body height 2023-09-16 14:46:00 165.1 cm [facility] Body weight 2023-09-16 14:46:00 85.004 kg [facility] BMI 2023-09-16 14:46:00 31.18 kg/m2 [facility] Respiratory rate 2023-07-19 17:36:00 18 /min [facility] Oxygen saturation in Arterial blood by Pulse oximetry 2023-07-19 17:36:00 99 /min [facility] Systolic blood pressure 2023-07-19 17:33:00 162 mm[Hg] [facility] Diastolic blood pressure 2023-07-19 17:33:00 75 mm[Hg] [facility] Heart rate 2023-07-19 17:33:00 61 /min [facility] Body temperature 2023-07-19 17:33:00 36 [place] [facility] Body weight 2023-07-19 09:02:00 83.961 kg [facility] BMI 2023-07-19 09:02:00 30.80 kg/m2 [facility] 2023-07-16 13:02:00 165.1 cm [facility] Systolic blood pressure 2023-05-20 14:27:00 133 mm[Hg] [facility] Diastolic blood pressure 2023-05-20 14:27:00 78 mm[Hg] [facility] Heart rate 2023-05-20 14:27:00 61 /min [facility] Respiratory rate 2023-05-20 14:27:00 19 /min [facility] Body height 2023-05-20 14:27:00 165.1 cm [facility] Body weight 2023-05-20 14:27:00 82.781 kg [facility] BMI 2023-05-20 14:27:00 30.37 kg/m2 [facility] Oxygen saturation in Arterial blood by Pulse oximetry 2023-05-20 14:27:00 94 /min [facility] Systolic blood pressure 2022-02-08 13:53:00 181 mm[Hg] [facility] Diastolic blood pressure 2022-02-08 13:53:00 77 mm[Hg] [facility] Heart rate 2022-02-08 13:53:00 71 /min [facility] Body temperature 2022-02-08 13:53:00 37.39 [place] [facility] Respiratory rate 2022-02-08 13:53:00 18 /min [facility] Body height 2022-02-08 13:53:00 165.1 cm [facility] Body weight 2022-02-08 13:53:00 86.183 kg [facility] BMI 2022-02-08 13:53:00 31.62 kg/m2 [facility] Oxygen saturation in Arterial blood by Pulse oximetry 2022-02-08 13:53:00 95 /min [facility] Procedures Procedure Date / Time Performed Performing Clinician Source RENAL ARTERY DUPLEX - BY VASCULAR LAB 2023-12-30 14:38:00 Aye Mcintyre [facility] US RETROPERITONEAL COMPLETE 2023-12-20 16:43:37 Requisition, Paper [facility] BI ULTRASOUND BREAST LIMITED LEFT 2023-12-18 13:35:04 Requisition, Paper [facility] BI DIAGNOSTIC TOMOSYNTHESIS LEFT 2023-12-18 13:19:09 Requisition, Paper [facility] AORTOILIAC DUPLEX - BY VASCULAR LAB 2023-11-12 17:02:39 Aey Mcintyre [facility] TRANSTHORACIC ECHO (TTE) COMPLETE 2023-11-12 13:48:13 Aye Mcintyre [facility] MEDICAL RELEASE/CLEARANCE FORMS 2023-10-16 06:01:00 Doctor Unassigned, [place] [facility] HEAD NECK 2023-08-01 16:16:00 Requisition, Paper [facility] 2023-07-19 09:06:00 Mame Figueroa [facility] BASIC METABOLIC PANEL (NA, K, CL, CO2, GLUCOSE, BUN, CREATININE, CA) 2023-07-19 09:06:00 Mame Figueroa [facility] CBC WITH DIFF 2023-07-19 09:06:00 Mame Figueroa [facility] CT THORAX WO CONTRAST 2023-07-16 07:42:25 Saurabh Mcdonough [facility] HB ECG ROUTINE & RHYTHM STRIP 2023-07-16 06:52:15 [facility] XR CHEST 1 VW 2023-07-16 05:52:01 Saurabh Mcdonough [facility] LIPASE 2023-07-16 05:41:00 Saurabh Mcdonough [facility] TROPONIN I 2023-07-16 05:41:00 Saurabh Mcdonough [facility] HEPATIC FUNCTION PANEL (63943) (ALB,T.PRO,BILI T,BU/BC,ALT,AST,ALK PHOS) 2023-07-16 05:41:00 Saurabh Mcdonough [facility] BASIC METABOLIC PANEL (NA, K, CL, CO2, GLUCOSE, BUN, CREATININE, CA) 2023-07-16 05:41:00 Saurabh Mcdonough [facility] CBC WITH DIFF 2023-07-16 05:41:00 Saurabh Mcdonough [facility] D-DIMER 2023-07-16 05:41:00 [facility]B 2023-07-16 05:41:00 [facility]abh [facility]cd[facility]ough [facility] N-TERMINAL PRO-BNP 2023-07-16 05:41:00 Saurabh Mcdonough [facility] COVID-19 (ID NOW RAPID TESTING) 2023-07-16 05:41:00 Saurabh Mcdonough [facility] LAB ONLY COVID INTERPRETATION 2023-07-16 05:41:00 Saurabh Mcdonough [facility] NOTICE OF PRIVACY PRACTICES 2023-07-16 05:00:48 Doctor Unassigned, [place] [facility] CONSENT/REFUSAL FOR DIAGNOSIS AND TREATMENT 2023-07-16 04:56:55 Doctor Unassigned, [place] [facility] PATIENT QUESTIONNAIRE 2023-05-20 05:01:00 Doctor Unassigned, [place] [facility] XR CHEST 2 VW 2023-04-29 13:19:23 Willis Chavis Un [facility] PHYSICIAN ORDERS 2023-04-05 05:01:00 Doctor Unas signed, [place] [facility] PHYSICIAN ORDERS 2023-01-30 05:01:00 Doctor Unas signed, [place] [facility] MR ABDOMEN W WO CONTRAST MRCP 2022-11-29 16:07:56 Willis Chavis [facility] ASSIGNMENT OF BENEFITS 2022-11-29 14:28:09 Docto r Unassigned, [place] [facility] PHYSICIAN ORDERS 2022-11-01 05:01:00 Doctor Otilia signed, [place] [facility] MR ABDOMEN WO CONTRAST MRCP 2022-08-08 16:45:23 Willis Chavis [facility] AUTHORIZATION FOR RELEASE OF PHI 2022-07-27 06:01:00 Doctor Unassigned, [place] [facility] PHYSICIAN ORDERS 2022-07-12 06:01:00 Doctor Unas signed, [place] [facility] US ABDOMEN COMPLETE 2022-06-20 16:34:00 Requisition, P aper [facility] NOTICE OF PRIVACY PRACTICES 2022-02-08 13:50:09 Doctor Unassigned, [place] [facility] CONSENT/REFUSAL FOR DIAGNOSIS AND TREATMENT 2022-02-08 13:49:07 Doctor Unassigned, [place] [facility] XR CHEST 2 VW 2022-01-10 13:35:30 Requisition, Paper [facility] Encounters Start Date/Time End Date/Time Encounter Type Admission Type Attending [facility] Facility Care Department Encounter ID Source 2024-01-20 08:32:01 2024-01-20 08:32:01 Outpatient SFA [facility] [id number] Kenny Lazo 2024-01-13 00:00:00 2024-01-13 11:00:20 Telephone Aye Mcintyre [facility] 1.2.840.114 350.1.13.10 4.2.7.2.686 [id number] [facility] 2023-12-30 08:40:43 2023-12-30 23:59:00 Hospital Encounter Aye Mcintyre [facility] 1.2.840.114 350.1.13.10 4.2.7.2.686 [id number] [facility] 2023-12-30 00:00:00 2023-12-30 16:07:00 Telephone Yanique Velazquez [facility] 1.2.840.114 350.1.13.10 4.2.7.2.686 [id number] [facility] 2023-12-30 08:30:00 2023-12-30 08:39:00 Outpatient R AYE MCINTYRE [facility] [id number] [facility] 2023-12-30 08:30:00 2023-12-30 08:39:00 Hospital En[facility] 1.2.840.114 350.1.13.10 4.2.7.2.686 [id number] [facility] 2023-12-26 09:30:00 2023-12-26 09:51:38 Out[facility] R [facility] [id number] [facility] 2023-12-26 09:30:00 2023-12-26 09:51:38 Office Visit Ita Gomez [facility] 1.2.840.114 350.1.13.10 4.2.7.2.686 [id number] [facility] 2023-12-20 10:57:32 2023-12-20 23:59:00 Outpatient R RADIOLOGY [facility] [id number] [facility] 2023-12-20 10:57:32 2023-12-20 23:59:00 Hospital Encounter Radiology [facility] 1.2.840.114 350.1.13.10 4.2.7.2.686 [id number] [facility] 2023-12-18 07:22:41 2023-12-18 23:59:00 Outpatient R RADIOLOGY [facility] [id number] [facility] 2023-12-18 07:22:41 2023-12-18 23:59:00 Hospital Encounter Radiology [facility] 1.2.840.114 350.1.13.10 4.2.7.2.686 [id number] [facility] 2023-12-18 07:22:32 2023-12-18 23:59:00 Hospital Encounter Radiology [facility] 1.2.840.114 350.1.13.10 4.2.7.2.686 [id number] [facility] 2023-12-13 08:58:40 2023-12-13 08:58:40 Outpatient SFA [facility] [id number] Kenny Lazo 2023-12-13 08:00:00 2023-12-13 08:00:00 Outpatient AYE BRADLEY [facility] [id number] [facility] 2023-12-13 00:00:00 2023-12-13 00:00:00 Telephone Aye Mcintyre [facility] 1..840.114 350.1.13.10 4.2.7.2.686 [id number] [facility] 2023-12-11 05:26:00 2023-12-11 05:26:00 Outpatient Willis Hern[facility]dez [facility] [id number] 57 [facility] 2023-12-03 09:00:00 2023-12-03 09:00:00 Outpatient AYE BRADLEY [facility] [id number] [facility] 2023-12-03 00:00:00 2023-12-03 00:00:00 Telephone Aye Mcintyre [facility] 1..840.114 350.1.13.10 4.2.7.2.686 [id number] [facility] 2023-11-28 13:00:00 2023-11-28 14:55:20 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 Visit Therapist, Ita Coffman [facility] 1.2.840.114 350.1.13.10 4.2.7.2.686 [id number] [facility] 2023-11-28 13:00:00 2023-11-28 13:00:00 Outpatient R ITA GOMEZ SHIWAN [facility] [id number] [facility] 2023-11-27 15:00:00 2023-11-27 15:25:58 Outpatient R AYE MCINTYRE [facility] [id number] [facility] 2023-11-27 15:00:00 2023-11-27 15:25:58 Office Visit [facility]int[facility]e [facility] 1.2.840.114 350.1.13.10 4.2.7.2.686 [id number] [facility] 2023-11-22 09:35:24 2023-11-22 23:59:00 Outpatient R RADIOLOGY [facility] [id number] [facility] 2023-11-22 09:35:24 2023-11-22 23:59:00 Hospital Encounter Radiology [facility] 1.2.840.114 350.1.13.10 4.2.7.2.686 [id number] [facility] 2023-11-19 00:00:00 2023-11-19 00:00:00 Telephone Aye Mcintyre [facility] 1.2.840.114 350.1.13.10 4.2.7.2.686 [id number] [facility] 2023-11-18 00:00:00 2023-11-18 00:00:00 Telephone Aye Mcintyre [facility] 1.2.840.114 350.1.13.10 4.2.7.2.686 [id number] [facility] 2023-11-12 08:55:02 2023-11-12 23:59:00 Hospital Encounter Aye Mcintyre [facility] 1.2.840.114 350.1.13.10 4.2.7.2.686 [id number] [facility] 2023-11-12 07:34:05 2023-11-12 08:54:00 Outpatient R AYE MCINTYRE [facility] [id number] [facility] 2023-11-12 07:34:05 2023-11-12 08:54:00 Hospital Encounter Aye Mcintyre [facility] 1..840.114 350.1.13.10 4.2.7.2.686 [id number] [facility] 2023-11-08 15:46:41 2023-11-08 15:46:41 Outpatient SFA [facility] [id number] Kenny Lazo 2023-11-01 09:47:18 2023-11-01 09:47:18 Outpatient SFA [facility] [id number] Kenny Lazo 2023-10-30 15:12:48 2023-10-30 15:12:48 Outpatient SFA [facility] [id number] Kenny Lazo 2023-10-28 15:44:18 2023-10-28 23:59:00 Outpatient R WILLIS CHAVIS [facility] [id number] [facility] 2023-10-28 15:44:18 2023-10-28 23:59:00 Hospital Encounter Willis Chavis [facility] 1..840.114 350.1.13.10 4.2.7.2.686 [id number] [facility] 2023-10-28 00:00:00 2023-10-28 00:00:00 Telephone Aye Mcintyre [facility] 1.2.840.114 350.1.13.10 4.2.7.2.686 [id number] [facility] 2023-10-27 00:00:00 2023-10-27 00:00:00 Refill Aye Mcintyre [facility] 1.2.840.114 350.1.13.10 4.2.7.2.686 [id number] [facility] 2023-10-16 00:00:00 2023-10-16 00:00:00 Telephone Aye Mcintyre [facility] 1.2.840.114 350.1.13.10 4.2.7.2.686 [id number] [facility] 2023-10-16 00:00:00 2023-10-16 00:00:00 Orders Only Doctor Unassigned, [place] [facility] 1.2.840.114 350.1.13.10 4.2.7.2.686 [id number] [facility] 2023-10-14 09:00:00 2023-10-14 09:28:52 Outpatient R ITA GOMEZ SHIWAN [facility] [id number] [facility] 2023-10-14 09:00:00 2023-10-14 09:28:52 Office Visit Ita Gomez [facility] 1.2.840.114 350.1.13.10 4.2.7.2.686 [id number] [facility] 2023-10-02 00:00:00 2023-10-02 00:00:00 Telephone Aye Mcintyre [facility] 1.2.840.114 350.1.13.10 4.2.7.2.686 [id number] [facility] 2023-09-16 09:00:00 2023-09-16 09:25:29 Outpatient R AYE MCINTYRE [facility] [id number] [facility] 2023-09-16 09:00:00 2023-09-16 09:25:29 Office Visit Aye Mcintyre [facility] 1.2.840.114 350.1.13.10 4.2.7.2.686 [id number] [facility] 2023-09-09 15:35:20 2023-09-09 15:35:20 Outpatient S[facility] [id number] Kenny Lazo 2023-09-09 00:00:00 2023-09-09 00:00:00 Telephone Aye Mcintyre [facility] 1.2.840.114 350.1.13.10 4.2.7.2.686 [id number] [facility] 2023-08-06 08:56:27 2023-08-06 08:56:27 Outpatient SFA [facility] [id number] Kenny Lazo 2023-08-01 09:44:54 2023-08-01 23:59:00 Outpatient R RADIOLOGY [facility] [id number] [facility] 2023-08-01 09:44:54 2023-08-01 23:59:00 Hospital Encounter Radiology [facility] 1.284.114 350.1.13.10 4.2.7.2.686 [id number] [facility] 2023-07-29 07:55:06 2023-07-29 07:55:06 Outpatient SFA [facility] [id number] Kenny Lazo 2023-07-26 00:00:00 2023-07-26 00:00:00 Patient Secure Msg Doctor Unassigned, [place] [facility] 1.284.114 350.1.13.10 4.2.7.2.686 [id number] [facility] 2023-07-25 11:20:45 2023-07-25 11:20:45 Outpatient SFA [facility] [id number] Kenny Lazo 2023-07-22 16:21:32 2023-07-22 16:21:32 Outpatient SFA [facility] [id number] Kenny Lazo 2023-07-22 00:00:00 2023-07-22 00:00:00 Transition of Care Lior Vo 1..840.114 350.1.13.10 4.2.7.2.686 [id number] [facility] 2023-07-15 23:07:00 2023-07-19 14:10:00 Inpatient X ANUM MEJIA [facility] YOLETTE [id number] [facility] 2023-07-15 23:07:00 2023-07-19 14:10:00 Hospital Encounter Saurabh Mcdonough Mohammad A. [facility] .840.114 350.1.13.10 4.2.7.2.686 [id number] [facility] 2023-07-09 09:52:01 2023-07-09 09:52:01 Outpatient SFA [facility] [id number] Kenny Lazo 2023-07-03 00:00:00 2023-07-03 00:00:00 Telephone Aye Mcintyre [facility] ..840.114 350.1.13.10 4.2.7.2.686 [id number] [facility] 2023-06-08 00:00:00 2023-06-08 00:00:00 Outpatient GC_GCBZW_Ka diyala_S PRIV PRIV [id number] [facility] 2023-05-21 00:00:00 2023-05-21 00:00:00 Telephone Aye Mcintyre [facility] 1..840.114 350.1.13.10 4.2.7.2.686 [id number] [facility] 2023-05-20 10:00:00 2023-05-20 10:15:00 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 Visit 2, Adc Lab Aye Mcintyre [facility] 1.2.840.114 350.1.13.10 4.2.7.2.686 [id number] [facility] 2023-05-20 09:00:00 2023-05-20 09:57:42 Outpatient R AYE MCINTYRE [facility] [id number] [facility] 2023-05-20 09:00:00 2023-05-20 09:57:42 Office Visit Aye Mcnityre [facility] 1..840.114 350.1.13.10 4.2.7.2.686 [id number] [facility] 2023-05-20 00:00:00 2023-05-20 00:00:00 Orders Only Doctor Unassigned, [place] [facility] 1.840.114 350.1.13.10 4.2.7.2.686 [id number] [facility] 2023-05-01 13:39:13 2023-05-01 13:39:13 Outpatient SFA SHANI [id number] Kenny F Clifton 2023-04-29 08:01:09 2023-04-29 23:59:00 Outpatient R WILLIS CHAVIS [facility] [id number] [facility] 2023-04-29 08:00:00 2023-04-29 23:59:00 Hospital Encounter Willis Chavis [facility] 1.284.114 350.1.13.10 4.2.7.2.686 [id number] [facility] 2023-04-23 16:01:40 2023-04-23 16:01:40 Outpatient SFA SFA [id number] Kenny Lazo 2023-04-05 10:15:00 2023-04-05 10:30:00 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 Visit Pob, 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 Willis Chavis [facility] 1.2.840.114 350.1.13.10 4.2.7.2.686 [id number] [facility] 2023-04-05 10:15:00 2023-04-05 10:15:00 Outpatient R CHAVIS [facility] [id number] [facility] 2023-04-05 00:00:00 2023-04-05 00:00:00 Orders Only Doctor Unassigned, [place] [facility] 1.2840.114 350.1.13.10 4.2.7.2.686 [id number] [facility] 2023-01-30 08:30:00 2023-01-30 08:45:00 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 Visit Pob, 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 Russ [facility] 1.2.840.114 350.1.13.10 4.2.7.2.686 [id number] [facility] 2023-01-30 08:30:00 2023-01-30 08:30:00 Outpatient Ricky APODACA [facility] [id number] [facility] 2023-01-30 00:00:00 2023-01-30 00:00:00 Orders Only Doctor Unassigned, [place] [facility] 1.840.114 350.1.13.10 4.2.7.2.686 [id number] [facility] 2022-12-28 13:52:39 2022-12-28 13:52:39 Outpatient SFA [facility] [id number] Kenny Lazo 2022-11-29 09:29:29 2022-11-29 23:59:00 Outpatient R CHAVIS [facility] [id number] [facility] 2022-11-29 09:29:29 2022-11-29 23:59:00 Hospital Encounter Génesis [facility] 1.0.114 350.1.13.10 4.2.7.2.686 [id number] [facility] 2022-11-29 00:00:00 2022-11-29 00:00:00 Orders Only Doctor Unassigned, [place] [facility] 1.0.114 350.1.13.10 4.2.7.2.686 [id number] [facility] 2022-11-01 08:30:00 2022-11-01 08:45:00 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 Visit Pob, 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 Sita At[facility] 1..114 350.1.13.10 4.2.7.2.686 [id number] [facility] 2022-11-01 08:30:00 2022-11-01 08:30:00 Outpatient Ricky ATKINSON [facility] [id number] [facility] 2022-11-01 00:00:00 2022-11-01 00:00:00 Orders Only Doctor Unassigned, [place] [facility] 1.2.114 350.1.13.10 4.2.7.2.686 [id number] [facility] 2022-08-08 08:48:43 2022-08-08 23:59:00 Outpatient Ricky CHAVIS [facility] [id number] [facility] 2022-08-08 08:48:43 2022-08-08 23:59:00 Hospital Encounter Génesis [facility] 1..114 350.1.13.10 4.2.7.2.686 [id number] [facility] 2022-08-02 07:40:44 2022-08-02 23:59:00 Outpatient R RADIOLOGY [facility] [id number] [facility] 2022-08-02 07:40:44 2022-08-02 23:59:00 Hospital Encounter Radiology [facility] 1.2840.114 350.1.13.10 4.2.7.2.686 [id number] [facility] 2022-07-27 00:00:00 2022-07-27 00:00:00 Orders Only Doctor Unassigned, [place] [facility] 1.20.114 350.1.13.10 4.2.7.2.686 [id number] [facility] 2022-07-12 09:15:00 2022-07-12 09:30:00 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 Visit Pob, 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 Russ [facility] 1.840.114 350.1.13.10 4.2.7.2.686 [id number] [facility] 2022-07-12 09:15:00 2022-07-12 09:15:00 Outpatient R RUSS [facility] [id number] [facility] 2022-07-12 00:00:00 2022-07-12 00:00:00 Orders Only Doctor Unassigned, [place] [facility] 1.2.114 350.1.13.10 4.2.7.2.686 [id number] [facility] 2022-06-20 09:29:41 2022-06-20 23:59:00 Outpatient R RADIOLOGY [facility] [id number] [facility] 2022-06-20 09:29:41 2022-06-20 23:59:00 Hospital Encounter Radiology [facility] 1.20.114 350.1.13.10 4.2.7.2.686 [id number] [facility] 2022-05-09 09:00:00 2022-05-09 09:00:00 Outpatient R AYE MCINTYRE [facility] [id number] [facility] 2022-05-09 09:00:00 2022-05-09 09:00:00 Outpatient R AYE MCINTYRE [facility] [id number] [facility] 2022-05-09 09:00:00 2022-05-09 09:00:00 [facility] [id number] [facility] 2022-02-08 08:56:00 2022-02-08 09:39:00 Emergency X JAMARI STRINGER [facility] [id number] [facility] 2022-02-08 08:56:00 2022-02-08 09:39:00 Emergency Jamari Stringer [facility] 1..840.114 350.1.13.10 4.2.7.2.686 [id number] [facility] 2022-01-10 08:09:31 2022-01-10 23:59:00 Outpatient R RADIOLOGY [facility] [id number] [facility] 2022-01-10 08:09:31 2022-01-10 23:59:00 Hospital Encounter Radiology [facility] 1..840.114 350.1.13.10 4.2.7.2.686 [id number] [facility] 2021-11-16 00:00:00 2021-11-16 00:00:00 Telephone Aye Mcintyre [facility] 1..840.114 350.1.13.10 4.2.7.2.686 [id number] [facility] 2021-11-16 00:00:2021-11-16 00:00:00 Telephone Aye Mcintyre [facility] 1.840.114 350.1.13.10 4.2.7.2.686 [id number] [facility] 2021-11-13 08:30:00 2021-11-13 08:45:00 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 Visit Pob, 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 Aye Mcintyre [facility] 1.84.114 350.1.13.10 4.2.7.2.686 [id number] [facility] 2021-11-13 08:30:00 2021-11-13 08:30:00 Outpatient R AYE MCINTYRE [facility] [id number] [facility] 2021-11-13 08:30:00 2021-11-13 08:30:00 Outpatient R AYE MCINTYRE [facility] [id number] [facility] 2021-11-07 09:00:00 2021-11-07 09:27:00 Outpatient R AYE MCINTYRE [facility] [id number] [facility] 2021-11-07 09:00:00 2021-11-07 09:27:00 Office Visit Aye Mcintyre [facility] 1.840.114 350.1.13.10 4.2.7.2.686 [id number] [facility] 2021-11-07 09:00:00 2021-11-07 09:27:00 Outpatient R AYE MCINTYRE [facility] [id number] [facility] 2021-11-07 00:00:00 2021-11-07 00:00:00 Orders Only Doctor Unassigned, [place] [facility] 1.840.114 350.1.13.10 4.2.7.2.686 [id number] [facility] 2021-09-26 00:00:00 2021-09-26 00:00:00 Telephone Aye Mcintyre [facility] 1.2.840.114 350.1.13.10 4.2.7.2.686 [id number] [facility] 2021-09-15 09:45:00 2021-09-15 10:00:00 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 Visit Pob, 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 Aye Mcintyre [facility] 1.2.840.114 350.1.13.10 4.2.7.2.686 [id number] [facility] 2021-09-15 09:45:00 2021-09-15 09:45:00 Outpatient R AYE MCINTYRE [facility] [id number] [facility] 2021-09-15 09:45:00 2021-09-15 09:45:00 Outpatient R AYE MCINTYRE [facility] [id number] [facility] 2021-09-15 00:00:00 2021-09-15 00:00:00 Orders Only Doctor Unassigned, [place] [facility] 1.2.840.114 350.1.13.10 4.2.7.2.686 [id number] [facility] 2021-09-01 00:00:00 2021-09-01 00:00:00 Orders Only Doctor Unassigned, [place] [facility] 1.2.840.114 350.1.13.10 4.2.7.2.686 [id number] [facility] 2021-07-10 09:00:00 2021-07-10 09:24:24 Outpatient R AYE MCINTYRE [facility] [id number] [facility] 2021-07-10 09:00:00 2021-07-10 09:24:24 Office Visit Aye Mcintyre [facility] 1.2.840.114 350.1.13.10 4.2.7.2.686 [id number] [facility] 2021-07-10 00:00:00 2021-07-10 00:00:00 Refill Aye Mcintyre [facility] 1.2.840.114 350.1.13.10 4.2.7.2.686 [id number] [facility] 2021-04-10 00:00:00 2021-04-10 00:00:00 Telephone Aye Mcintyre [facility] 1.2.840.114 350.1.13.10 4.2.7.2.686 [id number] [facility] 2021-03-21 00:00:00 2021-03-21 00:00:00 Telephone Aye Mcintyre [facility] 1.2.840.114 350.1.13.10 4.2.7.2.686 [id number] [facility] 2021-03-08 14:53:40 2021-03-08 15:32:09 Office Visit Aye Mcintyre [facility] 1.2.840.114 350.1.13.10 4.2.7.2.686 [id number] [facility] 2021-03-08 15:00:00 2021-03-08 15:00:00 Outpatient R YAE MCINTYRE [facility] [id number] [facility] 2021-02-28 00:00:00 2021-02-28 00:00:00 Orders Only Doctor Unassigned, [place] [facility] 1.2840.114 350.1.13.10 4.2.7.2.686 [id number] [facility] 2021-01-24 08:00:00 2021-01-24 08:00:00 Outpatient R AYE MCINTYRE [facility] [id number] [facility] 2021-01-24 07:43:37 2021-01-24 07:43:37 Hospital Encounter Aye Mcintyre [facility] 1.2.840.114 350.1.13.10 4.2.7.2.686 [id number] [facility] 2021-01-24 07:43:23 2021-01-24 07:43:23 Hospital Encounter Aye Mcintyre [facility] 1.2.840.114 350.1.13.10 4.2.7.2.686 [id number] [facility] 2021-01-24 07:43:11 2021-01-24 07:43:11 Hospital Encounter Aye Mcintyre [facility] 1.2.840.114 350.1.13.10 4.2.7.2.686 [id number] [facility] 2021-01-24 07:42:56 2021-01-24 07:42:56 Hospital Encounter Aye Mcintyre [facility] 1.2.840.114 350.1.13.10 4.2.7.2.686 [id number] [facility] 2021-01-11 14:19:10 2021-01-11 15:18:58 Office Visit Aye Mcintyre [facility] 1.2.840.114 350.1.13.10 4.2.7.2.686 [id number] [facility] 2021-01-11 14:30:00 2021-01-11 14:30:00 Outpatient R AYE MCINTYRE [facility] [id number] [facility] 2020-11-25 00:00:00 2020-11-25 00:00:00 Orders Only Doctor Unassigned, [place] [facility] 1.2.840.114 350.1.13.10 4.2.7.2.686 [id number] [facility] 2020-10-25 07:44:35 2020-10-25 23:59:00 Hospital Encounter Radiology [facility] 1.2.840.114 350.1.13.10 4.2.7.2.686 [id number] [facility] 2020-10-25 07:47:08 2020-10-25 08:02:08 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 Visit Pob, 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 Sita Atkinson [facility] 1.2840.114 350.1.13.10 4.2.7.2.686 [id number] [facility] 2020-10-25 00:00:00 2020-10-25 00:00:00 Outpatient R RADIOLOGY [facility] [id number] [facility] 2020-10-24 00:00:00 2020-10-24 00:00:00 Orders Only Doctor Unassigned, [place] [facility] 1.2.840.114 350.1.13.10 4.2.7.2.686 [id number] [facility] 2020-10-18 12:30:07 2020-10-18 23:59:00 Hospital Encounter Radiology [facility] 1.2.840.114 350.1.13.10 4.2.7.2.686 [id number] [facility] 2020-10-18 00:00:00 2020-10-18 00:00:00 Outpatient R RADIOLOGY [facility] [id number] [facility] 2020-09-22 10:30:00 2020-09-22 10:30:00 Outpatient R GÉNESIS [facility] [id number] [facility] 2020-09-22 09:54:07 2020-09-22 10:09:07 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 Visit Pob, 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 Génesis [facility] 1.2.840.114 350.1.13.10 4.2.7.2.686 [id number] [facility] 2020-09-15 11:00:00 2020-09-15 11:00:00 Outpatient R JAC MARLOW [facility] [id number] [facility] 2020-09-15 00:00:00 2020-09-15 00:00:00 Orders Only Doctor Unassigned, [place] [facility] 1.2.840.114 350.1.13.10 4.2.7.2.686 [id number] [facility] 2020-09-05 12:36:55 2020-09-05 23:59:00 Hospital Encounter Génesis [facility] 1.2.840.114 350.1.13.10 4.2.7.2.686 [id number] [facility] 2020-09-05 12:36:08 2020-09-05 23:59:00 Hospital Encounter Génesis [facility] 1.2.840.114 350.1.13.10 4.2.7.2.686 [id number] [facility] 2020-09-05 00:00:00 2020-09-05 00:00:00 Outpatient R GÉNESIS [facility] [id number] [facility] 2019-10-19 08:16:52 2019-10-19 23:59:00 Outpatient R GÉNESIS [facility] [id number] [facility] 2019-10-19 08:16:00 2019-10-19 23:59:00 Hospital Encounter Willis Chavis [facility] 1.2.840.114 350.1.13.10 4.2.7.2.686 [id number] [facility] 2019-10-19 00:00:00 2019-10-19 00:00:00 Orders Only Doctor Unassigned, [place] [facility] 1.2.840.114 350.1.13.10 4.2.7.2.686 [id number] [facility] Results Test Description Test Time Test Comments Results Result Comments Source US RETROPERITONEAL COMPLETE 17:20:49 EXAM: US RETROPERITONEAL COMPLETE HISTORY: Left flank pain ?x 1 week COMPARISON: MRI dated 11/29/2022 FINDINGS: The right kidney measures 11.6 x 5.3 x 5.1 cm. The left kidney sbbdqmif05.8 x 5.6 x 5.8 cm. There is no mass, calculus or hydronephrosis. Therenal parenchymal echogenicity is normal. The bladder is unremarkable. [facility] BI ULTRASOUND BREAST LIMITED LEFT 13:54:25 Examination:BI DIAGNOSTIC TOMOSYNTHESIS LEFTBI ULTRASOUND BREAST LIMITED LEFT History:Patient is 68 year old and is seen for: ?Other abnormal and inconclusive findings on diagnostic imaging of breast. Computer-aided detection (CAD) utilized. Comparisons: 11/22/2023 BI SCREENING TOMOSYNTHESIS BILATERAL and 08/02/2022 BI SCREENING TOMOSYNTHESIS BILATERAL Findings:LeftBI DIAGNOSTIC TOMOSYNTHESIS LEFTThe left breast has scattered areas of fibroglandular density. There is no evidence of suspicious masses, calcifications, or other abnormal findings in the left breast. The mammographic asymmetry noted at recent screening mammography did not persist with additional imaging and is consistent with superimposition of normal breast tissue. BI ULTRASOUND BREAST LIMITED LEFTTargeted ultrasound was performed. There is no evidence of suspicious masses or other abnormal findings in the lateral left breast.Ultrasound of the axilla demonstrates morphologically normal lymph nodes. Impression:No evidence of malignancy. Recommendation:Maddie al mammographic follow-upThese findings and recommendations were discussed in detail with the patient at the time of this exam. BI-RADS Category: Left 1 - Negative [facility] BI DIAGNOSTIC TOMOSYNTHESIS LEFT 13:54:25 Examination:BI DIAGNOSTIC TOMOSYNTHESIS LEFTBI ULTRASOUND BREAST LIMITED LEFT History:Patient is 68 year old and is seen for: ?Other abnormal and inconclusive findings on diagnostic imaging of breast. Computer-aided detection (CAD) utilized. Comparisons: 11/22/2023 BI SCREENING TOMOSYNTHESIS BILATERAL and 08/02/2022 BI SCREENING TOMOSYNTHESIS BILATERAL Findings:LeftBI DIAGNOSTIC TOMOSYNTHESIS LEFTThe left breast has scattered areas of fibroglandular density. There is no evidence of suspicious masses, calcifications, or other abnormal findings in the left breast. The mammographic asymmetry noted at recent screening mammography did not persist with additional imaging and is consistent with superimposition of normal breast tissue. BI ULTRASOUND BREAST LIMITED LEFTTargeted ultrasound was performed. There is no evidence of suspicious masses or other abnormal findings in the lateral left breast.Ultrasound of the axilla demonstrates morphologically normal lymph nodes. Impression:No evidence of malignancy. Recommendation:Maddie al mammographic follow-upThese findings and recommendations were discussed in detail with the patient at the time of this exam. BI-RADS Category: Left 1 - Negative [facility] - XR CHEST 1 [id number] 12:20:00 [facility] 1955 Sex: F Name: DIANNA TREJO [facility] : 1955 Age/S: 68 / F [address] [place] Unit #: [id number] Loc: [place] [address] Phys: Tessy Cutler MD Acct: [id number] Dis Date: Status: PRE SDC PHONE #: [phone] Exam Date: 12/06/2023 0948 FAX #: Reason: ENDO EXAMS: CPT: [id number] XR CHEST 1 V 30185 Fluoro Time: DAP (Gy m2): Air Kerma (mGy): Location Code: S17 EXAMINATION: - XR CHEST 1 V CLINICAL IN DICATION: Female, 68 years year old with ENDO COMPARISON: None. FINDINGS: Single view(s) of the chest submitted. Support Devices: None. Heart: Cardiac silhouette is normal in size. Mediastinum: Mediastinal contours are normal. Lungs: Mild central pulmonary vascular prominence. No evidence of focal consolidation. Mild streaky basilar opacities probably represent atelectasis or scarring. Pleura: No pleural effusion is identified. No pneumothorax is present. Bones: Scoliosis. IMPRESSION: No evidence of focal consolidation. Mild streaky basilar opacities probably represent atelectasis or scarring. at 1220 Reported and signed by: Edvin Gomez M.D. CC: Jacque Santiago; Tessy Cutler MD; Willis Chavis MD PAGE 1 Signed Report Name: DIANNA TREJO [place] : 1955 Age/S: 68 / F [address] [place] Unit #: [id number] Loc: [place] [address] Phys: Tessy Cutler MD Acct: [id number] Dis Date: Status: PRE SDC PHONE #: [phone] Exam Date: 12/06/2023 0948 FAX #: Reason: ENDO EXAMS: CPT: [id number] XR CHEST 1 V 15783 Fluoro Time: DAP (Gy m2): Air Kerma (mGy): (Continued) Technologist: LEEROY LAUREN Trnscb Date/Time: 12/06/2023 (1220) [email or web address] Orig Print D/T: S: 12/06/2023 (1224) PAGE 2 Signed ReportBASIC METABOLIC [id number] 10:18:00* Test Item Value Reference Range Interpretation Comme nts SODIUM (test code = NA) 144 mmol/L 136-145 N POTASSIUM (test code = K) 4.2 mmol/L 3.4-5.0 N CHLORIDE (test code = CL) 107 mmol/L 98-107 N CARBON DIOXIDE (test code = CO2) 26 mmol/L 21-32 N ANION GAP (test code = GAP) 11 GAP calc 4-15 N GLUCOSE (test code = GLU) 95 MG/DL 70-110 N BLOOD UREA NITROGEN (test code = BUN) 9 MG/DL 7-18 N GLOMERULAR FILTRATION RATE (test code = GFR) >=60 max estimate estGFR >60 The Glomerular Filtration Rate is a calculated parameterbased on serum Creatinine, patient age and sex. GFR valuesless than 60 mL/min/1.73 square meters are indicative ofChronic Kidney Disease. Values less than 15 mL/min/1.73square meters indicate Kidney failure. The calculation forGFR is based on the CKD-EPI (2020) calculation. This formulais race indifferent and is the recommended formula for GFRby the National Kidney Foundation for Adults.The GFR will not calculate if the sex is unknown or if thepatient's age is <18 years. CREATININE (test code = CREAT) 0.6 MG/DL 0.6-1.0 N CALCIUM (test code = CA) 9.1 MG/DL 8.5-10.1 N PROTHROMBIN [id number] 10:11:00* Test Item Value Reference Range Interpretation Comme nts PT PATIENT (test code = PTP) 10.8 SECONDS 9.3-12.9 N INTERNATIONAL NORMAL RATIO (test code = INR) 0.96 INR Unit 0.8-1.2 N TARGET INR BY INDICATION Indication INR1. Prophylaxis of venous thrombosis 2.0 - 3.0 (orthopedic surgery), Prophylaxis of venous thrombosis (other than high-risk surgery), Treatment of Deep Vein Thrombosis/Pulmonary Embolism, Prevention of systemic embolism - Tissue heart valves, Acute Myocardial Infarction (to prevent systemic embolism), Valvular heart disease, Acute Myocardial Infarction (to prevent systemic embolism), Valvular heart disease, Atrial Fibrillation, Bileaflet mechanical valve in aortic position.2. Mechanical prosthetic valves (high risk), 2.5 - 3.5 Presence of Lupus Anticoagulant or Antiphospholipid Antibodies, Prevention of systemic embolism - Acute Myocardial Infarction (to prevent recurrent infarct). CBC W/AUTO [id number] 09:58:00* Test Item Value Reference Range Interpretation Comme nts WHITE BLOOD CELL (test code = WBC) 5.7 K/mm3 3.5-11.0 N RED BLOOD CELL (test code = RBC) 4.50 M/mm3 4.70-6.10 L HEMOGLOBIN (test code = HGB) 13.2 G/DL 10.4-14.9 N HEMATOCRIT (test code = HCT) 40.3 % 31.5-44.1 N MEAN CELL VOLUME (test code = MCV) 89.6 Fl 84.5-98.6 N MEAN CELL HGB (test code = MCH) 29.3 pg 27.0-34.2 N MEAN CELL HGB CONCETRATION (test code = MCHC) 32.8 G/DL 31.5-34.0 N RED CELL DISTRIBUTION WIDTH (test code = RDW) 12.4 SD 11.5-14.5 N PLATELET COUNT (test code = PLT) 275 K/mm3 150-450 N MEAN PLATELET VOLUME (test c ode = MPV) 10.30 fL 7.0-10.5 N NEUTROPHIL % (test code = NT%) 57.3 % 40-76 N IMMATURE GRANULOCYTE % (test code = IG%) 0.3 % 0.0-5.0 N LYMPHOCYTE % (test code = LY%) 30.9 % 20.5-51.1 N MONOCYTE % (test code = MO%) 8.7 % 1.7-9.3 N EOSINOPHIL % (test code = EO%) 1.9 % 0.0-6.0 N BASOPHIL % (test code = BA%) 0.9 % 0.0-2.0 N NUCLEATED RBC % (test code = NRBC%) 0.0 /100WBC% 0.0-1.0 N NEUTROPHIL # (test code = NT#) 3.3 K/mm3 1.8-7.6 N IMMATURE GRANULOCYTE # (test code = IG#) 0.02 x10 3/uL 0.00-0.03 N LYMPHOCYTE # (test code = LY#) 1.8 K/mm3 0.6-3.2 N MONOCYTE # (test code = MO#) 0.5 K/mm3 0.3-1.1 N EOSINOPHIL # (test code = EO#) 0.1 K/mm3 0.0-0.4 N BASOPHIL # (test code = BA#) 0.1 K/mm3 0.0-0.1 N NUCLEATED RBC # (test code = NRBC#) 0.0 K/mm3 0.0-0.1 N Transthoracic echo (TTE)2023-11-13 00:14:21* Test Item Value Reference Range Interpretation Comme nts Height (test code = 8919856364) 65 in Weight (test code = 5660122749) 198 lbs Systolic BP (test code = 3144105231) 156 mmHg Diastolic BP (test code = 8193688289) 75 mmHg Heart Rate (test code = 7694568163) 75 bpm A4C EF (test code = 3354841087) 60.20 % SV(MOD-sp4) (test code = 2140773714) 65.60 mL RVOT diameter (test code = 8901376134) 1.62 cm MR max PG (test code = 3869179908) 76.80 mm[Hg] MR max sandie (test code = 4960553419) 438.30 cm/s Ao root diam (test code = 5505798710) 2.60 cm Mr max sandie (test code = 9475437966) 438.3 m/s Aortic root (test code = 3857465481) 2.6 cm Ao root annulus (test code = 5075031870) 2.6 cm BSA (test code = 2317330234) 1.97 m2 LVOT diameter (test code = 1056352960) 1.92 cm LVOT area (test code = 0491150297) 2.90 cm2 LA size (test code = 2999366714) 3.7 cm ACS (test code = 0414730663) 2.01 cm LVIDD (test code = 8392759432) 4.70 cm Left Ventricular End Diastolic Volume by Teichholz Method (test code = 1471801) 104.1 mL IVS (test code = 4128476139) 0.95 cm Interventricular Septum Diastolic Thickness by 2D (test code = 0707506) 0.95 cm LVPWD (test code = 7063721142) 0.99 cm PW (test code = 3726566406) 0.99 cm 0.6-1.1 EF(Teich) (test code = 2253901919) 60.30 % LVIDS (test code = 9115265354) 3.20 cm Left Ventricular End Systolic Volume by Teichholz Method (test code = 8575155) 41.3 mL FS (test code = 5380467534) 32 % EF - 2D (test code = 95631046) 60.30 % PV PEAK VELOCITY (test code = 5324683587) 96.4 cm/s PV peak gradient (test code = 6422588290) 3.7 mmHg MV E-F slope (test code = 1514728619) 38.40 cm/s MV Peak E Sandie (test code = 5481014355) 115.3 cm/s MV valve area p 1/2 method (test code = 6431620609) 3.00 cm2 MV dec slope (test code = 9113806398) 450.70 cm/s2 MV P1/2t max sandie (test code = 6804454223) 113.70 cm/s MV Peak A Sandie (test code = 3096294866) 106.9 cm/s E/A ratio (test code = 4551206671) 1.08 ratio LVOT stroke volume (test code = 6061267814) 104.30 cm3 LVOT peak sandie (test code = 7043815181) 144.6 cm/s LVOT mn grad (test code = 3539756088) 3.4 mmHg AV LVOT peak gradient (test code = 7201921930) 8.4 mmHg LVOT peak VTI (test code = 8290742775) 36.0 cm LV V1 mean (test code = 7588395264) 83.70 cm/s Aortic valve mean velocity (test code = 7847271243) 104.4 cm/s Ao peak sandie (test code = 5628629619) 175.7 cm/s Ao VTI (test code = 3701882223) 49.2 cm AV area by cont VTI (test code = 3576836756) 2.1 cm2 AV area peak sandie (test code = 8150642986) 2.4 cm2 Ao max PG (test code = 6940164646) 12.40 mm[Hg] AV peak gradient (test code = 1105096148) 12.4 mmHg AV valve area (test code = 8861541608) 2.12 cm2 AV mean gradient (test code = 9131799555) 5.2 mmHg TR Peak Sandie (test code = 4873094762) 238.9 cm/s Triscuspid Valve Regurgitation Peak Gradient (test code = 7984750564) 22.8 mmHg LAV(MOD-sp4) (test code = 7705803697) 48.30 mL LA Volume Index (BP) (test code = 0159034155) 25.2 mL/m2 LA volume (BP) (test code = 9169341420) 49.6 mL LAV(MOD-sp2) (test code = 1855599721) 48.10 mL RVOT area (test code = 4153249027) 2.06 cm2 Radiology Study observation (narrative) (test code = 38123-1) KELLEY (test code = KELLEY) ?Left?Ventricle: Left ventricle size is normal. Normal wall thickness. Normal wall motion. Normal systolic function with a visually estimated EF of 55 - 60%. Diastolic dysfunction. ?Tricuspid?Valve: Insufficient tricuspid regurgitation jet to estimate RVSP . ?RA pressure is 0-5 mmHg. ?Left?Atrium: Left atrium is mildly dilated. Left VentricleLeft ventricle size is normal. Normal wall thickness. Normal wall motion. Normal systolic function with a visually estimated EF of 55 - 60%. Diastolic dysfunction.Right VentricleRight ventricle size is normal. Normal systolic function.Left AtriumLeft atrium is mildly dilated.Right AtriumRight atrium size is normal.IVC/SVCIVC diameter is less than or equal to 21 mm and decreases greater than 50% during inspiration; therefore the estimated right atrial pressure is normal (~0-5 mmHg).Mitral ValveMild mitral annular calcification. Trace transvalvular regurgitation.Tricusp id ValveTricuspid valve structure is normal. Trace transvalvular regurgitation. Insufficient tricuspid regurgitation jet to estimate RVSP . RA pressure is 0-5 mmHg.Aortic ValveTricuspid.Pulmon ic ValveNot well visualized. Trace transvalvular regurgitation.Ascendi ng AortaNormal sized aorta.PericardiumThe pericardium is normal. No pericardial effusion.Study DetailsStudy quality was adequate. A complete echocardiogram was performed using 2D, color flow Doppler and spectral Doppler. [facility] HEAD YPWK4183-12-44 16:33:20HISTORY: ?Nontoxic goiter. Right thyroid nodule. TECHNIQUE: [...] fine needle aspiration given sizegreater than 2.5 cm.[facility]:01:17* Test Item Value Reference Range Interpretation Comme nts MAGNESIUM (test code = 7767162848) 2.6 mg/dL 1.7-2.4 H Lab Interpretation (test cod e = 20972-9) [facility] (NA, K, CL, CO2, GLUCOSE, BUN, CREATININE, CA)2023-07-19 10:00:56* Test Item Value Reference Range Interpretation Comme nts NA (test code = 1233641843) 136 mmol/L 135-145 K (test code = 0713768441) 4.1 mmol/L 3.5-5.0 CL (test code = 6501119488) 105 mmol/L 98-108 CO2 TOTAL (test code = 6107389322) 25 mmol/L 23-31 AGAP (test code = 1933274482) 6 2-16 BUN (test code = 8327180076) 21 mg/dL 7-23 GLUCOSE (test code = 5994940180) 136 mg/dL 70-110 H CREATININE (test code = 8108798947) 0.57 mg/dL 0.50-1.04 CALCIUM (test code = 6204667574) 8.8 mg/dL 8.6-10.6 eGFR (test code = 49316-5) 100.4 mL/min/1.73m2 CKD-EPI eGFR (2020). Assuming creatinine has been stable day-to-day for at least three months, the eGFR indicates Category G1 (>= 90 mL/min/1.73 m2) Lab Interpretation (test code = 23367-5) Abnormal [facility] WITH IYRN5222-14-19 09:51:35* Test Item Value Reference Range Interpretation Comme nts WBC (test code = 6690-2) 7.41 See_Comment [Automated [employer]] The system which generated this result transmitted reference range: 4.30 - 11.10 10*3/?L. The reference range was not used to interpret this result as normal/abnormal. RBC (test code = 789-8) 4.29 See_Comment [Automated [employer]] The system which generated this result transmitted [...] 33.3 g/dL 31.6-35.1 RDW-SD (test code = 61553-8) 42.9 fL 39.0-49.9 RDW-CV (test code = 788-0) 12.9 % 12.0-15.5 PLT (test code = 777-3) 248 See_Comment [Automated messa ge] The system which generated this result transmitted reference range: 166 - 358 10*3/?L. The reference range was not used to interpret this result as normal/abnormal. MPV (test code = 71865-7) 10.5 fL 9.5-12.9 NRBC/100 WBC (test code = 5727264295) 0.0 See_Comment [Automated [employer]] The system which generated this result transmitted reference range: 0.0 - 10.0 /100 WBCs. The reference range was not used to interpret this result as normal/abnormal. NRBC x10^3 (test code = 7601626466) See_Comment [Automated [employer]] The system which generated this result transmitted reference range: 10*3/?L. The reference range was not used to interpret this result as normal/abnormal. GRAN MAT (NEUT) % (test code = 770-8) 79.9 % IMM GRAN % (test code = 5163002048) 0.70 % LYMPH % (test code = 736-9) 11.9 % MONO % (test code = 5905-5) 7.4 % EOS % (test code = 713-8) 0.0 % BASO % (test code = 706-2) 0.1 % GRAN MAT x10^3(ANC) (test code = 2322504898) 5.92 10*3/uL 1.88-7.09 IMM GRAN x10^3 (test code = 5286496353) 0.05 10*3/uL 0.00-0.06 LYMPH x10^3 (test code = 731-0) 0.88 10*3/uL 1.32-3.29 L MONO x10^3 (test code = 742-7) 0.55 10*3/uL 0.33-0.92 EOS x10^3 (test code = 711-2) 0.03-0.39 L BASO x10^3 (test code = 704-7) 0.01-0.07 Lab Interpretation (test code = 60485-3) Abnormal [facility] WITH ATZG6655-55-41 06:38:57* Test Item Value Reference Range Interpretation [...] 33.5 g/dL 31.6-35.1 RDW-SD (test code = 97112-1) 44.8 fL 39.0-49.9 RDW-CV (test code = 788-0) 13.2 % 12.0-15.5 PLT (test code = 777-3) 222 See_Comment [Automated message] The system which generated this result transmitted reference range: 166 - 358 10*3/?L. The reference range was not used to interpret this result as normal/abnormal. MPV (test code = 26082-6) 10.7 fL 9.5-12.9 NRBC/100 WBC (test code = 6603813583) 0.0 See_Comment [Automated message] The system which generated this result transmitted reference range: 0.0 - 10.0 /100 WBCs. The reference range was not used to interpret this result as normal/abnormal. NRBC x10^3 (test code = 0775401147) See_Comment [Automated message] The system which generated this result transmitted reference range: 10*3/?L. The reference range was not used to interpret this result as normal/abnormal. GRAN MAT (NEUT) % (test code = 770-8) 77.2 % IMM GRAN % (test code = 6161279482) 0.60 % LYMPH % (test code = 736-9) 11.0 % MONO % (test code = 5905-5) 10.7 % EOS % (test code = 713-8) 0.2 % BASO % (test code = 706-2) 0.3 % GRAN MAT x10^3(ANC) (test code = 7145767538) 12.30 10*3/uL 1.88-7.09 H IMM GRAN x10^3 (test code = 0648609592) 0.09 10*3/uL 0.00-0.06 H LYMPH x10^3 (test code = 731-0) 1.76 10*3/uL 1.32-3.29 MONO x10^3 (test code = 742-7) 1.70 10*3/uL 0.33-0.92 H EOS x10^3 (test code = 711-2) 0.03 10*3/uL 0.03-0.39 BASO x10^3 (test code = 704-7) 0.05 10*3/uL 0.01-0.07 ELLIPTO/OVAL (test code = 74946-9) 2+ See_Comment A [Automated message] The system which generated this result transmitted reference range: (none). The reference range was not used to interpret this result as normal/abnormal. Lab Interpretation (test code = 66714-6) [facility]YS6636-91-51 06:30:39* Test Item Value Reference Range Interpretation Comments D-DIMER (test code = 1272687952) See_Comment [Automated message] The system which generated [...] a diagnosis. Lab Interpretation (test code = 00812-0) Normal [facility] W1827-17-41 06:21:52* Test Item Value Reference Range Interpretation Comme nts TROPONIN I (test code = 1794900389) 0.005 ng/mL <=0.034 KELLEY (test code = [...] of biotin. Lab Interpretation (test code = 25214-0) [facility]AL YIW-RDM4081-19-05 06:19:31* Test Item Value Reference Range Interpretation Comme nts NT-proBNP (test code = 69670-5) 66 pg/mL <=125 Lab Interpretation (test cod e = 59595-3) [facility] (29448) (ALB,T.PRO,BILI T,BU/BC,ALT,AST,ALK PHOS)2023-07-16 06:10:32* Test Item Value Reference Range Interpretation Comme nts TOTAL BILI (test code = 5768814790) 0.9 mg/dL 0.1-1.1 BILI UNCON (test code = 0656833983) 0.5 mg/dL 0.1-1.1 BILI CONJ (test code = 5709846095) 0.0 mg/dL 0.0-0.3 T PROTEIN (test code = 0074228013) 7.7 g/dL 6.3-8.2 ALBUMIN (test code = 6050321210) 4.5 g/dL 3.5-5.0 ALK PHOS (test code = 7879050335) 60 U/L 34-122 ALTv (test code = 1742-6) 24 U/L 5-35 AST(SGOT) (test code = 8883429204) 30 U/L 13-40 Lab Interpretation (test cod e = 06812-7) [facility] (NA, K, CL, CO2, GLUCOSE, BUN, CREATININE, CA)2023-07-16 06:10:11* Test Item Value Reference Range Interpretation Comme nts NA (test code = 3761911398) 136 mmol/L 135-145 K (test code = 2514307182) 4.4 mmol/L 3.5-5.0 CL (test code = 2522106713) 104 mmol/L 98-108 CO2 TOTAL (test code = 1091980841) 26 mmol/L 23-31 AGAP (test code = 5289536375) 6 2-16 BUN (test code = 8481137255) 16 mg/dL 7-23 GLUCOSE (test code = 6642379942) 109 mg/dL 70-110 CREATININE (test code = 2196174558) 0.49 mg/dL 0.50-1.04 L CALCIUM (test code = 4014909007) 9.1 mg/dL 8.6-10.6 eGFR (test code = 49894-4) 104.1 mL/min/1.73m2 CKD-EPI eGFR (2020). Assuming creatinine has been stable day-to-day for at least three months, the eGFR indicates Category G1 (>= 90 mL/min/1.73 m2) Lab Interpretation (test code = 41540-0) [facility] 06:10:11* Test Item Value Reference Range Interpretation Comme nts LIPASE (test code = 0598395524) 45 U/L 0-220 Lab Interpretation (test cod e = 89142-0) [facility] Notes Date/Time Note Provider Source 2024-01-13 10:55:02 3836-86-41Q04:55:02F ormatting of this note might be different from the original.Called patient back and offered to assist with any issues with the monitor. Patient is having skin issues from the adhesive. Her chest has sores. The monitor will not stay on. She has worn for two weeks and states Dr. Mcintyre originally told her it would only need to be worn for two weeks. Patient cannot continue. Patient plans to return the monitor early. Routing FYI to provider. 23698-8Kqmoklbps encounter GxjtHJ1734-34-31R79:57:19Telephone encounter NoteTXT1.2.840.871172.1.13.104.2.7 .2.046754|1453933334VWRyhwukuns for patient rjqx61546-4DkfrKQBRRJVEUKBGtiappgp d C-CDA narrative lapj916142529Zojr Henry TRE[address] QtocQsisqkydjNjxhbgekgAZLT94955765 83IFARLXUQJPRWHZMFOESUIM9754-31-35 T10:57:191.2.840.136512.1.72.3.15| 1.2.840.422209.1.13.104.2.7.2.7278 [id number] Nikita Figueroa RN [facility] 2024-01-13 09:37:14 4081-81-95A46:37:14F ormatting of this note might be different from the original.Copied from [facility] #[id number]. Topic: Clinical - Medical Advice>> Jan 13, 2024 9:36 AM Patient Oncology Nurse wrote:Dianna Trejo is a 68 year old femalePatient called and stated she can no longer wear the heart monitor because she is tired of it. She stated it is uncomfortable and she cannot take it anymore. Today hinds 2 weeks since she has worn it and she is taking it off at 2pm to be sent back. She is requesting a call back by 2pm. Please advise. 54195-8Vzpuoaxly encounter MvudDY9746-27-34P58:37:42Telephone encounter NoteTXT1.2.840.389202.1.13.104.2.7 .2.211222|[id number] for patient sdhb43647-4XzlcSGQZUSHWQMPYguqfncp d C-CDA narrative hogc445213126Sppi Davide[id number] 22ILBKFCUBUQWIBGOSLSPBYR2338-04-53 T09:37:421.2.840.591015.1.72.3.15| 1.2.840.124814.1.13.104.2.7.2.7278 [id number] Ara Davide [facility] 2023-12-30 16:01:20 0557-67-67I52:01:20F ormatting of this note might be different from the original.Called patient back regarding BP log dropped off for review. Dr. Velazquez covering for Dr. Wong this week in office.Suggest:Nifedipine 60mg QAM 30mg QPMCoreg 25mg BID 07366-0Quxbiqyst encounter HkueCU6926-30-52D01:07:00Telephone encounter NoteTXT1.2.840.997744.1.13.104.2.7 .2.363747|6100781431ICDhidjpxav for patient pwyb96809-4MfjtUQNXLYOGDTPBgzqkgfh d C-CDA narrative kg[address]TXTX[address] 55VSEQHBNGWVGWQLZMMHCFDP4637-73-51 T16:07:001.2.840.527824.1.72.3.15| 1.2.840.637551.1.13.104.2.7.2.7278 [id number] [facility] 2023-12-30 08:30:00 4780-49-18O30:30:00F ormatting of this note might be different from the original.30-day event monitor applied to patient, tolerated well. Baseline tracing sent/confirmed by company. Instructed on recording manual events, wear, care and return of device; understanding verbalized via teach back. Monitor to be returned to ([employer]) on 01.30.24.Per pt was told may only need wear 14days.Palpitations: Likely in setting of underlying not optimally controlled hypertension.Recommended 30-day event monitor for symptoms and rhythm correlation. 91277-4Yotiv JjgsBL3374-91-13D73:02:49Nurse NoteTXT1.2.840.884565.1.13.104.2.7 .2.041329|8087047314VCEkiemqmxn for patient xdwu43737-1Zibon NoteLNNARRATIVEFormatted C-CDA narrative text[id number] 15UEMRGKJQOQSAKZKDBVNVVT3882-24-67 T09:02:491.2.840.217881.1.72.3.15| 1.2.840.528563.1.13.104.2.7.2.7278 [id number] [facility] 2023-12-13 15:17:09 7406-06-21K95:17:09F ormatting of this note might be different from the original.Contacted pt and scheduled vascular and monitor. 97593-5Jxrvwvhol encounter GebbXI9460-72-76X98:17:30Telephone encounter NoteTXT1.2.840.729375.1.13.104.2.7 .2.481054|5928914169HRZwisbfmnt for patient ppdz32225-7FedaVNJNRDHTBMTEvchjcpd d C-CDA narrative ckyb195415824Ohdhyorc[address]TXTX[address] 29DRFMFXIQHTIDATDNYWNFNV9490-64-52 T15:17:301.2.840.570668.1.72.3.15| 1.2.840.787223.1.13.104.2.7.2.7278 [id number] Bethany Alvarenga [facility] 2023-12-13 14:27:18 7683-77-42W48:27:18F ormatting of this note might be different from the original.Copied from CRM #[id number]. Topic: Appointment - Reschedule Appointment>> December 13, 2023 2:23 PM Patient Oncology Nurse wrote:Dianna Trejo is a 68 year old femalePt calling to r/s heart monitor and echo. pt requesting same time morning for echo and heart monitor afterwards. pt available any time just not 12/19/23. Please advise. 69810-9Cwzjjfbsd encounter PmkxPP1597-29-45O82:17:30Telephone encounter NoteTXT1.2.840.549169.1.13.104.2.7 .2.879414|2583374464PSSckejovsq for patient mhoe56282-6HfvuUNVMJKSKZKDPkewipnb d C-CDA narrative bgfo534982793Tmjey [address] QahgBigwkvfmuGtlwgeevfIZHP82323454 47YGRWCLBWYTUUQLSVWBASKI4006-21-53 T15:17:301.2.840.301783.1.72.3.15| 1.2.840.241666.1.13.104.2.7.2.7278 [id number] Rell Julietteelyse [facility] 2023-12-13 09:25:27 8706-01-15Z58:25:27F ormatting of this note might be different from the original.Copied from CRM #[id number]. Topic: Clinical - Medical Advice>> December 13, 2023 9:24 AM Patient Oncology Nurse wrote:Dianna Trejo is a 68 year old femalePt is calling to R/S her monitor hook puller and ECHO apptPlease advise 18704-1Nsyfuejrw encounter TasqQQ2743-86-67T54:26:18Telephone encounter NoteTXT1.2.840.838360.1.13.104.2.7 .2.044448|0770999940AHTgjsttxmn for patient hljc50455-4NvdqQOMXIMERXYJOyjnofgb d C-CDA narrative ovik656565840Pwmvxkp D [address] HyntOhcihrptqMzovgjxcdOPJM99267332 97ZRDLPZWBPWFHGISOJERBAN9486-67-32 T09:26:181.2.840.998332.1.72.3.15| 1.2.840.322267.1.13.104.2.7.2.7278 [id number] [facility] 2023-12-11 09:46:00 ZB1888410843kIOCxKSz l2Y85x+unVdxs1 2x7YqNC67ju7wxLBGzXaURmP4lWsEXQ7/D 7Hn+r/Hl4813-65-83K07:46:00 [facility] ([facility])Post Anesthesia EvaluationREPORT#:[id number] REPORT STATUS: SignedREPORT INITIALIZATION DATE:12/11/23 TIME:945 PATIENT: DIANNA TREJO UNIT #: [id number]#: [id number] ROOM/BED:: 57 AGE: 68 SEX: F ATTEND: Willis Chavis [facility] AUTHOR: Mason Otero MDREPT SERVICE DT/TIME: 12/11/2346* ALL edits or amendments must be made on the electronic/computer document * Post Anesthesia Evaluation Anes. changes from pre-op evalLevel of consciousness: no change, patient awake, able to answer questions, participate in this eval.Vital signs:Last Documented: Result Date Time Pulse Ox 96 12/11 939 B/P 144/56 12/11 939 O2 Delivery Room air 12/11 939 Temp 36.7 05/01 0940 Pulse 65 05/01 0940 Resp 16 12/10 0940 O2 Flow Rate 8 12/10 0924 Cardiovascular: CV system stable, vital signs stableRespiratory/Airway: respiratory system stable, maintains without supportPain: adequately controlledHydration: adequateTemp status: normothermicPresence of N/V: noAnesthesia complications: no at 0946 RPT #: [id number] OF REPORT CLClinical oiry7995-92-10U51:46:00L.GPWA55698 501-0059AVAvailable for patient vezaGZBIBGMCZGTLFL1384-42-59T05:46 :54 [facility] 2023-12-11 08:41:00 GV0969908375Of10b35/ ADVaz8ptQuNA5W Z0TSWLVKf8fOez0Z67DYgzwRFLnz7Dxxge y1/Mq03u9128-14-32S56:41:193903-43 [address] [place] [address] PATIENT NAME: DIANNA TREJO ADMIT DATE: 12/11/23ACCOUNT NO: [id number] ROOM NO: AGE: 68 REPORT TYPE: ENDOSCOPY REPORT SEX: F ADMITTING PHYSICIAN: ATTENDING PHYSICIAN: Willis Chavis MD Patient Name: Dianna Trejo Procedure Date: 12/11/2023 8:41 AMMRN: [id number] of : 1955 Gender: FemaleAttending MD: Willis Chavis , Procedure: ColonoscopyIndications: Follow-up of Crohn's disease of the small bowel and colonProviders: Willis Chavis (Doctor), Christina Gibson RN (Nurse)Referring MD: Willis Haines Provider: Medicines: See the Anesthesia note for documentation of the administered medicationsComplications: No immediate complications. Procedure : Pre-Anesthesia Assessment: - Prior to the procedure, a History and Physical was performed, and patient medications and allergies were reviewed. The patient is competent. The risks and benefits of the procedure and the sedation options and risks were discussed with the patient. All questions were answered and informed consent was obtained. Patient identification and proposed procedure were verified by the physician, the nurse and the anesthesiologist in the procedure room. Mental Status Examination: alert and oriented. Airway Examination: normal oropharyngeal airway and neck mobility. Respiratory Examination: clear to auscultation. CV Examination: normal. Prophylactic Antibiotics: The patient does not require prophylactic antibiotics. Prior Anticoagulants: The patient has taken no previous anticoagulant or antiplatelet agents. ASA Grade Assessment: III - A patient with severe systemic disease. After reviewing the risks and benefits, the patient was deemed in satisfactory condition to undergo the procedure. The anesthesia plan was to use monitored anesthesia care (MAC). Immediately prior to administration of medications, the patient was re-assessed for adequacy to receive sedatives. The PATIENT NAME: DIANNA TREJO heart rate, respiratory rate, oxygen saturations, blood pressure, adequacy of pulmonary ventilation, and response to care were monitored throughout the procedure. The physical status of the patient was re-assessed after the procedure. After I obtained informed consent, the scope was passed under direct vision. Throughout the procedure, the patient's blood pressure, pulse, and oxygen saturations were monitored continuously. The Colonoscope was introduced through the anus and advanced to the terminal ileum, with identification of the appendiceal orifice and IC valve. The colonoscopy was performed without difficulty. The patient tolerated the procedure well. The quality of the bowel preparation was evaluated using the BBPS ([place] Bowel Preparation Scale) with scores of: Right Colon = 3, Transverse Colon = 3 and Left Colon = 3 (entire mucosa seen well with no residual staining, small fragments of stool or opaque liquid). The total BBPS score equals 9. Findings: The perianal and digital rectal examinations were normal. A few small-mouthed diverticula were found in the sigmoid colon. An 18 mm polyp was found in the proximal ascending colon. The polyp was flat. Preparations were made for mucosal resection. Demarcation of the lesion was performed to clearly identify boundaries of the lesion. Eleview was injected to raise the lesion. Snare mucosal resection was performed. Resection and retrieval were complete. To close a defect after mucosal resection, one hemostatic clip was successfully placed. There was no bleeding at the end of the procedure. A 7 mm polyp was found in the mid ascending colon. The polyp was sessile. The polyp was removed with a hot snare. Resection and retrieval were complete. Verification of patient identification for the specimen was done by the physician and nurse using the patient's name and date. Estimated blood loss: none. A 7 mm polyp was found in the descending colon. The polyp was sessile. The polyp was removed with a hot snare. Resection and retrieval were complete. Verification of patient identification for the specimen was done by the physician and nurse using the patient's name and date. Estimated blood loss: none. There was a medium-sized lipoma, in the ascending colon. The terminal ileum appeared normal. Biopsies were taken with a cold forceps for histology. Verification of patient identification for the specimen was done by the physician and nurse using the patient's name and date. Estimated blood loss was minimal. Normal mucosa was found in the entire colon. Biopsies were taken with a cold forceps for histology from right and left side. Verification of patient identification for the specimen was done by the physician and nurse using the patient's name and date. Estimated blood loss was minimal. Internal hemorrhoids were found during retroflexion. The hemorrhoids were Grade I (internal hemorrhoids that do not prolapse). PATIENT NAME: DIANNA TREJO Impression: - Diverticulosis in the sigmoid colon. - One 18 mm polyp in the proximal ascending colon, removed with mucosal resection. Resected and retrieved. Clip was placed. - One 7 mm polyp in the mid ascending colon, removed with a hot snare. Resected and retrieved. - One 7 mm polyp in the descending colon, removed with a hot snare. Resected and retrieved. - Medium-sized lipoma in the ascending colon. - The examined portion of the ileum was normal. Biopsied. - Normal mucosa in the entire examined colon. Biopsied. - Internal hemorrhoids. - Mucosal resection was performed. Resection and retrieval were complete.Recommendation: - Patient has a contact number available for emergencies. The signs and symptoms of potential delayed complications were discussed with the patient. Return to normal activities tomorrow. Written discharge instructions were provided to the patient. - Discharge patient to home. - Await pathology results. - Return to GI clinic in 2 weeks. - Repeat colonoscopy in 1 year for surveillance after piecemeal polypectomy. Willis Chavis, 12/11/2023 9:28:20 AMNumber of Addenda: 0 Note Initiated On: 12/11/2023 8:41 AMEstimated Blood Loss: Estimated blood loss was minimal.Scope In: 8:51:54 AMScope Out: 9:15:40 AM [address] [place], [place] [address]Hblyyybbi {[id number]} .pdf ProVation FT PDF at 0928 PATIENT NAME: DIANNA TREJO wskgkbr5678-78-04E49:28:00L.JJM155 25112-9973YTIilqacquw for patient kxqlSHHDTBTZKOIRSL3886-12-56A65:28 :43 [facility] 2023-12-03 16:21:03 3331-86-91F36:21:03F ormatting of this note might be different from the original.Spoke with patient. She verbalized understanding. Verified that she is taking: nifedipine XL 30 mg twice daily, carvedilol 12.5 BiD, olmesartan 40 mg daily 51846-7Kvihyczzs encounter CwfqKJ1277-71-29A90:21:22Telephone encounter NoteTXT1.2.840.750475.1.13.104.2.7 .2.555089|[id number] for patient bkza25075-9ObrrQBRPADMFAMFRzasltty d C-A narrative [id number] Sheavly RN[id number] 02WFFFUPYYUFOFUPBSYZWKWR0752-73-96 T16:21:221.2.840.035433.1.72.3.15| 1.2.840.270972.1.13.104.2.7.2.7278 [id number] Nikita Figueroa RN [facility] 2023-12-03 15:09:38 1974-95-30P18:09:38F ormatting of this note might be different from the original.Images from the original note were not included.Blood pressure log reviewed. Acceptable on the whole. Will continue to monitor.Repeat blood pressure log in 2 weeks.Please verify patient's been taking nifedipine XL 30 mg twice daily, carvedilol 12.5 BiD, olmesartan 40 mg daily 63677-5Ahwkpxjok encounter TysmJE5707-50-64E82:12:19Telephone encounter NoteTXT1.2.840.062062.1.13.104.2.7 .2.101595|[id number] for patient tcgz10266-6ItnaBCVSJSPEMKLXnosromh d C-CDA narrative text[address] 17TJFAXIHUFYKMMWIVNEMCGE9588-18-08 T15:12:191.2.840.248373.1.72.3.15| 1.2.840.485213.1.13.104.2.7.2.7278 [id number] [facility] 2023-12-03 11:22:17 2142-94-36N37:22:17F ormatting of this note might be different from the original.Received bp log, placed in Dr. Mcintyre's folder for review. Thank you. 95788-2Rnofgaooz encounter UrltCJ7966-77-05E98:23:10Telephone encounter NoteTXT1.2.840.112604.1.13.104.2.7 .2.069505|[id number] for patient njzm70946-3FcjmVVUVEERGGNTOavepgig d C-CDA narrative zsow668181753PdkrxvRuthie Palafox MA[address]TXTX[address] 52AOBJHIVTTGYLMFLJRTWSBJ6395-13-42 T11:23:101.2.840.622882.1.72.3.15| 1.2.840.537589.1.13.104.2.7.2.7278 79_[id number] Ruthie Palafox MA [facility] 2023-11-19 16:31:04 3334-81-41R01:31:04F ormatting of this note might be different from the original.Patient called back. New Nefedipine 30mg daily instructions given. Informed to continue to keep BP logs and HR. Per pt feels may not gave time to Nifedipine 60mg to take effect. And ate 3 hot dogs. States went to [facility] ER pulse was 115 and since took more the 1hr to be taken back states felt HR was normal. And testing was stable.Has follow up next week.Today JAa2lv213/80 p 75Took skmt9lf 134/79 p 6610am 146/80 p 57 89957-1Xuyfhyoxm encounter YtvrFZ7225-55-52H97:44:21Telephone encounter NoteTXT1.2.840.992581.1.13.104.2.7 .2.100332|[id number] for patient uqdg49626-3HbtaRIYYOOUZHMVGsyybhwf d C-CDA narrative text[address] 03FELERSGDRACULHXQJYDSZP3510-78-99 T16:44:211.2.840.983803.1.72.3.15| 1.2.840.938732.1.13.104.2.7.2.7278 79_[id number] [facility] 2023-11-19 15:38:58 2765-69-02G97:38:58F ormatting of this note might be different from the original.Copied from [facility] #[id number]. Topic: Customer Service - Missed Call from Provider>> Nov 19, 2023 3:38 PM Patient Oncology Nurse wrote:Dianna Trejo is a 68 year old femalePt was calling missed call backPlease advise 18069-4Xnzvftgdt encounter QlamSK2127-75-84K45:40:32Telephone encounter NoteTXT1.2.840.350145.1.13.104.2.7 .2.332694|[id number] for patient obag55565-2EkqmXBAYBZBTPPMDzhlwfgz d C-CDA narrative lwrk21605550Dkppjgqa N [place] 88EDNPVLDPZOMUCZLDCFCZFI5622-15-23 T15:40:321.2.840.723029.1.72.3.15| 1.2.840.751237.1.13.104.2.7.2.7278 79_[id number] Marah Lee [facility] 2023-11-19 15:20:30 7086-17-29N68:20:30F ormatting of this note might be different from the original.Left patient message to return call to clinic. 88217-7Qhxbtudon encounter UdlqJU7143-63-70G11:20:54Telephone encounter NoteTXT1.2.840.669808.1.13.104.2.7 .2.560791|[id number] for patient adch22638-1EhrpUPUFRZZMAHDOukcfopi d C-CDA narrative jmtt524747117Durb Sheavly RN[address] 83ATSSRJSXAVEVKHEXEWVJRG6305-15-66 T15:20:541.2.840.791004.1.72.3.15| 1.2.840.946596.1.13.104.2.7.2.7278 79_[id number] Nikita Figueroa RN [facility] 2023-11-19 15:04:31 3070-93-41N23:04:31F ormatting of this note might be different from the original.Reduce nifedipine to [address] Mcintyre. No testing now. 60105-4Icyejqsar encounter MwnrTV7581-25-87W61:04:51Telephone encounter NoteTXT1.2.840.704200.1.13.104.2.7 .2.903618|[id number] for patient xhnl09429-8PqfhOYOELLYGMPXIbgciauo d C-CDA narrative textIM-CARDIOVASCULAR DISEASE STAFFIM-CARDIOVASCULAR DISEASE STAFF[address] 12PQHYWEEXNCKKLUOSIWYOUB2942-14-86 T15:04:511.2.840.084279.1.72.3.15| 1.2.840.354032.1.13.104.2.7.2.7278 79_[id number] IM-CARDIOVASCULAR DISEASE STAFF [facility] 2023-11-19 14:57:52 1340-74-81D84:57:52F ormatting of this note might be different from the original.Attempted to return call. Left vm. Needing update on today's BP/HR readings. And if any cardiac testing done? Where? May need get copies or call to give verbal permission to fax to our facility. [phone]. 39018-3Yuikrobpe encounter CymgDD0499-18-55V12:01:35Telephone encounter NoteTXT1.2.840.028820.1.13.104.2.7 .2.023141|[id number] for patient ephh37857-7GyjvBVRZCAHPYUZKdffckcg d C-CDA narrative text[address] UntjIdsrpbqkvWtjtrtwrzHHXP90590910 80JTAJDUVSPQGKDDAIFOLJLT4985-93-30 T15:01:351.2.840.257520.1.72.3.15| 1.2.840.758062.1.13.104.2.7.2.7278 79_[id number] [facility] 2023-11-19 08:48:18 2592-67-65G19:48:18F ormatting of this note might be different from the original.Copied from [facility] #[id number]. Topic: Clinical - Medical Advice>> Nov 19, 2023 8:45 AM Patient Oncology Nurse wrote:Patient calling needing to speak with nurse. She stated after taking her second dose of Nifedipine last night at 7:00 PM her BP was 146/82/68, then she took it again at 9:00 PM 128/64/82, then at 10:00 PM her pulse was 120. She then went to ER and had Xray done. She is needing to speak with the provider. Per patient is not having any symptoms at the time of call. Please advise 33284-3Mdpngdxze encounter AhajGE9303-97-60E76:49:00Telephone encounter NoteTXT1.2.840.338435.1.13.104.2.7 .2.757929|[id number] for patient jezv41253-8CxxkXYUTUPVKRCXHufcbitq d C-CDA narrative zwha884768946Oqosa [address] 69FINASCTEFGUIUQWQRWHBTZ0923-55-38 T08:49:001.2.840.699179.1.72.3.15| 1.2.840.957248.1.13.104.2.7.2.7278 79_[id number] Mame Guillen [facility] 2023-11-18 09:34:10 8043-56-72G71:34:10F ormatting of this note might be different from the original.Notified patient per Dr Velazquez (Dr Mcintyre is out of the clinic):BP log reviewedBP has been high, patient to increase Nifedipine to 60 mg daily.Patient verbal understanding and stated she would contact us when to send a refill to the pharmacy.BP log scanned into chart. 20253-5Ogzkslpqp encounter VrmtBK3503-74-70D92:35:58Telephone encounter NoteTXT1.2.840.817301.1.13.104.2.7 .2.394882|3893517870TIMkwpwlauj for patient stbt45660-1KkltECWEFKJJSDNRmxhcrhq d C-CDA narrative text[address] 66HVXWYVPSWATLGRKYUTJWQZ0564-69-02 T09:35:581.2.840.324528.1.72.3.15| 1.2.840.016444.1.13.104.2.7.2.7278 79_[id number] [facility] 2023-10-31 10:07:36 9927-85-24F43:07:36F ormatting of this note might be different from the original.Patient notified. Pleased. Will bring BP logs as requested. 93059-0Idbedvxcn encounter HamuFW5663-70-17M22:07:49Telephone encounter NoteTXT1.2.840.044272.1.13.104.2.7 .2.093587|[id number] for patient verv20791-6DeezJAHNDWEVNGYIhgqjhlt d C-CDA narrative textUT[address] StreetUhyxDhtpymrcuKctzzsstoKRTE00946604 32IDXQNERXPKYLDFSWWMLGCY2664-95-03 T10:07:491.2.840.855442.1.72.3.15| 1.2.840.667161.1.13.104.2.7.2.7278 79_[id number] [facility] 2023-10-29 18:47:52 9050-55-54B57:47:52F ormatting of this note might be different from the original.Images from the original note were not included.Blood pressure log reviewed. Acceptable. Will continue to monitor.Continue carvedilol 12.5 twice daily and olmesartan 40 mg daily.Continue Procardia XL 30 mg daily.Recommend to bring blood pressure log for the upcoming office visit next month.10/29/2023 23270-1Ahvtqumjz encounter HpocMW3425-58-09C81:49:20Telephone encounter NoteTXT1.2.840.498846.1.13.104.2.7 .2.208314|[id number] for patient dpvk16140-9IxufKOTHYAGSNIJLcsdmivs d C-CDA narrative text[address] 10FHCCEZOQPEOOMRINGXHDHF1316-05-01 T18:49:201.2.840.730391.1.72.3.15| 1.2.840.425031.1.13.104.2.7.2.7278 79_[id number] [facility] 2023-10-28 16:53:46 9358-62-69J39:53:46F ormatting of this note might be different from the original.Received patient BP log putting into Dr Mcintyre folder for review 68199-6Mkkyotiwi encounter DvxaJR9053-07-48X13:54:25Telephone encounter NoteTXT1.2.840.139591.1.13.104.2.7 .2.964346|[id number] for patient nlek68611-5QfpoEHRTMOZRZBIVjdtzrwr d C-CDA narrative bgnl171436212Tfnebcr Castillo MA[address]TXTX[address] 70YGRRHSGSGNZFTBFQCRVDYL5577-43-25 T16:54:251.2.840.551893.1.72.3.15| 1.2.840.677110.1.13.104.2.7.2.7278 79_[id number] Kyra Floyd MA [facility] 2023-10-28 09:37:58 1906-94-75B20:37:58F ormatting of this note is different from the original.Requested PrescriptionsPending Prescriptions Disp RefillsCARVEDILOL 12.5 mg tablet [Pharmacy Med Name: CARVEDILOL 12.5MG TABLETS] 60 tablet 3Sig: TAKE 1 TABLET BY MOUTH IN THE MORNING AND IN THE EVENING. TAKE WITH MEALS. DO THIS FOR 30 DAYSCardiovascular: Beta Blockers Passed - 10/27/2023 5:02 PMPassed - Valid encounter within last 12 monthsRecent VisitsDate Type Provider Dept09/16/23 Office Visit Aye Mcintyre MD [facility] Cardiology Yiibsgx81/09/23 Office Visit Aye Mcintyre MD [facility] Cardiology FacultyShowing recent visits within past 365 days and meeting all other requirementsFuture AppointmentsDate Type Provider Dept11/27/23 Appointment Aye Mcintyre MD [facility] Ugwebnt57/23/24 Appointment Aye Mcintyre MD [facility] Cardiology FacultyShowing future appointments within next 365 days and meeting all other requirementsPassed - Heart rate within normal limits and completed in the last 12 monthsPulse Readings from Last 1 Encounters:10/14/23 64 85958-6Svwewkubb encounter PhazGN9333-13-38S15:37:58Telephone encounter NoteTXT1.2.840.415937.1.13.104.2.7 .2.910272|[id number] for patient ieck29163-1QtvqCACUJKINEPAVobeunpu d C-CDA narrative [id number] L Sosa MA[address] VgyoTfqdzarpuMmdlimedtSIJP36531440 65AOGXYOPULIOOMTJCDODXRT4082-03-19 T09:37:581.2.840.693236.1.72.3.15| 1.2.840.205309.1.13.104.2.7.2.7278 [id number] Claudia Dunn MA [facility] 2023-10-16 10:49:05 2282-48-62J43:49:05F ormatting of this note might be different from the original.Cardiac Clearance request received via fax from [facility] and placed in Dr Mcintyre's folder to be reviewed.Last O/V - 10/15/2023Last EKG - 07/15/2023Last ECHO - 01/24/2021r Jonathan signed Clearance.Clearance form and clinical notes faxed back to clinic per Dr Mcintyre. 66202-3Qymlsynsc encounter NsecJW5749-90-32W99:52:22Telephone encounter NoteTXT1.2.840.991409.1.13.104.2.7 .2.964469|[id number] for patient ekph72048-7UqemRHCMOFJQFCFFczsatvp d C-CDA narrative text[address] 06JDEECQGGPCZSIYXSYKOZKL0499-67-74 T10:52:221.2.840.498078.1.72.3.15| 1.2.840.376755.1.13.104.2.7.2.7278 [id number] [facility] 2023-10-04 12:45:04 1533-68-09S86:45:04A ddended by: NIKITA FIGUEROA RN on: 10/04/2023 12:45 PMModules accepted: Orders 89783-1Ypsavnjr ZzlpnhkrEP6461-83-86H48:45:04Adden dum DocumentTXT1.2.840.267551.1.13.104 .2.7.2.726181|[id number] e for patient ivij61900-8FyujDYABQXLYEPEZbmqaebw d C-CDA narrative text[address] 52ARTFMCPKFPFHVQGQEJHTIF0060-22-45 T12:45:041.2.840.672309.1.72.3.15| 1.2.840.531700.1.13.104.2.7.2.7278 79_[id number] [facility] 2023-10-04 12:43:32 0703-42-21G62:43:32F ormatting of this note might be different from the original.Patient notified of Dr. Mcintyre's recommendations. She verbalized understanding and has no further questions. eRx for nifedipine XL 30 mg sent to patient's pharmacy. 56883-5Yigvrcnsp encounter NazmMX4606-69-44N86:44:19Telephone encounter NoteTXT1.2.840.454142.1.13.104.2.7 .2.884002|0423663031CIAxzelepon for patient qucr51005-5UyaqJRMNLQNREBZKugkrwcy d C-CDA narrative text[facility]TX[address] 64HPLFQOIKBESAGDPHFDRVFR1082-66-29 T12:44:191.2.840.500167.1.72.3.15| 1.2.840.248049.1.13.104.2.7.2.7278 [id number] [facility] 2023-10-04 10:40:03 9081-29-46X35:40:03A ddended by: NIKITA FIGUEROA RN on: 10/04/2023 10:40 AMModules accepted: Orders 92911-8Tolcfhlj LxbrclwgVS8226-67-61K83:40:03Adden dum DocumentTXT1.2.840.442152.1.13.104 .2.7.2.545055|[id number] e for patient ybvr23414-0QkpzUDCSTMLJQWVOsaqsigu d C-CDA narrative Alexis Bittar[address] 16VUARKJHCIVCAOCYVSVLESN1239-11-70 T10:40:031.2.840.640310.1.72.3.15| 1.2.840.796711.1.13.104.2.7.2.7278 79_[id number] [facility] 2023-10-04 10:39:31 1549-12-71R97:39:31F ormatting of this note might be different from the original.Attempted to contact patient with results/recommendations. LVM for patient to return call to [phone]. 22500-5Lcjfewtvg encounter UcpmQJ5789-16-59B53:39:41Telephone encounter NoteTXT1.2.840.621200.1.13.104.2.7 .2.703219|7878826310RGTwqrckgde for patient raps29152-0RlwxPECDDKJCWXMEbrvcwui d C-CDA narrative [employer] 13IOIGTIRKOHYDWFOCRNAKXB1151-89-90 T10:39:411.2.840.678016.1.72.3.15| 1.2.840.339204.1.13.104.2.7.2.7278 79_[id number] [facility] 2023-10-03 20:12:31 7797-77-70I56:12:31F ormatting of this note might be different from the original.Blood pressure log reviewed.Continue carvedilol 12.5 twice daily and olmesartan 40 mg daily.Recommended starting Procardia XL 30 mg daily.Repeat blood pressure log in 2 weeks. 85753-9Ghtghelmu encounter GqscPE3587-10-42T61:14:42Telephone encounter NoteTXT1.2.840.373701.1.13.104.2.7 .2.352892|[id number] for patient jtzn38585-4SouxYRRBXJAABJXVcbpsstf d C-CDA narrative [employer] 15TQCKUHQHZSAUBGWRRQXRKE0930-72-48 T20:14:421.2.840.971306.1.72.3.15| 1.2.840.575729.1.13.104.2.7.2.7278 79_[id number] [facility] 2023-10-02 09:38:28 0526-47-70O24:38:28F ormatting of this note might be different from the original.Dianna Trejo is a 68 year old female patient calling to report BP reading2/8/24 BP 152/73 HR 62 8:30AM2/9/24 BP 155/71 HR 70 8:00AM2/10/24 BP 139/69 HR 68 9:00AM2/11/24 BP 153/72 HR 61 9:00AM2/12/24 BP 166/79 HR 67 9:00AM2/13/24 BP Not recorded2/14/24 BP 114/60 HR 70 9:00AM2/15/24 BP 162/78 HR 72 9:00AM2/16/24 BP 147/80 HR 67 9:00AM2/17/24 BP 138/63 HR 65 9:00AM2/18/24 BP 156/79 HR 71 9:00AM2/19/24 BP 153/79 HR 68 9:00AM2/20/24 BP 156/77 HR 67 9:00AM2/21/24 BP 135/56 HR 68 9:00AM 64418-2Bdgbcrgme encounter RtgmRO4096-38-27J79:45:37Telephone encounter NoteTXT1.2.840.017419.1.13.104.2.7 .2.649859|0115834673KQTqotmxzuu for patient jnnh27069-8PlokKLYULPFTLQCJayktsqr d C-CDA narrative sutd484891876Ghuob Kenny[address] FivhIiibwmqtbBqymptpzoGWPA75389263 00DXQVEMRBEKOQIFUIJFBSKJ1129-01-07 T09:45:371.2.840.897918.1.72.3.15| 1.2.840.335074.1.13.104.2.7.2.7278 79_[id number] Shannon Patel [facility] 2023-09-13 19:13:31 1084-97-14N31:13:31F ormatting of this note might be different from the original.Chart reviewed. Will discuss in upcoming office visit 09/16/2023.Based open office note, patient was taking lisinopril 10 twice daily along with carvedilol 6.25 twice daily. Likely that increased the carvedilol to 12.5 twice daily during recent ER visit. 71911-2Xlsxzjzop encounter SwevWA4688-34-81B24:14:39Telephone encounter NoteTXT1.2.840.292048.1.13.104.2.7 .2.931494|[id number] for patient cjms74873-7XrrpZMWYIXIHHBWZdzwbivj d C-CDA narrative text[address] HlouGpzewotfiFvlfmrjqeVKWN06212873 73TKTMEBRTAABOMORIRJQGZH9564-58-55 T19:14:391.2.840.555573.1.72.3.15| 1.2.840.791128.1.13.104.2.7.2.7278 79_[id number] [facility] 2023-09-13 09:08:40 9289-63-67P90:08:40F ormatting of this note might be different from the original.Patient called back. She did go to the [facility] on 09/10/23. She was discharged and it sounds like they sent her a refill of 12.5 carvedilol which she is already taking, so no new medications.Patient states her BP is still elevated 170s-180s.She has been scheduled for Saturday09/16/[address] Martinezectronically signed by Nikita Figueroa RN at 09/13/2023 9:10 AM EWM57846-4Iubujjfhw encounter TbwrHX8757-89-55I37:10:45Telephone encounter NoteTXT1.2.840.221882.1.13.104.2.7 .2.565712|6604029988NRLgyoxjhbq for patient cxyg32737-8JbomSPHQLUHAXXOVaxzekwl d C-CDA narrative twex894160369Djbq Sheavly [address] 43DWEJZIANPCZLJRXIZTWFBO4155-99-30 T09:10:451.2.840.337391.1.72.3.15| 1.2.840.763466.1.13.104.2.7.2.7278 79_[id number] Nikita Figueroa RN [facility] 2023-09-13 08:59:36 8037-59-68G18:59:36F ormatting of this note might be different from the original.Patient calling to speak with nurse in regards to her medications. Warm transferred to clinic nurse 78057-0Wsyizuarp encounter YlezCD0729-42-89A41:00:48Telephone encounter NoteTXT1.2.840.015337.1.13.104.2.7 .2.494817|5769198702TDBtwkablkw for patient itfe48119-1KzyrURMWHJNCRLNWqswkbpv d C-CDA narrative mztb770969721Opvwi [address] 60FIDKYALMOEENNJDHUEVVHR7104-54-10 T09:00:481.2.840.645070.1.72.3.15| 1.2.840.170916.1.13.104.2.7.2.7278 79_[id number] Mame Guillen [facility] 2023-09-10 12:59:10 9301-71-26P54:59:10F ormatting of this note might be different from the original.Spoke with patient she does not have a [...] Nikita Figueroa RN at 09/10/2023 1:12 PM NPH33596-0Abpokkjbl encounter ZigkCT7021-84-33H69:12:59Telephone encounter NoteTXT1.2.840.096003.1.13.104.2.7 .2.725469|0966776049QFEtcpccjnf for patient fnkx99716-3MiwrGFASWNOAPSHFxewxdkj d C-CDA narrative text[address] NnosYedytbmxwGdqkbtjmgZDPY55307983 86JHKYDPQRSSCGZQKEGIRTWO1954-05-55 T13:12:591.2.840.969877.1.72.3.15| 1.2.840.227322.1.13.104.2.7.2.7278 79_[id number] [facility] 2023-09-10 12:43:41 1573-17-50O06:43:41F ormatting of this note might be different from the original.Dianna Trejo is a 68 year old femalePatient is returning nurse call.Please advise. 39544-0Menvdzpnd encounter YgxnSP5778-53-33O86:45:06Telephone encounter NoteTXT1.2.840.093235.1.13.104.2.7 .2.556658|2404762611CNIxcmxmzud for patient jyrs62269-9EpeyKCOWBLWMJPHZkdsxffd d C-CDA narrative mhfb392524100Mpfwxjyff A [address] 19BDHVZCPJFZTFJSMOWNJIDP7567-85-62 T12:45:061.2.840.202564.1.72.3.15| 1.2.840.030558.1.13.104.2.7.2.7278 [id number] Yuliya Hidalgo [facility] 2023-09-10 09:49:05 2607-02-90O95:49:05F ormatting of this note might be different from the original.Attempted to return call to patient. LVM asking for a BP log, advised her to send on My Chart. Provided patient with call back number. Will try back again later. 74185-0Cyuntoeis encounter CwfeUG6144-97-51W43:49:58Telephone encounter NoteTXT1.2.840.289958.1.13.104.2.7 .2.387384|[id number] for patient ewsr03070-2RetcMMHRUPXBCTDJmqdcqor d C-CDA narrative text[id number] 88UZYUCBHPHTHDXEPPUDZXSE7621-47-50 T09:49:581.2.840.026250.1.72.3.15| 1.2.840.869762.1.13.104.2.7.2.7278 [id number] [facility] 2023-09-09 16:28:10 0145-56-51O09:28:10F ormatting of this note might be different from the original.Dianna Trejo is a 68 year old femalePt is calling stating her BP is always high (current BP is 199/89) wants to know if the dr can prescribe higher dosages of her current medication. 3RX: lisinopriL 10 mg tablet, aspirin 81 mg EC tablet, carvediloL 6.25 mg tablet( pt states she has 12.5 mg). Pt didn't want to speak to an nurse about symptoms. 05732-5Xrvoasazw encounter ZhoyZE2621-01-33G19:31:48Telephone encounter NoteTXT1.2.840.826536.1.13.104.2.7 .2.349769|[id number] for patient qnba57890-2XfzqIOPQVZROOJSJimlbmez d C-CDA narrative [id number] [id number] 94BGJHQRJUTVSOVLYUMQWLCX9326-71-00 T16:31:481.2.840.790250.1.72.3.15| 1.2.840.135602.1.13.104.2.7.2.7278 [id number] Marah Lee [facility] 2023-04-05 10:15:00 2905-84-83V88:15:00F ormatting of this note is different from the original.Images from the original note were not included.Venipuncture collection performed by clean technique on the right anticubitus. Total of 1 attempts were made. Slight pressure and a bandage/dressing were applied to the site(s). The patient experienced no complications. The following specimens were processed according to instructions and sent to [facility] laboratories per lab order on 04/05/2023: LT BLUE SST 1 RED LAV 1 PPT DK GREEN (LiHep) DK GREEN (SodH) ALVARADO DK BLUE (K2) DK BLUE (S) ACD Blood Culture NIPT/NTD 62910-2Pcmsv ElpvAK3083-01-85C26:14:48Nurse NoteTXT1.2.840.103612.1.13.104.2.7 .2.173169|[id number] for patient cavf06161-2Bsbdv NoteLN[id number] 94TCCPSTWNOIFMSHWYSXFDND2735-74-08 T10:14:481.2.840.846460.1.72.3.15| 1.2.840.257819.1.13.104.2.7.2.7278 79_[id number] [facility]
[2024-01-22] MEDS ORDERED: METOCLOPRAMIDE 10 MG/2mL INJ ONE (02:52)
[2024-01-22] MEDS ORDERED: cloNIDine HCL 0.1 MG TAB ONE (02:52)
[2024-01-22 03:58] LABS: Absolute Eosinophils 0.1 K/uL (0-0.5); Absolute Lymphocytes (CBC) 1.4 K/uL (0.7-4.9); Absolute Monocytes 0.6 K/uL (0.1-1.3); Absolute Neutrophil 4.5 K/uL (1.8-8.0); Basophils % 0.4 % (0-1.3); Eosinophils % 1.4 % (0-4.4); Hematocrit 36.2 % (36.0-45.0); Hemoglobin 12.1 g/dL (12.0-15.0); Lymphocytes % 20.6 % (15.3-44.8); MCH 29.4 pg (27.0-35.0); MCHC 33.4 g/dL (32.0-36.0); MCV 88.2 fL (80-100); MPV 8.3 fL (7.6-11.3); Monocytes % 9.4 % (3.3-12.3); Neutrophils % 68.2 % (41.7-73.7); Nucleated RBC Absolute Count 0.1 (0-0); PT Prothrombin Time 10.7 SECONDS (9.5-12.5); Platelets 217 thou/uL (152-406); Protime INR 0.97; RBC Red Blood Cell Count 4.11 M/uL (3.86-4.86); Red Cell Distribution Width 13.4 % (12.1-15.2)
[2024-01-22 05:31] LABS: Potassium 3.8 mEq/L (3.5-5.1)
[2024-01-22 05:32] LABS: Anion Gap 8.8 mEq/L (5.0-15.0); Bilirubin Direct 0.1 mg/dL (0-0.2); Bilirubin Indirect, Calculated 0.2 mg/dL (0.2-0.8); Bilirubin Total 0.3 mg/dL (0.2-1.0)
[2024-01-22 05:33] LABS: Albumin 3.7 g/dL (3.4-5.0); Albumin/Globulin Ratio 1.2 (1.1-1.8); Globulin 3.2 g/dL (2.3-3.5); Magnesium 2.2; Protein, Total 6.9 g/dL (6.4-8.2); Troponin High Sensitivity 5.2 (<58.9)
--- NOTE | 2024-01-22 05:50 | ER ---
Nurse's Notes [facility] Name: Lia Trejo Age: 68 yrs Sex: Female : 1955 Arrival Date: 01/22/2024 Time: 01:38 Bed 7 Private MD: Diagnosis: Anxiety disorder, unspecified;Essential (primary) hypertension Presentation: 01/21 02:26 Chief complaint: Patient states: I can feel my heart beating in my head and I feel like vc1 I'm having trouble catching my breath. It feels like it is coming from the middle of the top of my stomach. Coronavirus screen: Vaccine status: Patient reports receiving the 2nd dose of the covid vaccine. Client denies travel out of the [place] in the last 14 days. At this time, the client does not indicate any symptoms associated with coronavirus-19. Ebola Screen: Patient negative for fever greater than or equal to 101.5 degrees Fahrenheit, and additional compatible Ebola Virus Disease symptoms Patient denies exposure to infectious person. Patient denies travel to an Ebola-affected area in the 21 days before illness onset. No symptoms or risks identified at this time. Initial Sepsis Screen: Does the patient meet any 2 criteria? No. Patient's initial sepsis screen is negative. Does the patient have a suspected source of infection? No. Patient's initial sepsis screen is negative. Risk Assessment: Do you want to hurt yourself or someone else? Patient reports no desire to harm self or others. Onset of symptoms was January 22, 2024. 02:26 Method Of Arrival: Ambulatory vc1 02:26 Acuity: BRAYDEN 3 vc1 Triage Assessment: 02:34 General: Appears in no apparent distress. comfortable, well groomed, Behavior is calm, vc1 cooperative, appropriate for age. Pain: Denies pain. EENT: No deficits noted. No signs and/or symptoms were reported regarding the EENT system. Neuro: Level of Consciousness is awake, alert, obeys commands, Oriented to person, place, time, situation, Appropriate for age. Respiratory: Reports shortness of breath at rest Airway is patent Respiratory effort is even, unlabored, Respiratory pattern is regular, symmetrical, the patient has mild shortness of breath. GI: Abdomen is round non-distended, Abd is soft and non tender Patient currently denies pain. Historical: - Allergies: 02:31 Codeine; vc1 02:31 PENICILLINS; vc1 02:31 Sulfa (Sulfonamide Antibiotics); vc1 - PMHx: 02:31 Anxiety; Bipolar disorder; COPD; Crohn's; Depression; Hyperlipidemia; Hypertension; vc1 Thyroid problem; - PSHx: 02:31 Cholecystectomy; hysterectomy; vc1 - Immunization history:: Client reports receiving the 2nd dose of the Covid vaccine, Flu vaccine is up to date. - Infectious Disease History:: Denies. - Social history:: Smoking status: Patient/guardian denies using tobacco, Stopped _ months ago 6. - Family history:: not pertinent. Screenin:33 [facility] ED Fall Risk Assessment (Adult) History of falling in the last 3 months, vc1 including since admission No falls in past 3 months (0 pts) Confusion or Disorientation No (0 pts) Intoxicated or Sedated No (0 pts) Impaired Gait No (0 pts) Mobility Assist Device Used No (0 pt) Altered Elimination No (0 pt) Score/Fall Risk Level 0 - 2 = Low Risk Oriented to surroundings, Maintained a safe environment, Educated pt \T\ family on fall prevention, incl call for assistance when getting out of bed. Abuse screen: Denies threats or abuse. Nutritional screening: No deficits noted. Tuberculosis screening: No symptoms or risk factors identified. Assessment: 03:05 General: Appears in no apparent distress. Behavior is calm, cooperative, appropriate bm8 for age. Pain: Denies pain. Neuro: No deficits noted. Cardiovascular: Rhythm is sinus rhythm. Cardiovascular: Reports Edema is 2+ to left lower thigh, left midcalf, left ankle, right lower thigh, right midcalf and right ankle. Respiratory: Reports shortness of breath. GI: Abd is soft X 4 quads Reports bloating, gaseousness, Patient currently denies pain. : Reports urinary frequency. Derm:. Musculoskeletal:. 05:22 Reassessment: Patient is alert, oriented x 3, equal unlabored respirations, skin rg5 warm/dry/pink. Reassessment: Patient is alert, oriented x 3, equal unlabored respirations, skin warm/dry/pink. Patient states symptoms have improved. General: Appears comfortable, Behavior is calm, cooperative, appropriate for age. Pain: Denies pain. Neuro: No deficits noted. Respiratory: Breath sounds are clear bilaterally. GI: No signs and/or symptoms were reported involving the gastrointestinal system. Vital Signs: 02:26 BP 192 / 71; Pulse 87; Resp 20; Temp 98.5; Pulse Ox 97% ; Weight 92.08 kg; Height 5 ft. vc1 5 in. ; Pain 0/10; 02:58 BP 146 / 119; Pulse 78; Resp 19; Temp 98.6; Pulse Ox 96% ; bm8 04:21 BP 126 / 55; Pulse 70; Resp 18; Pulse Ox 96% on R/A; jw7 05:32 BP 144 / 60; Pulse 71; Resp 18; Temp 97.9; Pulse Ox 96% on R/A; rg5 02:26 Body Mass Index 33.78 (92.08 kg, 165.1 cm) vc1 02:26 Pain Scale: Adult vc1 Vitals: 03:00 Cardiac Rhythm Assessment Regular Sinus rhythm. bm8 Jonas Coma Score: 05:50 Eye Response: spontaneous(4). Motor Response: obeys commands(6). Verbal Response: sp4 oriented(5). Total: 15. ED Course: 01:43 Patient arrived in ED. gm2 01:52 Jeronimo Harper MD is Attending Physician. sp4 02:30 Triage completed. vc1 02:32 Arm band placed on right wrist. vc1 02:59 Chest Single View XRAY In Process Unspecified. EDMS 03:07 Magnesium Sent. jw7 03:07 LFT's Sent. jw7 03:07 CBC with Diff Sent. jw7 03:07 Basic Metabolic Panel Sent. jw7 03:07 NT PRO-BNP Sent. jw7 03:07 PT-INR Sent. jw7 03:07 Troponin HS Sent. jw7 06:02 Patient has correct armband on for positive identification. Bed in low position. Call rg5 light in reach. Provided Education on: post ER CARE. Client placed on continuous cardiac and pulse oximetry monitoring. NIBP monitoring applied. monitoring tech on. Pulse ox on. NIBP on. 06:02 No provider procedures requiring assistance completed. IV discontinued, intact, rg5 bleeding controlled, No redness/swelling at site. Pressure dressing applied. Administered Medications: 03:02 Drug: cloNIDine PO 0.1 mg PO once Route: PO; bm8 05:28 Follow up: Response: No adverse reaction bm8 03:03 Drug: metoCLOPramide IVP 10 mg IVP once; over 1 to 2 minutes Route: IVP; Site: right bm8 antecubital; 05:28 Follow up: Response: No adverse reaction bm8 Medication: 06:02 VIS not applicable for this client. rg5 Outcome: 05:50 Discharge ordered by . simeon 06:02 Discharged to home ambulatory, rg5 06:02 Condition: stable 06:02 Discharge instructions given to patient, Instructed on discharge instructions, Demonstrated understanding of follow-up care, 06:06 Patient left the ED. rg5 Signatures: Dispatcher [employer] EDMS Sarah Massey RN RN vc1 Subha Asif, RN RN jw7 Jeronimo Harper MD MD sp4 Mary Bryan 2 Valentin Dela Cruz RN RN bm8 Ry Storm, RN RN rg5
--- NOTE | 2024-01-22 05:50 | EDPHYS ---
Physician Documentation [facility] Name: Lia Trejo Age: 68 yrs Sex: Female : 1955 Arrival Date: 01/22/2024 Time: 01:38 Bed 7 Private MD: ED Physician Jeronimo Harper HPI: 01/21 01:52 This 68 yrs old Female presents to ER via Unassigned with complaints of sp4 Abdominal Pain, Shortness Of Breath. 05:50 68-year-old female presents with symptoms of anxiety associated with a little nausea sp4 and elevated blood pressure. Patient reported concurrent shortness of breath. . Historical: - Allergies: 02:31 Codeine; vc1 02:31 PENICILLINS; vc1 02:31 Sulfa (Sulfonamide Antibiotics); vc1 - PMHx: 02:31 Anxiety; Bipolar disorder; COPD; Crohn's; Depression; Hyperlipidemia; Hypertension; vc1 Thyroid problem; - PSHx: 02:31 Cholecystectomy; hysterectomy; vc1 - Immunization history:: Client reports receiving the 2nd dose of the Covid vaccine, Flu vaccine is up to date. - Infectious Disease History:: Denies. - Social history:: Smoking status: Patient/guardian denies using tobacco, Stopped _ months ago 6. - Family history:: not pertinent. ROS: 05:50 Constitutional: Negative for fever, chills, and weight loss, positive for anxiety, sp4 positive for dyspnea, positive for nausea. 05:50 All other systems are negative, Exam: 05:40 ECG was reviewed by the Attending Physician. EKG time 0 219 normal sinus rhythm at a sp4 rate of 85. Normal EKG 05:50 Constitutional: This is a well developed, well nourished patient who is awake, alert, sp4 and in no acute distress. Head/Face: Normocephalic, atraumatic. Eyes: Pupils equal round and reactive to light, extra-ocular motions intact. Lids and lashes normal. Conjunctiva and sclera are not injected. Cornea within normal limits. Periorbital areas with no swelling, redness, or edema. ENT: Nares patent. No nasal discharge, no septal abnormalities noted. Tympanic membranes are normal and external auditory canals are clear. Oropharynx with no redness, swelling, or masses, exudates, or evidence of obstruction, uvula midline. Mucous membranes moist. Neck: Trachea midline, no thyromegaly or masses palpated, and no cervical lymphadenopathy. Supple, full range of motion without nuchal rigidity, or vertebral point tenderness. Chest/axilla: Normal chest wall appearance and motion. Nontender with no deformity. No lesions are appreciated. Cardiovascular: Regular rate and rhythm with a normal S1 and S2. No gallops, murmurs, or rubs. Normal PMI, no JVD. No pulse deficits. Respiratory: Lungs have equal breath sounds bilaterally, clear to auscultation and percussion. No rales, rhonchi or wheezes noted. No increased work of breathing, no retractions or nasal flaring. Abdomen/GI: Soft, with normal bowel sounds. No distension or tympany. No guarding or rebound. No evidence of tenderness throughout. Back: No spinal tenderness. No costovertebral tenderness. Skin: Warm, dry with normal turgor. Normal color with no rashes, no lesions, and no evidence of cellulitis. MS/ Extremity: Pulses equal, no cyanosis. Neurovascular intact. Full, normal range of motion. Neuro: Awake and alert, GCS 15, oriented to person, place, time, and situation. Cranial nerves II-XII grossly intact. Motor strength 5/5 in all extremities. Sensory grossly intact. Psych: Awake, alert, with orientation to person, place and time. Behavior, mood, and affect are within normal limits Vital Signs: 02:26 BP 192 / 71; Pulse 87; Resp 20; Temp 98.5; Pulse Ox 97% ; Weight 92.08 kg; Height 5 ft. vc1 5 in. ; Pain 0/10; 02:58 BP 146 / 119; Pulse 78; Resp 19; Temp 98.6; Pulse Ox 96% ; bm8 04:21 BP 126 / 55; Pulse 70; Resp 18; Pulse Ox 96% on R/A; jw7 05:32 BP 144 / 60; Pulse 71; Resp 18; Temp 97.9; Pulse Ox 96% on R/A; rg5 02:26 Body Mass Index 33.78 (92.08 kg, 165.1 cm) vc1 02:26 Pain Scale: Adult vc1 Jonas Coma Score: 05:50 Eye Response: spontaneous(4). Motor Response: obeys commands(6). Verbal Response: sp4 oriented(5). Total: 15. MDM: 01:53 Patient medically screened. sp4 05:42 ED course: EXAM: XR Chest, 1 View CLINICAL HISTORY: The patient is 68 years old and is sp4 Female; CHEST PAIN TECHNIQUE: Frontal view of the chest. COMPARISON: No relevant prior studies available. FINDINGS: Lungs: Prominent interstitial markings which may represent chronic changes and/or mild interstitial edema. Mild hazy bibasilar opacification. Pleural space: Unremarkable. No pneumothorax. Heart: Unremarkable. Mediastinum: Unremarkable. Normal mediastinal contour. Bones/joints: No acute findings. IMPRESSION: Prominent interstitial markings which may represent chronic changes and/or mild interstitial edema. Mild hazy bibasilar opacification. . 05:50 Differential diagnosis: Anemia Anxiety Reaction CHF exacerbation, Psychogenic. Data sp4 reviewed: vital signs, nurses notes, lab test result(s), EKG, radiologic studies, plain films. ED course: There is improvement after medications. Patient feels better. 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 01/21 01:53 Order name: Basic Metabolic Panel; Complete Time: 05:41 sp4 01/21 01:53 Order name: CBC with Diff; Complete Time: 05:41 4 01/21 01:53 Order name: LFT's; Complete Time: 05:41 sp4 01/21 01:53 Order name: Magnesium; Complete Time: 05:41 4 01/21 01:53 Order name: NT PRO-BNP; Complete Time: 05:41 4 01/21 01:53 Order name: PT-INR; Complete Time: 05:41 4 01/21 01:53 Order name: Troponin HS; Complete Time: 05:41 4 01/21 01:53 Order name: Lipase; Complete Time: 05:41 4 01/21 02:26 Order name: Chest Single View XRAY 4 01/21 01:53 Order name: Cardiac monitoring; Complete Time: 02:50 4 01/21 01:53 Order name: EKG - Nurse/Tech; Complete Time: 02:49 4 01/21 01:53 Order name: IV Saline Lock; Complete Time: 02:50 4 01/21 01:53 Order name: Labs collected and sent; Complete Time: 03:07 sp4 01/21 01:53 Order name: O2 Per Protocol; Complete Time: 03:07 sp4 01/21 01:53 Order name: O2 Sat Monitoring; Complete Time: 03: sp4 EC:40 Rate is 85 beats/min. Rhythm is regular, Normal Sinus Rhythm. QRS [place] is Normal. MA sp4 interval is normal. QRS interval is normal. QT interval is normal. No Q waves. T waves are Normal. No ST changes noted. Clinical impression: Normal ECG. Interpreted by me. Reviewed by me. Administered Medications: 03:02 Drug: cloNIDine PO 0.1 mg PO once Route: PO; bm8 05:28 Follow up: Response: No adverse reaction bm8 03:03 Drug: metoCLOPramide IVP 10 mg IVP once; over 1 to 2 minutes Route: IVP; Site: right bm8 antecubital; 05:28 Follow up: Response: No adverse reaction bm8 Disposition Summary: 01/22/24 05:50 Discharge Ordered Notes: Location: Home sp4 Problem: new sp4 Symptoms: have improved sp4 Condition: Stable sp4 Diagnosis - Anxiety disorder, unspecified sp4 - Essential (primary) hypertension sp4 Followup: sp4 - With: Private Physician - When: 7 - 10 days - Reason: Recheck today's complaints Discharge Instructions: - Discharge Summary Sheet sp4 - Hypertension, Adult sp4 Signatures: Dispatcher [employer] EDSarah Lozano RN RN vc1 Jeronimo Harper MD MD sp4 Valentin Dela Cruz RN RN bm8 Corrections: (The following items were deleted from the chart) 01:54 01:53 BASIC METABOLIC PANEL+C.LAB.BRZ ordered. EDMS EDMS 01:54 01:53 CBC+H.LAB.BRZ ordered. EDMS EDMS 01:54 01:53 HEPATIC FUNCTION+C.LAB.BRZ ordered. EDMS EDMS :54 01:53 MAGNESIUM+C.LAB.BRZ ordered. EDMS EDMS 01:54 01:53 PROBNP+C.LAB.BRZ ordered. EDMS EDMS 01:54 01:53 PROTIME (+INR)+COAG.LAB.BRZ ordered. EDMS EDMS 01:54 01:53 Troponin High Sensitivity+C.LAB.BRZ ordered. EDMS EDMS 01:54 01:53 LIPASE+C.LAB.BRZ ordered. EDMS EDMS
[2024-01-22 06:16] VITALS: O2SAT 96
[2024-01-22 06:33] VITALS: BP 144/60; TEMP 97.9
--- NOTE | 2024-01-22 13:08 | RAD REPORT ---
EXAM DESCRIPTION: XR Chest, 1 View CLINICAL HISTORY: The patient is 68 years old and is Female; CHEST PAIN TECHNIQUE: Frontal view of the chest. COMPARISON: No relevant prior studies available. FINDINGS: Lungs: Prominent interstitial markings which may represent chronic changes and/or mild i nterstitial edema. Mild hazy bibasilar opacification. Pleural space: Unremarkable. No pneumothorax. Heart: Unremarkable. Mediastinum: Unremarkable. Normal mediastinal contour. Bones/joints: No acute findings. IMPRESSION: Prominent interstitial markings which may represent chronic changes and/or mild intersti tial edema. Mild hazy bibasilar opacification. Electronically signed by: Parth Noyola MD 01/22/2024 03:59 AM CDT RP 8 Due to temporary technical issues with the PACS/Fluency reporting system, reports are being signed by the in house radiologist without review as a courtesy to ensure prompt reporting. The interpreting r adiologist is fully responsible for the content of the report.
--- NOTE | 2024-01-23 12:13 | EKG ---
Test Date: 2024-01-22 Test Time: 02:19:20 Senior Care Provider: STEFFANIE MEASUREMENT RESULTS: Intervals: Rate: 85 ND: 164 QRSD: 86 QT: 398 QTc: 473 [place]: P: 58 ND: 164 QRS: 13 T: 53 INTERPRETIVE STATEMENTS: Normal sinus rhythm Normal ECG Compared to ECG 11/18/2023 23:29:14 No significant changes Electronically Signed On 01-23-24 12:12:26 CDT by Nestor Dalal
== END 2024-01-22 06:06 | disposition home or self-care (01) ==
LOC: ER 01:38
DX: F41.9 Anxiety disorder, unspecified (principal); I10 Essential (primary) hypertension; R11.0 Nausea
CPT/HCPCS: 93005; 85025; 80048; 36415; 83735; 85610; 80076; 84484; 83690; 83880; 71045; 96374; 99285; J2765